=== PATIENT | female | born 1990 | race Caucasian/White ===

== ENCOUNTER 2022-12-30 09:12 | Outpatient (OUT) | payer OTHER, SELFPAY ==
[2022-12-30 10:03] LABS: Basophils Absolute Auto 0.1 10^3/uL (0.0-0.1); Basophils Percent Auto 0.9 % (0.2-2.0); Eosinophils Absolute Auto 0.5 10^3/uL (0.0-0.7); Hematocrit 44.7 % (36.0-48.0); Immature Granulocytes Abs Auto 0.02 10^3/uL (0.00-0.03); Immature Granulocytes Pct Auto 0.2 % (0.0-0.5); Lymphocytes Absolute Auto 2.6 10^3/uL (1.2-3.8); Lymphocytes Percent Auto 31.5 % (20.5-60.0); Mean Corpuscular HGB Conc 33.6 g/dL (29.9-35.2); Mean Corpuscular Hemoglobin 29.2 pg (26.7-34.0); Mean Platelet Volume 10.2 fL (9.5-13.5); Monocytes Absolute Auto 0.7 10^3/uL (0.3-0.8); Neutrophils Absolute Auto 4.4 10^3/uL (1.4-6.5); Neutrophils Percent Auto 53.4 % (43.0-75.0); Platelet Count 357 10^3/uL (150-450); Red Blood Count 5.14 10^6/uL (4.20-5.40); Red Cell Distribution Width 12.6 % (11.0-15.0); White Blood Count 8.2 10^3/uL (4.0-11.0)
[2022-12-30 10:08] LABS: Alanine Aminotransferase 85 U/L (14-59); Albumin Globulin Ratio 0.8; Albumin Level 3.8 g/dL (3.4-5.0); Alkaline Phosphatase 173 U/L (46-116); Anion Gap 12.8; Aspartate Amino Transferase 46 U/L (15-37); BUN Creatinine Ratio 19.7; Bilirubin Total 0.5 mg/dL (0.2-1.0); Chloride 103 mmol/L (98-107); Estimated GFR (African America >60 (>=60); Estimated GFR (Non-African Ame >60 (>=60); Globulin 4.5 g/dL; Glucose 98 mg/dL (74-106); Potassium 3.8 mmol/L (3.5-5.1); Sodium 139 mmol/L (136-145); Total Protein 8.3 g/dL (6.4-8.2)
[2022-12-31 15:09] LABS: Antinuclear Antibodies, IFA Negative (.)
== END 2022-12-30 09:13 ==
LOC: LAB 09:16
PROVIDERS: PCP Nurse Practitioner
DX: L23.9 Allergic contact dermatitis, unspecified cause (principal)
CPT/HCPCS: 36415; 80053; 85025; 86038

== ENCOUNTER 2023-12-28 21:50 | Outpatient (REF) | payer OTHER, SELFPAY ==
[2023-12-28 23:25] LABS: Bilirubin Urine NEGATIVE (NEGATIVE); Blood Urine TRACE-I (NEGATIVE); Clarity Urine CLEAR (CLEAR); Color Urine LT. YELLOW (YELLOW); Glucose Urine UA NEGATIVE (NEGATIVE); Ketones Urine NEGATIVE (NEGATIVE); Leukocyte Esterase Urine LARGE (NEGATIVE); Nitrite Urine NEGATIVE (NEGATIVE); Protein Urine NEGATIVE (NEG/TRACE); Specific Gravity Urine 1.025 (1.005-1.025); Urobilinogen Urine 0.2 EU/dL (0.2-1.0)
[2023-12-28 23:32] LABS: Bacteria Urine TRACE #/HPF (NONE SEEN); Crystals Seen? None Seen #/HPF (None Seen); Mucus Urine SMALL (NONE SEEN); RBC Urine NONE SEEN #/HPF (0-2); Squamous Epithelial Cell Urine MODERATE #/LPF (NONE/RARE); WBC Urine >100 #/HPF (NONE SEEN)
[2023-12-28 23:33] LABS: Amorphous Sediment Urine MANY; Cast Seen? NONE SEEN #/LPF (NONE SEEN); Urine Culture Indicated NO
== END 2023-12-28 21:51 | disposition home or self-care (01) ==
LOC: LAB 21:50
PROVIDERS: PCP Nurse Practitioner; Visit Provider Nurse Practitioner
DX: Z00.00 Encounter for general adult medical examination without abnormal findings (principal); R39.9 Unspecified symptoms and signs involving the genitourinary system
CPT/HCPCS: 81001; 87086; 87150; 87186

== ENCOUNTER 2023-12-31 08:30 | Outpatient (OUT) | payer OTHER, SELFPAY ==
--- OUTSIDE RECORDS SUMMARY | 2023-12-31 08:37 | XMS_ITS | CCD ---
Author Organization [facility] Inform ion Partnership [facility] Care Team Providers Care Table Lever Operator Name Role Phone Amira Sierra Unavailable AICHHOLZ, MIS DIRECTOR ALEXANDRA Primary Care Unavailable AICHHOLZ, MIS DIRECTOR ALEXANDRA Admitting Unavailable AICHHOLZ, MIS DIRECTOR ALEXANDRA Attending Unavailable AICHHOLZ, MIS DIRECTOR ALEXANDRA Consulting Unavailable AICHHOLZ, MIS DIRECTOR ALEXANDRA Primary Care Unavailable AICHHOLZ, MIS DIRECTOR ALEXANDRA Admitting Unavailable AICHHOLZ, MIS DIRECTOR ALEXANDRA Attending Unavailable AICHHOLZ, MIS DIRECTOR ALEXANDRA Consulting Unavailable AICHHOLZ, ALEXANDRA Attending Unavailable JOSIAH EPPERSON Attending Unavailable AICHHOLZ, ALEXANDRA Attending Unavailable Allergies Allergy Classification Reported Allergen(s) Allergy Type Date of Onset Reaction(s) Facility (1 source) Sulfamethoxazole / Trimethoprim Drug Allergy [facility] [employer] Other (1 source) diphenhydrAMINE Drug Allergy 6 [facility] (1 source) Nitrofurantoin Drug Allergy 4 [facility] (1 source) Sulfamethoxazole Drug Allergy 4 [facility] (1 source) Trimethoprim Drug Allergy 4 [facility] Medications Current Medications Medication Drug Class(es) Dates Sig (Normalized) Sig (Original) [id number] 200 actuat albuterol 0.09 mg/actuat metered dose inhaler (2 sources) beta2-Adrenergic Agonist Start: 04-29-2019 Albuterol Sulfate Active 90 MCG INHALATION As Directed April 29, 2019 12:00am take 2 puff(s) by in halation every four hours as needed Ventolin HFA 108 (90 Base) MCG/ACT 2 puffs as needed Inhalation every 4 hrs for 30 days prn Active ascorbic acid 100 mg oral tablet (1 source) Vitamin C Start: 09-26-2020 take 1 tablet by mouth once daily Ascorbic Acid (Vitamin C) (Vitamin C) 100 mg Tablet Active 100 MG PO Daily September 26, 2020 1:00am cetirizine hydrochloride 10 mg oral tablet (2 sources) Histamine-1 Receptor Antagonist Start: 04-29-2019 take 10 mg by mouth once daily Cetirizine Active 10 MG PO Daily April 29, 2019 12:00am cholecalciferol 0.025 mg oral tablet (1 source) Vitamin D Start: 09-26-2020 take 1 tablet by mouth once daily Cholecalciferol (Vitamin D3) (Vitamin D3) 25 mcg (1,000 unit) Tablet Active 2000 UNIT PO Daily September 26, 2020 1:00am fluticasone propionate 0.05 mg/actuat metered dose nasal spray (1 source) Corticosteroid take 1 spray(s) nasal route once daily as needed Flonase 50 MCG/DOSE 1 spray in each nostril Nasally Once a day for 30 day(s) prn Active folic acid 1 mg oral tablet (2 sources) Start: 04-29-2019 take 1 mg by mouth once daily Folic Acid Active 1 MG PO Daily April 29, 2019 12:00am take 1 capsule by mouth three ti mes daily Folic Acid 5 MG 1 capsule Orally Three times a day Active loratadine 10 mg oral tablet (1 source) Start: 04-29-2019 take 10 mg by mouth once daily Loratadine Active 10 MG PO Daily April 29, 2019 12:00am methylPREDNISolone 4 mg oral tablet (3 sources) Corticosteroid Start: 07-05-2022 Medrol 4 MG as directed Orally as directed for 6 days Jun, Active Start: 07-15-2018 Depo-Medrol 40 mg Jun, 40 mg Start: 06-24-2018 Depo-Medrol 40 mg May, 40 mg 1 ml omalizumab 150 mg/ml prefilled syringe (3 sources) Anti-IgE Start: 12-23-2023 Omalizumab (Xo lair) 150 mg/mL syringe Active 150 MG SUBCUT every 5 weeks December 23, 2023 1:47pm Start: 09-26-2020 End: 12-23-2023 inject 150 mg by subcutaneous injection every other week Omalizumab (Xolair) 150 mg/mL Syringe Discontinued 150 MG SUBCUT EVERY 2 WEEKS September 26, 2020 1:00am December 23, 2023 1:48pm Xolair Active vitamin a 2.4 mg oral capsule (1 source) Vitamin A Start: 09-26-2020 take 8000 [IU] by mouth once daily Vitamin A Active 8000 UNIT PO Daily September 26, 2020 1:00am Vitamin B Complex (1 source) Start: 09-26-2020 take 1 tablet by mouth once daily Vitamin B Complex Active 1 TAB PO Daily September 26, 2020 1:00am Completed/Discontinued Medications Medication Drug Class(es) Dates Sig (Normalized) Sig (Original) cephalexin 500 mg oral capsule (3 sources) Cephalosporin Antibacterial Start: 09-26-2020 End: 12-23-2023 take 500 mg by mouth every eight hours Cephalexin Discontinued 500 MG PO Q8H 13 02September 26, 2020 1:00am December 23, 2023 1:46pm Start: 05-03-2019 End: 09-26-2020 take 1 capsule by mouth three times daily Cephalexin (Keflex) 500 mg Capsule Discontinued 500 MG PO Three times daily May 03, 2019 12:00am September 26, 2020 11:17am Start: 04-29-2019 End: 05-03-2019 take 250 mg by mouth every eight hours Cephalexin Discontinued 250 MG PO Q8H 13 02April 29, 2019 12:00am May 03, 2019 5:23pm dapsone 25 mg oral tablet (1 source) Sulfone Start: 04-29-2019 End: 05-03-2019 take 25 mg by mouth once daily Dapsone Discontinued 25 MG PO Daily April 29, 2019 12:00am May 03, 2019 5:24pm fluconazole 150 mg oral tablet (1 source) Azole Antifungal Start: 04-29-2019 End: 09-26-2020 take 150 mg by mouth once Fluconazole Discontinued 150 MG PO Once 1 April 29, 2019 12:00am September 26, 2020 11:18am hydrOXYzine hydrochloride 50 mg oral tablet (1 source) Antihistamine Start: 04-29-2019 End: 09-26-2020 Hydroxyzine Hcl Discontinued 50 MCI PO Daily April 29, 2019 12:00September 26, 2020 11:17am ibuprofen 800 mg oral tablet (1 source) Nonsteroidal Anti-inflammatory Drug Start: 04-29-2019 End: 09-26-2020 Ibuprofen Discontinued 800 MG PO every 6 to 8 hours April 29, 2019 12:00am September 26, 2020 11:19am montelukast 10 mg oral tablet (1 source) Leukotriene Receptor Antagonist Start: 04-29-2019 End: 12-23-2023 take 10 mg by mouth once daily Montelukast Discontinued 10 MG PO Daily April 29, 2019 12:00am December 23, 2023 1:47pm raNITIdine 150 mg oral tablet (1 source) Histamine-2 Receptor Antagonist Start: 04-29-2019 End: 09-26-2020 take 150 mg by mouth once daily Ranitidine Hcl Discontinued 150 MG PO Daily April 29, 2019 12:00am September 26, 2020 11:19am traMADol hydrochloride 50 mg oral tablet (3 sources) Opioid Agonist Start: 05-03-2019 End: 05-04-2019 take 1 tablet by mouth every four hours Tramadol (Ultram) 50 mg Tablet Discontinued 50 MG PO Q4H 10 May 03, 2019 12:00am May 04, 2019 12:02am Start: 04-29-2019 End: 12-23-2023 take 1 tablet by mouth every eight hours Tramadol (Ultram) 50 mg tablet Discontinued 50 MG PO Q8H 04 28September 26, 2020 1:00am December 23, 2023 1:47pm Triamcinolone (1 source) Corticosteroid Start: 03-11-2019 KENALOG - 10 m g Feb, 60 mg Problems Active Problems Problem Classification Problem Date Documented Da te Episodic/Chronic Acute and chronic tonsillitis (1 source) Amygdalolith; Translations: [Other chronic diseases of tonsils and adenoids] Chronic Asthma (2 sources) Mild intermittent asthma; Translations: [Mild intermittent asthma, uncomplicated] Onset: Chronic Cancer of cervix (1 source) Cervicovaginal cytology: Low grade squamous intraepithelial lesion; Translations: [Low grade squamous intraepithelial lesion on cytologic smear of cervix (LGSIL)] Episodic Fracture of lower limb (1 source) Closed fracture of fibula; Translations: [Unspecified fracture of shaft of unspecified fibula, initial encounter for closed fracture] 07-08-2023 Episodic Genitourinary symptoms and ill-defined conditions (4 sources) Unspecified symptoms and signs involving the genitourinary system; Translations: [UNS SYMPTOMS SIGNS INVLV SYSTEM] Onset: 3 Episodic Other gastrointestinal disorders (1 source) Diarrhea; Translations: [Diarrhea, unspecified] Episodic Other nutritional; endocrine; and metabolic disorders (1 source) Obese class II; Translations: [Body mass index (BMI) 35.0-35.9, adult] Chronic Other nutritional; endocrine; and metabolic disorders (1 source) Morbid obesity; Translations: [Morbid (severe) obesity due to excess calories] Chronic Other nutritional; endocrine; and metabolic disorders (1 source) Obese class I; Translations: [Obesity, unspecified] Chronic Other nutritional; endocrine; and metabolic disorders (4 sources) Obesity, unspecified; Translations: [OBESITY UNSPECIFIED] Onset: 2 Chronic Other skin disorders (1 source) Hirsutism; Translations: [Hirsutism] Episodic Other upper respiratory infections (2 sources) Sore throat symptom; Translations: [Acute pharyngitis, unspecified] Episodic Sexually transmitted infections (not HIV or hepatitis) (1 source) Human papillomavirus deoxyribonucleic acid test positive, high risk on cervical specimen; Translations: [Cervical high risk human papillomavirus (HPV) DNA test positive] Episodic Superficial injury; contusion (1 source) Abrasion, knee; Translations: [Abrasion, unspecified knee, initial encounter] 07-08-2023 Episodic Viral infection (1 source) Human papilloma virus infection; Translations: [Papillomavirus as the cause of diseases classified elsewhere] 07-08-2023 Episodic Past or Other Problems Problem Classification Problem Date Documented Da te Episodic/Chronic Other screening for suspected conditions (not mental disorders or infectious disease) (1 source) Encounter for screening for other disorder; Translations: [ENCOUNTER SCREEN FOR OTHER DISORDER] Onset: 04-15-2022 Episodic Residual codes; unclassified (1 source) Localized edema; Translations: [LOCALIZED EDEMA] Onset: 04-15-2022 Episodic Results Test Name Value Interpretation Reference Range Facility No Panel InformationOrdered By: Ralph Osorio on 12-23-2023 Quick Strep (POC) [facility] CULTURE URINEon 11-21-2022 CULTURE URINE Isolate 1 Enterococcus faecalis 40,000 cfu/mL of ORGANISM 1 Enterococcus faecalis ANTIBIOTIC M.I.C RX STATUS Beta-Lactamase Neg NEG F Benzylpenicillin 1 S F Ampicillin <=2 S F Gentamicin High Level (synergy) SYN-S S F Streptomycin High Level (synergy) SYN-S S F Ciprofloxacin <=0.5 S F Levofloxacin 0.5 S F Quinupristin/Dalfopris tin 4 R F Linezolid 2 S F Vancomycin 1 S F Tetracycline <=1 S F Nitrofurantoin <=16 S F Normal [facility] Comment on above: Performed By: #### U RCX #### [facility] [address] [place] [address] Dr. Idalia Wilson UA RANDOM W/MICROSCOPICon BACTERIA NONE SEEN Normal NONE SEEN [facility] Comment on above: Performed By: #### U AMIC #### [facility] [address] [place] [address] Dr. Idalia Wilson Bilirubin Ql (U) Negative Normal NEGATIVE [facility] Comment on above: Performed By: #### U AMIC #### [facility] [address] [place] [address] Dr. Idalia Wilson CAST NONE SEEN Normal NONE SEEN [facility] Comment on above: Performed By: #### U AMIC #### [facility] [address] [place] [address] Dr. Idalia Wilson Clarity (U) CLEAR Normal CLEAR [facility] Comment on above: Performed By: #### U AMIC #### [facility] [address] [place] [address] Dr. Idalia Wilson Color (U) LT. YELLOW Normal YELLOW [facility] Comment on above: Performed By: #### U AMIC #### [facility] [address] [place] [address] Dr. Idalia Wilson Crystals LM Nom (Urine sed) NONE SEEN Normal NONE SEEN [facility] Comment on above: Performed By: #### U AMIC #### [facility] [address] [place] [address] Dr. Idalia Wilson Epithelial cells LM Ql (Urine sed) FEW Abnormal NONE SEEN /RARE [facility] Comment on above: Performed By: #### U AMIC #### [facility] [address] [address] [address] Idalia Wilson Glucose Ql (U) Negative Normal NEGATIVE [facility] Comment on above: Performed By: #### U AMIC #### [facility] [address] [address] [address] Idalia Wilson Hemoglobin Ql (U) Negative Normal NEGATIVE [facility] Comment on above: Performed By: #### U AMIC #### [facility] [address] [address] [address] Idalia Wilson Ketones Ql (U) Negative Normal NEGATIVE [facility] Comment on above: Performed By: #### U AMIC #### [facility] [address] [address] [address] Idalia Wilson LEUKOCYTES Negative Normal NEGATIVE [facility] Comment on above: Performed By: #### U AMIC #### [facility] [address] [address] [address] Idalia Wilson MUCOUS SMALL Abnormal NONE SEEN [facility] Comment on above: Performed By: #### U AMIC #### [facility] [address] [address] [address] Idalia Wilson Nitrite Ql (U) Negative Normal NEGATIVE [facility] Comment on above: Performed By: #### U AMIC #### [facility] [address] [place] [address] Dr. Idalia Wilson pH (U) 6.5 [pH] Normal 5-9 [facility] Comment on above: Performed By: #### U AMIC #### [facility] [address] [address] [address] Idalia Wilson RBC NONE SEEN Abnormal 0-2 [facility] Comment on above: Performed By: #### U AMIC #### [facility] [address] [place] [address] Dr. Idalia Wilson SPEC GRAVITY 1.025 Normal 1.005-<=1.02 5 [facility] Comment on above: Performed By: #### U AMIC #### [facility] [address] [address] [address] Idalia Wilson UA PROTEIN Negative Normal NEGATIVE/ TRACE [facility] Comment on above: Performed By: #### U AMIC #### [facility] [address] [address] [address] Idalia Wilson Urobilinogen Qn (U) 0.2 {Mounika'U}/dL Normal 0.2 - 1. 0 [facility] Comment on above: Performed By: #### U AMIC #### [facility] [address] [address] [address] Idalia Wilson WBC NONE SEEN Normal NONE SEEN [facility] Comment on above: Performed By: #### U AMIC #### [facility] [address] [place] [address] Dr. Idalia Wilson Quick Strepon 07-05-2022 S. pyogenes Org specific cx Ql (Throat) Negative [employer]) [facility] [employer] Other Quick Strep [employer] ([employer]) [facility] [employer] Other HEPATITIS B SURFACE ANTIBODY , QUANTon 04-12-2022 Hepatitis B Surf AB Quant <3.1 Critically low Immunity>9.9 [facility] Comment on above: Result Comment: Stat us of Immunity Anti-HBs Level Inconsistent with Immunity 0.0 - 9.9 Consistent with Immunity >9.9 Performed By: #### H EPBSRF #### [facility] [address] [place] [address] Dr. Idalia Wilson MMR IMMUNITYon 04-12-2022 Mumps Abs, IgG <9.0 Critically low Immune >10.9 [facility] Comment on above: Result Comment: Nega tive <9.0 Equivocal 9.0 - 10.9 Positive >10.9 A positive result generally indicates past exposure to Mumps virus or previous vaccination. Performed By: #### M MRIMMU #### [facility] [address] [place] [address] Dr. Idalia Wilson Rubella Antibodies, IgG 1.57 index Normal Immune >0.99 [facility] Comment on above: Result Comment: Non- immune <0.90 Equivocal 0.90 - 0.99 Immune >0.99 Performed By: #### M MRIMMU #### [facility] [address] [place] [address] Dr. Idalia Wilson Rubeola Ab, IgG >300.0 Normal Immune >16.4 [facility] Comment on above: Result Comment: Nega tive <13.5 Equivocal 13.5 - 16.4 Positive >16.4 Presence of antibodies to Rubeola is presumptive evidence of immunity except when acute infection is suspected. Performed By: #### M MRIMMU #### [facility] [address] [place] [address] Dr. Idalia Wilson VARICELLA IGG ABon 2 Varicella Zoster IgG 736 index Normal Immune >165 [facility] Comment on above: Result Comment: Nega tive <135 Equivocal 135 - 165 Positive >165 A positive result generally indicates exposure to the pathogen or administration of specific immunoglobulins, but it is not indication of active infection or stage of disease. Performed By: #### V ARCEL #### [facility] [address] [place] [address] Dr. Idalia Wilson CBC AUTO DIFFon 04-11-2022 BASO # 0.1 103/ul Normal 0.0-0.1 [facility] Comment on above: Performed By: #### H EPBSRF #### [facility] [address] [place] [address] Dr. Idalia Wilson Basophils/100 WBC (Bld) 0.8 % Normal 0.2-2.0 [facility] Comment on above: Performed By: #### H EPBSRF #### [facility] [address] [place] [address] Dr. Idalia Wilson EO # 0.4 103/ul Normal 0.0-0.7 [facility] Comment on above: Performed By: #### H EPBSRF #### [facility] [address] [place] [address] Dr. Idalia Wilson Eosinophils/100 WBC (Bld) 4.1 % Normal 0.9-7.0 [facility] Comment on above: Performed By: #### H EPBSRF #### [facility] [address] [place] [address] Dr. Idalia Wilson Erythrocyte distribution width (RBC) [Ratio] 12.4 % Normal 11.0-15.0 [facility] Comment on above: Performed By: #### H EPBSRF #### [facility] [address] [place] [address] Dr. Idalia Wilson Hematocrit (Bld) [Volume fraction] 44.7 % Normal 36.0-48.0 [facility] Comment on above: Performed By: #### H EPBSRF #### [facility] [address] [place] [address] Dr. Idalia Wilson Hemoglobin (Bld) [Mass/Vol] 14.7 g/dL Normal 12.0-16.0 [facility] Comment on above: Performed By: #### H EPBSRF #### [facility] [address] [place] [address] Dr. Idalia Wilson IG # 0.03 10e3/ul Normal 0.00-0.03 [facility] Comment on above: Performed By: #### H EPBSRF #### [facility] [address] [place] [address] Dr. Idalia Wilson IG % 0.3 % Normal 0.0-0.5 [facility] Comment on above: Performed By: #### H EPBSRF #### [facility] [address] [place] [address] Dr. Idalia Wilson LYMPH # 2.5 103/ul Normal 1.2-3.8 [facility] Comment on above: Performed By: #### H EPBSRF #### [facility] [address] [place] [address] Dr. Idalia Wilson Lymphocytes/100 WBC (Bld) 26.6 % Normal 20.5-60.0 [facility] Comment on above: Performed By: #### H EPBSRF #### [facility] [address] [place] [address] Dr. Idalia Wilson MANUAL DIFF REQ NO Normal [facility] Comment on above: Performed By: #### H EPBSRF #### [facility] [address] [address] [address] Idalia Wilson MCH (RBC) [Entitic mass] 29.1 pg Normal 26.7-34.0 [facility] Comment on above: Performed By: #### H EPBSRF #### [facility] [address] [place] [address] Dr. Idalia Wilson MCHC (RBC) [Mass/Vol] 32.9 g/dL Normal 29.9-35.2 [facility] Comment on above: Performed By: #### H EPBSRF #### [facility] [address] [place] [address] Dr. Idalia Wilson MCV (RBC) [Entitic vol] 88.5 fL Normal 81.0-99.0 [facility] Comment on above: Performed By: #### H EPBSRF #### [facility] [address] [place] [address] Dr. Idalia Wilson MONO # 0.7 103/ul Normal 0.3-0.8 [facility] Comment on above: Performed By: #### H EPBSRF #### [facility] [address] [place] [address] Dr. Idalia Wilson Monocytes/100 WBC (Bld) 7.2 % Normal 1.7-12.0 [facility] Comment on above: Performed By: #### H EPBSRF #### [facility] [address] [place] [address] Dr. Idalia Wilson NEUT # 5.8 103/ul Normal 1.4-6.5 [facility] Comment on above: Performed By: #### H EPBSRF #### [facility] [address] [place] [address] Dr. Idalia Wilson Neutrophils/100 WBC (Bld) 61.0 % Normal 43.0-75.0 [facility] Comment on above: Performed By: #### H EPBSRF #### [facility] [address] [place] [address] Dr. Idalia Wilson Platelet mean volume (Bld) [Entitic vol] 10.2 fL Normal 9.5-13.5 [facility] Comment on above: Performed By: #### H EPBSRF #### [facility] [address] [place] [address] Dr. Idalia Wilson PLT 327 103/ul Normal 150-450 [facility] Comment on above: Performed By: #### H EPBSRF #### [facility] [address] [place] [address] Dr. Idalia Wilson RBC 5.05 106/ul Normal 4.20-5.40 [facility] Comment on above: Performed By: #### H EPBSRF #### [facility] [address] [place] [address] Dr. Idalia Wilson WBC 9.5 103/ul Normal 4.0-11.0 [facility] Comment on above: Performed By: #### H EPBSRF #### [facility] [address] [place] [address] Dr. Idalia Wilson FREE T4on 04-11-2022 Free T4 [Mass/Vol] 0.94 ng/dL Normal 0.76-1.46 [facility] Comment on above: Performed By: #### F T4 #### [facility] [address] [place] [address] Dr. Idalia Wilson GLYCOHEMOGLOBIN A1Con 2021 ADA RECOMMENDATION SEE BELOW Normal [facility] Comment on above: Result Comment: ADA RECOMMENDED LIMIT 4.0 - 6.0 ADA THERAPEUTIC TARGET < 7.0 ACTION SUGGESTED > 7.0 Performed By: #### A 1C #### [facility] [address] [place] [address] Dr. Idalia Wilson Glucose [Mass/Vol] 108 mg/dL Normal [facility] Comment on above: Performed By: #### A 1C #### [facility] [address] [place] [address] Dr. Idalia Wilson HbA1c (Bld) [Mass fraction] 5.4 % Normal 4.5-6.2 [facility] Comment on above: Performed By: #### A 1C #### [facility] [address] [address] [address] Idalia Wilson LIPID PROFILEon 04-11-2022 CHOL-HDL RATIO NORM SEE BELOW Normal [facility] Comment on above: Result Comment: 3.3 - 4.4 LOW RISK 4.4 - 7.1 AVERAGE RISK 7.1 - 11.0 MODERATE RISK >11.0 HIGH RISK Performed By: #### H EPBSRF #### [facility] [address] [address] [address] Idalia Wilson Cholesterol [Mass/Vol] 202 mg/dL Critically high <=200 [facility] Comment on above: Performed By: #### H EPBSRF #### [facility] [address] [address] [address] Idalia Wilson Cholesterol in HDL [Mass/Vol] 37 mg/dL Critically low 40-60 [facility] Comment on above: Performed By: #### H EPBSRF #### [facility] [address] [address] [address] Idalia Wilson Cholesterol in LDL [Mass/Vol] 120.2 mg/dL Normal [facility] Comment on above: Performed By: #### H EPBSRF #### [facility] [address] [address] [address] Idalia Wilson Cholesterol.total/Cho lesterol in HDL [Mass ratio] 5.5 {ratio} Normal [facility] Comment on above: Performed By: #### H EPBSRF #### [facility] [address] [address] [address] Idalia Wilson HDL NORMAL > or = 60 mg/dl - LO W CARDIOVASCULAR RISK <40 mg/dl - HIGH CARDIOVASCULAR RISK Normal [facility] Comment on above: Performed By: #### H EPBSRF #### [facility] [address] [id number] Idalia Wilson LDL CALC NORMAL SEE BELOW Normal [facility] Comment on above: Result Comment: <100 mg/dl OPTIMAL 100 - 129 mg/dl NEAR OR ABOVE OPTIMAL 130 - 159 mg/dl BORDERLINE HIGH 160 - 189 mg/dl HIGH >190 mg/dl VERY HIGH Performed By: #### H EPBSRF #### [facility] [address] [address] [address] Idalia Wilson Triglyceride [Mass/Vol] 224 mg/dL Critically high <=150 [facility] Comment on above: Performed By: #### H EPBSRF #### [facility] [address] [address] [address] Idalia Wilson VLDL CALC 44.8 mg/dL Normal [facility] Comment on above: Performed By: #### H EPBSRF #### [facility] [address] [address] [address] Idalia Wilson LIVER PROFILEon 04-11-2022 Albumin [Mass/Vol] 3.9 g/dL Normal 3.4-5.[address] [facility] Comment on above: Performed By: #### H EPBSRF #### [facility] [address] [address] [address] Idalia Wilson Albumin/Globulin [Mass ratio] 0.9 {ratio} Normal [facility] Comment on above: Performed By: #### H EPBSRF #### [facility] [address] [address] [address] Idalia Wilson ALP [Catalytic activity/Vol] 152 U/L Critically high 46-116 [facility] Comment on above: Performed By: #### H EPBSRF #### [facility] [address] [address] [address] Idalia Wilson ALT [Catalytic activity/Vol] 49 U/L Normal 14-59 [facility] Comment on above: Performed By: #### H EPBSRF #### [facility] [address] [address] [address] Idalia Wilson AST [Catalytic activity/Vol] 22 U/L Normal 15-37 [facility] Comment on above: Performed By: #### H EPBSRF #### [facility] [address] [address] [address] Idalia Wilson BILI, CONJUGATED 0.1 mg/dL Normal 0.0-0.2 [facility] Comment on above: Performed By: #### H EPBSRF #### [facility] [address] [place] [address] Dr. Idalia Wilson Bilirubin [Mass/Vol] 0.5 mg/dL Normal 0.2-1.0 [facility] Comment on above: Performed By: #### H EPBSRF #### [facility] [address] [address] [address] Idalia Wilson Globulin (S) [Mass/Vol] 4.3 g/dL Normal [facility] Comment on above: Performed By: #### H EPBSRF #### [facility] [address] [place] [address] Dr. Idalia Wilson Protein [Mass/Vol] 8.2 g/dL Normal 6.4-8.[address] [facility] Comment on above: Performed By: #### H EPBSRF #### [facility] [address] [place] [address] Dr. Idalia Wilson PROF CHEM 8 (BAS METB)on Anion gap [Moles/Vol] 11.6 mmol/L Normal [facility] Comment on above: Performed By: #### L IPID, TSH, LIVER, BMP #### [facility] [address] [address] [address] Idalia Wilson Calcium [Mass/Vol] 9.5 mg/dL Normal 8.5-10.[address] [facility] Comment on above: Performed By: #### L IPID, TSH, LIVER, BMP #### [facility] [address] [place] [address] Dr. Idalia Wilson Chloride [Moles/Vol] 102 mmol/L Normal 98-107 [facility] Comment on above: Performed By: #### L IPID, TSH, LIVER, BMP #### [facility] [address] [address] [address] Idalia Wilson CO2 [Moles/Vol] 26.3 mmol/L Normal 21.0-32.0 [facility] Comment on above: Performed By: #### L IPID, TSH, LIVER, BMP #### [facility] [address] [address] [address] Idalia Wilson Creatinine [Mass/Vol] 0.60 mg/dL Normal 0.55-1.02 [facility] Comment on above: Performed By: #### L IPID, TSH, LIVER, BMP #### [facility] [address] [address] [address] Idalia Wilson EGFR-AF BULGARIAN >60 Normal >=60 [facility] Comment on above: Performed By: #### L IPID, TSH, LIVER, BMP #### [facility] [address] [address] [address] Idalia Wilson EGFR-NON AF BULGARIAN >60 Normal >=60 [facility] Comment on above: Performed By: #### L IPID, TSH, LIVER, BMP #### [facility] [address] [place] [address] Dr. Idalia Wilson Glucose [Mass/Vol] 98 mg/dL Normal 74-[address] [facility] Comment on above: Performed By: #### L IPID, TSH, LIVER, BMP #### [facility] [address] [address] [address] Idalia Wilson Potassium [Moles/Vol] 3.9 mmol/L Normal 3.5-5.1 [facility] Comment on above: Performed By: #### L IPID, TSH, LIVER, BMP #### [facility] [address] [place] [address] Dr. Idalia Wilson Sodium [Moles/Vol] 136 mmol/L Normal 136-145 [facility] Comment on above: Performed By: #### L IPID, TSH, LIVER, BMP #### [facility] [address] [place] [address] Dr. Idalia Wilson Urea nitrogen [Mass/Vol] 12.0 mg/dL Normal 7.0-18.0 [facility] Comment on above: Performed By: #### L IPID, TSH, LIVER, BMP #### [facility] [address] [place] [address] Dr. Idalia Wilson Urea nitrogen/Creatinine [Mass ratio] 20.0 mg/mg Normal [facility] Comment on above: Performed By: #### L IPID, TSH, LIVER, BMP #### [facility] [address] [address] [address] Idalia Wilson TSHon 04-11-2022 TSH 1.128 uIU/mL Normal 0.358-3.740 [facility] Comment on above: Performed By: #### H EPBSRF #### [facility] [address] [address] [address] Idalia Wilson UA (CLEAN/CATCH) SUPERVISOR HYDROCHLORIC AREA/MICRO I F IND.on 04-11-2022 Bilirubin Ql (U) Negative Normal NEGATIVE [facility] Comment on above: Performed By: #### U ACSIND, UMICRO #### [facility] [address] [address] [address] Idalia Wilson Clarity (U) CLEAR Normal CLEAR [facility] Comment on above: Performed By: #### U ACSIND, UMICRO #### [facility] [address] [place] [address] Dr. Idalia Wilson Color (U) LT. YELLOW Normal YELLOW [facility] Comment on above: Performed By: #### U ACSIND, UMICRO #### [facility] [address] [address] [address] Idalia Wilson Glucose Ql (U) Negative Normal NEGATIVE [facility] Comment on above: Performed By: #### U ACSIND, UMICRO #### [facility] [address] [place] [address] Dr. Idalia Wilson Hemoglobin Ql (U) Negative Normal NEGATIVE [facility] Comment on above: Performed By: #### U ACSIND, UMICRO #### [facility] [address] [address] [address] Idalia Wilson Ketones Ql (U) Negative Normal NEGATIVE [facility] Comment on above: Performed By: #### U ACSIND, UMICRO #### [facility] [address] [place] [address] Dr. Idalia Wilson LEUKOCYTES Negative Normal NEGATIVE [facility] Comment on above: Performed By: #### U ACSIND, UMICRO #### [facility] [address] [address] [address] Idalia Wilson Nitrite Ql (U) Negative Normal NEGATIVE [facility] Comment on above: Performed By: #### U ACSALPHONSO UMICRO #### [facility] [address] [place] [address] Dr. Idalia Wilson pH (U) 6.5 [pH] Normal 5-9 [facility] Comment on above: Performed By: #### U ACSALPHONSO UMICRO #### [facility] [address] [place] [address] Dr. Idalia Wilson SPEC GRAVITY 1.015 Normal 1.005-<=1.02 5 [facility] Comment on above: Performed By: #### U ACSALPHONSO UMICRO #### [facility] [address] [place] [address] Dr. Idalia Wilson UA PROTEIN Negative Normal NEGATIVE/ TRACE [facility] Comment on above: Performed By: #### U ACSALPHONSO UMICRO #### [facility] [address] [place] [address] Dr. Idalia Wilson UR MICRO IND NOT INDICATED Normal [facility] Comment on above: Performed By: #### U ACSALPHONSO UMICRO #### [facility] [address] [place] [address] Dr. Idalia Wilson Urobilinogen Qn (U) 0.2 {Mounika'U}/dL Normal 0.2 - 1. 0 [facility] Comment on above: Performed By: #### U ACSALPHONSO UMICRO #### [facility] [address] [place] [address] Dr. Idalia Wilson URINE MICROSCOPIC ONLYon BACTERIA NONE SEEN Normal NONE SEEN [facility] Comment on above: Performed By: #### U ACSALPHONSO UMICRO #### [facility] [address] [place] [address] Dr. Idalia Wilson Bacteria identified Cx Nom (U) NOT INDICATED Normal [facility] Comment on above: Performed By: #### U ACSIND, UMICRO #### [facility] [address] [place] [address] Dr. Idalia Wilson CAST NONE SEEN Normal NONE SEEN [facility] Comment on above: Performed By: #### U ACSIND, UMICRO #### [facility] [address] [address] [address] Idalia iWlson Crystals LM Nom (Urine sed) NONE SEEN Normal NONE SEEN [facility] Comment on above: Performed By: #### U ACSIND, UMICRO #### [facility] [address] [address] [address] Idalia Wilson Epithelial cells LM Ql (Urine sed) MODERATE Abnormal NONE SEEN /RARE [facility] Comment on above: Performed By: #### U ACSIND, UMICRO #### [facility] [address] [address] [address] Idalia Wilson MUCOUS TRACE Abnormal NONE SEEN [facility] Comment on above: Performed By: #### U ACSIND, UMICRO #### [facility] [address] [address] [address] Idalia Wilson RBC NONE SEEN Abnormal 0-2 [facility] Comment on above: Performed By: #### U ACSIND, UMICRO #### [facility] [address] [address] [address] Idalia Wilson WBC NONE SEEN Normal NONE SEEN [facility] Comment on above: Performed By: #### U ACSIND, UMICRO #### [facility] [address] [address] [address] Idalia EARLYPon 01-10-2021 [facility] Visit (SP) Office (POP) CARINA SCHULTZ ([id number]) 1990 F [place] Date Time Provider Department 01/10/21 1:20 PM MILEY RAMIREZ During your visit today, we recorded the following information about you: Temperature Pulse Blood pressure Weight 97.8 degrees 107/minute 148/94 116.1 kg Miley Ramirez MD 01/11/2021 5:21 AM Signed Gynecologic Oncology [facility] Follow-up visit Re: Carina Schultz [facility] [id number] Date of service: 01/10/2021 Haley Young MD ([facility]) [address] [address] Dear Haley Young: Carina presents for follow up. Briefly, she is a 30 year old female has a past medical history of Anal intraepithelial neoplasia III (AIN III), Asthma, BLAINE I (cervical intraepithelial neoplasia I) (02/2019), HPV in female, ALLY III (vulvar intraepithelial neoplasia III), and Vulvar lesion.. She presents today for evaluation and management of BLAINE III/ALLY III. She was seen 06/2020 and her pap returned as LSIL. She underwent colposcopic evaluation which returned as BLAINE II. At that same time as the colpo she underwent biopsy of her vulva for vulvar lesions. Vulva biospies revealed ALLY 2/3 and she was started on Aldara around 08/21/2020. 09/26/2020 she underwent a LEEP procedure and bilteral vulva excisional biopsy. Pathology returned as BLAINE 3 and ALLY 3 bilaterally with all three involving the margins. HPI Patient presents for Follow-up. Patient reports she has decreased her smoking. Otherwise, she is doing well and has no other complaints at this time. PATHOLOGY: 09/26/2020 Pathological Diagnosis A. Cervix, LEEP, excision: - High grade squamous intraepithelial lesion (severe dysplasia, BLAINE 3), focal involving the 12-3-6 o'clock margin, see NOTE. B. Left vulva, excisional biopsy: - High grade squamous intraepithelial lesion (severe dysplasia, ALLY 3), involving the 7-1 o'clock and 4-5 o'clock peripheral margin, and close to the 2-3 o'clock margin (0.5-1 mm). C. Right vulva, excisional biopsy: - High grade squamous intraepithelial lesion (severe dysplasia, ALLY 3), involving the 12-4 o'clock and 6-6:30 o'clock peripheral margins. 10/11/2020 Last Visit: Patient presents for a consultation visit via Dr. Young for an opinion regarding ALLY 3/BLAINE 3. She has a PMHx of Anal intraepithelial neoplasia III (AIN III), Asthma, BLAINE I (cervical intraepithelial neoplasia I) (02/2019), HPV in female, ALLY III (vulvar intraepithelial neoplasia III), and Vulvar lesion. She was seen 06/2020 and her pap returned as LSIL. She underwent colposcopic evaluation which returned as BLAINE II. At that same time as the colpo she underwent biopsy of her vulva for vulvar lesions. Vulva biospies revealed ALLY 2/3 and she was started on Aldara around 08/21/2020. 09/26/2020 she underwent a LEEP procedure and bilteral vulva excisional biopsy. Pathology returned as BLAINE 3 and ALLY 3 bilaterally with all three involving the margins. Patient reports that she is a smoker but is trying to quit. I explained that this prevents her body from being able to fight off the HPV infection. I explained that her vulvar lesions can be treated with Aldara cream. For her BLAINE III I recommend a repeat colposcopy in 3 months as patient is interested in having more children. 12/20/2020 Colposcopy 12/20/2020 Final Diagnosis: Benign Squamous mucous REVIEW OF SYSTEMS: Carina Schultz reports that she feels well. She reports having some abdominal cramping. No vulvar bumps, lesions, pruritis, or pain. No vaginal bleeding or discharge. Her ECOG performance status is zero (fully active, able to carry on all pre-disease performance without restriction). PHYSICAL EXAMINATION: BP 148/94 Pulse 107 Temp 36.6 ?C (97.8 ?F) (Temporal) Wt 116.1 kg (256 lb) LMP 09/20/2020 SpO2 96% BMI 40.10 kg/m? Female in no acute distress. Abdominal - There is no inguinal adenopathy. Pelvic - White vulvar lesions present on labia bilaterally Rt> Lt. Envelope Sealing Machine Operator: Carolyn Hancock NP IMPRESSION/PLAN: Patient presents today for follow up. Patient has decreased her smoking. Pt had stopped her Aldara cream since her counter former wanted to repeat biopsy. I recommend patient restart Aldara cream since vulvar lesions are still present. Encouraged smoking cessation. RTC 3 months Thank you for referring her for gynecologic oncology consultation. I will be in touch with you regarding her findings. CC: Haley Young MD ([facility]) [address] [place] [id number] No primary care provider on file. (PCP) The previous note from Dr. Ramirez dated 10/11/2020 was copied forward and the necessary changes were made above. ATTESTATION: By signing my name below, I, Yanni Adelaide, attest that this documentation has been prepared under the direction and in the presence of Miley Ramirez MD. Electronically signed:Yanni Bryson (more content not included)... Normal [facility] CNOVSPon 10-11-2020 [facility] Visit (SP) Office (GYONCA) CARINA SCHULTZ ([id number]) 1990 F [place] Date Time Provider Department 10/11/20 1:20 PM MILEY RAMIREZ During your visit today, we recorded the following information about you: Temperature Pulse Blood pressure Weight 98.7 degrees 93/minute 140/89 116.1 kg Last Period 09/20/20 Miley Ramirez MD 10/12/2020 10:46 AM Signed Gynecologic Oncology [facility] Consultation Re: Carina Schultz [facility]#: [id number] Date of service: 10/11/2020 Haley Young MD ([facility]) [address] [place] [id number] [address] Young for an opinion regarding ALLY 3/BLAINE 3. My final recommendations will be communicated back to the requesting physician by way of shared medical record or letter to requesting physician via [place] mail. Dear Haley Young: Thank you for referring Carina for consultation. Briefly, she is a 30 year old female has a past medical history of Anal intraepithelial neoplasia III (AIN III), Asthma, BLAINE I (cervical intraepithelial neoplasia I) (02/2019), HPV in female, ALLY III (vulvar intraepithelial neoplasia III), and Vulvar lesion.. She presents today for evaluation and management of BLAINE III/ALLY III. She was seen 06/2020 and her pap returned as LSIL. She underwent colposcopic evaluation which returned as BLAINE II. At that same time as the colpo she underwent biopsy of her vulva for vulvar lesions. Vulva biospies revealed ALLY 2/3 and she was started on Aldara around 08/21/2020. 09/26/2020 she underwent a LEEP procedure and bilteral vulva excisional biopsy. Pathology returned as BLAINE 3 and ALLY 3 bilaterally with all three involving the margins. PATHOLOGY: 09/26/2020 Pathological Diagnosis A. Cervix, LEEP, excision: - High grade squamous intraepithelial lesion (severe dysplasia, BLAINE 3), focal involving the 12-3-6 o'clock margin, see NOTE. B. Left vulva, excisional biopsy: - High grade squamous intraepithelial lesion (severe dysplasia, ALLY 3), involving the 7-1 o'clock and 4-5 o'clock peripheral margin, and close to the 2-3 o'clock margin (0.5-1 mm). C. Right vulva, excisional biopsy: - High grade squamous intraepithelial lesion (severe dysplasia, ALLY 3), involving the 12-4 o'clock and 6-6:30 o'clock peripheral margins. ALLERGIES/MEDICATIONS: ALLERGIES No Known Allergies Current Outpatient Medications Medication Sig Dispense Refill - cetirizine (ZYRTEC) 10 mg tablet Take 10 mg by mouth once daily. 2 - folic acid 1 mg tablet Take 1 mg by mouth three times daily. 11 - Ranitidine HCl 150 mg capsule Take 150 mg by mouth twice daily. - albuterol HFA (VENTOLIN HFA) 90 mcg/actuation inhaler Inhale 2 Puffs as instructed. - omalizumab (XOLAIR) 150 mg injection Inject 150 mg subcutaneously once every month. - hydrOXYzine HCl (ATARAX) 50 mg tablet Take 50-100 mg by mouth as needed. 11 - HYDROcodone-acetaminop hen (NORCO) 5-325 mg per tablet Take 1 tablet by mouth every 8 hours as needed. No current facility-administered medications for this visit. PAST MEDICAL HISTORY Diagnosis Date - Anal intraepithelial neoplasia III (AIN III) - Asthma - BLAINE I (cervical intraepithelial neoplasia I) 02/2019 - HPV in female - ALLY III (vulvar intraepithelial neoplasia III) - Vulvar lesion PAST SURGICAL HISTORY Procedure Laterality Date - BIOPSY OF VULVA - URETHRAL DILATION (FEMALE) - VAGINOSCOPY 02/2019 BLAINE 1 FAMILY HISTORY Problem Relation Age of Onset - Breast Cancer Paternal Grandmother Family history of breast, ovarian, uterine or colon cancer: Yes, see sylvia sinha Family history of VTE: Yes, paternal aunt DVT OBSTETRICAL/GYNECOLOGI C HISTORY: OB History T0 L1 SAB0 TAB0 Ectopic0 Multiple0 Live Births0 LMP: Patient's last menstrual period was 09/20/2020. 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 She resides in [place], [place]. REVIEW OF SYSTEMS: Constitutional: No recent fever, chills, unexplained weight loss or fatigue. HEENT: No vision changes, headache, hearing changes or nasal drainage. Cardiovascular: No chest pain, SOB, dyspnea on exertion, palpitations or peripheral edema. Respiratory: No cough, wheezing, or shortness of breath. Gastrointestinal: No abdominal pain, nausea, vomiting, diarrhea or constipation. Genitourinary: No dysuria, gross hematuria or urinary incontinence Musculoskeletal: No muscle weakness or joint pain. Neurologic: No syncope, seizures, numbness or dizziness. Psychiatric: No depression, anxiety, crying or history of psychiatric disorder. Endocrine: No diabetes, thyroid disease, hot flashes or night sweats. Hem (more content not included)... Normal [facility] HCG,Urineon 09-26-2020 Beta HCG ( test) Ql (U) Negative Normal [facility] [place] [facility] Comment on above: Result Comment: PERF ORMED BY: [place] [address] PATHOLOGIST DIRECTOR CLINICAL APPLICATIONS JEYSON KOHLER M.D. Performed By: #### U HCG #### [address] Larry 09-26-2020 L -- ---- Specimen: [id number] Received: 09/26/20 Status: DELMI [facility] Num: [id number] Spec Type: Surgical Subm Dr: IVETTE Henderson Tissues: A Cone/Leep (CERVIX) B VULVA - biopsy (LT VULVAR BX) C VULVA - biopsy (RT VULVAR BX) Procedures: HE Stain/34, Gross/Micro L5, Gross/Micro L4/2 ---- Patient Age/Sex Location Account Attending Physician ---- Carina Schultz 30/F [place] [id number] IVETTE Henderson ---- SPEC NUM: [id number] RECD: 09/26/20 STATUS: DELMI [facility] NUM: [id number] FAM: 09/26/20- SUBM DR: Haley Young MD-NOMS ENTERED: 09/26/20-13[address] [facility] DR: SPEC TYPE: Surgical DEPT: S ORDERED: HE Stain/34, Gross/Micro L5, Gross/Micro L4/2 ORDERED: HE Stain/34, Gross/Micro L5, Gross/Micro L4/2 Pathological Diagnosis A. Cervix, LEEP, excision: - High grade squamous intraepithelial lesion (severe dysplasia, BLAINE 3), focal involving the 12-3-6 o'clock margin, see NOTE. B. Left vulva, excisional biopsy: - High grade squamous intraepithelial lesion (severe dysplasia, ALLY 3), involving the 7-1 o'clock and 4-5 o'clock peripheral margin, and close to the 2-3 o'clock margin (0.5-1 mm). C. Right vulva, excisional biopsy: - High grade squamous intraepithelial lesion (severe dysplasia, ALLY 3), involving the 12-4 o'clock and 6-6:30 o'clock peripheral margins. NOTE: Immunohistochemical study of p16 has been performed on blocks A3, B3 and C3. The lesional cells are positive for p16. The histomorphology and immunoprofile support the above diagnosis. Clinical Information Cervical intraepithelial neoplasia, VIN2, VIN3 ---- Specimen: [id number] Received: 09/26/20183 Status: DELMI [facility] Num: [id number] Spec Type: Surgical Subm Dr: Haley Young MD-NOMS Tissues: A Cone/Leep (CERVIX) B VULVA - biopsy (LT VULVAR BX) C VULVA - biopsy (RT VULVAR BX) Procedures: HE Stain/34, Gross/Micro L5, Gross/Micro L4/2 ---- Patient: Carina Schultz [id number] (Continued) ---- Specimen: [id number] Received: 09/26/20 (Continued) Signed (signature on file) Karlie Cuello MD 10/01/201051 ---- Specimen: [id number] Received: 09/26/20 Status: DELMI [facility] Num: [id number] Spec Type: Surgical Subm Dr: Haley Young MD-NOMS Tissues: A Cone/Leep (CERVIX) B VULVA - biopsy (LT VULVAR BX) C VULVA - biopsy (RT VULVAR BX) Procedures: HE Stain/34, Gross/Micro L5, Gross/Micro L4/2 ---- Patient: Carina Schultz [id number] (Continued) ---- Specimen: [id number] Received: 09/26/20 (Continued) Gross Description A. Received in formalin labeled with the patient's name, number and cervix is a hammonds-pink, hyperemic and rubbery tissue fragment with an attached suture designating 12 o'clock. Using this designation, it measures 3.4 cm 3-- 9 o'clock by 2.3 cm 12 - 6 o'clock and it measures up to 0.7 cm in thickness. The tissue fragment is disrupted, due to this disruption, the tissue orientation is difficult to determine for certainty. The mucosal surface and the stroma surface is somehow difficult to differentiate. One side of the surface is relative smooth, hammonds-pink slightly granular and possibly the mucosal surface. The specimen is grossly reviewed with Dr. Cuello. The presumed endocervical margin is inked blue and the presumed stromal margin is inked black. There is a circular possible defect and the tissue surrounding that defect is inked orange. Entirely submitted in 5 cassettes as follows: A1 - 12 - 3 o'clock (see below correction) A2 - 3 - 6 o'clock (see below correction) A3 - 6 - 9 o'clock (see below correction) A4 - 9 - 12 o'clock (see below correction) A5 - Thin tissue within specimen container Correction: Upon microscopic examination, the black ink is on the mucosal surface, so the designation of the cassettes is corrected as follow: A1 - 9 - 12 o'clock A2 - 6 - 9 o'clock A3 - 3 - 6 o'clock A4 - 12 - 3 o'clock A5 - Thin tissue within specimen container (CHUCK/YJ) B. Received in formalin labeled with the patient's name, number and le (more content not included)... [facility] COVID-[facility] SARS-CoV-2 (COVID-19) RNA MALIK+probe Ql (Unsp spec) Negative Normal Negative [facility] Comment on above: Order Comment: Healt hcare Worker?: N Result Comment: Test ing for SARS-CoV-2 by RT-PCR This test was developed and its performance characteristics determined by [employer]) and validated at the [facility]. This test has not been FDA cleared or approved. This test has been authorized by FDA under an Emergency Use Authorization (EUA). This test has been validated in accordance with the FDA's Guidance Document (Policy for Diagnostics Testing in Laboratories Certified to Perform High Complexity Testing under CLIA prior to Emergency Use Authorization for Coronavirus Disease-2019 during the Public Health Emergency) issued on October 27, 2019. This test is only authorized for the duration of time the declaration that circumstances exist justifying the authorization of the emergency use of in vitro diagnostic tests for detection of SARS-CoV-2 virus and/or diagnosis of COVID-19 infection under section 564(b)(1) of the Act, 21 U.S.C. 360bbb-3(b)(1), unless the authorization is terminated or revoked sooner. PERFORMED BY: [place] [address] PATHOLOGIST DIRECTOR CLINICAL APPLICATIONS JEYSON KOLHER M.D. Performed By: #### C OVID-19 [facility] #### [address] COVID-19 [facility] 09-19-2020 SARS-CoV-2 (COVID-19) RNA MALIK+probe Ql (Unsp spec) Negative Normal Negative [facility] Comment on above: Order Comment: Comme nt pst Healthcare Worker?: N Result Comment: Test ing for SARS-CoV-2 by RT-PCR This test was developed and its performance characteristics determined by [employer]) and validated at the [facility]. This test has not been FDA cleared or approved. This test has been authorized by FDA under an Emergency Use Authorization (EUA). This test has been validated in accordance with the FDA's Guidance Document (Policy for Diagnostics Testing in Laboratories Certified to Perform High Complexity Testing under CLIA prior to Emergency Use Authorization for Coronavirus Disease-2019 during the Public Health Emergency) issued on October 27, 2019. This test is only authorized for the duration of time the declaration that circumstances exist justifying the authorization of the emergency use of in vitro diagnostic tests for detection of SARS-CoV-2 virus and/or diagnosis of COVID-19 infection under section 564(b)(1) of the Act, 21 U.S.C. 360bbb-3(b)(1), unless the authorization is terminated or revoked sooner. PERFORMED BY: [address] [place] [address] PATHOLOGIST DIRECTOR CLINICAL APPLICATIONS JEYSON KOHLER M.D. Performed By: #### C OVID-19 [facility] #### [address] Physician Referralon 021 Physician Referral [phone] [id number] [facility] Provider Letteron 07-25-2020 Provider Letter July 25, 2020 CARINA SCHULTZ [address] [place] [address] CARINA SCHULTZ 1990 Dear Carina , You missed your scheduled appointment on: 07/25/[address] Trevino and the purpose of this letter is to inform you of our *No Show Policy*. Our appointment slots fill rapidly and when we have a no show appointment that time is lost. We could have used that time slot to care for a patient who needed to see one of our providers. Therefore, we ask that you call 24 hours in advance to cancel your appointment. After your second no show within a twelve (12) month period, you will be assessed a $30 charge. This policy is in place so that we can meet the needs of all of our patients and we do appreciate your understanding. Sincerely, [facility] [address], [place] [address] [facility] Vital Signs Date Time Vital Sign Value Performing Clinician Facility 12-23-2023 13:45-0400 Body height 170.18 cm [facility] 12-23-2023 13:45-0400 Body mass index (BMI) [Ratio] 40.5 kg/m2 [facility] 12-23-2023 13:45-0400 Body temperature 98.2 [degF] [facility] 12-23-2023 13:45-0400 Body weight 117.48 kg [facility] 12-23-2023 13:45-0400 Heart rate 83 /min [facility] 12-23-2023 13:45-0400 Respiratory rate 18 /min [facility] 12-23-2023 13:45-0400 SaO2% (BldA) [Mass fraction] 99 % [facility] 07-05-2022 10:05-0500 Body height 170.18 cm Amira Morleymond Other [employer] [facility] [employer] Other 07-05-2022 10:05-0500 Body mass index (BMI) [Ratio] 37.59 kg/m2 Amira Morleymond Other [employer] Other 07-05-2022 10:05-0500 Body temperature 98.1 [degF] Amira Morleymond Other [employer] Other 07-05-2022 10:05-0500 Body weight 108.86 kg Amira Morleymond Other [employer] Other 07-05-2022 10:05-0500 Respiratory rate 18 /min Amira Sierra Other [employer] Other 07-05-2022 10:05-0500 SaO2% (BldA) [Mass fraction] 99 % Amira Morleymond Other [employer] Other Encounters Encounter Date Encounter Type Care Provider Facility Start: 12-28-2023 End: 12-28-2023 ambulatory ALEXANDRA AICHHOLZ Not Available Start: 12-23-2023 End: 12-23-[address] [facility] Work Phone: Start: 12-23-2023 End: 12-23-2023 Patient encounter procedure [facility] Work Phone: Start: 12-09-2023 End: 12-09-2023 ambulatory ALEXANDRA AICHHOLZ Not Available Start: 11-05-2023 End: 11-05-2023 ambulatory JOSIAH E RAMBASEK Not Available Start: 11-04-2023 End: 11-04-2023 ambulatory ALEXANDRA AICHHOLZ Not Available Start: 10-26-2023 End: 10-26-2023 ambulatory ALEXANDRA AICHHOLZ Not Available Start: 10-05-2023 End: 10-05-2023 ambulatory ALEXANDRA AICHHOLZ Not Available Start: 09-07-2023 End: 09-07-2023 ambulatory ALEXANDRA AICHHOLZ Not Available Start: 08-10-2023 End: 08-10-2023 ambulatory ALEXANDRA AICHHOLZ Not Available Start: 07-13-2023 End: 07-13-2023 ambulatory ALEXANDRA AICHHOLZ Not Available Start: 06-15-2023 End: 06-15-2023 ambulatory ALEXANDRA AICHHOLZ Not Available Start: 11-19-2022 End: 11-19-2022 ambulatory MIS DIRECTOR ALEXANDRA AICHHOLZ Facility:[facility] Start: 07-05-2022 End: 07-05-2022 ambulatory Amira Sierra Other [employer] Other Start: 07-05-2022 Office outpatient vi sit 15 minutes Amira Sierra [facility] Start: 04-11-2022 End: 04-12-2022 ambulatory MIS DIRECTOR ALEXANDRA AICHHOLZ Facility:[facility] Procedures Date Procedure Procedure Detail Performing Clinician Start: 12-23-2023 Quick Strep (POC) Payers Date Payer Category Payer Unknown [id number] 93 1990 Unknown [id number] 93 1990 Unknown [id number] 259 1992 Unknown [id number] 259 1992 Unknown [id number] 2.16.840.1.916576.3.579.2.1 259 1992 Unknown [id number] 2.16.840.1.558314.3.579.2.1 259 1992 Unknown [id number] 2.16.840.1.804250.3.579.2.1 259 1992 Unknown [id number] 2.16.840.1.551821.3.579.2.1 259 1992 Unknown [id number] 2.16.840.1.859133.3.579.2.1 259 1992 Unknown [id number] 2.16.840.1.892940.3.579.2.1 259 1992 Unknown [id number] 2.16.840.1.016516.3.579.2.1 259 1992 Unknown [id number] 2.16.840.1.211377.3.579.2.1 259 1959 Unknown [id number] [id number] 1959 Unknown [id number] Medicaid [employer] [id number] Self-pay Self Pay [id number] Unknown O [id number] Unknown [facility] Benefits E1 [id number] Worker's Compensation [id number] Social History Date Type Detail Facility Unknown if ever smoked [employer] Other Sex Assigned At Sex Assigned At Bir th [employer] Other Start: 09-26-2020 Tobacco smoking status NHIS Smoker (finding) [facility] Start: 1990 Sex Assigned At Female F [facility] Evaluation note 07-05-2022 Note Date & Type Note Facility 07-05-2022 Evaluation note Encounter Date Diagnosis Assessment Notes Jun, Sore throat (ICD-10 - J02.9) Pharyngitis/ton sillopharyngiti s: adult home care material was printed Drink plenty fluids, get plenty of rest. Take the Medrol Dosepak as prescribed until gone. Consider drinking warm tea with honey for comfort. Continue your home medications as prescribed including your Flonase inhaler. Follow-up with your family physician if no improvement in 2 to 3 days. [employer] Other Progress note 01-10-2021 Note Date & Type Note Facility 01-10-2021 Note HNO ID: [id number] Author: Miley Ramirez MD Service: ? Author Type: Physician Type: Progress Notes Filed: 01/11/2021 5:21 AM Note Text: Gynecologic Oncology [facility] Follow-up visit Re: Carina Schultz [facility]#: [id number] Date of service: 01/10/2021 Haley Young MD ([facility]) [address] [address] Dear Haley Young: Carina presents for follow up. Briefly, she is a 30 year old female has a past medical history of Anal intraepithelial neoplasia III (AIN III), Asthma, BLAINE I (cervical intraepithelial neoplasia I) (02/2019), HPV in female, ALLY III (vulvar intraepithelial neoplasia III), and Vulvar lesion.. She presents today for evaluation and management of BLAINE III/ALLY III. She was seen 06/2020 and her pap returned as LSIL. She underwent colposcopic evaluation which returned as BLAINE II. At that same time as the colpo she underwent biopsy of her vulva for vulvar lesions. Vulva biospies revealed ALLY 2/3 and she was started on Aldara around 08/21/2020. 09/26/2020 she underwent a LEEP procedure and bilteral vulva excisional biopsy. Pathology returned as BLAINE 3 and ALLY 3 bilaterally with all three involving the margins. HPI Patient presents for Follow-up. Patient reports she has decreased her smoking. Otherwise, she is doing well and has no other complaints at this time. PATHOLOGY: 09/26/2020 Pathological Diagnosis A. Cervix, LEEP, excision: - High grade squamous intraepithelial lesion (severe dysplasia, BLAINE 3), focal involving the 12-3-6 o'clock margin, see NOTE. B. Left vulva, excisional biopsy: - High grade squamous intraepithelial lesion (severe dysplasia, ALLY 3), involving the 7-1 o'clock and 4-5 o'clock peripheral margin, and close to the 2-3 o'clock margin (0.5-1 mm). C. Right vulva, excisional biopsy: - High grade squamous intraepithelial lesion (severe dysplasia, ALLY 3), involving the 12-4 o'clock and 6-6:30 o'clock peripheral margins. 10/11/2020 Last Visit: Patient presents for a consultation visit via Dr. Young for an opinion regarding ALLY 3/BLAINE 3. She has a PMHx of Anal intraepithelial neoplasia III (AIN III), Asthma, BLAINE I (cervical intraepithelial neoplasia I) (02/2019), HPV in female, ALLY III (vulvar intraepithelial neoplasia III), and Vulvar lesion. She was seen 06/2020 and her pap returned as LSIL. She underwent colposcopic evaluation which returned as BLAINE II. At that same time as the colpo she underwent biopsy of her vulva for vulvar lesions. Vulva biospies revealed ALLY 2/3 and she was started on Aldara around 08/21/2020. 09/26/2020 she underwent a LEEP procedure and bilteral vulva excisional biopsy. Pathology returned as BLAINE 3 and ALLY 3 bilaterally with all three involving the margins. Patient reports that she is a smoker but is trying to quit. I explained that this prevents her body from being able to fight off the HPV infection. I explained that her vulvar lesions can be treated with Aldara cream. For her BLAINE III I recommend a repeat colposcopy in 3 months as patient is interested in having more children. 12/20/2020 Colposcopy 12/20/2020 Final Diagnosis: Benign Squamous mucous REVIEW OF SYSTEMS: Carina Schultz reports that she feels well. She reports having some abdominal cramping. No vulvar bumps, lesions, pruritis, or pain. No vaginal bleeding or discharge. Her ECOG performance status is zero (fully active, able to carry on all pre-disease performance without restriction). PHYSICAL EXAMINATION: BP 148/94 Pulse 107 Temp 36.6 ?C (97.8 ?F) (Temporal) Wt 116.1 kg (256 lb) LMP 09/20/2020 SpO2 96% BMI 40.10 kg/m? Female in no acute distress. Abdominal - There is no inguinal adenopathy. Pelvic - White vulvar lesions present on labia bilaterally Rt> Lt. Envelope Sealing Machine Operator: Carolyn Hancock NP IMPRESSION/PLAN: Patient presents today for follow up. Patient has decreased her smoking. Pt had stopped her Aldara cream since her counter former wanted to repeat biopsy. I recommend patient restart Aldara cream since vulvar lesions are still present. Encouraged smoking cessation. RTC 3 months Thank you for referring her for gynecologic oncology consultation. I will be in touch with you regarding her findings. CC: Haley Young MD ([facility]) [address] [address] No primary care provider on file. (PCP) The previous note from Dr. Ramirez dated 10/11/2020 was copied forward and the necessary changes were made above. ATTESTATION: By signing my name below, Yanni Rivas, attest that this documentation has been prepared under the direction and in the presence of Miley Ramirez MD. Electronically signed:Landry Stein, January 10, 2021 1:56 PM Provider Attestation: Miley Rivas MD, personally performed the services described in this documentation. All medical record entries made by the landry were at my direction and in my presence. I have reviewed the chart and discharge (more content not included)... [facility] Progress note 10-11-2020 Note Date & Type Note Facility 10-11-2020 Note HNO ID: [id number] Author: Miley Ramirez Service: ? Author Type: Physician Type: Progress Notes Filed: 10/12/2020 10:46 AM Note Text: Gynecologic Oncology [facility] Consultation Re: Carina Schultz [facility]#: [id number] Date of service: 10/11/2020 Haley Young MD ([facility]) [address] [address] [address] Young for an opinion regarding ALLY 3/BLAINE 3. My final recommendations will be communicated back to the requesting physician by way of shared medical record or letter to requesting physician via US mail. Dear Haley Young: Thank you for referring Carina for consultation. Briefly, she is a 30 year old female has a past medical history of Anal intraepithelial neoplasia III (AIN III), Asthma, BLAINE I (cervical intraepithelial neoplasia I) (02/2019), HPV in female, ALLY III (vulvar intraepithelial neoplasia III), and Vulvar lesion.. She presents today for evaluation and management of BLAINE III/ALLY III. She was seen 06/2020 and her pap returned as LSIL. She underwent colposcopic evaluation which returned as BLAINE II. At that same time as the colpo she underwent biopsy of her vulva for vulvar lesions. Vulva biospies revealed ALLY 2/3 and she was started on Aldara around 08/21/2020. 09/26/2020 she underwent a LEEP procedure and bilteral vulva excisional biopsy. Pathology returned as BLAINE 3 and ALLY 3 bilaterally with all three involving the margins. PATHOLOGY: 09/26/2020 Pathological Diagnosis A. Cervix, LEEP, excision: - High grade squamous intraepithelial lesion (severe dysplasia, BLAINE 3), focal involving the 12-3-6 o'clock margin, see NOTE. B. Left vulva, excisional biopsy: - High grade squamous intraepithelial lesion (severe dysplasia, ALLY 3), involving the 7-1 o'clock and 4-5 o'clock peripheral margin, and close to the 2-3 o'clock margin (0.5-1 mm). C. Right vulva, excisional biopsy: - High grade squamous intraepithelial lesion (severe dysplasia, ALLY 3), involving the 12-4 o'clock and 6-6:30 o'clock peripheral margins. ALLERGIES/MEDICATIONS: ALLERGIES No Known Allergies Current Outpatient Medications Medication Sig Dispense Refill - cetirizine (ZYRTEC) 10 mg tablet Take 10 mg by mouth once daily. 2 - folic acid 1 mg tablet Take 1 mg by mouth three times daily. 11 - Ranitidine HCl 150 mg capsule Take 150 mg by mouth twice daily. - albuterol HFA (VENTOLIN HFA) 90 mcg/actuation inhaler Inhale 2 Puffs as instructed. - omalizumab (XOLAIR) 150 mg injection Inject 150 mg subcutaneously once every month. - hydrOXYzine HCl (ATARAX) 50 mg tablet Take 50-100 mg by mouth as needed. 11 - HYDROcodone-acetaminophen (NORCO) 5-325 mg per tablet Take 1 tablet by mouth every 8 hours as needed. No current facility-administered medications for this visit. PAST MEDICAL HISTORY Diagnosis Date - Anal intraepithelial neoplasia III (AIN III) - Asthma - BLAINE I (cervical intraepithelial neoplasia I) 02/2019 - HPV in female - ALLY III (vulvar intraepithelial neoplasia III) - Vulvar lesion PAST SURGICAL HISTORY Procedure Laterality Date - BIOPSY OF VULVA - URETHRAL DILATION (FEMALE) - VAGINOSCOPY 02/2019 BLAINE 1 FAMILY HISTORY Problem Relation Age of Onset - Breast Cancer Paternal Grandmother Family history of breast, ovarian, uterine or colon cancer: Yes, see sylvia sinha Family history of VTE: Yes, paternal aunt DVT OBSTETRICAL/GYNECOLOGIC HISTORY: OB History T0 L1 SAB0 TAB0 Ectopic0 Multiple0 Live Births0 LMP: Patient's last menstrual period was 09/20/2020. 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 She resides in [place], [place]. REVIEW OF SYSTEMS: Constitutional: No recent fever, chills, unexplained weight loss or fatigue. HEENT: No vision changes, headache, hearing changes or nasal drainage. Cardiovascular: No chest pain, SOB, dyspnea on exertion, palpitations or peripheral edema. Respiratory: No cough, wheezing, or shortness of breath. Gastrointestinal: No abdominal pain, nausea, vomiting, diarrhea or constipation. Genitourinary: No dysuria, gross hematuria or urinary incontinence Musculoskeletal: No muscle weakness or joint pain. Neurologic: No syncope, seizures, numbness or dizziness. Psychiatric: No depression, anxiety, crying or history of psychiatric disorder. Endocrine: No diabetes, thyroid disease, hot flashes or night sweats. Hematologic: No easy bruising, adenopathy or history of VTE. PHYSICAL EXAMINATION: BP 140/89 Pulse 93 Temp (Src) 98.7 (Temporal) Wt 256 lb (116.1kg) SpO2 98% LMP 09/20/2020 Female in no acute distress. Neck - Negative. Supraclavicular - Adenopathy absent. Cardiac - Regular rat (more content not included)... [facility] Evaluation note Note Date & Type Note Facility Evaluation note No assessment information availa [facility] Work Phone: History general Narrative - Reported Note Date & Type Note Facility History general Narrative - Reported Type Medical History asthma Medical History hives Medical History urethra dilation Medical History yeast infections Surgical History Ureathral dialation Surgical History [place] teeth Surgical History [facility] young vaginal biopsies 04/29/19 Hospitalization History asthma 2010 [employer] Other Summary Purpose Family History No Family History Records Found Relationship Condition Age at Onset Recorded Date/T dl father Hypertension Unknown Not Specified Hypertension Unknown Advance Directives No Advanced Directives Records Found Advance Directive Response Recorded Date/ Time Advance Directives No April 27, 2017 10:47am Chief Complaint and Reason for Visit Chief Complaint Sore throat Additional Source Comments INFORMATION SOURCE (unrecogn ized section and content) DATE CREATED AUTHOR 07/30/2020 [facility] DATE CREATED AUTHOR AUTHOR'S ORGANIZ ATION 08/23/2021 [facility] DATE CREATED AUTHOR AUTHOR'S ORGANIZ ATION 09/05/2021 [facility] DATE CREATED AUTHOR AUTHOR'S ORGANIZ ATION 11/24/2022 [facility] DATE CREATED AUTHOR AUTHOR'S ORGANIZ ATION 12/28/2023 [facility] EPIC REASON FOR VISIT (unrecogniz ed section and content) SORE THROAT Care Teams (unrecognized sec tion and content) Team Status: Active Member Role Status Dates Alexandra Kay Primary Care Provider Active Team Status: Inactive Member Role Status Dates Ralph Osorio PA-C Attending Provider Active St art: December 23, 2023 End: December 23, 2023 Alexandra Kay Primary Care Provider Active Sta rt: December 23, 2023 End: December 23, 2023 Goals (unrecognized section and content) Goals may be documented in a n alternate section FOR RECORDS PERTAINING TO PATIENTS WHO ARE OR HAVE BEEN ENROLLED IN A CHEMICAL DEPENDENCY/SUBSTANCEABUSE PROGRAM, SOME INFORMATION MAY BE OMITTED. This clinical summary was aggregated from multiple sources. Caution should be exercised in using it in the provision of clinical care. This summary normalizes information from multiple sources, and as a consequence, information in this document may materially change the coding, format and clinical context of patient data. In addition, data may be omitted in some cases. CLINICAL DECISIONS SHOULD BE BASED ON THE PRIMARY CLINICAL RECORDS. [facility] [employer] [facility]. provides no warranty or guarantee of the accuracy or completeness of information in this document.
[2023-12-31 09:16] LABS: Basophils Absolute Auto 0.1 10^3/uL (0.0-0.1); Basophils Percent Auto 0.6 % (0.2-2.0); Eosinophils Absolute Auto 0.4 10^3/uL (0.0-0.7); Eosinophils Percent Auto 3.6 % (0.9-7.0); Estimated Average Glucose 111 mg/dL; Glycohemoglobin A1C 5.5 % (4.5-6.2); Hematocrit 43.7 % (36.0-48.0); Hemoglobin 14.5 g/dL (12.0-16.0); Immature Granulocytes Abs Auto 0.03 10^3/uL (0.00-0.03); Immature Granulocytes Pct Auto 0.3 % (0.0-0.5); Lymphocytes Absolute Auto 3.3 10^3/uL (1.2-3.8); Mean Corpuscular HGB Conc 33.2 g/dL (29.9-35.2); Mean Corpuscular Hemoglobin 28.9 pg (26.7-34.0); Mean Corpuscular Volume 87.1 fL (81.0-99.0); Monocytes Absolute Auto 0.7 10^3/uL (0.3-0.8); Monocytes Percent Auto 6.7 % (1.7-12.0); Neutrophils Absolute Auto 6.4 10^3/uL (1.4-6.5); Neutrophils Percent Auto 58.8 % (43.0-75.0); Platelet Count 341 10^3/uL (150-450); Red Blood Count 5.02 10^6/uL (4.20-5.40); Red Cell Distribution Width 12.5 % (11.0-15.0); White Blood Count 10.9 10^3/uL (4.0-11.0)
[2023-12-31 13:34] LABS: Chloride 104 mmol/L (98-107); Potassium 3.9 mmol/L (3.5-5.1); Sodium 139 mmol/L (136-145)
[2023-12-31 13:35] LABS: Alanine Aminotransferase 40 U/L (14-59); Albumin Globulin Ratio 0.8; Albumin Level 3.7 g/dL (3.4-5.0); Alkaline Phosphatase 140 U/L (46-116); Anion Gap 15.3; Aspartate Amino Transferase 21 U/L (15-37); BUN Creatinine Ratio 18.3; Bilirubin Total 0.6 mg/dL (0.2-1.0); Calcium 9.3 mg/dL (8.5-10.1); Carbon Dioxide 23.6 mmol/L (21.0-32.0); Estimated GFR (African America >60 (>=60); Estimated GFR (Non-African Ame >60 (>=60); Globulin 4.5 g/dL; Glucose 94 mg/dL (74-106); Total Protein 8.2 g/dL (6.4-8.2)
[2023-12-31 13:36] LABS: Cholesterol 207 mg/dL (<=200); HDL Cholesterol 41 mg/dL (40-60); Thyroid Stimulating Hormone 1.774 uIU/mL (0.358-3.740); Triglycerides 130 mg/dL (<=150)
== END 2023-12-31 08:31 | disposition home or self-care (01) ==
LOC: LAB 08:33
PROVIDERS: PCP Nurse Practitioner; Visit Provider Nurse Practitioner
DX: Z00.00 Encounter for general adult medical examination without abnormal findings (principal)
CPT/HCPCS: 36415; 80053; 80061; 83036; 84443; 85025

== ENCOUNTER 2024-02-16 11:51 | Outpatient (OUT) | payer OTHER, SELFPAY ==
[2024-02-16 12:52] LABS: Bilirubin Direct 0.1 mg/dL (0.0-0.2); Bilirubin Total 0.5 mg/dL (0.2-1.0)
[2024-02-16 12:53] LABS: Alanine Aminotransferase 55 U/L (14-59); Albumin Globulin Ratio 0.9; Albumin Level 3.8 g/dL (3.4-5.0); Alkaline Phosphatase 137 U/L (46-116); Aspartate Amino Transferase 31 U/L (15-37); Gamma Glutamyl Transpeptidase 120 U/L (8-55); Globulin 4.2 g/dL
== END 2024-02-16 11:52 | disposition home or self-care (01) ==
LOC: LAB 11:52
PROVIDERS: PCP Nurse Practitioner; Visit Provider Nurse Practitioner
DX: R39.9 Unspecified symptoms and signs involving the genitourinary system (principal); R74.8 Abnormal levels of other serum enzymes
CPT/HCPCS: 36415; 80076; 82977; 87086

== ENCOUNTER 2024-02-16 11:55 | Outpatient (OUT) | payer OTHER, SELFPAY | END 2024-02-16 11:56 | disposition home or self-care (01) | LOC: LAB 11:56 | PROVIDERS: PCP Nurse Practitioner; Visit Provider Specialist | DX: R39.9 Unspecified symptoms and signs involving the genitourinary system (principal) | CPT/HCPCS: 87086 ==

== ENCOUNTER 2024-02-19 06:52 | Outpatient (OUT) | payer OTHER, SELFPAY ==
--- NOTE | 2024-02-19 06:54 | US_ITS ---
The [address] [address] Patient Name: SABRINA GUY MRN: [id number] date: 1990 Sex: F Assigned Patient Location: US Current Patient Location: US Accession/Order Number: [id number] Exam Date: 02/19/2024 06:58 Report Date: 02/19/2024 16:24 At the request of: BROOKS BRUNNER Procedure: US right upper quadrant EXAMINATION: US right upper quadrant HISTORY: Elevated Alkaline Phosphate Level R74.5 COMPARISON: No relevant comparison available. TECHNIQUE: Transabdominal evaluation of the right upper quadrant. FINDINGS: LIVER: Normal size and echotexture. Color Doppler demonstrates patent hepatic veins. PORTAL VEIN: Duplex Doppler demonstrates normal hepatopetal flow pattern with flow velocity averaging 32 cm/s. GALLBLADDER: Contains multiple 1 cm size stones. No gallbladder wall thickening or free fluid. Negative sonographic Bonner's sign. BILIARY: No abnormal dilation or stones. Common bile duct diameter is within normal limits. PANCREAS: No visible mass, abnormal atrophy, or duct dilation. KIDNEY: No hydronephrosis. No visible mass or stones. Size: 12.5 x 5.9 x 5.0 cm US/US right upper quadrant IMPRESSION: 1. Cholelithiasis without ultrasound evidence of acute cholecystitis. Electronically authenticated by: MARCELLE AHMADI Date: 02/19/2024 16:24
--- OUTSIDE RECORDS SUMMARY | 2024-02-19 06:54 | XMS_ITS | CCD ---
Author Organization [facility] Inform ion Partnership [facility] Care Team Providers Care Multiple Wire Sawyer Name Role Phone Amira Sierra Unavailable AICHHOLZ, POLISHER AND SANDER ALEXANDRA Primary Care Unavailable AICHHOLZ, POLISHER AND SANDER ALEXANDRA Admitting Unavailable AICHHOLZ, POLISHER AND SANDER ALEXANDRA Attending Unavailable AICHHOLZ, POLISHER AND SANDER ALEXANDRA Consulting Unavailable AICHHOLZ, POLISHER AND SANDER ALEXANDRA Primary Care Unavailable AICHHOLZ, POLISHER AND SANDER ALEXANDRA Admitting Unavailable AICHHOLZ, POLISHER AND SANDER ALEXANDRA Attending Unavailable AICHHOLZ, POLISHER AND SANDER ALEXANDRA Consulting Unavailable AICHHOLZ, ALEXANDRA Attending Unavailable JOSIAH EPPERSON Attending Unavailable AICHHOLZ, ALEXANDRA Attending Unavailable AICHHOLZ, ALEXANDRA Attending Unavailable SASHA OWENS Attending Unavailable SASHA OWENS Referring Unavailable Allergies Allergy Classification Reported Allergen(s) Allergy Type Date of Onset Reaction(s) Facility (1 source) Sulfamethoxazole / Trimethoprim Drug Allergy [facility] Other (1 source) diphenhydrAMINE Drug Allergy 6 [facility] (1 source) Nitrofurantoin Drug Allergy 4 [facility] (1 source) Sulfamethoxazole Drug Allergy 4 [facility] (1 source) Trimethoprim Drug Allergy 4 [facility] Medications Current Medications Medication Drug Class(es) Dates Sig (Normalized) Sig (Original) [id number] 200 actuat albuterol 0.09 mg/actuat metered dose [...] 50 MCI PO Daily April 29, 2019 12:00am September 26, 2020 11:17am ibuprofen 800 mg oral [...] asthma; Translations: [Mild intermittent asthma, uncomplicated] Onset: 2 Chronic Cancer of cervix (1 source) Cervicovaginal [...] Ralph Osorio on 12-23-2023 Quick Strep (POC) [facility] CULTURE URINEon 11-21-2022 CULTURE URINE Isolate 1 [...] F Nitrofurantoin <=16 S F Normal [facility] Comment on above: Performed By: #### U RCX #### [facility] [address] [place] [address] Dr. Idalia Wilson UA RANDOM W/MICROSCOPICon BACTERIA NONE SEEN Normal NONE SEEN [facility] Comment on above: Performed By: #### U AMIC #### [facility] [address] [place] [address] Dr. Idalia Wilson Bilirubin Ql (U) Negative Normal NEGATIVE [facility] Comment on above: Performed By: #### U AMIC #### [facility] [address] [place] [address] Dr. Idalia Wilson CAST NONE SEEN Normal NONE SEEN [facility] Comment on above: Performed By: #### U AMIC #### [facility] [address] [place] [address] Dr. Idalia Wilson Clarity (U) CLEAR Normal CLEAR [facility] Comment on above: Performed By: #### U AMIC #### [facility] [address] [place] [address] Dr. Idalia Wilson Color (U) LT. YELLOW Normal YELLOW [facility] Comment on above: Performed By: #### U AMIC #### [facility] [address] [place] [address] Dr. Idalia Wilson Crystals LM Nom (Urine sed) NONE SEEN Normal NONE SEEN [facility] Comment on above: Performed By: #### U AMIC #### [facility] [address] [place] [address] Dr. Idalia Wilson Epithelial cells LM Ql (Urine sed) FEW Abnormal NONE SEEN /RARE [facility] Comment on above: Performed By: #### U AMIC #### [facility] [address] [address] [address] Idalia Wilson Glucose Ql (U) Negative Normal NEGATIVE [facility] Comment on above: Performed By: #### U AMIC #### [facility] [address] [address] [address] Idalia Wilson Hemoglobin Ql (U) Negative Normal NEGATIVE [facility] Comment on above: Performed By: #### U AMIC #### [facility] [address] [address] [address] Idalia Wilson Ketones Ql (U) Negative Normal NEGATIVE [facility] Comment on above: Performed By: #### U AMIC #### [facility] [address] [address] [address] Idalia Wilson LEUKOCYTES Negative Normal NEGATIVE [facility] Comment on above: Performed By: #### U AMIC #### [facility] [address] [address] [address] Idalia Wilson MUCOUS SMALL Abnormal NONE SEEN [facility] Comment on above: Performed By: #### U AMIC #### [facility] [address] [address] [address] Idalia Wilson Nitrite Ql (U) Negative Normal NEGATIVE [facility] Comment on above: Performed By: #### U AMIC #### [facility] [address] [address] [address] Idalia Wilson pH (U) 6.5 [pH] Normal 5-9 [facility] Comment on above: Performed By: #### U AMIC #### [facility] [address] [address] [address] Idalia Wilson RBC NONE SEEN Abnormal 0-2 [facility] Comment on above: Performed By: #### U AMIC #### [facility] [address] [place] [address] Dr. Idalia Wilson SPEC GRAVITY 1.025 Normal 1.005-<=1.02 5 [facility] Comment on above: Performed By: #### U AMIC #### [facility] [address] [address] [address] Idalia Wilson UA PROTEIN Negative Normal NEGATIVE/ TRACE [facility] Comment on above: Performed By: #### U AMIC #### [facility] [address] [address] [address] Idalia Wilson Urobilinogen Qn (U) 0.2 {Mounika'U}/dL Normal 0.2 - 1. 0 [facility] Comment on above: Performed By: #### U AMIC #### [facility] [address] [address] [address] Idlaia Wilson WBC NONE SEEN Normal NONE SEEN [facility] Comment on above: Performed By: #### U AMIC #### [facility] [address] [address] [address] Idalia Wilson Quick Strepon 07-05-2022 S. pyogenes Org specific cx Ql (Throat) Negative [facility] Other Quick Strep [facility] Other HEPATITIS B SURFACE ANTIBODY , QUANTon 04-12-2022 Hepatitis B Surf AB Quant <3.1 Critically low Immunity>9.9 [facility] Comment on above: Result Comment: Stat us of Immunity Anti-HBs Level Inconsistent with Immunity 0.0 - 9.9 Consistent with Immunity >9.9 Performed By: #### H EPBSRF #### [facility] [address] [place] [address] Dr. Idalia Wilson MMR IMMUNITYon 04-12-2022 Mumps Abs, IgG <9.0 Critically low Immune >10.9 [facility] Comment on above: Result Comment: Nega tive <9.0 Equivocal 9.0 - 10.9 Positive >10.9 A positive result generally indicates past exposure to Mumps virus or previous vaccination. Performed By: #### M MRIMMU #### [facility] [address] [place] [address] Dr. Idalia Wilson Rubella Antibodies, IgG 1.57 index Normal Immune >0.99 [facility] Comment on above: Result Comment: Non- immune <0.90 Equivocal 0.90 - 0.99 Immune >0.99 Performed By: #### M MRIMMU #### [facility] [address] [place] [address] Dr. Idalia Wilson Rubeola Ab, IgG >300.0 Normal Immune >16.4 [facility] Comment on above: Result Comment: Nega tive <13.5 Equivocal 13.5 - 16.4 Positive >16.4 Presence of antibodies to Rubeola is presumptive evidence of immunity except when acute infection is suspected. Performed By: #### M MRIMMU #### [facility] [address] [place] [address] Dr. Idalia Wilson VARICELLA IGG ABon 2 Varicella Zoster IgG 736 index Normal Immune >165 [facility] Comment on above: Result Comment: Nega tive <135 Equivocal 135 - 165 Positive >165 A positive result generally indicates exposure to the pathogen or administration of specific immunoglobulins, but it is not indication of active infection or stage of disease. Performed By: #### V ARCEL #### [facility] [address] [place] [address] Dr. Idalia Wilson CBC AUTO DIFFon 04-11-2022 BASO # 0.1 103/ul Normal 0.0-0.1 [facility] Comment on above: Performed By: #### H EPBSRF #### [facility] [address] [place] [address] Dr. Idalia Wilson Basophils/100 WBC (Bld) 0.8 % Normal 0.2-2.0 [facility] Comment on above: Performed By: #### H EPBSRF #### [facility] [address] [place] [address] Dr. Idalia Wilson EO # 0.4 103/ul Normal 0.0-0.7 [facility] Comment on above: Performed By: #### H EPBSRF #### [facility] [address] [place] [address] Dr. Idalia Wilson Eosinophils/100 WBC (Bld) 4.1 % Normal 0.9-7.0 [facility] Comment on above: Performed By: #### H EPBSRF #### [facility] [address] [place] [address] Dr. Idalia Wilson Erythrocyte distribution width (RBC) [Ratio] 12.4 % Normal 11.0-15.0 [facility] Comment on above: Performed By: #### H EPBSRF #### [facility] [address] [place] [address] Dr. Idalia Wilson Hematocrit (Bld) [Volume fraction] 44.7 % Normal 36.0-48.0 [facility] Comment on above: Performed By: #### H EPBSRF #### [facility] [address] [place] [address] Dr. Idalia Wilson Hemoglobin (Bld) [Mass/Vol] 14.7 g/dL Normal 12.0-16.0 [facility] Comment on above: Performed By: #### H EPBSRF #### [facility] [address] [place] [address] Dr. Idalia Wilson IG # 0.03 10e3/ul Normal 0.00-0.03 [facility] Comment on above: Performed By: #### H EPBSRF #### [facility] [address] [place] [address] Dr. Idalia Wilson IG % 0.3 % Normal 0.0-0.5 [facility] Comment on above: Performed By: #### H EPBSRF #### [facility] [address] [place] [address] Dr. Idalia Wilson LYMPH # 2.5 103/ul Normal 1.2-3.8 [facility] Comment on above: Performed By: #### H EPBSRF #### [facility] [address] [place] [address] Dr. Idalia Wilson Lymphocytes/100 WBC (Bld) 26.6 % Normal 20.5-60.0 [facility] Comment on above: Performed By: #### H EPBSRF #### [facility] [address] [place] [address] Dr. Idalia Wilson MANUAL DIFF REQ NO Normal [facility] Comment on above: Performed By: #### H EPBSRF #### [facility] [address] [place] [address] Dr. Idalia Wilson MCH (RBC) [Entitic mass] 29.1 pg Normal 26.7-34.0 [facility] Comment on above: Performed By: #### H EPBSRF #### [facility] [address] [place] [address] Dr. Idalia Wilson MCHC (RBC) [Mass/Vol] 32.9 g/dL Normal 29.9-35.2 [facility] Comment on above: Performed By: #### H EPBSRF #### [facility] [address] [place] [address] Dr. Idalia Wilson MCV (RBC) [Entitic vol] 88.5 fL Normal 81.0-99.0 [facility] Comment on above: Performed By: #### H EPBSRF #### [facility] [address] [place] [address] Dr. Idalia Wilson MONO # 0.7 103/ul Normal 0.3-0.8 [facility] Comment on above: Performed By: #### H EPBSRF #### [facility] [address] [place] [address] Dr. Idalia Wilson Monocytes/100 WBC (Bld) 7.2 % Normal 1.7-12.0 [facility] Comment on above: Performed By: #### H EPBSRF #### [facility] [address] [place] [address] Dr. Idalia Wilson NEUT # 5.8 103/ul Normal 1.4-6.5 [facility] Comment on above: Performed By: #### H EPBSRF #### [facility] [address] [place] [address] Dr. Idalia Wilson Neutrophils/100 WBC (Bld) 61.0 % Normal 43.0-75.0 [facility] Comment on above: Performed By: #### H EPBSRF #### [facility] [address] [place] [address] Dr. Idalia Wilson Platelet mean volume (Bld) [Entitic vol] 10.2 fL Normal 9.5-13.5 [facility] Comment on above: Performed By: #### H EPBSRF #### [facility] [address] [place] [address] Dr. Idalia Wilson PLT 327 103/ul Normal 150-450 [facility] Comment on above: Performed By: #### H EPBSRF #### [facility] [address] [place] [address] Dr. Idalia Wilson RBC 5.05 106/ul Normal 4.20-5.40 [facility] Comment on above: Performed By: #### H EPBSRF #### [facility] [address] [place] [address] Dr. Idalia Wilson WBC 9.5 103/ul Normal 4.0-11.0 [facility] Comment on above: Performed By: #### H EPBSRF #### [facility] [address] [place] [address] Dr. Idalia Wilson FREE T4on 04-11-2022 Free T4 [Mass/Vol] 0.94 ng/dL Normal 0.76-1.[address] [facility] Comment on above: Performed By: #### F T4 #### [facility] [address] [place] [address] Dr. Idalia Wilson GLYCOHEMOGLOBIN A1Con 2021 ADA RECOMMENDATION SEE BELOW Normal [facility] Comment on above: Result Comment: ADA RECOMMENDED LIMIT 4.0 - 6.0 ADA THERAPEUTIC TARGET < 7.0 ACTION SUGGESTED > 7.0 Performed By: #### A 1C #### [facility] [address] [place] [address] Dr. Idalia Wilson Glucose [Mass/Vol] 108 mg/dL Normal [facility] Comment on above: Performed By: #### A 1C #### [facility] [address] [place] [address] Dr. Idalia Wilson HbA1c (Bld) [Mass fraction] 5.4 % Normal 4.5-6.2 [facility] Comment on above: Performed By: #### A 1C #### [facility] [address] [address] [address] Idalia Wilson LIPID PROFILEon 04-11-2022 CHOL-HDL RATIO NORM SEE BELOW Normal [facility] Comment on above: Result Comment: 3.3 - 4.4 LOW RISK 4.4 - 7.1 AVERAGE RISK 7.1 - 11.0 MODERATE RISK >11.0 HIGH RISK Performed By: #### H EPBSRF #### [facility] [address] [address] [address] Idalia Wilson Cholesterol [Mass/Vol] 202 mg/dL Critically high <=200 [facility] Comment on above: Performed By: #### H EPBSRF #### [facility] [address] [address] [address] Idalia Wilson Cholesterol in HDL [Mass/Vol] 37 mg/dL Critically low 40-60 [facility] Comment on above: Performed By: #### H EPBSRF #### [facility] [address] [address] [address] Idalia Wilson Cholesterol in LDL [Mass/Vol] 120.2 mg/dL Normal [facility] Comment on above: Performed By: #### H EPBSRF #### [facility] [address] [address] [address] Idalia Wilson Cholesterol.total/Cho lesterol in HDL [Mass ratio] 5.5 {ratio} Normal [facility] Comment on above: Performed By: #### H EPBSRF #### [facility] [address] [address] [address] dIalia Wilson HDL NORMAL > or = 60 mg/dl - LO W CARDIOVASCULAR RISK <40 mg/dl - HIGH CARDIOVASCULAR RISK Normal [facility] Comment on above: Performed By: #### H EPBSRF #### [facility] [address] [address] [address] Idalia Wilson LDL CALC NORMAL SEE BELOW Normal [facility] Comment on above: Result Comment: <100 mg/dl OPTIMAL 100 - 129 mg/dl NEAR OR ABOVE OPTIMAL 130 - 159 mg/dl BORDERLINE HIGH 160 - 189 mg/dl HIGH >190 mg/dl VERY HIGH Performed By: #### H EPBSRF #### [facility] [address] [address] [address] Idalia Wilson Triglyceride [Mass/Vol] 224 mg/dL Critically high <=150 [facility] Comment on above: Performed By: #### H EPBSRF #### [facility] [address] [address] [address] Idalia Wilson VLDL CALC 44.8 mg/dL Normal [facility] Comment on above: Performed By: #### H EPBSRF #### [facility] [address] [address] [address] Idalia Wilson LIVER PROFILEon 04-11-2022 Albumin [Mass/Vol] 3.9 g/dL Normal 3.4-5.0 [facility] Comment on above: Performed By: #### H EPBSRF #### [facility] [address] [place] [address] Dr. Idalia Wilson Albumin/Globulin [Mass ratio] 0.9 {ratio} Normal [facility] Comment on above: Performed By: #### H EPBSRF #### [facility] [address] [place] [address] Dr. Idalia Wilson ALP [Catalytic activity/Vol] 152 U/L Critically high 46-116 [facility] Comment on above: Performed By: #### H EPBSRF #### [facility] [address] [place] [address] Dr. Idalia Wilson ALT [Catalytic activity/Vol] 49 U/L Normal 14-59 [facility] Comment on above: Performed By: #### H EPBSRF #### [facility] [address] [place] [address] Dr. Idalia Wilson AST [Catalytic activity/Vol] 22 U/L Normal 15-37 [facility] Comment on above: Performed By: #### H EPBSRF #### [facility] [address] [place] [address] Dr. Idalia Wilson BILI, CONJUGATED 0.1 mg/dL Normal 0.0-0.2 [facility] Comment on above: Performed By: #### H EPBSRF #### [facility] [address] [place] [address] Dr. Idalia Wilson Bilirubin [Mass/Vol] 0.5 mg/dL Normal 0.2-1.0 [facility] Comment on above: Performed By: #### H EPBSRF #### [facility] [address] [place] [address] Dr. Idalia Wilson Globulin (S) [Mass/Vol] 4.3 g/dL Normal [facility] Comment on above: Performed By: #### H EPBSRF #### [facility] [address] [place] [address] Dr. Idalia Wilson Protein [Mass/Vol] 8.2 g/dL Normal 6.4-8.2 [facility] Comment on above: Performed By: #### H EPBSRF #### [facility] [address] [place] [address] Dr. Idalia Wilson PROF CHEM 8 (BAS METB)on Anion gap [Moles/Vol] 11.6 mmol/L Normal [facility] Comment on above: Performed By: #### L IPID, TSH, LIVER, BMP #### [facility] [address] [place] [address] Dr. Idalia Wilson Calcium [Mass/Vol] 9.5 mg/dL Normal 8.5-10.1 [facility] Comment on above: Performed By: #### L IPID, TSH, LIVER, BMP #### [facility] [address] [place] [address] Dr. Idalia Wilson Chloride [Moles/Vol] 102 mmol/L Normal 98-107 [facility] Comment on above: Performed By: #### L IPID, TSH, LIVER, BMP #### [facility] [address] [place] [address] Dr. Idalia Wilson CO2 [Moles/Vol] 26.3 mmol/L Normal 21.0-32.0 [facility] Comment on above: Performed By: #### L IPID, TSH, LIVER, BMP #### [facility] [address] [place] [address] Dr. Idalia Wilson Creatinine [Mass/Vol] 0.60 mg/dL Normal 0.55-1.02 [facility] Comment on above: Performed By: #### L IPID, TSH, LIVER, BMP #### [facility] [address] [place] [address] Dr. Idalia Wilson EGFR-AF ESTONIAN >60 Normal >=60 [facility] Comment on above: Performed By: #### L IPID, TSH, LIVER, BMP #### [facility] [address] [address] [address] Idalia Wilson EGFR-NON AF ESTONIAN >60 Normal >=60 [facility] Comment on above: Performed By: #### L IPID, TSH, LIVER, BMP #### [facility] [address] [place] [address] Dr. Idalia Wilson Glucose [Mass/Vol] 98 mg/dL Normal 74-106 [facility] Comment on above: Performed By: #### L IPID, TSH, LIVER, BMP #### [facility] [address] [place] [address] Dr. Idalia Wilson Potassium [Moles/Vol] 3.9 mmol/L Normal 3.5-5.1 [facility] Comment on above: Performed By: #### L IPID, TSH, LIVER, BMP #### [facility] [address] [place] [address] Dr. Idalia Wilson Sodium [Moles/Vol] 136 mmol/L Normal 136-[address] [facility] Comment on above: Performed By: #### L IPID, TSH, LIVER, BMP #### [facility] [address] [place] [address] Dr. Idalia Wilson Urea nitrogen [Mass/Vol] 12.0 mg/dL Normal 7.0-18.0 [facility] Comment on above: Performed By: #### L IPID, TSH, LIVER, BMP #### [facility] [address] [place] [address] Dr. Idalia Wilson Urea nitrogen/Creatinine [Mass ratio] 20.0 mg/mg Normal [facility] Comment on above: Performed By: #### L IPID, TSH, LIVER, BMP #### [facility] [address] [address] [address] Idalia Wilson TSHon 04-11-2022 TSH 1.128 uIU/mL Normal 0.358-3.740 [facility] Comment on above: Performed By: #### H EPBSRF #### [facility] [address] [address] [address] Idalia Wilson UA (CLEAN/CATCH) PUBLIC HEALTH SPECIALIST/MICRO I F IND.on 04-11-2022 Bilirubin Ql (U) Negative Normal NEGATIVE [facility] Comment on above: Performed By: #### U ACSIND, UMICRO #### [facility] [address] [address] [address] Idalia Wilson Clarity (U) CLEAR Normal CLEAR [facility] Comment on above: Performed By: #### U ACSIND, UMICRO #### [facility] [address] [address] [address] Idalia Wilson Color (U) LT. YELLOW Normal YELLOW [facility] Comment on above: Performed By: #### U ACSIND, UMICRO #### [facility] [address] [address] [address] Idalia Wilson Glucose Ql (U) Negative Normal NEGATIVE [facility] Comment on above: Performed By: #### U ACSIND, UMICRO #### [facility] [address] [address] [address] Idalia Wilson Hemoglobin Ql (U) Negative Normal NEGATIVE [facility] Comment on above: Performed By: #### U ACSIND, UMICRO #### [facility] [address] [address] [address] Idalia Wilson Ketones Ql (U) Negative Normal NEGATIVE [facility] Comment on above: Performed By: #### U ACSIND, UMICRO #### [facility] [address] [address] [address] Idalia Wilson LEUKOCYTES Negative Normal NEGATIVE [facility] Comment on above: Performed By: #### U ACSIND, UMICRO #### [facility] [address] [place] [address] Dr. Idalia Wilson Nitrite Ql (U) Negative Normal NEGATIVE [facility] Comment on above: Performed By: #### U ACSALPHONSO UMICRO #### [facility] [address] [place] [address] Dr. Idalia Wilson pH (U) 6.5 [pH] Normal 5-9 [facility] Comment on above: Performed By: #### U ACSALPHONSO UMICRO #### [facility] [address] [place] [address] Dr. Idalia Wilson SPEC GRAVITY 1.015 Normal 1.005-<=1.02 5 [facility] Comment on above: Performed By: #### U ACSALPHONSO UMICRO #### [facility] [address] [place] [address] Dr. Idalia Wilson UA PROTEIN Negative Normal NEGATIVE/ TRACE [facility] Comment on above: Performed By: #### U ARSEN UMICRO #### [facility] [address] [place] [address] Dr. Idalia Wilson UR MICRO IND NOT INDICATED Normal [facility] Comment on above: Performed By: #### U CASTRO LEGERICRO #### [facility] [address] [place] [address] Dr. Idalia Wilson Urobilinogen Qn (U) 0.2 {Mounika'U}/dL Normal 0.2 - 1. 0 [facility] Comment on above: Performed By: #### U ACSALPHONSO UMICRO #### [facility] [address] [place] [address] Dr. Idalia Wilson URINE MICROSCOPIC ONLYon BACTERIA NONE SEEN Normal NONE SEEN [facility] Comment on above: Performed By: #### U ACSALPHONSO UMICRO #### [facility] [address] [place] [address] Dr. Idalia Wilson Bacteria identified Cx Nom (U) NOT INDICATED Normal [facility] Comment on above: Performed By: #### U ACSALPHONSO UMICRO #### [facility] [address] [place] [address] Dr. Idalia Wilson CAST NONE SEEN Normal NONE SEEN [facility] Comment on above: Performed By: #### U ACSIND, UMICRO #### [facility] [address] [address] [address] Idalia Wilson Crystals LM Nom (Urine sed) NONE SEEN Normal NONE SEEN [facility] Comment on above: Performed By: #### U ACSIND, UMICRO #### [facility] [address] [address] [address] Idalia Wilson Epithelial cells LM Ql (Urine sed) MODERATE Abnormal NONE SEEN /RARE [facility] Comment on above: Performed By: #### U ACSIND, UMICRO #### [facility] [address] [place] [address] Dr. Idalia Wilson MUCOUS TRACE Abnormal NONE SEEN [facility] Comment on above: Performed By: #### U ACSIND, UMICRO #### [facility] [address] [place] [address] Dr. Idalia Wilson RBC NONE SEEN Abnormal 0-2 [facility] Comment on above: Performed By: #### U ACSIND, UMICRO #### [facility] [address] [place] [address] Dr. Idalia Wilson WBC NONE SEEN Normal NONE SEEN [facility] Comment on above: Performed By: #### U ACSIND, UMICRO #### [facility] [address] [place] [address] Dr. Idalia EARLYPon 01-10-2021 [facility] Visit (SP) Office (POP) CARINA SCHULTZ ([id number]) 1990 F UPA Date Time Provider Department 01/10/21 1:20 PM MILEY RAMIREZ During your visit today, we recorded the following information about you: Temperature Pulse Blood pressure Weight 97.8 degrees 107/minute 148/94 116.1 kg Miley Ramirez MD 01/11/2021 5:21 AM Signed Gynecologic Oncology [facility] Follow-up visit Re: Carina Schultz [facility]#: [id number] Date of service: 01/10/2021 Sasha Owens MD ([facility]) [address] [address] Dear Sasha Owens: Carina presents for follow up. 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 Owens for an opinion regarding ALLY 3/BLAINE 3. [...] lesions present on labia bilaterally Rt> Lt. [employer] Operator: Carolyn Hancock NP IMPRESSION/PLAN: Patient presents today for follow up. Patient has decreased her smoking. 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 I recommend patient restart Aldara cream since vulvar lesions are still present. Encouraged smoking cessation. RTC 3 months Thank you for referring her for gynecologic oncology consultation. I will be in touch with you regarding her findings. CC: Sasha Owens MD ([facility]) [address] [employer] [employer] [address] [place] [phone] No primary care provider on file. (PCP) The previous note from Dr. Ramirez dated 10/11/2020 was copied forward and the necessary changes were made above. ATTESTATION: By signing my name below, I, Yanni Adelaide, attest that this documentation has been prepared under the direction and in the presence of Miley Ramirez MD. Electronically signed:Yanni Bryson (more content not included)... Normal [facility] CNOVSPon 10-11-2020 CNOVSP Visit (SP) Office (GYONCA) MALENACARINACARINA ([id number]) 1990 F UPA Date Time Provider Department 10/11/20 1:20 PM MILEY RAMIREZ During your visit today, we recorded the following information about you: Temperature Pulse Blood pressure Weight 98.7 degrees 93/minute 140/89 116.1 kg Last Period 09/20/20 Miley Ramirez MD 10/12/2020 10:46 AM Signed Gynecologic Oncology [facility] Consultation Re: Carina Schultz [facility]#: [id number] Date of service: 10/11/2020 Sasha Owens MD ([facility]) 1911 Jarod Moran [address] [place] [address] [address] Owens for an opinion regarding ALLY 3/BLAINE 3. My final recommendations will be communicated back to the requesting physician by way of shared medical record or letter to requesting physician via US mail. Dear Sasha Owens: Thank you for referring Carina for consultation. 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 She resides in [place], [place]. REVIEW OF SYSTEMS: Constitutional: No recent [...] sweats. Hem (more content not included)... Normal [facility] HCG,Urineon 09-26-2020 Beta HCG ( test) Ql (U) Negative Normal [facility] Comment on above: Result Comment: PERF ORMED BY: [place] [address] PATHOLOGIST BUSINESS AFFAIRS MANAGER JEYSON KOHLER M.D. Performed By: #### U HCG #### [address] 09-26-2020 L -- ---- Specimen: [id number] Received: 09/26/20 Status: DELMI [facility] Num: [id number] Spec Type: Surgical Subm Dr: IVETTE Henderson Tissues: A Cone/Leep (CERVIX) B VULVA - biopsy (LT VULVAR BX) C VULVA - biopsy (RT VULVAR BX) Procedures: HE Stain/34, Gross/Micro L5, Gross/Micro L4/2 ---- Patient Age/Sex Location Account Attending Physician ---- Carina Schultz 30/F [place] [id number] IVETTE Henderson ---- SPEC NUM: [id number] RECD: 09/26/20 STATUS: DELMI [facility] NUM: [id number] FAM: 09/26/20- SUBM DR: Sasha Owens MD-CARMELS ENTERED: 09/26/[address] [facility] [address]: SPEC TYPE: Surgical DEPT: S ORDERED: [...] Cervical intraepithelial neoplasia, VIN2, VIN3 ---- Specimen: [id number] Received: 09/26/20 Status: DELMI Austinguillermina Num: [id number] Spec Type: Surgical Subm Dr: Sasha Owens MD-CARMELS Tissues: A Cone/Leep (CERVIX) B VULVA - biopsy (LT VULVAR BX) C VULVA - biopsy (RT VULVAR BX) Procedures: HE Stain/34, Gross/Micro L5, Gross/Micro L4/2 ---- Patient: Carina Schultz [id number] (Continued) ---- Specimen: [id number] Received: 09/26/20 (Continued) Signed (signature on file) Karlie Cuello MD 10/01/201051 ---- Specimen: [id number] Received: 09/26/20 Status: DELMI [facility] Num: [id number] Spec Type: Surgical Subm Dr: Sasha Owens MD-NOMS Tissues: A Cone/Leep (CERVIX) B VULVA - biopsy (LT VULVAR BX) C VULVA - biopsy (RT VULVAR BX) Procedures: HE Stain/34, Gross/Micro L5, Gross/Micro L4/2 ---- Patient: Carina Schultz [id number] (Continued) ---- Specimen: [id number] Received: 09/26/20 (Continued) Gross Description A. Received [...] A5 - Thin tissue within specimen container (CHUCK/TELLY) B. Received in formalin labeled with the patient's name, number and le (more content not included)... [facility] COVID-19 FRon 09-24-2020 SARS-CoV-2 (COVID-19) RNA MALIK+probe Ql (Unsp spec) Negative Normal Negative [facility] Comment on above: Order Comment: Healt hcare Worker?: N Result Comment: Test ing for SARS-CoV-2 by RT-PCR This test was developed and its performance characteristics determined by [employer]) and validated at the [facility]. This test has not been FDA cleared [...] is terminated or revoked sooner. PERFORMED BY: [place] [address] PATHOLOGIST BUSINESS AFFAIRS MANAGER JEYSON KOHLER M.D. Performed By: #### C OVID-19 [facility] #### [address] COVID-19 [facility] 09-19-2020 SARS-CoV-2 (COVID-19) RNA MALIK+probe Ql (Unsp spec) Negative Normal Negative [facility] Comment on above: Order Comment: Comme nt pst Healthcare Worker?: N Result Comment: Test ing for SARS-CoV-2 by RT-PCR This test was developed and its performance characteristics determined by [employer]) and validated at the [facility]. This test has not been FDA cleared [...] is terminated or revoked sooner. PERFORMED BY: [facility] [address] [facility] [place] [address] PATHOLOGIST BUSINESS AFFAIRS MANAGER JEYSON KOHLER M.D. Performed By: #### C OVID-19 [facility] #### [address] [id number] [facility] Physician Referralon [facility] Physician Referral [phone] 10 [id number]#[id number] 0CD:[address] [facility] Provider Letteron 07-25-2020 Provider Letter July 25, 2020 CARINA SCHULTZ [address] [place] [address] CARINA SCHULTZ 1990 Dear Carina , You [...] [facility] [address], [place] [address] [facility] Vital Signs Date Time Vital Sign Value Performing Clinician Facility 12-23-2023 13:45-0400 Body height 170.18 cm [facility] 12-23-2023 13:45-0400 Body mass index (BMI) [Ratio] 40.5 kg/m2 [facility] 12-23-2023 13:45-0400 Body temperature 98.2 [degF] [facility] 12-23-2023 13:45-0400 Body weight 117.48 kg [facility] 12-23-2023 13:45-0400 Heart rate 83 /min [facility] 12-23-2023 13:45-0400 Respiratory rate 18 /min [facility] 12-23-2023 13:45-0400 SaO2% (BldA) [Mass fraction] 99 % [facility] 07-05-2022 10:05-0500 Body height 170.18 cm Amira Mariela Other [facility] Other 07-05-2022 10:05-0500 Body mass index (BMI) [Ratio] 37.59 kg/m2 Amira Mariela Other [facility] Other 07-05-2022 10:05-0500 Body temperature 98.1 [degF] Amira Mariela Other [facility] Other 07-05-2022 10:05-0500 Body weight 108.86 kg Amira Mariela Other [facility] Other 07-05-2022 10:05-0500 Respiratory rate 18 /min Amira Marieal Other [facility] Other 07-05-2022 10:05-0500 SaO2% (BldA) [Mass fraction] 99 % Amira Mariela Other [facility] Other Encounters Encounter Date Encounter Type Care Provider Facility Start: 02-16-2024 End: 02-16-2024 ambulatory SASHA OWENS Not Available Start: 02-10-2024 End: 02-10-2024 ambulatory ALEXANDRA AICHHOLZ Not Available Start: 01-26-2024 End: 01-26-2024 ambulatory ALEXANDRA AICHHOLZ Not Available Start: 01-13-2024 End: 01-13-2024 ambulatory ALEXANDRA AICHHOLZ Not Available Start: 12-28-2023 End: 12-28-2023 ambulatory ALEXANDRA AICHHOLZ Not Available Start: 12-23-2023 End: 12-23-2023 ambulatory [facility] Work Phone: Start: 12-23-2023 End: 12-23-2023 Patient encounter procedure [facility] Work Phone: Start: 12-09-2023 [...] Not Available Start: 11-19-2022 End: 11-19-2022 ambulatory [employer] ALEXANDRA AICHHOLZ Facility: Start: 07-05-2022 End: 07-05-2022 ambulatory Amira Sierra Other [facility] Other Start: 07-05-2022 Office outpatient vi sit 15 minutes Amira Mariela [facility] Start: 04-11-2022 End: 04-12-2022 ambulatory [facility] Procedures Date Procedure Procedure Detail Performing Clinician Start: 12-23-2023 Quick Strep (POC) Payers Date Payer Category Payer Unknown [id number] 93 1990 Unknown [id number] 2.16.840.1.670679.3.579.2.5 93 1990 Unknown [id number] 2.16.840.1.874687.3.579.2.1 259 1990 Unknown [id number] 2.16.840.1.429301.3.579.2.1 259 1992 Unknown [id number] 2.16.840.1.498090.3.579.2.1 259 1992 Unknown [id number] 2.16.840.1.417433.3.579.2.1 259 1992 Unknown [id number] 2.16.840.1.008141.3.579.2.1 259 1992 Unknown [id number] 2.16.840.1.536994.3.579.2.1 259 1992 Unknown [id number] 2.16.840.1.894865.3.579.2.1 259 1992 Unknown [id number] 2.16.840.1.213560.3.579.2.1 259 1992 Unknown [id number] 2.16.840.1.343787.3.579.2.1 259 1992 Unknown [id number] 2.16.840.1.065457.3.579.2.1 259 1992 Unknown [id number] 2.16.840.1.584532.3.579.2.1 259 1992 Unknown [id number] 2.16.840.1.808878.3.579.2.1 259 1992 Unknown [id number] 2.16.840.1.530910.3.579.2.1 259 1992 Unknown [id number] 2.16.840.1.612358.3.579.2.1 259 1959 Unknown [id number] 2.16.840.1.145941.19 1959 Unknown [id number] Medicaid [employer] [id number] Self-pay Self Pay [id number] Unknown MMO [id number] Unknown [employer] Benefits E1 [id number] Worker's Compensation [id number] Social History Date Type Detail Facility Unknown if ever smoked [facility] Other Sex Assigned At Sex Assigned At Bir th [facility] Other Start: 09-26-2020 Tobacco smoking status IDIS Smoker (finding) [facility] Start: 1990 Sex Assigned At Female F [facility] Evaluation note 07-05-2022 Note Date & [...] no improvement in 2 to 3 days. [facility] Other Progress note 01-10-2021 Note Date & Type Note Facility 01-10-2021 Note HNO ID: [id number] Author: Miley Ramirez MD Service: ? Author Type: Physician Type: Progress Notes Filed: 01/11/2021 5:21 AM Note Text: Gynecologic Oncology [facility] Follow-up visit Re: Carina Schultz [facility]#: [id number] Date of service: 01/10/2021 Sasha Owens MD ([facility]) [facility] [address] [address] Dear Sasha Owens: Carina presents for follow up. Briefly, she [...] presents for a consultation visit via Dr. Owens for an opinion regarding ALLY 3/BLAINE 3. [...] lesions present on labia bilaterally Rt> Lt. [employer] Operator: Carolyn Hancock NP IMPRESSION/PLAN: Patient presents today for follow up. Patient has decreased her smoking. 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 I recommend patient restart Aldara cream since vulvar lesions are still present. Encouraged smoking cessation. RTC 3 months Thank you for referring her for gynecologic oncology consultation. I will be in touch with you regarding her findings. CC: Sasha Owens MD ([facility]) [address] [id number] No primary care provider on file. (PCP) The previous note from Dr. Ramirez dated 10/11/2020 was copied forward and the necessary changes were made above. ATTESTATION: By signing my name below, IYanni, attest that this documentation has been prepared under the direction and in the presence of Miley Ramirez MD. Electronically signed:Landry Stein, January 10, 2021 1:56 PM Provider Attestation: I, Miley Ramirez MD, personally performed the services described in this documentation. All medical record entries made by the ferdinandibe were at my direction and in my presence. I have reviewed the chart and discharge (more content not included)... [facility] Progress note 10-11-2020 Note Date & Type Note Facility 10-11-2020 Note HNO ID: [id number] Author: Miley Ramirez Service: ? Author Type: Physician Type: Progress Notes Filed: 10/12/2020 10:46 AM Note Text: Gynecologic Oncology [facility] Consultation Re: Carina Schultz [facility]#: [id number] Date of service: 10/11/2020 Sasha Owens MD ([facility]) [address] [address] [address] Owens for an opinion regarding ALLY 3/BLAINE 3. My final recommendations will be communicated back to the requesting physician by way of shared medical record or letter to requesting physician via US mail. Dear Ssaha Owens: Thank you for referring Carina for consultation. 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 She resides in [place], [place]. REVIEW OF SYSTEMS: Constitutional: No recent [...] - Regular rat (more content not included)... [facility] Evaluation note Note Date & Type Note Facility Evaluation note No assessment information [facility] Work Phone: History general Narrative - Reported Note Date & Type Note Facility History general Narrative - Reported Type Medical History asthma Medical History hives Medical History urethra dilation Medical History yeast infections Surgical History Ureathral dialation Surgical History [place] teeth Surgical History [facility]--Dr owens vaginal biopsies 04/29/19 Hospitalization History asthma 2010 [facility] Other Summary Purpose Family History No Family [...] section and content) DATE CREATED AUTHOR 07/30/2020 Erlin Sepulveda [facility] DATE CREATED AUTHOR AUTHOR'S ORGANIZ ATION 08/23/2021 [facility] DATE CREATED AUTHOR AUTHOR'S ORGANIZ ATION 09/05/2021 [facility] DATE CREATED AUTHOR AUTHOR'S ORGANIZ ATION 11/24/2022 [facility] DATE CREATED AUTHOR AUTHOR'S ORGANIZ ATION 02/18/2024 [facility] EPIC REASON FOR VISIT (unrecogniz [...] BE BASED ON THE PRIMARY CLINICAL RECORDS. [employer] provides no warranty or guarantee of the accuracy or completeness of information in this document.
== END 2024-02-19 06:53 | disposition home or self-care (01) ==
LOC: US 06:52
PROVIDERS: PCP Nurse Practitioner; Visit Provider Nurse Practitioner
DX: R74.8 Abnormal levels of other serum enzymes (principal); K80.20 Calculus of gallbladder without cholecystitis without obstruction
CPT/HCPCS: 76705

== ENCOUNTER 2024-04-19 10:40 | Outpatient (OUT) | payer OTHER, SELFPAY ==
--- NOTE | 2024-04-19 10:47 | XR_ITS ---
The [address] [address] Patient Name: SABRINA GUY MRN: [id number] date: 1990 Sex: F Assigned Patient Location: LAB Current Patient Location: Accession/Order Number: [id number] Exam Date: 04/19/2024 11:09 Report Date: 04/21/2024 05:28 At the request of: MELIZA MACIEL Procedure: XR abdomen 1V EXAMINATION: XR abdomen 1V HISTORY: Kidney Stone COMPARISON: No relevant comparison available. FINDINGS: KIDNEY/URETER - RIGHT: No visible renal or ureteral calcifications. KIDNEY/URETER - LEFT: No visible renal or ureteral calcifications. PELVIS: No visible ureteral stones. BOWEL: No abnormal dilation or deviation. BONES: No acute abnormality. OTHER: Negative. No abnormal gaseous collections. XR/XR abdomen 1V IMPRESSION: 1. No appreciable urinary tract calculi. Electronically authenticated by: MARCELLE AHMADI Date: 04/21/2024 05:28
== END 2024-04-19 10:41 | disposition home or self-care (01) ==
LOC: LAB 10:40
PROVIDERS: PCP Nurse Practitioner; Visit Provider Urology
DX: N20.0 Calculus of kidney (principal)
CPT/HCPCS: 74018

== ENCOUNTER 2024-08-04 19:59 | Emergency (ER) | payer OTHER, SELFPAY ==
[2024-08-04 20:04] VITALS: BP 151/101; PULSE 78; TEMP 36.7; O2SAT 100; BMI 41.5
--- OUTSIDE RECORDS SUMMARY | 2024-08-04 20:05 | XMS_ITS | CCD ---
Author Organization [facility] Care Team Providers Care Salvage Winder And Inspector Name Role Phone Amira Sierra Unavailable AICHHOLZ, MANUFACTURING QUALITY MANAGER ALEXANDRA Primary Care Unavailable AICHHOLZ, MANUFACTURING QUALITY MANAGER ALEXANDRA Admitting Unavailable AICHHOLZ, MANUFACTURING QUALITY MANAGER ALEXANDRA Attending Unavailable AICHHOLZ, MANUFACTURING QUALITY MANAGER ALEXANDRA Consulting Unavailable AICHHOLZ, MANUFACTURING QUALITY MANAGER ALEXANDRA Primary Care Unavailable AICHHOLZ, MANUFACTURING QUALITY MANAGER ALEXANDRA Admitting Unavailable AICHHOLZ, MANUFACTURING QUALITY MANAGER ALEXANDRA Attending Unavailable AICHHOLZ, MANUFACTURING QUALITY MANAGER ALEXANDRA Consulting Unavailable AICHHOLZ, ALEXANDRA J Primary Care Physician [phone] Aichholz AIR CONDITIONER INSTALLER HELPER, Alexandra Unavailable Marty Hinson MD Primary Care Provider [phone] Aichholz AIR CONDITIONER INSTALLER HELPER, Alexandra Unavailable Aichholz AIR CONDITIONER INSTALLER HELPER, Alexandra Unavailable HALEY OWENS Referring Unavailable HENNY ENRIQUE Primary Care Unavailable SHANITA HART Attending Unavailable Jeni Callaway Attending Unavailable Jeni Callaway Admitting Unavailable Jeni Callaway Attending Unavailable Jeni Callaway Attending Unavailable BEATRIZ SIMONS JR Attending Unavailable BEATRIZ SIMONS JR Referring Unavailable AICHHOLZ, ALEXANDRA Attending Unavailable JOSIAH YOUNG Attending Unavailable AICHHOLZ, ALEXANDRA Attending Unavailable AICHHOLZ, ALEXANDRA Attending Unavailable HALEY OWENS Attending Unavailable HALEY OWENS Referring Unavailable SHAKIR LUCAS Attending Unavailable AICHHOLZ, ALEXANDRA Referring Unavailable AICHHOLZ, ALEXANDRA Attending Unavailable HALEY OWENS Attending Unavailable HALEY OWENS Referring Unavailable JOSIAH YOUNG Attending Unavailable AICHHOLZ, ALEXANDRA Attending Unavailable AICHHOLZ, ALEXANDRA Attending Unavailable Allergies Allergy Classification Reported Allergen(s) Allergy Type Date of Onset Reaction(s) Facility (18 sources) Sulfamethoxazole / Trimethoprim; Translations: [sulfamethoxazole-tr imethoprim] Drug Allergy 4 Karla mackenzie (disorder) [facility] (2 sources) diphenhydrAMINE; Translations: [Benadryl] Drug Allergy 6 [facility] (16 sources) Nitrofurantoin Drug Allergy 1 [facility] (1 source) Sulfamethoxazole Drug Allergy 4 [facility] (1 source) Trimethoprim Drug Allergy 4 [facility] (4 sources) diphenhydrAMINE; Translations: [diphenhydramine] Drug Allergy [facility] Comment on above: RASH (13 sources) diphenhydrAMINE Drug Allergy 4 [facility] (1 source) Sulfamethoxazole / Trimethoprim; Translations: [Bactrim] Drug Allergy [facility] Medications Current Medications Medication Drug Class(es) Dates Sig (Normalized) Sig (Original) [id number] 200 actuat albuterol 0.09 mg/actuat metered dose inhaler (20 sources) beta2-Adrenergic Agonist Start: 05-31-2024 End: 06-30-2024 take 2 puff(s) by inhalation every six hours for wheezing albuterol HFA 90 mcg/act inhaler Indications: Moderate persistent asthma in adult without complication (CMS/HCC) Inhale 2 puffs every 6 (six) hours if needed for wheezing or shortness of breath 18 g 05/31/2024 Active Start: 10-26-2023 End: 05-31-2024 take 2 puff(s) by mouth every six hours albuterol HFA 90 mcg/act inhaler Indications: Moderate persistent asthma in adult without complication (CMS/HCC) inhale 2 puffs by mouth and INTO THE LUNGS every 6 hours if needed shortness of breath 18 g 1 10/26/2023 05/31/2024 Discontinued (Reorder) Start: 04-29-2019 Albuterol Sulf ate Active 90 MCG INHALATION As Directed April 29, 2019 12:00am Start: 11-20-2014 take 2.5 mg by inhal ation every four hours albuterol 0.5% Inh Fabby 2.5 mg, 0.5 mL, Inhalation, q4hr, Refill(s) 0 Start Date: 11/20/14 Status: Ordered take 2 puff(s) by in halation every [...] MG PO Daily September 26, 2020 1:00am AZO D-MANNOSE 500 MG CAPSULE (4 sources) Start: 03-22-2024 AZO D-MANNOSE 500 MG CAPSULE AZO D-MANNOSE 500 MG CAPSULE, As Directed Start Date: 03/22/24 Status: Ordered 60 actuat budesonide 0.08 mg/actuat / formoterol fumarate 0.0045 mg/actuat metered dose inhaler (17 sources) Corticosteroid , beta2-Adrenerg ic Agonist Start: 05-31-2024 End: 06-30-2024 take 2 puff(s) by inhalation in the morning budesonide-formoter ol (Symbicort) 80-4.5 MCG/ACT inhaler Indications: Moderate persistent asthma in adult without complication (CMS/HCC) Inhale 2 puffs in the morning and 2 puffs before bedtime. Rinse mouth after use. 1 each 5 05/31/2024 Active Start: 10-26-2023 End: 05-31-2024 take 2 puff(s) by mouth twice daily budesonide-formoterol (Symbicort) 80-4.5 MCG/ACT inhaler Indications: Moderate persistent asthma in adult without complication (CMS/HCC) INHALE 2 PUFFS BY MOUTH TWICE A DAY - - RINSE MOUTH AFTER USE 1 each 5 10/26/2023 05/31/2024 Discontinued (Reorder) busPIRone hydrochloride 5 mg oral tablet (17 sources) Start: 03-21-2024 take 1 tablet by mouth every twelve hours as needed for anxiety busPIRone (Buspar) 5 MG tablet Indications: Anxiety TAKE 1 TABLET BY MOUTH EVERY 12 HOURS NEEDED FOR ANXIETY 60 tablet 1 03/21/2024 Active Start: 10-26-2023 End: 05-31-2024 take 1 tablet by mouth every twelve hours as needed for anxiety busPIRone (Buspar) 5 MG tablet Indications: Anxiety TAKE 1 TABLET BY MOUTH EVERY 12 HOURS NEEDED FOR ANXIETY 60 tablet 1 03/21/2024 05/31/2024 Discontinued (Therapy completed) cephalexin 500 mg oral capsule (19 sources) Cephalosporin Antibacterial Start: 05-13-2024 End: 05-23-2024 cephalexin (Keflex) 500 MG capsule Indications: UTI symptoms Take 1 capsule (500 mg) by mouth in the morning and 1 capsule (500 mg) at noon and 1 capsule (500 mg) in the evening and 1 capsule (500 mg) before bedtime. Do all this for 10 days. 40 capsule 05/13/2024 05/23/2024 Active Start: 03-22-2024 End: 07-28-2024 cephalexin (Keflex) 250 MG c apsule Take 250 mg by mouth 03/22/2024 07/28/2024 Discontinued Start: 09-26-2020 End: 12-23-2023 take 500 mg [...] 29, 2019 12:00am May 03, 2019 5:23pm cetirizine hydrochloride 10 mg oral tablet (20 sources) Histamine-1 Receptor Antagonist Start: 04-29-2019 cetirizine 10 mg Tab 10 mg = 1 tab(s), Refills(s) 0 Start Date: 03/22/24 Status: Ordered cholecalciferol 0.025 mg oral tablet (13 sources) Vitamin D Start: 09-26-2020 take 1 tablet by mouth once daily Cholecalciferol (Vitamin D3) (Vitamin D3) 25 mcg (1,000 unit) Tablet Active 2000 UNIT PO Daily September 26, 2020 1:00am End: 05-31-2024 cholecalciferol (Vitamin D-3 ) 50 MCG (2000 UT) capsule 1 capsule 05/31/2024 Discontinued (Therapy completed) clobetasol propionate 0.5 mg/ml topical cream (15 sources) Corticosteroid Start: 12-30-2022 clobetasol (Temovate) 0.05 % cream apply to affected area ON HANDS once daily for up to 2 weeks then if needed for FLARES 12/30/2022 Active fluticasone propionate 0.05 mg/actuat metered dose nasal [...] day Active loratadine 10 mg oral tablet (3 sources) Start: 04-29-2019 take 10 mg by mouth once daily Loratadine Active 10 MG PO Daily April 29, 2019 12:00am methylPREDNISolone 4 mg oral tablet (3 sources) Corticosteroid Start: 07-05-2022 Medrol 4 MG as directed Orally as directed for 6 days Jun, Active Start: 07-15-2018 Depo-Medrol 40 mg Jun, 40 mg Start: 06-24-2018 Depo-Medrol 40 mg May, 40 mg omalizumab 150 mg injection (7 sources) Anti-IgE Start: 03-22-2024 Xolair 150 mg subcutaneous injection 300 mg, SubCutaneous, q4wk, # 1 EA, Refills(s) 0 Start Date: 03/22/24 Status: Ordered Start: 12-23-2023 Omalizumab (Xo lair) 150 mg/mL syringe Active 150 MG SUBCUT every 5 weeks December 23, 2023 1:47pm Start: 09-26-2020 End: 12-23-2023 inject 150 mg by subcutaneous injection every other week Omalizumab (Xolair) 150 mg/mL Syringe Discontinued 150 MG SUBCUT EVERY 2 WEEKS September 26, 2020 1:00am December 23, 2023 1:48pm Xolair Active phentermine hydrochloride 37.5 mg oral tablet (11 sources) Sympathomimetic Amine Anorectic Start: 03-08-2024 End: 05-03-2024 phentermine 37.5 mg Tab 37.5 mg = 1 tab(s), Refills(s) 0 Start Date: 03/22/24 Status: Ordered spironolactone 50 mg oral tablet (12 sources) Aldosterone Antagonist Start: 08-02-2023 End: 05-31-2024 take 1 tablet by mouth once daily spironolactone (Aldactone) 50 MG tablet Take 50 mg by mouth Daily 08/02/2023 05/31/2024 Discontinued (Therapy completed) Symbicort 80/4.5 inhalation aerosol with adapter (4 sources) Start: 03-22-2024 take 2 puff(s) by inhalation twice daily Symbicort 80/4.5 inhalation aerosol with adapter 2 puff(s), Inhalation, BID, Refill(s) 0 Start Date: 03/22/24 Status: Ordered vitamin a 2.4 mg oral capsule (1 [...] Drug Class(es) Dates Sig (Normalized) Sig (Original) ciprofloxacin 500 mg oral tablet (1 source) Quinolone Antimicrobial Start: 03-12-2024 End: 03-17-2024 take 1 tablet by mouth in the morning ciprofloxacin (Cipro) 500 MG tablet Indications: Recurrent UTI Take 1 tablet (500 mg) by mouth in the morning and 1 tablet (500 mg) before bedtime. Do all this for 5 days. 10 tablet 03/12/2024 03/17/2024 D-Mannose (Azo D-Mannose) 500 MG capsule (1 source) Start: 02-16-2024 End: 03-17-2024 take 1 tablet by mouth once daily D-Mannose (Azo D-Mannose) 500 MG capsule Indications: Recurrent UTI Take 1 tablet by mouth Daily 30 capsule 3 02/16/2024 03/17/2024 dapsone 25 mg oral tablet (1 source) [...] 29, 2019 12:00am December 23, 2023 1:47pm podofilox 5 mg/ml topical solution (17 sources) Start: 03-22-2024 End: 07-28-2024 podofilox (Condylox) 0.5 % external solution Apply 1 application topically 03/22/2024 07/28/2024 Discontinued Start: 03-22-2024 podofilox topi eri 0.5% solution Refill(s) 0 Start Date: 03/22/24 Status: Ordered Start: 02-16-2024 End: 03-15-2024 podofilox (Condylox) 0.5 % g el Indications: ALLY III (vulvar intraepithelial neoplasia III) Apply topically 2 (two) times a day for 28 days 3.5 g 3 02/16/2024 03/15/2024 Start: 02-16-2024 End: 03-15-2024 podofilox (Condylox) 0.5 % e xternal solution Indications: Vulvar intraepithelial neoplasia (ALLY) grade 3 , Condyloma , Chronic idiopathic urticaria Apply topically 2 (two) times a day for 28 days 30 mL 3 02/16/2024 03/15/2024 raNITIdine 150 mg oral tablet (1 source) [...] mg tablet Discontinued 50 MG PO Q8H 10 September 26, 2020 1:00am December 23, 2023 1:47pm Triamcinolone (1 source) Corticosteroid Start: 03-11-2019 MACHO - 10 rosalia granados Feb, 60 mg Problems Active Problems Problem Classification Problem Date Documented Da te Episodic/Chronic Acute and chronic tonsillitis (1 source) Amygdalolith; Translations: [Other chronic diseases of tonsils and adenoids] Chronic Administrative/social admission (1 source) Patient encounter status; Translations: [Encounter for blood-alcohol and blood-drug test] 07-28-2024 Episodic Allergic reactions (20 sources) Allergic disposition; Translations: [Chronic idiopathic urticaria] Onset: 01-12-2023 03-21-2024 Episodic Anxiety disorders (20 sources) Anxiety; Translations: [Anxiety disorder, unspecified] Onset: 06-30-2023 03-21-2024 Chronic Asthma (20 sources) Mild intermittent asthma; Translations: [Mild intermittent asthma, uncomplicated] Onset: 04-15-2022 Resolved: 10-26-2023 11-20-2014 Chronic Cancer of cervix (20 sources) Cervicovaginal cytology: Low grade squamous intraepithelial lesion; Translations: [Low grade squamous intraepithelial lesion on cytologic smear of cervix (LGSIL)] Onset: 10-11-2020 Episodic Cancer of other female genital organs (20 sources) Carcinoma in situ of vulva; Translations: [Carcinoma in situ of vulva] Onset: 10-11-2020 Chronic Essential hypertension (20 sources) Essential hypertension; Translations: [Essential (primary) hypertension] Onset: 05-03-2024 Resolved: 05-03-2024 05-03-2024 Chronic Genitourinary symptoms and ill-defined conditions (20 sources) Unspecified symptoms and signs involving the genitourinary system; Translations: [Urinary symptoms ] Onset: 11-19-2022 Episodic Other diseases of bladder and urethra (1 source) Disorder of bladder; Translations: [Other specified disorders of bladder] Onset: 05-11-2024 Chronic Other diseases of bladder and urethra (15 sources) Urethral stricture; Translations: [Other urethral stricture, female] Onset: 03-22-2024 Episodic Other female genital disorders (19 sources) Abnormal uterine bleeding; Translations: [Other specified abnormal uterine and vaginal bleeding] Onset: 10-26-2023 03-21-2024 Chronic Other female genital disorders (3 sources) Dysplasia of cervix 04-21-2024 Episodic Other gastrointestinal disorders (1 source) Diarrhea; [...] sources) Obesity, unspecified; Translations: [OBESITY UNSPECIFIED] Onset: 04-11-2022 Chronic Other nutritional; endocrine; and metabolic disorders (19 sources) Obesity caused by energy imbalance; Translations: [Class 2 obesity due to excess calories without serious comorbidity with body mass index (BMI) of 39.0 to 39.9 in adult] Onset: 03-08-2024 05-03-2024 Chronic Other and delivery including normal (1 source) care status; Translations: [Encounter for supervision of other normal , first trimester] 07-28-2024 Episodic Other screening for suspected conditions (not mental disorders or infectious disease) (5 sources) Encounter for screening for other disorder; Translations: [Abnormal histological finding in specimen from female genital organ] Onset: 04-15-2022 03-21-2024 Episodic Other skin disorders (1 source) Hirsutism; Translations: [Hirsutism] Episodic Other skin disorders (4 sources) Lesion of skin and/or skin-associated mucous membrane 03-21-2024 Episodic Other upper respiratory disease (15 sources) Allergic disposition; Translations: [Other allergic rhinitis] Onset: 10-26-2023 10-26-2023 Chronic Other upper respiratory infections (2 sources) Sore throat symptom; Translations: [Acute pharyngitis, unspecified] Episodic Substance-related disorders (20 sources) Nicotine dependence; Translations: [Tobacco dependence caused by cigarettes] Onset: 10-26-2023 03-21-2024 Chronic Superficial injury; contusion (1 source) Abrasion, knee; Translations: [Abrasion, unspecified knee, initial encounter] 07-08-2023 Episodic Unclassified (3 sources) Lesion of urethra 04-21-2024 Unclassified (1 source) New Patient Onset: 07-08-2024 Urinary tract infections (18 sources) Urinary tract infectious disease; Translations: [Urinary tract infection, site not specified] Onset: 03-21-2024 Episodic Past or Other Problems Problem Classification Problem Date Documented Date Episodic/Chronic Biliary tract disease (15 sources) Cholelithiasis without obstruction; Translations: [Calculus of gallbladder without cholecystitis without obstruction] Onset: 02-23-2024 02-23-2024 Episodic Fracture of lower limb (20 sources) Closed fracture of fibula; Translations: [Unspecified fracture of shaft of unspecified fibula, initial encounter for closed fracture] Onset: 12-28-2023 07-08-2023 Episodic Mycoses (19 sources) Opportunistic mycosis; Translations: [Candidiasis, unspecified] Onset: 10-05-2023 03-21-2024 Episodic Other female genital disorders (19 sources) Cervical intraepithelial neoplasia grade 2; Translations: [Moderate cervical dysplasia] Onset: 10-26-2023 03-21-2024 Episodic Other liver diseases (19 sources) Alkaline phosphatase raised; Translations: [Abnormal levels of other serum enzymes] Onset: 01-05-2024 03-21-2024 Episodic Other nutritional; endocrine; and metabolic disorders (19 sources) Severe obesity; Translations: [Class 3 severe obesity without serious comorbidity with body mass index (BMI) of 40.0 to 44.9 in adult] Onset: 10-26-2023 Resolved: 03-08-2024 03-21-2024 Chronic Other nutritional; endocrine; and metabolic disorders (15 sources) Abnormal weight gain; Translations: [Abnormal weight gain] Onset: 03-08-2024 03-08-2024 Episodic Residual codes; unclassified (1 source) Localized edema; Translations: [LOCALIZED EDEMA] Onset: 04-15-2022 Episodic Sexually transmitted infections (not HIV or hepatitis) (20 sources) Human papillomavirus deoxyribonucleic acid test positive, high risk on cervical specimen; Translations: [Cervical high risk human papillomavirus (HPV) DNA test positive] Onset: 10-26-2023 03-21-2024 Episodic Viral infection (20 sources) Human papilloma virus infection; Translations: [Papillomavirus as the cause of diseases classified elsewhere] Onset: 10-26-2023 07-08-2023 Episodic Results Test Name Value Interpretation Reference Range Facility UA (MICROSCOPIC)on 4 MUCOUS PRESENT Abnormal NONE [facility] Comment on above: Performed By: #### U BENTLEY #### [facility] ([id number]) [address] [place] [address] R.B.CELLS 2 /hpf Normal 0-5 [facility] Comment on above: Performed By: #### U BENTLEY #### [facility] ([id number]) [address] [place] [address] SQUAMOUS EPITHELIUM 4 /hpf Normal 0-5 [facility] Comment on above: Performed By: #### U BENTLEY #### [facility] ([id number]) [address] [place] [address] W.B.CELLS 4 /hpf Normal 0-5 [facility] Comment on above: Performed By: #### U BENTLEY #### [facility] ([id number]) [address], [address] [place] [address] URINE CULTUREon 07-08-2024 Bacteria identified Cx Nom (U) CULTURE RESULTS <10,000 ORGANISMS/ML NORMAL URO GENITAL RITA Normal [facility] Comment on above: Performed By: #### 6 30-4 #### [facility] ([id number]) [address], [address] [place] [address] C Urineon 05-13-2024 Bacteria identified Cx Nom (U) Microbiology PROCEDURE: Urine Culture [R1] SOURCE: U CleanCatch BODY SITE: COLLECTED DATE/TIME: 05/11/2024 09:49 EDT RECEIVED DATE/TIME: 05/11/2024 18:58 EDT START DATE/TIME: 05/11/2024 18:58 EDT FREE TEXT SOURCE: Nilton NUNEZ, Jeni Callaway MD, Jeni Singer FINAL REPORTS Final Report [] Verified Date/Time: 05/13/2024 08:39 EDT 1,000 cfu/ml Mixed skin contaminants Performing Locations R1: This test was performed at: [facility], [address] [place] [address], [facility] , , [facility] Comment on above: Performed By: #### 2 [id number] #### [facility] [address] [place] [address] Ambulatory Visit Summaryon 0 04-21-2024 Ambulatory Visit Summary Ambulatory Visit Summary CARINA SCHULTZ :1990 Visit Date:04/21/2024 Ambulatory Visit Instructions Your Diagnosis Recurrent UTI Other urethral stricture, female Urethral lesion Severe dysplasia of cervix Vulvar intraepithelial neoplasia (ALLY) grade 3 Your Care Team Attending Physician - Nilton NUNEZ, Jeni Singer Primary Care Physician - ALEXANDRA KAY CNP This Is Your Medications List cephalexin (cephalexin 250 mg Cap) Contact prescribing physician if questions or concerns Misc Prescription (AZO D-MANNOSE 500 MG CAPSULE) albuterol (albuterol 0.5% Inh Fabby) budesonide-formoterol (Symbicort 80/4.5 inhalation aerosol with adapter) busPIRone (busPIRone 5 mg Tab) cetirizine (cetirizine 10 mg Tab) omalizumab (Xolair 150 mg subcutaneous injection) phentermine (phentermine 37.5 mg Tab) podofilox topical (podofilox topical 0.5% solution) Procedures Performed Flexible cystoscopy (04/21/2024), Dilation of urethra (04/15/2016), Biopsy of vagina, [place] tooth. Discharge Vitals Heart Rate (Peripheral) 100 Respiratory Rate 16 Blood Pressure 148/100 Height 170 cm Height 67 in Weight 113.5 kg Weight 249.7 lb BMI 39.27 What to do next You Need to Schedule the Following Appointments Follow Up with Nilton NUNEZ, Jeni Singer, BRYCE, URO When: Where: Medications What How Much When Instructions Unchanged cephalexin (cephalexin 250 mg Cap) 1 Capsules By Mouth As Directed Take 1 po following intercourse for UTI prevention Unchanged albuterol (albuterol 0.5% Inh Fabby) 0.5 Milliliter Inhalation Every 4 hours Contact prescribing physician if questions or concerns Unchanged budesonide-formoterol (Symbicort 80/ 4.5 inhalation aerosol with adapter) 2 Puffs Inhalation 2 times a day Contact prescribing physician if questions or concerns Unchanged busPIRone (busPIRone 5 mg Tab) 1 Tablets Contact prescribing physician if questions or concerns Unchanged cetirizine (cetirizine 10 mg Tab) 1 Tablets Contact prescribing physician if questions or concerns Unchanged Misc Prescription (AZO D-MANNOSE 500 MG CAPSULE) 0 As Directed Contact prescribing physician if questions or concerns Unchanged omalizumab (Xolair 150 mg subcutaneous injection) 300 Milligram Subcutaneous Every 4 weeks Contact prescribing physician if questions or concerns Unchanged phentermine (phentermine 37.5 mg Tab) 1 Tablets Contact prescribing physician if questions or concerns Unchanged podofilox topical (podofilox topical 0.5% solution) Contact prescribing physician if questions or concerns Medications and Immunizations Administered Given lidocaine Top 2% Gel w/Appl 6 mL, 6 mL, Topical. For: Recurrent UTI, Other urethral stricture, female, Severe dysplasia of cervix, Vulvar intraepithelial neoplasia (ALLY) grade 3 Allergies Bactrim (Hives) Benadryl Problems Ongoing - Any problem that you are currently receiving treatment for. Antibiotic-induced yeast infection Anxiety Asthma Cervical high risk human papillomavirus (HPV) DNA test positive Chronic idiopathic urticaria Cigarette nicotine dependence BLAINE II (cervical intraepithelial neoplasia II) Class 3 severe obesity without serious comorbidity in adult Closed fibular fracture Condyloma DUB (dysfunctional uterine bleeding) Elevated alkaline phosphatase level Environmental and seasonal allergies High grade squamous intraepithelial lesion (HGSIL), grade 3 BLAINE, on biopsy of cervix HPV (human papilloma virus) infection Other urethral stricture, female Recurrent UTI Severe dysplasia of cervix Urethral lesion UTI symptoms Vulvar intraepithelial neoplasia (ALLY) grade 3 Patient Survey You may receive a survey via text or e-mail asking about your office visit. Please share your experience with us by completing your survey. We appreciate your feedback and thank you for choosing us for your care. Education Materials Urinary Tract Infection, Adult A urinary tract infection (UTI) is an infection of any part of the urinary tract. The urinary tract includes the kidneys, ureters, bladder, and urethra. These organs make, store, and get rid of urine in the body. An upper UTI affects the ureters and kidneys. A lower UTI affects the bladder and urethra. What are the causes? Most urinary tract infections are caused by bacteria in your genital area around your urethra, where urine leaves your body. These bacteria grow and cause inflammation of your urinary tract. What increases the risk? You are more likely to develop this condition if: ? You have a urinary catheter that stays in place. ? You are not able to control when you urinate or have a bowel movement (incontinence). ? You are female and you: ? Use a spermicide or diaphragm for control. ? Have low estrogen levels. ? Are . ? You have certain genes that increase your risk. ? You are sexually active. ? You take antibi (more content not included)... Normal [facility] Urology Office/Clinic Noteon 04-21-2024 Urology Office/Clinic Note Urology Office/Clinic Note Chief Complaint Cysto possible UD HPI Staff ROSEMARY pt here for cysto, possible UD. Abx taken. Started on postcoital Keflex 250mg at 03/22/24 OV. History of Present Illness Tests reviewed: reviewed KUB I have reviewed the previous health record information and history for this patient from TAMIA Lassiter. I have reviewed and verified the staff HPI to be accurate for this encounter. Review of Systems PHQ Score Initial Depression Screen Score: 0 SCORE ROS - Provider Constitutional: denies weight loss, denies hot flashes. Eyes: denies eye problems. Gastrointestinal: denies nausea, denies vomiting. Cardiovascular: denies chest pain or angina. Integumentary: no dryness Musculoskeletal: denies musculoskeletal symptoms. ENMT: denies otolaryngeal symptoms. Respiratory: no shortness of breath. Heme/Lymph: denies easy bleeding tendency, denies easy bruising tendency. Psychiatric: no confusion, no anxiety. Genitourinary: See HPI. Physical Exam Vitals & Measurements HR: 100(Peripheral) RR: 16 BP: 148/100 HT: 67 in HT: 170 cm WT: 113.5 kg WT: 249.7 lb BMI: 39.27 General Appearance: alert , no acute distress, well nourished, well developed female. Genitourinary: bladder nonpalpable, no flank pain. Procedure Operative Information Anesthesia Type: Local Procedure: Local Cystoscopy Complications: None Surgical risks, benefits, details of the procedure have been explained to the patient. Full informed consent has been obtained. Intraoperative Information Prepped: Patient is brought back to the endoscopy suite. Patient is placed in supine/frog leg position. Patient prepped in the usual fashion with Betadine solution. 2% Xylocaine Jelly is placed per Urethra. After waiting several minutes, the Cystoscope is introduced. The Urethra is: Tight had a 2 mm width of white plaque around the 7 o'clock position extending within urethra. Did not dilate, was very tender. The Bladder: Squamous metaplasia on the trigone, Trabeculated: None (0). External mass effect of stool on bladder. The Ureteral orifices: Show efflux of clear urine Specimens Removed: None Removal: Cystoscope is removed. The patient tolerated it well. Vaginal examination: Vaginal mucosa: There is no vaginal atrophy. The urethra is without masses or lesions There is no urethral hypermobility and JALEESA is not seen. She is able to correctly identify her pelvic muscles with coaching, weak recruitment. R labial white area from prior HPV tx. Postoperative Information Patient is discharged home with antibiotic coverage. Follow up arranged. Assessment/Plan ROSEMARY pt. 1. Recurrent UTI (N39.0: Urinary tract infection, site not specified) UCx: 12/28/23 - 20-30k E. coli, tx'd w/cephalexin 500mg bid x 10 days 02/16/24 - <10k mixed genital rita 03/08/24 - 50-100k E. coli, tx'd w/cipro 500mg bid x 5 days KUB 04/19/24 [facility] - Neg. Pt had IO cysto today wo complications. Started on postcoital Keflex 250 mg prn at prior OV - no UTIs since Reviewed KUB with pt. Educated pt on herbal supplements for UTI prevention including daily cranberry, probiotic, and d-mannose supplements. Follow up pending if pt would like to schedule urethral bx or sooner if needed. Pt understands and agrees with plan. -Start herbal supplements for UTI prevention above. -Cont prophy prn abx as above -Bowel regimen 2. Other urethral stricture, female (N35.82: Other urethral stricture, female) Cysto/UD 04/15/16 by PRW [1], pt preferred female provider for UD. Did not dilate today, very tender. No discrete stricture 3. Urethral lesion (N36.9: Urethral disorder, unspecified) See procedure section. Discussed biopsying white plaques in urethra and bladder to rule out squamous cell carcinoma. Pt wishes to think about this prior to scheduling. -Pt to call if she would like to schedule urethral bx. Risks and Benefits were discussed with the patient. These include bleeding, infection, pain, and need for additional procedures. Pre-op consent reviewed with and obtained from patient. Order Mac anesthesia. 4. Severe dysplasia of cervix (D06.9: Carcinoma in situ of cervix, unspecified) Followed by MANAGER OF BUSINESS [2]. 5. 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 Follow-up With When Contact Information Nilton NUENZ, Jeni Singer, URL, URO Additional Instructions: Pt to call if she would like to schedule urethral bx Patient Education Urinary Tract Infection, Adult Antibiotic Medicine, Adult I, Ai Harris, personally scribed for Dr. Callaway on 04/21/2024 11:29:33. . Documentation recorded by the scribtavares, Ai Harris, accurately reflects the services(s) I performed and decisions made by me. Authenticated by Dr. Callaway on 04/21/2024 12:04:26. Problem List/Past Medical History Ongoing Antibiotic-induced yeast infection Anxiety Asthma Cer (more content not included)... Normal [facility] Comment on above: Result Comment: Elec tronically Signed By: Nilton NUNEZ, Jeni Singer\.br\Date and Time Signed: 04/21/24 12:04 EDT\.br\Electronically Co-Signed By: Ai Harris\.br\Date and Time Co-Signed: 04/21/24 11:30 EDT Urology Office/Clinic Noteon 03-22-2024 Urology Office/Clinic Note Urology Office/Clinic Note Chief Complaint recurrent uti HPI Staff New pt referred by Dr. Haley Owens for recurrent UTI. Last seen IO 04/15/16 by PRW for cysto/UD. Hx of HPV, tx'd w/ podophyllin. UCx 12/28/23 - 20-30k E. coli 02/16/24 - <10k mixed genital rita 03/08/24 - 50-100k E. coli No relevant imaging on [facility] or Epic. *D-mannose Dysuria: no Incomplete bladder emptying: denies Hematuria: denies Frequency: denies Urgency: denies Nocturia: denies Stream: good steady Leaking: denies Post void dripping: denies Wearing pads/ Depends: denies Urge incontinence: denies Stress incontinence: denies Incontinence without Sensory Awareness: no Abdominal pain: denies Flank pain: denies Sexual complaints: no History of Present Illness Tests reviewed: reviewed UA, referral records I have reviewed the previous health record information and history for this patient from Dr. Haley Owens . I have reviewed and verified the staff HPI to be accurate for this encounter. Review of Systems PHQ Score Initial Depression Screen Score: 0 SCORE No fever, chills, malaise, myalgia. No rash/lesions. No chest pain, palpitations, or SOB. No abdominal pain, nausea, vomiting. No unilateral calf swelling, redness, pain Physical Exam Vitals & Measurements T: 37 ?C(Temporal Artery) HR: 79(Peripheral) RR: 16 BP: 132/84 HT: 67 in HT: 170 cm WT: 113.5 kg WT: 249.7 lb BMI: 39.27 General: nontoxic, NAD Mouth: moist mucosa Lungs: normal respiratory effort Cardio: regular rate, good distal perfusion Abdomen: nondistended, no suprapubic distention or tenderness, no CVA tenderness Neurologic: Grossly normal Skin: No rashes or suspicious lesions Assessment/Plan New pt referred by Dr. Haley Owens fo recurrent UTI. Hx of HPV, tx'd w/ podophyllin. BBSQ 3. 1. Recurrent UTI (N39.0: Urinary tract infection, site not specified) UCx: 12/28/23 - 20-30k E. coli, tx'd w/cephalexin 500mg bid x 10 days 02/16/24 - <10k mixed genital rita 03/08/24 - 50-100k E. coli, tx'd w/cipro 500mg bid x 5 days most recent UTI 03/08 UA in office today not suspicious for UTI current UTI symptoms no UTI frequency a few per year UTIs started worsening in the past 6-12 mos pt's typical UTI sx include ____burning, frequency, odor hx stones no immunosuppressed no post-menopausal/hyster ectomy no does have hx ALLY/severe cervical dysplasia proper hygiene habits: wipes front to back every time yes avoids baths/hot tubs yes avoids scented [employer]GER [employer] products yes urinates after sexual activity yes already taking OTC UTI prevention supplements Today we discussed the following methods to decrease frequency of UTIs: 1) Increase fluids. Aim for at least 2L daily. General bladder health reviewed and pt education provided. Bladder irritant list provided for pt to review. 2) We will check KUB to rule out stones as contributing factor to UTIs. Will call pt with results. If shows significant stone burden, pt will need appt to discuss tx options. 3) Since pt has noticed connection btwn intercourse and UTI, we discussed risks/benefits of post-coital abx. Pt would like to try this. Keflex 250mg sent. Side effects discussed. 4) Will schedule Cysto with possible UD. The procedure risks, benefits, details, and treatment alternatives have been discussed with the patient. These include bleeding, infection, recurrent scar in over 50%, need for repeat dilation or other procedures, no symptom relief with dilation, among others. Full informed consent has been obtained. Will order Local anesthesia. Pt advised to contact our office w all future UTI sx so we can monitor urine cx results, treat appropriately (may require extended course abx), and monitor frequency of infections. Pt advised if develops fever, severe flank pain, vomiting - needs to go to ER. 2. Other urethral stricture, female (N35.82: Other urethral stricture, female) Cysto/UD 04/15/16 by PRW. strongly prefers female MD for repeat procedure. will schedule w KML. 3. Severe dysplasia of cervix (D06.9: Carcinoma in situ of cervix, unspecified) -Followed by MANAGER OF BUSINESS 4. ALLY III (vulvar intraepithelial neoplasia III) (D07.1: Carcinoma in situ of vulva) -Followed by MANAGER OF BUSINESS Follow-up With When Contact Information SHANITA HART PA-C, URL [id number] [place] [address] Additional Instructions: post-op cysto Nilton NUNEZ, Jeni Singer, URL, URO Additional Instructions: sched cysto w/possible UD Patient Education Urinary Tract Infection, Adult Documentation recorded by the scribtavares Masters accurately reflects the services(s) I performed and decisions made by me. Authenticated by Shanita Hart PA-C on 03/22/2024 10:30:14. IVijay, personally scribed for Shanita Hart PA-C on 03/22/2024 10:18:49. . Problem List/Past Medical History Ongoing Antibiotic-induced yeast infection Anx (more content not included)... Normal [facility] Comment on above: Result Comment: Elec tronically Signed By: SHANITA HART PA-C\.br\Date and Time Signed: 03/22/24 10:30 EDT\.br\Electronically Co-Signed By: Vijay Masters\.br\Date and Time Co-Signed: 03/22/24 10:19 EDT No Panel InformationOrdered By: Ralph Osorio on 12-23-2023 Quick Strep (POC) [facility] CULTURE URINEon 11-21-2022 CULTURE URINE Isolate [...] F Nitrofurantoin <=16 S F Normal [facility] Comment on above: Performed By: #### U RCX #### [facility] [address] [place] [address] Dr. Idalia Wilson UA RANDOM W/MICROSCOPICon BACTERIA NONE SEEN Normal NONE SEEN [facility] Comment on above: Performed By: #### U AMIC #### [facility] [address] [place] [address] Dr. Idalia Wilson Bilirubin Ql (U) Negative Normal NEGATIVE [facility] Comment on above: Performed By: #### U AMIC #### [facility] [address] [place] [address] Dr. Idalia Wilson CAST NONE SEEN Normal NONE SEEN [facility] Comment on above: Performed By: #### U AMIC #### [facility] [address] [place] [address] Dr. Idalia Wilson Clarity (U) CLEAR Normal CLEAR [facility] Comment on above: Performed By: #### U AMIC #### [facility] [address] [place] [address] Dr. Idalia Wilson Color (U) LT. YELLOW Normal YELLOW [facility] Comment on above: Performed By: #### U AMIC #### [facility] [address] [place] [address] Dr. Idalia Wilson Crystals LM Nom (Urine sed) NONE SEEN Normal NONE SEEN [facility] Comment on above: Performed By: #### U AMIC #### [facility] [address] [place] [address] Dr. Idalia Wilson Epithelial cells LM Ql (Urine sed) FEW Abnormal NONE SEEN /RARE [facility] Comment on above: Performed By: #### U AMIC #### [facility] [address] [address] [address] Idalia Wilson Glucose Ql (U) Negative Normal NEGATIVE [facility] Comment on above: Performed By: #### U AMIC #### [facility] [address] [address] [address] Idalia Wilson Hemoglobin Ql (U) Negative Normal NEGATIVE [facility] Comment on above: Performed By: #### U AMIC #### [facility] [address] [address] [address] Idalia Wilson Ketones Ql (U) Negative Normal NEGATIVE [facility] Comment on above: Performed By: #### U AMIC #### [facility] [address] [place] [address] Dr. Idalia Wilson LEUKOCYTES Negative Normal NEGATIVE [facility] Comment on above: Performed By: #### U AMIC #### [facility] [address] [address] [address] Idalia Wilson MUCOUS SMALL Abnormal NONE SEEN [facility] Comment on above: Performed By: #### U AMIC #### [facility] [address] [address] [address] Idalia Wilson Nitrite Ql (U) Negative Normal NEGATIVE [facility] Comment on above: Performed By: #### U AMIC #### [facility] [address] [address] [address] Idalia Wilson pH (U) 6.5 [pH] Normal 5-9 [facility] Comment on above: Performed By: #### U AMIC #### [facility] [address] [address] [address] Idalia Wilson RBC NONE SEEN Abnormal 0-2 [facility] Comment on above: Performed By: #### U AMIC #### [facility] [address] [place] [address] Dr. Idalia Wilson SPEC GRAVITY 1.025 Normal 1.005-<=1.02 5 [facility] Comment on above: Performed By: #### U AMIC #### [facility] [address] [address] [address] Idalia Wilson UA PROTEIN Negative Normal NEGATIVE/ TRACE [facility] Comment on above: Performed By: #### U AMIC #### [facility] [address] [address] [address] Idalia Wilson Urobilinogen Qn (U) 0.2 {Mounika'U}/dL Normal 0.2 - 1. 0 [facility] Comment on above: Performed By: #### U AMIC #### [facility] [address] [address] [address] Idalia Wilson WBC NONE SEEN Normal NONE SEEN [facility] Comment on above: Performed By: #### U AMIC #### [facility] [address] [place] [address] Dr. Idalia Wilson Quick Strepon 07-05-2022 S. pyogenes Org specific cx Ql (Throat) Negative deeplocal Other Quick Strep [facility] [employer] Other HEPATITIS B SURFACE ANTIBODY , QUANTon 04-12-2022 Hepatitis B Surf AB Quant <3.1 Critically low Immunity>9.9 [facility] Comment on above: Result Comment: Stat us of Immunity Anti-HBs Level Inconsistent with Immunity 0.0 - 9.9 Consistent with Immunity >9.9 Performed By: #### H EPBSRF #### [facility] [address] [place] [address] Dr. Idalia Wilson MMR IMMUNITYon 04-12-2022 Mumps Abs, IgG <9.0 Critically low Immune >10.9 [facility] Comment on above: Result Comment: Nega tive <9.0 Equivocal 9.0 - 10.9 Positive >10.9 A positive result generally indicates past exposure to Mumps virus or previous vaccination. Performed By: #### M MRIMMU #### [facility] [address] [place] [address] Dr. Idalia Wilson Rubella Antibodies, IgG 1.57 index Normal Immune >0.99 [facility] Comment on above: Result Comment: Non- immune <0.90 Equivocal 0.90 - 0.99 Immune >0.99 Performed By: #### M MRIMMU #### [facility] [address] [place] [address] Dr. Idalia Wilson Rubeola Ab, IgG >300.0 Normal Immune >16.[address] [facility] Comment on above: Result Comment: Nega tive <13.5 Equivocal 13.5 - 16.4 Positive >16.4 Presence of antibodies to Rubeola is presumptive evidence of immunity except when acute infection is suspected. Performed By: #### M MRIMMU #### [facility] [address] [place] [address] Dr. Idalia Wilson VARICELLA IGG ABon 2 Varicella Zoster IgG 736 index Normal Immune >165 [facility] Comment on above: Result Comment: Nega tive <135 Equivocal 135 - 165 Positive >165 A positive result generally indicates exposure to the pathogen or administration of specific immunoglobulins, but it is not indication of active infection or stage of disease. Performed By: #### V ARCEL #### [facility] [address] [place] [address] Dr. Idalia Wilson CBC AUTO DIFFon 04-11-2022 BASO # 0.1 103/ul Normal 0.0-0.1 [facility] Comment on above: Performed By: #### H EPBSRF #### [facility] [address] [place] [address] Dr. Idalia Wilson Basophils/100 WBC (Bld) 0.8 % Normal 0.2-2.0 [facility] Comment on above: Performed By: #### H EPBSRF #### [facility] [address] [place] [address] Dr. Idalia Wilson EO # 0.4 103/ul Normal 0.0-0.7 [facility] Comment on above: Performed By: #### H EPBSRF #### [facility] [address] [place] [address] Dr. Idalia Wilson Eosinophils/100 WBC (Bld) 4.1 % Normal 0.9-7.0 [facility] Comment on above: Performed By: #### H EPBSRF #### [facility] [address] [place] [address] Dr. Idalia Wilson Erythrocyte distribution width (RBC) [Ratio] 12.4 % Normal 11.0-15.0 [facility] Comment on above: Performed By: #### H EPBSRF #### [facility] [address] [place] [address] Dr. Idalia Wilson Hematocrit (Bld) [Volume fraction] 44.7 % Normal 36.0-48.0 [facility] Comment on above: Performed By: #### H EPBSRF #### [facility] [address] [place] [address] Dr. Idalia Wilson Hemoglobin (Bld) [Mass/Vol] 14.7 g/dL Normal 12.0-16.0 [facility] Comment on above: Performed By: #### H EPBSRF #### [facility] [address] [place] [address] Dr. Idalia Wilson IG # 0.03 10e3/ul Normal 0.00-0.03 [facility] Comment on above: Performed By: #### H EPBSRF #### [facility] [address] [place] [address] Dr. Idalia Wilson IG % 0.3 % Normal 0.0-0.5 [facility] Comment on above: Performed By: #### H EPBSRF #### [facility] [address] [place] [address] Dr. Idalia Wilson LYMPH # 2.5 103/ul Normal 1.2-3.8 [facility] Comment on above: Performed By: #### H EPBSRF #### [facility] [address] [place] [address] Dr. Idalia Wilson Lymphocytes/100 WBC (Bld) 26.6 % Normal 20.5-60.0 [facility] Comment on above: Performed By: #### H EPBSRF #### [facility] [address] [place] [address] Dr. Idalia Wilson MANUAL DIFF REQ NO Normal [facility] Comment on above: Performed By: #### H EPBSRF #### [facility] [address] [place] [address] Dr. Idalia Wilson MCH (RBC) [Entitic mass] 29.1 pg Normal 26.7-34.0 [facility] Comment on above: Performed By: #### H EPBSRF #### [facility] [address] [place] [address] Dr. Idalia Wilson MCHC (RBC) [Mass/Vol] 32.9 g/dL Normal 29.9-35.2 [facility] Comment on above: Performed By: #### H EPBSRF #### [facility] [address] [place] [address] Dr. Idalia Wilson MCV (RBC) [Entitic vol] 88.5 fL Normal 81.0-99.0 [facility] Comment on above: Performed By: #### H EPBSRF #### [facility] [address] [place] [address] Dr. Idalia Wilson MONO # 0.7 103/ul Normal 0.3-0.8 [facility] Comment on above: Performed By: #### H EPBSRF #### [facility] [address] [place] [address] Dr. Idalia Wilson Monocytes/100 WBC (Bld) 7.2 % Normal 1.7-12.0 [facility] Comment on above: Performed By: #### H EPBSRF #### [facility] [address] [place] [address] Dr. Idalia Wilson NEUT # 5.8 103/ul Normal 1.4-6.5 [facility] Comment on above: Performed By: #### H EPBSRF #### [facility] [address] [place] [address] Dr. Idalia Wilson Neutrophils/100 WBC (Bld) 61.0 % Normal 43.0-75.0 [facility] Comment on above: Performed By: #### H EPBSRF #### [facility] [address] [place], [place] [id number] Dr. Idalia Wilson Platelet mean volume (Bld) [Entitic vol] 10.2 fL Normal 9.5-13.5 [facility] Comment on above: Performed By: #### H EPBSRF #### [facility] [address] [place] [address] Dr. Idalia Wilson PLT 327 103/ul Normal 150-450 [facility] Comment on above: Performed By: #### H EPBSRF #### [facility] [address] [address] [address] Idalia Wilson RBC 5.05 106/ul Normal 4.20-5.40 [facility] Comment on above: Performed By: #### H EPBSRF #### [facility] [address] [place] [address] Dr. Idalia Wilson WBC 9.5 103/ul Normal 4.0-11.0 [facility] Comment on above: Performed By: #### H EPBSRF #### [facility] [address] [place] [address] Dr. Idalia Wilson FREE T4on 04-11-2022 Free T4 [Mass/Vol] 0.94 ng/dL Normal 0.76-1.46 [facility] Comment on above: Performed By: #### F T4 #### [facility] [address] [place] [address] Dr. Idalia Wilson GLYCOHEMOGLOBIN A1Con 2021 ADA RECOMMENDATION SEE BELOW Normal [facility] Comment on above: Result Comment: ADA RECOMMENDED LIMIT 4.0 - 6.0 ADA THERAPEUTIC TARGET < 7.0 ACTION SUGGESTED > 7.0 Performed By: #### A 1C #### [facility] [address] [place] [address] Dr. Idalia Wilson Glucose [Mass/Vol] 108 mg/dL Normal [facility] Comment on above: Performed By: #### A 1C #### [facility] [address] [place] [address] Dr. Idalia Wilson HbA1c (Bld) [Mass fraction] 5.4 % Normal 4.5-6.2 [facility] Comment on above: Performed By: #### A 1C #### [facility] [address] [address] [address] Idalia Wilson LIPID PROFILEon 04-11-2022 CHOL-HDL RATIO NORM SEE BELOW Normal [facility] Comment on above: Result Comment: 3.3 - 4.4 LOW RISK 4.4 - 7.1 AVERAGE RISK 7.1 - 11.0 MODERATE RISK >11.0 HIGH RISK Performed By: #### H EPBSRF #### [facility] [address] [address] [address] Idalia Wilson Cholesterol [Mass/Vol] 202 mg/dL Critically high <=200 [facility] Comment on above: Performed By: #### H EPBSRF #### [facility] [address] [address] [address] Idalia Wilson Cholesterol in HDL [Mass/Vol] 37 mg/dL Critically low 40-60 [facility] Comment on above: Performed By: #### H EPBSRF #### [facility] [address] [address] [address] Idalia Wilson Cholesterol in LDL [Mass/Vol] 120.2 mg/dL Normal [facility] Comment on above: Performed By: #### H EPBSRF #### [facility] [address] [address] [address] Idalia Wilson Cholesterol.total/Cho lesterol in HDL [Mass ratio] 5.5 {ratio} Normal [facility] Comment on above: Performed By: #### H EPBSRF #### [facility] [address] [address] [address] Idalia Wilson HDL NORMAL > or = 60 mg/dl - LO W CARDIOVASCULAR RISK <40 mg/dl - HIGH CARDIOVASCULAR RISK Normal [facility] Comment on above: Performed By: #### H EPBSRF #### [facility] [address] [address] [address] Idalia Wilson LDL CALC NORMAL SEE BELOW Normal [facility] Comment on above: Result Comment: <100 mg/dl OPTIMAL 100 - 129 mg/dl NEAR OR ABOVE OPTIMAL 130 - 159 mg/dl BORDERLINE HIGH 160 - 189 mg/dl HIGH >190 mg/dl VERY HIGH Performed By: #### H EPBSRF #### [facility] [address] [address] [address] Idalia Wilson Triglyceride [Mass/Vol] 224 mg/dL Critically high <=150 [facility] Comment on above: Performed By: #### H EPBSRF #### [facility] [address] [address] [address] Idalia Wilson VLDL CALC 44.8 mg/dL Normal [facility] Comment on above: Performed By: #### H EPBSRF #### [facility] [address] [address] [address] Idalia Wilson LIVER PROFILEon 04-11-2022 Albumin [Mass/Vol] 3.9 g/dL Normal 3.4-5.0 [facility] Comment on above: Performed By: #### H EPBSRF #### [facility] [address] [place] [address] Dr. Idalia Wilson Albumin/Globulin [Mass ratio] 0.9 {ratio} Normal [facility] Comment on above: Performed By: #### H EPBSRF #### [facility] [address] [place] [address] Dr. Idalia Wilson ALP [Catalytic activity/Vol] 152 U/L Critically high 46-116 [facility] Comment on above: Performed By: #### H EPBSRF #### [facility] [address] [place] [address] Dr. Idalia Wilson ALT [Catalytic activity/Vol] 49 U/L Normal 14-59 [facility] Comment on above: Performed By: #### H EPBSRF #### [facility] [address] [address] [address] Idalia Wilson AST [Catalytic activity/Vol] 22 U/L Normal 15-37 [facility] Comment on above: Performed By: #### H EPBSRF #### [facility] [address] [address] [address] Idalia Wilson BILI, CONJUGATED 0.1 mg/dL Normal 0.0-0.2 [facility] Comment on above: Performed By: #### H EPBSRF #### [facility] [address] [address] [address] Idalia Wilson Bilirubin [Mass/Vol] 0.5 mg/dL Normal 0.2-1.0 [facility] Comment on above: Performed By: #### H EPBSRF #### [facility] [address] [place] [address] Dr. Idalia Wilson Globulin (S) [Mass/Vol] 4.3 g/dL Normal [facility] Comment on above: Performed By: #### H EPBSRF #### [facility] [address] [place] [address] Dr. Idalia Wilson Protein [Mass/Vol] 8.2 g/dL Normal 6.4-8.2 [facility] Comment on above: Performed By: #### H EPBSRF #### [facility] [address] [place] [address] Dr. Idalia Wilson PROF CHEM 8 (BAS METB)on Anion gap [Moles/Vol] 11.6 mmol/L Normal [facility] Comment on above: Performed By: #### L IPID, TSH, LIVER, BMP #### [facility] [address] [place] [address] Dr. Idalia Wilson Calcium [Mass/Vol] 9.5 mg/dL Normal 8.5-10.1 [facility] Comment on above: Performed By: #### L IPID, TSH, LIVER, BMP #### [facility] [address] [place] [address] Dr. Idalia Wilson Chloride [Moles/Vol] 102 mmol/L Normal 98-107 [facility] Comment on above: Performed By: #### L IPID, TSH, LIVER, BMP #### [facility] [address] [place] [address] Dr. Idalia Wilson CO2 [Moles/Vol] 26.3 mmol/L Normal 21.0-32.0 [facility] Comment on above: Performed By: #### L IPID, TSH, LIVER, BMP #### [facility] [address] [address] [address] Idalia Wilson Creatinine [Mass/Vol] 0.60 mg/dL Normal 0.55-1.02 [facility] Comment on above: Performed By: #### L IPID, TSH, LIVER, BMP #### [facility] [address] [address] [address] Idalia Wilson EGFR-AF NEW ZEALANDER >60 Normal >=60 [facility] Comment on above: Performed By: #### L IPID, TSH, LIVER, BMP #### [facility] [address] [address] [address] Idalia Wilson EGFR-NON AF NEW ZEALANDER >60 Normal >=60 [facility] Comment on above: Performed By: #### L IPID, TSH, LIVER, BMP #### [facility] [address] [place] [address] Dr. Idalia Wilson Glucose [Mass/Vol] 98 mg/dL Normal 74-106 [facility] Comment on above: Performed By: #### L IPID, TSH, LIVER, BMP #### [facility] [address] [address] [address] Idalia Wilson Potassium [Moles/Vol] 3.9 mmol/L Normal 3.5-5.1 [facility] Comment on above: Performed By: #### L IPID, TSH, LIVER, BMP #### [facility] [address] [place] [address] Dr. Idalia Wilson Sodium [Moles/Vol] 136 mmol/L Normal 136-145 [facility] Comment on above: Performed By: #### L IPID, TSH, LIVER, BMP #### [facility] [address] [address] [address] Idalia Wilson Urea nitrogen [Mass/Vol] 12.0 mg/dL Normal 7.0-18.0 [facility] Comment on above: Performed By: #### L IPID, TSH, LIVER, BMP #### [facility] [address] [place] [address] Dr. Idalia Wilson Urea nitrogen/Creatinine [Mass ratio] 20.0 mg/mg Normal [facility] Comment on above: Performed By: #### L IPID, TSH, LIVER, BMP #### [facility] [address] [address] [address] Idalia Wilson TSHon 04-11-2022 TSH 1.128 uIU/mL Normal 0.358-3.740 [facility] Comment on above: Performed By: #### H EPBSRF #### [facility] [address] [address] [address] Idalia Wilson UA (CLEAN/CATCH) CANOE MAKER/MICRO I F IND.on 04-11-2022 Bilirubin Ql (U) Negative Normal NEGATIVE [facility] Comment on above: Performed By: #### U ACSIND, UMICRO #### [facility] [address] [place] [address] Dr. Idalia Wilson Clarity (U) CLEAR Normal CLEAR [facility] Comment on above: Performed By: #### U ACSIND, UMICRO #### [facility] [address] [address] [address] Idalia Wilson Color (U) LT. YELLOW Normal YELLOW [facility] Comment on above: Performed By: #### U ACSIND, UMICRO #### [facility] [address] [place] [address] Dr. Idalia Wilson Glucose Ql (U) Negative Normal NEGATIVE [facility] Comment on above: Performed By: #### U ACSIND, UMICRO #### [facility] [address] [address] [address] Idalia Wilson Hemoglobin Ql (U) Negative Normal NEGATIVE [facility] Comment on above: Performed By: #### U ACSIND, UMICRO #### [facility] [address] [place] [address] Dr. Idalia Wilson Ketones Ql (U) Negative Normal NEGATIVE [facility] Comment on above: Performed By: #### U ACSIND, UMICRO #### [facility] [address] [place] [address] Dr. Idalia Wilson LEUKOCYTES Negative Normal NEGATIVE [facility] Comment on above: Performed By: #### U ACSIND, UMICRO #### [facility] [address] [address] [address] Idalia Wilson Nitrite Ql (U) Negative Normal NEGATIVE [facility] Comment on above: Performed By: #### U ACSALPHONSO UMICRO #### [facility] [address] [address] [address] Idalia Wilson pH (U) 6.5 [pH] Normal 5-9 [facility] Comment on above: Performed By: #### U ARSEN UMICRO #### [facility] [address] [address] [address] Idalia Wilson SPEC GRAVITY 1.015 Normal 1.005-<=1.02 5 [facility] Comment on above: Performed By: #### U ARSEN UMICRO #### [facility] [address] [address] [address] Idalia Wilson UA PROTEIN Negative Normal NEGATIVE/ TRACE [facility] Comment on above: Performed By: #### U CASTRO LEGERICRO #### [facility] [address] [place] [address] Dr. Idalia Wilson UR MICRO IND NOT INDICATED Normal [facility] Comment on above: Performed By: #### U CASTRO LEGERICRO #### [facility] [address] [address] [address] Idalia Wilson Urobilinogen Qn (U) 0.2 {Mounika'U}/dL Normal 0.2 - 1. 0 [facility] Comment on above: Performed By: #### U ARSEN UMICRO #### [facility] [address] [place] [address] Dr. Idalia Wilson URINE MICROSCOPIC ONLYon BACTERIA NONE SEEN Normal NONE SEEN [facility] Comment on above: Performed By: #### U ARSEN UMICRO #### [facility] [address] [place] [address] Dr. Idalia Wilson Bacteria identified Cx Nom (U) NOT INDICATED Normal [facility] Comment on above: Performed By: #### U ARSEN UMICRO #### [facility] [address] [place] [address] Dr. Idalia Wilson CAST NONE SEEN Normal NONE SEEN [facility] Comment on above: Performed By: #### U ACSIND, UMICRO #### [facility] [address] [address] [address] Idalia Wilson Crystals LM Nom (Urine sed) NONE SEEN Normal NONE SEEN [facility] Comment on above: Performed By: #### U ACSIND, UMICRO #### [facility] [address] [address] [address] Idalia Wilson Epithelial cells LM Ql (Urine sed) MODERATE Abnormal NONE SEEN /RARE [facility] Comment on above: Performed By: #### U ACSIND, UMICRO #### [facility] [address] [place] [address] Dr. Idalia Wilson MUCOUS TRACE Abnormal NONE SEEN [facility] Comment on above: Performed By: #### U ACSIND, UMICRO #### [facility] [address] [place] [address] Dr. Idalia Wilson RBC NONE SEEN Abnormal 0-2 [facility] Comment on above: Performed By: #### U ACSIND, UMICRO #### [facility] [address] [place] [address] Dr. Idalia Wilson WBC NONE SEEN Normal NONE SEEN [facility] Comment on above: Performed By: #### U ACSIND, UMICRO #### [facility] [address] [place] [address] Dr. Idalia Feliciano 01-10-2021 OVS Visit (SP) Office (POP) CARINA SCHULTZ ([id number]) 1990 F UPA Date Time Provider Department 01/10/21 1:20 PM MILEY RAMIREZ During your visit today, we recorded the following information about you: Temperature Pulse Blood pressure Weight 97.8 degrees 107/minute 148/94 116.1 kg Miley Ramirez MD 01/11/2021 5:21 AM Signed Gynecologic Oncology [facility] Follow-up visit Re: Carina Schultz [facility]#: [id number] Date of service: 01/10/2021 Haley Owens MD ([facility]) [facility] [address] [address] Dear Haley Owens: Carina presents for follow up. Briefly, [...] lesions present on labia bilaterally Rt> Lt. Living Skills Advisor: Carolyn Hancock NP IMPRESSION/PLAN: Patient presents today for follow up. Patient has decreased her smoking. 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 I recommend patient restart Aldara cream since vulvar lesions are still present. Encouraged smoking cessation. RTC 3 months Thank you for referring her for gynecologic oncology consultation. I will be in touch with you regarding her findings. CC: Haley Owens MD ([facility]) [address] [place] [id number] No primary care provider on file. (PCP) The previous note from Dr. Ramirez dated 10/11/2020 was copied forward and the necessary changes were made above. ATTESTATION: By signing my name below, I, Yanni Adelaide, attest that this documentation has been prepared under the direction and in the presence of Miley Ramirez MD. Electronically signed:Yanni Bryson (more content not included)... Normal [facility] CNOVSPon 10-11-2020 CNOVSP Visit (SP) Office (GYONCA) CARINA SCHULTZ ([id number]) 1990 F UPA Date Time Provider Department 10/11/20 1:20 PM MILEY RAMIREZ During your visit today, we recorded the following information about you: Temperature Pulse Blood pressure Weight 98.7 degrees 93/minute 140/89 116.1 kg Last Period 09/20/20 Miley Ramirez MD 10/12/2020 10:46 AM Signed Gynecologic Oncology [facility] Consultation Re: Carina Antoine [facility]#: [id number] Date of service: 10/11/2020 Haley Owens MD (Dr) [address] [place] [id number] [address] Owens for an opinion regarding ALLY 3/BLAINE 3. My final recommendations will be communicated back to the requesting physician by way of shared medical record or letter to requesting physician via US mail. 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 She resides in [place], [place]. REVIEW OF SYSTEMS: Constitutional: No recent [...] sweats. Hem (more content not included)... Normal [facility] HCG,Urineon 09-26-2020 Beta HCG ( test) Ql (U) Negative Normal [facility] Comment on above: Result Comment: PERF ORMED BY: [place] [address] PATHOLOGIST DIRECTOR OF SPORTS PERFORMANCE JEYSON KOHLER M.D. Performed By: #### U HCG #### [address] Larry 09-26-2020 L -- ---- Specimen: Received: 09/26/20 Status: DELMI [facility] Num: [id number] Spec Type: Surgical Subm Dr: IVETTE Henderson Tissues: A Cone/Leep (CERVIX) B VULVA - biopsy (LT VULVAR BX) C VULVA - biopsy (RT VULVAR BX) Procedures: HE Stain/34, Gross/Micro L5, Gross/Micro L4/2 ---- Patient Age/Sex Location Account Attending Physician ---- Carina Schultz 30/F [place] [id number] IVETTE Henderson ---- SPEC NUM: [id number] RECD: 09/26/20 STATUS: DELMI [facility] NUM: [id number] FAM: 09/26/20- SUBM DR: Haley Owens MD-[facility] ENTERED: 09/26/20 [facility] DR: SPEC TYPE: Surgical DEPT: S [...] Cervical intraepithelial neoplasia, VIN2, VIN3 ---- Specimen: [id number] Received: 09/26/20 Status: DELMI [facility] Num: [id number] Spec Type: Surgical Subm Dr: Haley Owens MD-[facility] Tissues: A Cone/Leep (CERVIX) B VULVA - biopsy (LT VULVAR BX) C VULVA - biopsy (RT VULVAR BX) Procedures: HE Stain/34, Gross/Micro L5, Gross/Micro L4/2 ---- Patient: Carina Schultz [id number] (Continued) ---- Specimen: [id number] Received: 09/26/20 (Continued) Signed (signature on file) Karlie Cuello MD 10/01/20 1052 ---- Specimen: [id number] Received: 09/26/20 Status: DELMI [facility] Num: [id number] Spec Type: Surgical Subm Dr: Haley Owens MD-[facility] Tissues: A Cone/Leep (CERVIX) B VULVA - biopsy (LT VULVAR BX) C VULVA - biopsy (RT VULVAR BX) Procedures: HE Stain/34, Gross/Micro L5, Gross/Micro L4/2 ---- Patient: Carina Schultz [id number] (Continued) ---- Specimen: [id number] Received: 09/26/20 (Continued) Gross Description A. Received [...] number and le (more content not included)... Normal [facility] COVID-19 FRon 09-24-2020 SARS-CoV-2 (COVID-19) RNA MALIK+probe Ql (Unsp spec) Negative Normal Negative [facility] Comment on above: Order Comment: Healt hcare Worker?: N Result Comment: Test ing for SARS-CoV-2 by RT-PCR This test was developed and its performance characteristics determined by [employer]) and validated at the [facility]. This test has not been FDA [...] is terminated or revoked sooner. PERFORMED BY: [place] [address] PATHOLOGIST DIRECTOR OF SPORTS PERFORMANCE JEYSON KOHLER M.D. Performed By: #### C OVID-19 [facility] #### [address] COVID[facility]19 [facility] SARS-CoV-2 (COVID-19) RNA MALIK+probe Ql (Unsp spec) Negative Normal Negative [facility] Comment on above: Order Comment: Comme nt pst Healthcare Worker?: N Result Comment: Test ing for SARS-CoV-2 by RT-PCR This test was developed and its performance characteristics determined by [employer] ([employer]) and validated at the [facility]. This test has not been FDA [...] is terminated or revoked sooner. PERFORMED BY: [place] [address] PATHOLOGIST DIRECTOR OF SPORTS PERFORMANCE JEYSON KOHLER M.D. Performed By: #### C OVID-19 [facility] #### [address] Vital Signs Date Time Vital Sign Value Performing Clinician Facility 05-31-2024 11:07-0500 Body height 170.2 cm Alexandra Rahul AIR CONDITIONER INSTALLER HELPER Work Phone: [facility] 05-31-2024 11:07-0500 Body mass index (BMI) [Ratio] 40.82 kg/m2 Alexandra Rahul AIR CONDITIONER INSTALLER HELPER Work Phone: [facility] 05-31-2024 11:07-0500 Body temperature 98.71 [degF] Alexandra Rahul AIR CONDITIONER INSTALLER HELPER Work Phone: [facility] 05-31-2024 11:07-0500 Body weight 118.21 kg Alexandra Rahul AIR CONDITIONER INSTALLER HELPER Work Phone: [facility] 05-31-2024 11:07-0500 Diastolic blood pressure 84 mm[Hg] Alexandra Rahul AIR CONDITIONER INSTALLER HELPER Work Phone: [facility] 05-31-2024 11:07-0500 Heart rate 94 /min Alexandra Rahul AIR CONDITIONER INSTALLER HELPER Work Phone: [facility] 05-31-2024 11:07-0500 Respiratory rate 18 /min Alexandra Rahul AIR CONDITIONER INSTALLER HELPER Work Phone: [facility] 05-31-2024 11:07-0500 SaO2% (BldA) [Mass fraction] 98 % Alexandra Salesz AIR CONDITIONER INSTALLER HELPER Work Phone: [facility] 05-31-2024 11:07-0500 Systolic blood pressure 128 mm[Hg] Alexandrasylvia Salesz AIR CONDITIONER INSTALLER HELPER Work Phone: [facility] 05-03-2024 08:38-0400 Body height 170.2 cm Alexandrasylvia Salesz AIR CONDITIONER INSTALLER HELPER Work Phone: [facility] 05-03-2024 08:38-0400 Body mass index (BMI) [Ratio] 39.94 kg/m2 Alexandrasylvia Jamesonholz AIR CONDITIONER INSTALLER HELPER Work Phone: [facility] 05-03-2024 08:38-0400 Body temperature 98.8 [degF] Alexandrasylvia Salesz AIR CONDITIONER INSTALLER HELPER Work Phone: [facility] 05-03-2024 08:38-0400 Body weight 115.67 kg Alexandrasylvia Salesz AIR CONDITIONER INSTALLER HELPER Work Phone: [facility] 05-03-2024 08:38-0400 Diastolic blood pressure 86 mm[Hg] Alexandra Henrryz AIR CONDITIONER INSTALLER HELPER Work Phone: [facility] 05-03-2024 08:38-0400 Heart rate 89 /min Alexandra Henrryz AIR CONDITIONER INSTALLER HELPER Work Phone: [facility] 05-03-2024 08:38-0400 Respiratory rate 18 /min Alexandra Trinoholz AIR CONDITIONER INSTALLER HELPER Work Phone: [facility] 05-03-2024 08:38-0400 SaO2% (BldA) [Mass fraction] 97 % Alexandra Trinoholz AIR CONDITIONER INSTALLER HELPER Work Phone: [facility] 05-03-2024 08:38-0400 Systolic blood pressure 140 mm[Hg] Alexandra Trinoholz AIR CONDITIONER INSTALLER HELPER Work Phone: [facility] 04-21-2024 10:18-0400 Blood Pressure Location Jeni Lue [facility] 04-21-2024 10:18-0400 Diastolic blood pressure 100 mm[Hg] Jeni Lue [facility] 04-21-2024 10:18-0400 Heart rate 100 /min Jeni Lue [facility] 04-21-2024 10:18-0400 Respiratory rate 16 /min Jeni Lue [facility] 04-21-2024 10:18-0400 Systolic blood pressure 148 mm[Hg] Jeni Lue [facility] 04-07-2024 09:27-0400 Body mass index (BMI) [Ratio] 39.47 kg/m2 Josiah Young MD Work Phone: [facility] 04-07-2024 09:27-0400 Body weight 114.31 kg Josiah Young MD Work Phone: [facility] 03-22-2024 09:42-0400 Blood Pressure Location SHANITA TANNER [facility] 03-22-2024 09:42-0400 Body temperature 98.6 [degF] SHANITA TANNER [facility] 03-22-2024 09:42-0400 Diastolic blood pressure 84 mm[Hg] SHANITA TANNER [facility] 03-22-2024 09:42-0400 Heart rate 79 /min SHANITA TANNER [facility] 03-22-2024 09:42-0400 Respiratory rate 16 /min SHANITA HART [facility] 03-22-2024 09:42-0400 Systolic blood pressure 132 mm[Hg] SHANITA HART [facility] 12-23-2023 13:45-0400 Body height 170.[address] [facility] 12-23-2023 13:45-0400 Body mass index (BMI) [Ratio] 40.5 kg/m2 [facility] 12-23-2023 13:45-0400 Body temperature 98.2 [degF] [facility] 12-23-2023 13:45-0400 Body weight 117.[address] [facility] 12-23-2023 13:45-0400 Heart rate 83 /min [facility] 12-23-2023 13:45-0400 Respiratory rate 18 /min [facility] 12-23-2023 13:45-0400 SaO2% (BldA) [Mass fraction] 99 % [facility] 07-05-2022 10:05-0500 Body height 170.18 cm Amira Mariela Other [employer] [facility] [employer] Other 07-05-2022 10:05-0500 Body mass index (BMI) [Ratio] 37.59 kg/m2 Amira Mariela Other [employer] Other 07-05-2022 10:05-0500 Body temperature 98.1 [degF] Amira Mariela Other [employer] Other 07-05-2022 10:05-0500 Body weight 108.86 kg Amira Mariela Other [facility] [employer] Other 07-05-2022 10:05-0500 Respiratory rate 18 /min Amira Mariela Other [employer] Other 07-05-2022 10:05-0500 SaO2% (BldA) [Mass fraction] 99 % Amira Sierra Other [employer] Other Encounters Encounter Date Encounter Type Care Provider Facility Start: 07-28-2024 End: 07-28-2024 Office outpatient visit 25 minutes Josiah Young MD Work Phone: [facility] Comment on above: Chronic idiopathic u rticaria (Primary Dx) Start: 07-28-2024 End: 07-28-2024 flow sheet [facility] Nurse [facility] Comment on above: GA: 13w0d Start: 07-13-2024 End: 07-13-2024 ambulatory ALEXANDRA AICHHOLZ Not Available Start: 07-08-2024 End: 07-08-2024 ambulatory [facility] Start: 07-08-2024 End: 07-08-2024 ambulatory [facility] Start: 06-16-2024 End: 06-16-2024 ambulatory ALEXANDRA AICHHOLZ Not Available Start: 05-31-2024 End: 05-31-2024 Bamboo flowsheet Alexandra Aichholz AIR CONDITIONER INSTALLER HELPER Work Phone: [facility] Start: 05-31-2024 End: 05-31-2024 Bamboo flowsheet Alexandra Aichholz AIR CONDITIONER INSTALLER HELPER Work Phone: [facility] Start: 05-31-2024 End: 05-31-2024 Office outpatient visit 25 minutes Alexandra Aichholz AIR CONDITIONER INSTALLER HELPER Work Phone: [facility] Comment on above: Primary hypertension (CMS/HCC) (Primary Dx); Class 2 obesity due to excess calories without serious comorbidity with body mass index (BMI) of 39.0 to 39.9 in adult; Anxiety; Cigarette nicotine dependence without complication; Moderate persistent asthma in adult without complication (CMS/HCC) Start: 05-31-2024 End: 05-31-2024 ambulatory ALEXANDRA AICHHOLZ Not Available Start: 05-13-2024 End: 05-15-2024 Telephone encounter Haley Owens MD Work Phone: [facility] Start: 05-11-2024 End: 05-11-2024 Lab Drop off Jeni RosaliaCleopatra Callaway [facility] Start: 05-11-2024 End: 05-11-2024 ambulatory Jeni Callaway Facility:[facility] Start: 05-11-2024 End: 05-11-2024 Patient encounter procedure Jeni Callaway [facility] Start: 05-04-2024 End: 05-04-2024 ambulatory ALEXANDRA AICHHOLZ Not Available Start: 05-03-2024 End: 05-03-2024 Bamboo flowsheet Alexandra Aichholz AIR CONDITIONER INSTALLER HELPER Work Phone: [facility] Start: 05-03-2024 End: 05-03-2024 Bamboo flowsheet Alexandra Aichholz AIR CONDITIONER INSTALLER HELPER Work Phone: [facility] Start: 05-03-2024 End: 05-03-2024 Office outpatient visit 15 minutes Alexandra Aichholz AIR CONDITIONER INSTALLER HELPER Work Phone: [facility] Comment on above: Primary hypertension (CMS/HCC) (Primary Dx); Cigarette nicotine dependence without complication; Class 2 obesity due to excess calories without serious comorbidity with body mass index (BMI) of 39.0 to 39.9 in adult Start: 05-03-2024 End: 05-03-2024 ambulatory ALEXANDRA AICHHOLZ Not Available Start: 04-21-2024 End: 04-21-2024 ambulatory Jeni Enmanuel Murraye Facility:[facility] Start: 04-21-2024 End: 04-21-2024 Patient encounter procedure Jeni RosaliaCleopatra Murraye [facility] Start: 04-07-2024 End: 04-07-2024 Bamboo flowsheet Josiah Young MD Work Phone: [facility] Start: 04-07-2024 End: 04-07-2024 Bamboo flowsheet Josiah Young MD Work Phone: [facility] Start: 04-07-2024 End: 04-07-2024 ambulatory JOSIAH YOUNG Not Available Start: 04-07-2024 End: 04-07-2024 Office outpatient visit 15 minutes Josiah Young MD Work Phone: [facility] Comment on above: Chronic idiopathic u rticaria (Primary Dx) Start: 03-23-2024 End: 03-23-2024 ambulatory ALEXANDRA AICHHOLZ Not Available Start: 03-22-2024 End: 03-22-2024 ambulatory HALEY OWENS Facility:[facility] Start: 03-22-2024 End: 03-22-2024 Patient encounter procedure SHANITA HART [facility] Start: 03-20-2024 End: 03-21-2024 Refill Alexandra Henrryz AIR CONDITIONER INSTALLER HELPER Work Phone: [facility] Comment on above: Anxiety Start: 03-12-2024 End: 03-21-2024 Telephone encounter Haley Owens MD Work Phone: [facility] Start: 03-08-2024 End: 03-08-2024 ambulatory HALEY OWENS Not Available Start: 03-08-2024 End: 03-08-2024 ambulatory ALEXANDRA AICHHOLZ Not Available Start: 02-29-2024 End: 02-29-2024 ambulatory SHAKIR LUCAS Not Available Start: 02-16-2024 End: 02-16-2024 ambulatory HALEY OWENS Not Available Start: 02-10-2024 End: 02-10-2024 ambulatory ALEXANDRA AICHHOLZ Not Available Start: 01-26-2024 End: 01-26-2024 ambulatory ALEXANDRA AICHHOLZ Not Available Start: 01-13-2024 End: 01-13-2024 ambulatory ALEXANDRA AICHHOLZ Not Available Start: 12-28-2023 Patient encounter status Alexandra Aichholz AIR CONDITIONER INSTALLER HELPER Work Phone: [facility] Start: 12-28-2023 End: 12-28-2023 ambulatory ALEXANDRA AICHHOLZ Not Available Start: 12-23-2023 End: 12-23-2023 ambulatory [facility] Work Phone: Start: 12-23-2023 End: 12-23-2023 Patient encounter procedure Formerly [facility] Physician [facility] Care [facility]ius [...] 08-10-2023 ambulatory ALEXANDRA AICHHOLZ Not Available Start: 11-19-2022 End: 11-19-2022 ambulatory MANUFACTURING QUALITY MANAGER ALEXANDRA AICHHOLZ Facility:[facility] Start: 07-05-2022 End: 07-05-2022 ambulatory Amira Sierra Other deeplocal Other Start: 07-05-2022 Office outpatient vi sit 15 minutes Amira Sierra [facility] Start: 04-11-2022 End: 04-12-2022 ambulatory MANUFACTURING QUALITY MANAGER ALEXANDRA AICHHOLZ Facility:[facility] Procedures Date Procedure Procedure Detail Performing Clinician Start: 04-21-2024 Flexible cystoscopy Beverly Callaway Start: 02-16-2024 Microscopic observat ion [Identifier] in Cervix by Cyto stain Alexandra Kay NP Work Phone: Start: 12-23-2023 Quick Strep (POC) Start: 04-15-2016 Dilation of urethra JUMANA HART Structure of wisdom tooth (body structure) SHANITA HART Vaginal biopsy SHANITA Jurado Plan of Treatment Date Care Activity Detail Author Start: 02-15-2029 Screening for malign ant neoplasm of cervix [facility] Start: 02-15-2027 Screening for malign ant neoplasm of cervix Pap Smear [facility] Start: 11-29-2024 End: 11-29-2024 Patient encounter procedure 11/29/2024 9:00 AM EDT Office Visit [facility] [address] [place] [address] Alexandra Kay, YAZAN [address] [place] [address] [facility] Start: 10-05-2024 End: 10-05-2024 Patient encounter procedure 10/05/2024 9:20 AM EDT Office Visit [facility] [address] [place] [phone] Josiah Young MD [address] [place] [address] [facility] Start: 09-08-2024 End: 09-08-2024 Patient encounter procedure 09/08/2024 9:00 AM EST Office Visit [facility] [address] [place] [phone] Josiah Young MD [address] [place] [address] [facility] Start: 09-06-2024 End: 09-06-2024 Patient encounter procedure 09/06/2024 2:45 PM EST Office Visit [facility] [address] [place] [address] Haley Owens MD [address] [place] [address] [facility] Start: 08-17-2024 End: 08-17-2024 Clinical Support 08/17/2024 3:45 PM EST Clinical Support [facility] [address] [place] [phone] [facility] Start: 08-10-2024 End: 08-10-2024 Professional / ancillary services management 08/10/2024 3:30 PM EST Ancillary Procedure [facility] [address] [place] [address] [facility] Start: 07-28-2024 End: 07-28-2025 Bacteria identified in Urine by Culture Urine culture Microbiology Routine care, subsequent in first trimester Expected: 07/28/2024 (Approximate), Expires: 07/28/2025 [facility] Work Phone: Comment on above: Expected: 07/28/2024 (Approximate), Expires: 07/28/2025 Start: 07-28-2024 End: 07-28-2025 Blood type and Indirect antibody screen panel - Blood Type and screen Lab Routine care, subsequent in first trimester Expected: 07/28/2024 (Approximate), Expires: 07/28/2025 [facility] Comment on above: Expected: 07/28/2024 (Approximate), Expires: 07/28/2025 Start: 07-28-2024 End: 07-28-2025 CBC W Auto Differential panel - Blood CBC and differential Lab Routine care, subsequent in first trimester Expected: 07/28/2024 (Approximate), Expires: 07/28/2025 [facility] Comment on above: Expected: 07/28/2024 (Approximate), Expires: 07/28/2025 Start: 07-28-2024 End: 07-28-2025 DRUG SCREEN 17 W/CONF, UR DRUG SCREEN 17 W/CONF, UR Lab Routine care, subsequent in first trimester Encounter for drug screening Expected: 07/28/2024 (Approximate), Expires: 07/28/2025 [facility] Comment on above: Expected: 07/28/2024 (Approximate), Expires: 07/28/2025 Start: 07-28-2024 End: 07-28-2025 Hepatitis B virus surface Ag [Presence] in Serum or Plasma by Immunoassay Hepatitis B surface antigen Lab Routine care, subsequent in first trimester Expected: 07/28/2024 (Approximate), Expires: 07/28/2025 [facility] Comment on above: Expected: 07/28/2024 (Approximate), Expires: 07/28/2025 Start: 07-28-2024 End: 07-28-2025 Hepatitis C virus Ab [Presence] in Serum or Plasma by Immunoassay Hepatitis C antibody Lab Routine care, subsequent in first trimester Expected: 07/28/2024 (Approximate), Expires: 07/28/2025 [facility] Comment on above: Expected: 07/28/2024 (Approximate), Expires: 07/28/2025 Start: 07-28-2024 End: 07-28-2025 HIV-1/HIV-2 antigen/antibody combination immunoassay HIV-1 and HIV-2 antibodies Lab Routine care, subsequent in first trimester Expected: 07/28/2024 (Approximate), Expires: 07/28/2025 [facility] Comment on above: Expected: 07/28/2024 (Approximate), Expires: 07/28/2025 Start: 07-28-2024 End: 07-28-2025 Rpr (dx) w/refl titer and confirmatory testing Rpr (dx) w/refl titer and confirmatory testing Lab Routine care, subsequent in first trimester Expected: 07/28/2024 (Approximate), Expires: 07/28/2025 [facility] Comment on above: Expected: 07/28/2024 (Approximate), Expires: 07/28/2025 Start: 07-28-2024 End: 07-28-2025 Rubella antibody, IgG Rubella antibody, IgG Lab Routine care, subsequent in first trimester Expected: 07/28/2024 (Approximate), Expires: 07/28/2025 [facility] Comment on above: Expected: 07/28/2024 (Approximate), Expires: 07/28/2025 Start: 07-28-2024 End: 07-28-2025 Urinalysis complete panel - Urine Urinalysis with microscopic Lab Routine care, subsequent in first trimester Expected: 07/28/2024 (Approximate), Expires: 07/28/2025 [facility] Comment on above: Expected: 07/28/2024 (Approximate), Expires: 07/28/2025 Start: 06-15-2024 End: 06-15-2024 Clinical Support 06/15/2024 3:45 PM EST Clinical Support [facility] [address] [place] [address] [facility] Start: 05-31-2024 End: 05-31-2024 [facility] Comment on above: Primary hypertension (CMS/HCC) (Primary Dx); Class 2 obesity due to excess calories without serious comorbidity with body mass index (BMI) of 39.0 to 39.9 in adult; Anxiety; Cigarette nicotine dependence without complication; Moderate persistent asthma in adult without complication (CMS/HCC) Start: 05-04-2024 End: 05-04-2024 Clinical Support 05/04/2024 4:00 PM EDT Clinical Support [facility] [address] [place] [address] [facility] Start: 05-03-2024 End: 05-03-2024 Patient encounter procedure [facility] Comment on above: Cigarette nicotine d ependence without complication (Primary Dx) Start: 04-27-2024 End: 04-27-2024 Clinical Support 04/27/2024 4:00 PM EDT Clinical Support [facility] [address] [place] [address] [facility] Start: 04-07-2024 End: 04-07-2024 Patient encounter procedure 04/07/2024 9:20 AM EDT Office Visit [facility] [address] [place] [address] Josiah Young MD [address] [place] [address] [facility] Start: 04-05-2024 End: 04-05-2024 Patient encounter procedure 04/05/2024 1:00 PM EDT Office Visit [facility] [address] [place] [phone] Alexandra Kay NP [address] [place] [address] [facility] Start: 03-23-2024 End: 03-23-2024 Clinical Support 03/23/2024 4:00 PM EDT Clinical Support [facility] [address] [place] [phone] [facility] Immunizations Immunization Date Immunization Notes Care Provider [facility] 05-27-2023 influenza virus vacc ine, unspecified formulation Jeni Callaway [facility] 05-27-2023 influenza, injectabl e, quadrivalent, preservative free Alexandra Aicaramholz AIR CONDITIONER INSTALLER HELPER Work Phone: [facility] 02-20-2023 hepatitis B vaccine, adult dosage Alexandra Trinoholz AIR CONDITIONER INSTALLER HELPER Work Phone: [facility] 06-03-2022 hepatitis B vaccine, adult dosage Alexandra Aichholz AIR CONDITIONER INSTALLER HELPER Work Phone: [facility] 06-03-2022 measles, mumps and rubella virus vaccine Alexandra Aichholz AIR CONDITIONER INSTALLER HELPER Work Phone: [facility] 04-29-2022 hepatitis B vaccine, adult dosage Alexandra Aichholz AIR CONDITIONER INSTALLER HELPER Work Phone: [facility] 04-29-2022 influenza virus vacc ine, unspecified formulation Jeni Lue [facility] 04-29-2022 influenza, injectabl e, quadrivalent, preservative free Alexandra Aichholz AIR CONDITIONER INSTALLER HELPER Work Phone: [facility] 11-18-2021 SARS-CoV-2 (COVID-19 ) Ad26 vaccine, recombinant Jeni Lue [facility] Comment on above: Result Comment: 2023: T[facility]ALL 11-18-2017 HPV, unspecified formulation Jeni Lue [facility] 11-18-2017 Human Papillomavirus 9-valent vaccine Alexandra Aichholz AIR CONDITIONER INSTALLER HELPER Work Phone: [facility] 07-15-2017 HPV, unspecified formulation Jeni Lue [facility] 07-15-2017 Human Papillomavirus 9-valent vaccine Alexandra Aichholz AIR CONDITIONER INSTALLER HELPER Work Phone: [facility] 07-15-2017 tetanus toxoid, redu vladimir diphtheria toxoid, and acellular pertussis vaccine, adsorbed Alexandra Aichholz AIR CONDITIONER INSTALLER HELPER Work Phone: [facility] 04-20-2017 HPV, unspecified formulation Jeni Lue [facility] 04-20-2017 Human Papillomavirus 9-valent vaccine Alexandra Aichholz AIR CONDITIONER INSTALLER HELPER Work Phone: [facility] 12-13-1997 diphtheria, tetanus toxoids and acellular pertussis vaccine Alexandra Aichholz AIR CONDITIONER INSTALLER HELPER Work Phone: [facility] 12-13-1997 measles, mumps and rubella virus vaccine Alexandra Aichholz AIR CONDITIONER INSTALLER HELPER Work Phone: [facility] [place] Payers Date Payer Category Payer Medicaid [facility] MEDIC A[facility] [employer] [place] [id number] 2022-Present [address] [place] [address] [id number] 2022 Private Health Insurance [facility] MEDICAID [id number] 1992 Unknown [id number] 2.16840.1.255960.3.579.2 .593 1992 Unknown [id number] 2.16840.1.576765.3.579.2 .593 1992 Unknown [id number] 2.16840.1.984669.3.579.2 .727 1992 Unknown [id number] 2.16.840.1.912940.3.579.2 .727 1992 Unknown [id number] 2.16.840.1.771007.3.579.2 .727 1992 Unknown [id number] 2.16.840.1.779798.3.579.2 .727 1992 Unknown [id number] 2.16.840.1.140384.3.579.2 .1286 1992 Unknown [id number] 2.16840.1.761669.3.579.2 .1286 1992 Unknown [id number] 2.16.840.1.308580.3.579.2 .9 1992 Unknown [id number] 2.16.840.1.500775.3.579.2 .9 1992 Unknown [id number] 2.16.840.1.246887.3.579.2 .1258 1992 Unknown [id number] 2.16.840.1.060817.3.579.2 .1258 1992 Unknown [id number] 2.16.840.1.217570.3.579.2 .1258 1992 Unknown [id number] 2.16.840.1.986013.3.579.2 .1258 1992 Unknown [id number] 2.16.840.1.564728.3.579.2 .1258 1992 Unknown [id number] 2.16.840.1.561673.3.579.2 .1258 1992 Unknown [id number] 2.16.840.1.349171.3.579.2 .1258 1992 Unknown [id number] 2.16.840.1.342589.3.579.2 .1258 1992 Unknown [id number] 2.16.840.1.165715.3.579.2 .1258 1992 Unknown [id number] 2.16.840.1.170775.3.579.2 .1258 1992 Unknown [id number] 2.16.840.1.815120.3.579.2 .1258 1992 Unknown [id number] 2.16.840.1.895427.3.579.2 .1258 1992 Unknown [id number] 2.16.840.1.058953.3.579.2 .1258 1992 Unknown [id number] 2.16.840.1.089526.3.579.2 .1259 1992 Unknown [id number] 2.16.840.1.999176.3.579.2 .1259 1992 Unknown [id number] 2.16.840.1.888966.3.579.2 .1259 1992 Unknown [id number] 2.16.840.1.089391.3.579.2 .1259 1992 Unknown [id number] 2.16.840.1.572407.3.579.2 .1259 1992 Unknown [id number] 2.16.840.1.594358.3.579.2 .1259 1992 Unknown [id number] 2.16.840.1.169864.3.579.2 .1259 1959 Unknown [id number] 2.16.840.1.636859.19 1959 Unknown [id number] Medicaid [employer] [id number] Self-pay Self Pay [id number] Unknown MMO [id number] Unknown [facility] Health Benefits [id number] Worker's Compensation [id number] Social History Date Type Detail Facility Unknown if ever smoked deeplocal Other Start: 02-16-2024 End: 05-03-2024 [facility] Start: 09-26-2020 End: 03-22-2024 Tobacco smoking status NHIS Smoker (finding) [facility] Start: 1990 Sex Assigned At Female [facility] Start: 04-21-2024 Tobacco smoking status Heavy tobacco smoker (finding) [facility] Tobacco smoking status Never [facility] Start: 02-16-2024 End: 07-28-2024 Tobacco smoking status NHIS Smokes tobacco daily [facility] History of tobacco use Cigarette Smoker [facility] Start: 02-16-2024 End: 07-28-2024 Tobacco use and exposure Smokeless tobacco non-user [facility] Start: 03-08-2024 End: 05-03-2024 Alcoholic beverage intake Current drinker of alcohol (finding) [facility] Start: 02-16-2024 End: 05-03-2024 History of Social function [facility] Start: 04-26-2023 Alcohol Comment 1-2 drinks less than monthly in the past year, Caffeine intake: occasional coffee, 2 Red bulls/day [facility] Start: 1990 Sex assigned at Not on file [facility] Start: 10-08-2022 Gender identity Identifies as female gender (finding) [facility] Start: 07-28-2024 Alcoholic beverage intake Ex-drinker (finding) [facility] Start: 07-28-2024 Tobacco Comment Cessation discussed [facility] Start: 07-28-2024 Alcohol Comment Caffeine intake: occassionally [facility] Start: 05-12-2024 [facility] Functional Status Date Assessment Result Facility 04-21-2024 Functional Status N/A [facility] 03-22-2024 Functional Status N/A [facility] Clinical Notes 10-11-2020 to 07-28-2024 Josiah Young MD - 07/28/2024 4:00 PM Soledad Jane RN - 07/28/2024 3:30 PM Sarah Kay NP - 05/31/2024 11:00 AM Sarah Kay NP - 05/31/2024 6:31 AM ESTPatient Instructions Note Date & Type Note Facility 07-28-2024 History of Presen t illness Narrative Carina Schultz returns to the office today. She has spaced out xolair to 6 weeks and then started to have some hives. She has hives head to toe today and for the past 2 weeks. Her last xolair was 07/14. She had facial swelling at Xmas. She also has swelling of the fingers. She is and due on February 02. She has been taking Cetirizine 30 mg BID. EXAM The patient appears comfortable in the office today. Lungs are clear to auscultation bilaterally. The oral mucosa is pink and healthy without any lesions or ulcers. The palate elevates in the midline. The nasal mucosa is pink and healthy. There is no epistaxis mucopus or nasal polyposis noted. The nasal septum is approximately in the midline. The skin is notable for diffuse red raised blanchable hives especially on the legs. IMPRESSION: chronic idiopathic urticaria - change xolair to 4 weeks. Defer on prednisone due to the potential risk of severe side effects in . Add Benadryl at bed. Lower dose of Cetirizine. Follow-up 6 weeks or sooner if problems arise. Try topical capsaicin. If her symptoms are persistent then it may be reasonable to petition her insurance to cover her Xolair at a 2 week interval as this worked well for her in the past. documented in this encounter [facility] 07-28-2024 History of Presen t illness Narrative Name: Carina Schultz Date/Time of Service:07/28/2024 3:55 PM :1990 Age: 34 y.o. Chief Complaint Chief Complaint Patient presents with Initial Visit Carina Schultz is a 34 y.o. at 13w0d with a working estimated date of delivery of 02/02/2025, by Last Menstrual Period who presents for an initial visit. 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, AIN3 Personal history of other medical treatment Gardasil vaccine series received per pt ALLY II (vulvar intraepithelial neoplasia II) Past Surgical History: Procedure Laterality Date BIOPSY VULVA 03/23/2019 VIN2 BIOPSY VULVA 08/16/2020 VIN2-VIN3 COLPOSCOPY 03/15/2019 BLAINE 1 COLPOSCOPY 08/16/2020 CIN2 COLPOSCOPY 12/13/2020 benign OTHER SURGICAL HISTORY Urethra Dialation OTHER SURGICAL HISTORY 04/29/2019 Labia excision: pathology; VIN3, AIN3 OTHER SURGICAL HISTORY 09/26/2020 Leep w/ cone biopsy and excision of vulvar lesions VAGINAL DELIVERY Family History Family History Problem Relation Name Age of Onset Hypertension Mother Other (prediabetes) Father Hypertension Father Cancer Maternal Grandmother Breast cancer Paternal Grandmother Diabetes Paternal Grandmother Social History reports that she has been smoking cigarettes. She has never used smokeless tobacco. She reports that she does not currently use alcohol. She reports that she does not use drugs. Social History Tobacco Use Smoking Status Every Day Current packs/day: 0.50 Types: Cigarettes Smokeless Tobacco Never Tobacco Comments Cessation discussed MEDICATIONS: Current Outpatient Medications on File Prior to Visit Medication Sig Dispense Refill albuterol HFA 90 mcg/act inhaler Inhale 2 puffs every 6 (six) hours if needed for wheezing or shortness of breath 18 g 0 budesonide-formoterol (Symbicort) 80-4.5 MCG/ACT inhaler Inhale 2 puffs in the morning and 2 puffs before bedtime. Rinse mouth after use. 1 each 5 cetirizine (ZyrTEC) 10 MG tablet Take 10 mg by mouth Daily clobetasol (Temovate) 0.05 % cream apply to affected area ON HANDS once daily for up to 2 weeks then if needed for FLARES [DISCONTINUED] cephalexin (Keflex) 250 MG capsule Take 250 mg by mouth [DISCONTINUED] podofilox (Condylox) 0.5 % external solution Apply 1 application topically No current facility-administered medications on file prior to visit. Allergies Allergies Allergen Reactions Sulfamethoxazole-Trimethoprim Hives Diphenhydramine RASH Nitrofurantoin Hives Patient denies nausea and vomiting. Discussed smaller meals, elena products, OTC Vitamin B6 50mg BID and Unisom 25mg BID Patient reports taking daily vitamins. Genetic and Chromosomal testing discussed. Last PAP: 02/16/24 WNL ASSESSMENT / PLAN Labs Ordered. Provided patient with printed copy of orders to take with her to [facility] to have drawn today. Appointments scheduled for OBUS 08/10 and will schedule with PPJ after OBUS 07/28/2024 3:55 PM documented in this encounter [facility] 05-31-2024 History of Presen t illness Narrative Images from the original note were not included. Carina Schultz is a 34 y.o. female presents with chief complaint of No chief complaint on file. HPI: Here for a blood pressure recheck. Last month, was elevated, no medications for this Occ SILVA's does check BP, readings 120-130/70-80's No chest pain/pressure, occ trace swelling pedal at end of day No dyspnea, no dizziness or lightheadness Asthma There is no cough, difficulty breathing, frequent throat clearing, hemoptysis, shortness of breath or wheezing. This is a chronic problem. The current episode started more than 1 year ago. The problem occurs intermittently. The problem has been unchanged. Pertinent negatives include no appetite change, chest pain, ear pain, fever, headaches, myalgias or sore throat. Her symptoms are aggravated by nothing. Her symptoms are alleviated by beta-agonist and steroid inhaler. She reports significant improvement on treatment. There are no known risk factors for lung disease. Her past medical history is significant for asthma. SUBJECTIVE: MEDICATIONS: Current Outpatient Medications Medication Instructions albuterol HFA 90 mcg/act inhaler inhale 2 puffs by mouth and INTO THE LUNGS every 6 hours if needed shortness of breath budesonide-formoterol (Symbicort) 80-4.5 MCG/ACT inhaler INHALE 2 PUFFS BY MOUTH TWICE A DAY - - RINSE MOUTH AFTER USE busPIRone (Buspar) 5 MG tablet TAKE 1 TABLET BY MOUTH EVERY 12 HOURS NEEDED FOR ANXIETY cephalexin (KEFLEX) 250 mg, Oral cetirizine (ZYRTEC) 10 mg, Oral, Daily cholecalciferol (Vitamin D-3) 50 MCG (1999) capsule 1 capsule clobetasol (Temovate) 0.05 % cream apply to affected area ON HANDS once daily for up to 2 weeks then if needed for FLARES podofilox (Condylox) 0.5 % external solution 1 application , Topical spironolactone (ALDACTONE) 50 mg, Oral, Daily ALLERGIES: Allergies Allergen Reactions Sulfamethoxazole-Trimethoprim Hives Diphenhydramine RASH Nitrofurantoin Hives REVIEW OF SYMPTOMS: Review of Systems Constitutional: Negative for appetite change, chills and fever. HENT: Negative for congestion, ear pain and sore throat. Eyes: Negative for pain, discharge, redness and visual disturbance. Respiratory: Negative for cough, hemoptysis, shortness of breath and wheezing. Cardiovascular: Negative for chest pain, palpitations and leg swelling. Gastrointestinal: Negative for abdominal pain, blood in stool, constipation, diarrhea, nausea and vomiting. Genitourinary: Negative for difficulty urinating, dysuria and frequency. Musculoskeletal: Negative for arthralgias, back pain, joint swelling and myalgias. Skin: Negative for rash and wound. Neurological: Negative for dizziness, tremors, seizures, syncope and headaches. Psychiatric/Behavioral: Negative for behavioral problems, self-injury and suicidal ideas. The patient is nervous/anxious. Hematological: Does not bruise/bleed easily. Endocrine: Negative for polydipsia, polyphagia and polyuria. Allergic/Immunologic: Negative for environmental allergies and food allergies. 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, AIN3 Personal history of other medical treatment Gardasil vaccine series received per pt ALLY II (vulvar intraepithelial neoplasia II) Past Surgical History: Procedure Laterality Date BIOPSY VULVA 03/23/2019 VIN2 BIOPSY VULVA 08/16/2020 VIN2-VIN3 COLPOSCOPY 03/15/2019 BLAINE 1 COLPOSCOPY 08/16/2020 CIN2 COLPOSCOPY 12/13/2020 benign OTHER SURGICAL HISTORY Urethra Dialation OTHER SURGICAL HISTORY 04/29/2019 Labia excision: pathology; VIN3, AIN3 OTHER SURGICAL HISTORY 09/26/2020 Leep w/ cone biopsy and excision of vulvar lesions VAGINAL DELIVERY family history includes Breast cancer in her paternal grandmother. OBJECTIVE: Visit Vitals BP 128/84 (BP Location: Left arm, Patient Position: Sitting, BP Cuff Size: Adult long) Pulse 94 Temp 98.7 F (Temporal) Resp 18 Ht 5' 7 Wt 260 lb 9.6 oz SpO2 98% BMI 40.82 kg/m OB Status Having periods Smoking Status Every Day BSA 2.36 m Physical Exam Vitals and nursing note reviewed. Constitutional: General: She is not in acute distress. Appearance: Normal appearance. HENT: Head: Normocephalic and atraumatic. Right Ear: External ear normal. Left Ear: External ear normal. Nose: Nose normal. Mouth/Throat: Mouth: Mucous membranes are moist. Eyes: Extraocular Movements: Extraocular movements intact. Conjunctiva/sclera: Conjunctivae normal. Neck: Vascular: No carotid bruit. Cardiovascular: Rate and Rhythm: Normal rate and regular rhythm. Pulses: Normal pulses. Heart sounds: Normal heart sounds. Pulmonary: Effort: Pulmonary effort is normal. Breath sounds: Normal breath sounds. Abdominal: General: Bowel sounds are normal. There is no distension. Palpations: Abdomen is soft. There is no mass. Tenderness: There is no abdominal tenderness. Musculoskeletal: General: Normal range of motion. Cervical back: Normal range of motion and neck supple. Right lower leg: No edema. Left lower leg: No edema. Skin: General: Skin is warm and dry. Capillary Refill: Capillary refill takes 2 to 3 seconds. Findings: No rash. Neurological: General: No focal deficit present. Mental Status: She is alert and oriented to person, place, and time. Psychiatric: Mood and Affect: Mood normal. Behavior: Behavior normal. Thought Content: Thought content normal. Judgment: Judgment normal. ASSESSMENT AND PLAN: No follow-ups on file. Problem List Items Addressed This Visit Anxiety Is no longer taking buspar Feels good without Asthma in adult ([facility]) Continue with ICS LABA Rare use of rescue inhaler Fu in 6 months Recommend quitting smoking Relevant Medications albuterol HFA 90 mcg/act inhaler budesonide-formoterol (Symbicort) 80-4.5 MCG/ACT inhaler Class 2 obesity due to excess calories without serious comorbidity with body mass index (BMI) of 39.0 to 39.9 in adult Discussed with patient their BMI (actual, verses recommended). We have also discussed lifestyle modifications: attempts to perform physical activity as chronic conditions allow, also to monitor dietary intake: increasing protein/fruits/veggies and lowering carb intake (unless contraindicated). Limit sodas, juices, and sugary drinks. And physical activity Nicotine dependence The patient has been advised of the risks of continued smoking: stroke, [place], all forms of cancer, lung disease, and . Options for quitting smoking include: cold turkey, hypnosis, acupuncture, nicotine replacement meds (gum, lozenges, and patches), Buproprion, and Varenicline. At this time pt is encouraged to evaluate their goals for wanting to quit smoking, and reach out to provider when ready to start this process Primary hypertension (CMS/HCC) - Primary Please check blood pressure daily and record DASH diet Limit caffeine Take medication as directed Contact office if chest pain, pressure, dizziness, shortness of breath, swelling legs Recommend slow position changes Office reads: 122/86 manual, left arm, and wrist cuff 139/88 Associated Problem(s): Asthma in adult (CMS/HCC) Continue with ICS LABA Rare use of rescue inhaler Fu in 6 months Recommend quitting smoking Associated Problem(s): Primary hypertension (CMS/HCC) Please check blood pressure daily and record DASH diet Limit caffeine Take medication as directed Contact office if chest pain, pressure, dizziness, shortness of breath, swelling legs Recommend slow position changes Office reads: 122/86 manual, left arm, and wrist cuff 139/88 Associated Problem(s): Anxiety Is no longer taking buspar Feels good without Associated Problem(s): Class 2 obesity due to excess calories without serious comorbidity with body mass index (BMI) of 39.0 to 39.9 in adult Discussed with patient their BMI (actual, verses recommended). We have also discussed lifestyle modifications: attempts to perform physical activity as chronic conditions allow, also to monitor dietary intake: increasing protein/fruits/veggies and lowering carb intake (unless contraindicated). Limit sodas, juices, and sugary drinks. And physical activity Associated Problem(s): Nicotine dependence The patient has been advised of the risks of continued smoking: stroke, [place], all forms of cancer, lung disease, and . Options for quitting smoking include: cold turkey, hypnosis, acupuncture, nicotine replacement meds (gum, lozenges, and patches), Buproprion, and Varenicline. At this time pt is encouraged to evaluate their goals for wanting to quit smoking, and reach out to provider when ready to start this process documented in this encounter [facility] 05-15-2024 Telephone encounter Note Prescription sent for uti [facility] 05-15-2024 Miscellaneous Notes Prescription sent for uti documented in this encounter [facility] 05-11-2024 Evaluation + Plan note Diagnostic Tests PendingUrine Culture 05/11/24 [facility] 05-03-2024 History of Presen t illness Narrative Associated Problem(s): Primary hypertension (CMS/HCC) Home reads, bring back log Blood pressure monitor device DASH diet Fu in 4 weeks Images from the original note were not included. Carina Schultz is a 33 y.o. female presents with chief complaint of No chief complaint on file. HPI: Was here today for adipex check: currently not taking this medication Has been noted to have elevated blood pressures at outside office appts. Denies SILVA, dizziness, chest pain/pressure, no dyspnea, no LE edema Episode at [facility], watch alarmed HR 130, she was asymptomatic with this SUBJECTIVE: MEDICATIONS: Current Outpatient Medications Medication Instructions albuterol HFA 90 mcg/act inhaler inhale 2 puffs by mouth and INTO THE LUNGS every 6 hours if needed shortness of breath budesonide-formoterol (Symbicort) 80-4.5 MCG/ACT inhaler INHALE 2 PUFFS BY MOUTH TWICE A DAY - - RINSE MOUTH AFTER USE busPIRone (Buspar) 5 MG tablet TAKE 1 TABLET BY MOUTH EVERY 12 HOURS NEEDED FOR ANXIETY cephalexin (KEFLEX) 250 mg, Oral cetirizine (ZYRTEC) 10 mg, Oral, Daily cholecalciferol (Vitamin D-3) 50 MCG (1999 UT) capsule 1 capsule clobetasol (Temovate) 0.05 % cream apply to affected area ON HANDS once daily for up to 2 weeks then if needed for FLARES podofilox (Condylox) 0.5 % external solution 1 application , Topical spironolactone (ALDACTONE) 50 mg, Oral, Daily ALLERGIES: Allergies Allergen Reactions Sulfamethoxazole-Trimethoprim Hives Diphenhydramine RASH Nitrofurantoin Hives REVIEW OF SYMPTOMS: Review of Systems Constitutional: Negative for appetite change, chills and fever. HENT: Negative for congestion, ear pain and sore throat. Eyes: Negative for pain, discharge, redness and visual disturbance. Respiratory: Negative for cough, shortness of breath and wheezing. Cardiovascular: Negative for chest pain, palpitations and leg swelling. Gastrointestinal: Negative for abdominal pain, blood in stool, constipation, diarrhea, nausea and vomiting. Genitourinary: Negative for difficulty urinating, dysuria and frequency. Musculoskeletal: Negative for arthralgias, back pain, joint swelling and myalgias. Skin: Negative for rash and wound. Neurological: Negative for dizziness, tremors, seizures, syncope and headaches. Psychiatric/Behavioral: Negative for behavioral problems, self-injury and suicidal ideas. The patient is not nervous/anxious. Hematological: Does not bruise/bleed easily. Endocrine: Negative for polydipsia, polyphagia and polyuria. Allergic/Immunologic: Negative for environmental allergies and food allergies. 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, AIN3 Personal history of other medical treatment Gardasil vaccine series received per pt ALLY II (vulvar intraepithelial neoplasia II) Past Surgical History: Procedure Laterality Date BIOPSY VULVA 03/23/2019 VIN2 BIOPSY VULVA 08/16/2020 VIN2-VIN3 COLPOSCOPY 03/15/2019 BLAINE 1 COLPOSCOPY 08/16/2020 CIN2 COLPOSCOPY 12/13/2020 benign OTHER SURGICAL HISTORY Urethra Dialation OTHER SURGICAL HISTORY 04/29/2019 Labia excision: pathology; VIN3, AIN3 OTHER SURGICAL HISTORY 09/26/2020 Leep w/ cone biopsy and excision of vulvar lesions VAGINAL DELIVERY family history includes Breast cancer in her paternal grandmother. OBJECTIVE: Visit Vitals BP 140/86 (BP Location: Left arm, Patient Position: Sitting, BP Cuff Size: Large adult) Pulse 89 Temp 98.8 F (Temporal) Resp 18 Ht 5' 7 Wt 255 lb SpO2 97% BMI 39.94 kg/m OB Status Having periods Smoking Status Every Day BSA 2.34 m Physical Exam Vitals and nursing note reviewed. Constitutional: General: She is not in acute distress. Appearance: Normal appearance. HENT: Head: Normocephalic and atraumatic. Right Ear: External ear normal. Left Ear: External ear normal. Nose: Nose normal. Mouth/Throat: Mouth: Mucous membranes are moist. Eyes: Extraocular Movements: Extraocular movements intact. Conjunctiva/sclera: Conjunctivae normal. Neck: Vascular: No carotid bruit. Cardiovascular: Rate and Rhythm: Normal rate and regular rhythm. Pulses: Normal pulses. Heart sounds: Normal heart sounds. Pulmonary: Effort: Pulmonary effort is normal. Breath sounds: Normal breath sounds. Abdominal: General: Bowel sounds are normal. There is no distension. Palpations: Abdomen is soft. There is no mass. Tenderness: There is no abdominal tenderness. Musculoskeletal: General: Normal range of motion. Cervical back: Normal range of motion and neck supple. Skin: General: Skin is warm and dry. Capillary Refill: Capillary refill takes 2 to 3 seconds. Findings: No rash. Neurological: General: No focal deficit present. Mental Status: She is alert and oriented to person, place, and time. Psychiatric: Mood and Affect: Mood normal. Behavior: Behavior normal. Thought Content: Thought content normal. Judgment: Judgment normal. ASSESSMENT AND PLAN: Follow up in about 4 weeks (around 05/31/2024) for Recheck. Problem List Items Addressed This Visit Class 2 obesity due to excess calories without serious comorbidity with body mass index (BMI) of 39.0 to 39.9 in adult Nicotine dependence - Primary RESOLVED: Primary hypertension (CMS/HCC) documented in this encounter [facility] 05-03-2024 Instructions Alexandra Kay NP - 05/03/2024 8:40 AM EDT DASH diet Check blood pressure daily and record Fu in 4 weeks, bring log of blood pressure AND machine to verify accuracy documented in this encounter [facility] 04-21-2024 Hospital Discharg e instructions Patient Education 04/21/2024 11:22:35 Urinary Tract Infection, Adult Urinary Tract Infection, Adult A urinary tract infection (UTI) is an infection of any part of the urinary tract. The urinary tract includes the kidneys, ureters, bladder, and urethra. These organs make, store, and get rid of urine in the body. An upper UTI affects the ureters and kidneys. A lower UTI affects the bladder and urethra. What are the causes? Most urinary tract infections are caused by bacteria in your genital area around your urethra, where urine leaves your body. These bacteria grow and cause inflammation of your urinary tract. What increases the risk? You are more likely to develop this condition if: You have a urinary catheter that stays in place. You are not able to control when you urinate or have a bowel movement (incontinence). You are female and you: ?Use a spermicide or diaphragm for control. ?Have low estrogen levels. ?Are . You have certain genes that increase your risk. You are sexually active. You take antibiotic medicines. You have a condition that causes your flow of urine to slow down, such as: ?An enlarged prostate, if you are male. ?Blockage in your urethra. ?A kidney stone. ?A nerve condition that affects your bladder control (neurogenic bladder). ?Not getting enough to drink, or not urinating often. You have certain medical conditions, such as: ?Diabetes. ?A weak disease-fighting system (immunesystem). ?Sickle cell disease. ?Gout. ?Spinal cord injury. What are the signs or symptoms? Symptoms of this condition include: Needing to urinate right away (urgency). Frequent urination. This may include small amounts of urine each time you urinate. Pain or burning with urination. Blood in the urine. Urine that smells bad or unusual. Trouble urinating. Cloudy urine. Vaginal discharge, if you are female. Pain in the abdomen or the lower back. You may also have: Vomiting or a decreased appetite. Confusion. Irritability or tiredness. A fever or chills. Diarrhea. The first symptom in older adults may be confusion. In some cases, they may not have any symptoms until the infection has worsened. How is this diagnosed? This condition is diagnosed based on your medical history and a physical exam. You may also have other tests, including: Urine tests. Blood tests. Tests for STIs (sexually transmitted infections). If you have had more than one UTI, a cystoscopy or imaging studies may be done to determine the cause of the infections. How is this treated? Treatment for this condition includes: Antibiotic medicine. Rpex-[id number] medicines to treat discomfort. Drinking enough water to stay hydrated. If you have frequent infections or have other conditions such as a kidney stone, you may need to see a health care provider who specializes in the urinary tract (urologist). In rare cases, urinary tract infections can cause sepsis. Sepsis is a life-threatening condition that occurs when the body responds to an infection. Sepsis is treated in the hospital with IV antibiotics, fluids, and other medicines. Follow these instructions at home: Medicines Take [id number] and prescription medicines only as told by your health care provider. If you were prescribed an antibiotic medicine, take it as told by your health care provider. Do not stop using the antibiotic even if you start to feel better. General instructions Make sure you: ?Empty your bladder often and completely. Do not hold urine for long periods of time. ?Empty your bladder after sex. ?Wipe from front to back after urinating or having a bowel movement if you are female. Use each tissue only one time when you wipe. Drink enough fluid to keep your urine pale yellow. Keep all follow-up visits. This is important. Contact a health care provider if: Your symptoms do not get better after 1 2 days. Your symptoms go away and then return. Get help right away if: You have severe pain in your back or your lower abdomen. You have a fever or chills. You have nausea or vomiting. Summary A urinary tract infection (UTI) is an infection of any part of the urinary tract, which includes the kidneys, ureters, bladder, and urethra. Most urinary tract infections are caused by bacteria in your genital area. Treatment for this condition often includes antibiotic medicines. If you were prescribed an antibiotic medicine, take it as told by your health care provider. Do not stop using the antibiotic even if you start to feel better. Keep all follow-up visits. This is important. This information is not intended to replace advice given to you by your health care provider. Make sure you discuss any questions you have with your health care provider. Document Revised: 02/17/2021 Document Reviewed: 02/22/2021 [employer] Patient Education 2023 [employer] 04/21/2024 11:22:32 Antibiotic Medicine, Adult Antibiotic Medicine, Adult Antibiotic medicines are used to treat infections caused by bacteria. These medicines do not work for illnesses caused by viruses. Antibiotics work by killing the bacteria that are making you sick, but they can also have serious side effects. Antibiotics must be used safely and only when needed. When do I need to take antibiotics? You may need antibiotics for: A urinary tract infection (UTI). Strep throat. Bacterial sinus infection. Meningitis. Serious lung infections. Your health care provider may start you on antibiotics while you are waiting for test results. Tests may include a culture of the throat, urine, blood, or mucus. Your health care provider may change or stop your antibiotic depending on your test results. When are antibiotics not needed? You do not need antibiotics for most common illnesses. These illnesses may be caused by a virus, not by bacteria. You do not need antibiotics for: The common cold. The flu (influenza). Sore throat. Discolored mucus. Bronchitis. Antibiotics are not always needed for all infections caused by bacteria. Many of these infections clear up on their own. Do not take antibiotics when they are not needed. How long should I take my antibiotic? You must take the entire amount prescribed to you. Take your antibiotics as told by your health care provider. Do not stop taking your antibiotics even if you start to feel better. If you stop taking them too soon: You may feel sick again. Your infection may get harder to treat. Each course of antibiotics needs a different length of time to work. The length of time may vary from a few days to a few weeks. What if I miss a dose? Try not to miss any doses of medicine. If you miss a dose, call your health care provider or pharmacist for help. Sometimes, it is okay to take the missed dose as soon as possible. Do not take double or extra doses. What are the risks of taking antibiotics? Antibiotics can cause: Allergic reactions. Nausea. Yeast infections. Liver problems. Antibiotics can also cause an infection called Clostridioides difficile (C. difficile or C. diff), which causes severe diarrhea. This infection happens when the antibiotics kill the healthy bacteria in your intestines. This allows C. diff to grow. C. diff needs to be treated right away. Let your health care provider know if: You have diarrhea while taking an antibiotic. You have diarrhea after you stop taking an antibiotic. C. diff infection can start weeks after stopping the antibiotic. Taking an antibiotic also puts you at risk for getting sick in the future with bacteria that do not respond to medicine (antibiotic-resistant infection). Antibiotics can cause bacteria to change so that if the antibiotic is taken again, the medicine cannot kill the bacteria. These infections can be more serious because they are hard, or sometimes impossible, to treat. Do antibiotics affect control? control pills may not work while you are taking antibiotics. If you are taking control pills: Keep taking them as usual. Use a second form of control, such as a condom, to avoid unwanted . Do this for as long as told by your health care provider. What else should I know about taking antibiotics? Take antibiotics exactly as told. Take the correct amount of medicine at the same time each day. Ask your health care provider: ?How long to wait between doses. ?If you should take your antibiotic with food or water. ?If you should avoid certain foods, drinks, or medicines while taking your antibiotics. ?If you need to watch for any side effects. Use only the antibiotics prescribed to you by your health care provider. Do not use antibiotics prescribed for someone else. Drink a large glass of water when taking your antibiotics unless told otherwise. Drink enough fluid to keep your urine pale yellow. Ask your pharmacist for a dosage syringe, cup, or spoon that correctly measures your antibiotics. Ask your pharmacist or health care provider how to safely get rid of leftover medicine. Follow these instructions at home: Take your antibiotics as told by your health care provider. Do not stop taking your antibiotics even if you start to feel better. Return to your normal activities as told by your health care provider. Ask your health care provider what activities are safe for you. Contact a health care provider if: Your symptoms get worse. You have new joint pain or muscle aches that begin after starting your antibiotic. You have side effects from your antibiotic, such as: ?Stomach pain. ?Diarrhea. ?Nausea. ?White patches in your mouth or throat. Get help right away if: You have signs of a severe allergic reaction to antibiotics. If you have any of these signs, stop taking the antibiotic right away. Signs may include: ?Raised, itchy, red bumps on your skin (hives). ?Skin rash. ?Trouble breathing. ?High-pitched whistling sounds when you breathe, most often when you breathe out (wheezing). ?Swelling anywhere on your body. ?Feeling dizzy. ?Vomiting. You have signs of liver problems, such as: ?Dark or blood-colored urine. ?Yellow color to your skin. ?Bruising or bleeding easily. You have severe diarrhea, bloody diarrhea, or stomach cramps. You have a severe headache. These symptoms may be an emergency. Get help right away. Call 911. Do not wait to see if the symptoms will go away. Do not drive yourself to the hospital. This information is not intended to replace advice given to you by your health care provider. Make sure you discuss any questions you have with your health care provider. Document Revised: 02/10/2023 Document Reviewed: 02/10/2023 [employer] Patient Education 2023 [employer] Follow Up Care 04/05/2024 11:26:44 With:Nilton NUNEZ, BRYCE Urbina, U[facility] Address: When: Unknown [facility] 04-21-2024 Note Patient Education Caregiving Antibiotic Medicine, Adult Antibiotic medicines are used to treat infections caused by bacteria. These medicines do not work for illnesses caused by viruses. Antibiotics work by killing the bacteria that are making you sick, but they can also have serious side effects. Antibiotics must be used safely and only when needed. When do I need to take antibiotics? You may need antibiotics for: ? A urinary tract infection (UTI). ? Strep throat. ? Bacterial sinus infection. ? Meningitis. ? Serious lung infections. Your health care provider may start you on antibiotics while you are waiting for test results. Tests may include a culture of the throat, urine, blood, or mucus. Your health care provider may change or stop your antibiotic depending on your test results. When are antibiotics not needed? You do not need antibiotics for most common illnesses. These illnesses may be caused by a virus, not by bacteria. You do not need antibiotics for: ? The common cold. ? The flu (influenza). ? Sore throat. ? Discolored mucus. ? Bronchitis. Antibiotics are not always needed for all infections caused by bacteria. Many of these infections clear up on their own. Do not take antibiotics when they are not needed. How long should I take my antibiotic? You must take the entire amount prescribed to you. Take your antibiotics as told by your health care provider. Do not stop taking your antibiotics even if you start to feel better. If you stop taking them too soon: ? You may feel sick again. ? Your infection may get harder to treat. Each course of antibiotics needs a different length of time to work. The length of time may vary from a few days to a few weeks. What if I miss a dose? Try not to miss any doses of medicine. If you miss a dose, call your health care provider or pharmacist for help. Sometimes, it is okay to take the missed dose as soon as possible. Do not take double or extra doses. What are the risks of taking antibiotics? Antibiotics can cause: ? Allergic reactions. ? Nausea. ? Yeast infections. ? Liver problems. Antibiotics can also cause an infection called Clostridioides difficile (C. difficile or C. diff), which causes severe diarrhea. This infection happens when the antibiotics kill the healthy bacteria in your intestines. This allows C. diff to grow. C. diff needs to be treated right away. Let your health care provider know if: ? You have diarrhea while taking an antibiotic. ? You have diarrhea after you stop taking an antibiotic. C. diff infection can start weeks after stopping the antibiotic. Taking an antibiotic also puts you at risk for getting sick in the future with bacteria that do not respond to medicine (antibiotic-resistant infection). Antibiotics can cause bacteria to change so that if the antibiotic is taken again, the medicine cannot kill the bacteria. These infections can be more serious because they are hard, or sometimes impossible, to treat. Do antibiotics affect control? control pills may not work while you are taking antibiotics. If you are taking control pills: ? Keep taking them as usual. ? Use a second form of control, such as a condom, to avoid unwanted . Do this for as long as told by your health care provider. What else should I know about taking antibiotics? ? Take antibiotics exactly as told. ? Take the correct amount of medicine at the same time each day. ? Ask your health care provider: ? How long to wait between doses. ? If you should take your antibiotic with food or water. ? If you should avoid certain foods, drinks, or medicines while taking your antibiotics. ? If you need to watch for any side effects. ? Use only the antibiotics prescribed to you by your health care provider. Do not use antibiotics prescribed for someone else. ? Drink a large glass of water when taking your antibiotics unless told otherwise. Drink enough fluid to keep your urine pale yellow. ? Ask your pharmacist for a dosage syringe, cup, or spoon that correctly measures your antibiotics. ? Ask your pharmacist or health care provider how to safely get rid of leftover medicine. Follow these instructions at home: ? Take your antibiotics as told by your health care provider. Do not stop taking your antibiotics even if you start to feel better. ? Return to your normal activities as told by your health care provider. Ask your health care provider what activities are safe for you. Contact a health care provider if: ? Your symptoms get worse. ? You have new joint pain or muscle aches that begin after starting your antibiotic. ? You have side effects from your antibiotic, such as: ? Stomach pain. ? Diarrhea. ? Nausea. ? White patches in your mouth or throat. Get help right away if: ? You have signs of a severe allergic reaction to antibiotics. If you have any o (more content not included)... [facility] 04-07-2024 History of Presen t illness Narrative Carina Schultz returns to the office today For follow-up assessment for idiopathic urticaria. Urticaria control test in the office today is 16. She has been receiving Xolair every 5 weeks. She feels this has been remarkably beneficial for her urticarial symptoms. She is no antihistamines. She has no breakthrough symptoms toward the end of her cycle. She has been diagnosed with gallstones. EXAM The patient appears comfortable in the office today. Lungs are clear to auscultation bilaterally. The oral mucosa is pink and healthy without any lesions or ulcers. The palate elevates in the midline. The nasal mucosa is pink and healthy. There is no epistaxis mucopus or nasal polyposis noted. The nasal septum is approximately in the midline. The skin is clear of any lesions, excoriations, or erythema. IMPRESSION: chronic idiopathic urticaria - As she has been doing very well with the Xolair at a 5 week interval without any breakthrough symptoms toward the end of her cycle we agreed to space out her injections of Xolair to every 6 weeks. Of course if she has any return of symptoms I asked her to speak with the nurse and change her injections back to a 5 week interval. Follow-up was arranged in 6 months for reassessment or sooner should problems arise. documented in this encounter [facility] 03-22-2024 Hospital Discharg e instructions Patient Education 03/22/2024 10:18:10 Urinary Tract Infection, Adult Urinary Tract Infection, Adult A urinary tract infection (UTI) is an infection of any part of the urinary tract. The urinary tract includes the kidneys, ureters, bladder, and urethra. These organs make, store, and get rid of urine in the body. An upper UTI affects the ureters and kidneys. A lower UTI affects the bladder and urethra. What are the causes? Most urinary tract infections are caused by bacteria in your genital area around your urethra, where urine leaves your body. These bacteria grow and cause inflammation of your urinary tract. What increases the risk? You are more likely to develop this condition if: You have a urinary catheter that stays in place. You are not able to control when you urinate or have a bowel movement (incontinence). You are female and you: ?Use a spermicide or diaphragm for control. ?Have low estrogen levels. ?Are . You have certain genes that increase your risk. You are sexually active. You take antibiotic medicines. You have a condition that causes your flow of urine to slow down, such as: ?An enlarged prostate, if you are male. ?Blockage in your urethra. ?A kidney stone. ?A nerve condition that affects your bladder control (neurogenic bladder). ?Not getting enough to drink, or not urinating often. You have certain medical conditions, such as: ?Diabetes. ?A weak disease-fighting system (immunesystem). ?Sickle cell disease. ?Gout. ?Spinal cord injury. What are the signs or symptoms? Symptoms of this condition include: Needing to urinate right away (urgency). Frequent urination. This may include small amounts of urine each time you urinate. Pain or burning with urination. Blood in the urine. Urine that smells bad or unusual. Trouble urinating. Cloudy urine. Vaginal discharge, if you are female. Pain in the abdomen or the lower back. You may also have: Vomiting or a decreased appetite. Confusion. Irritability or tiredness. A fever or chills. Diarrhea. The first symptom in older adults may be confusion. In some cases, they may not have any symptoms until the infection has worsened. How is this diagnosed? This condition is diagnosed based on your medical history and a physical exam. You may also have other tests, including: Urine tests. Blood tests. Tests for STIs (sexually transmitted infections). If you have had more than one UTI, a cystoscopy or imaging studies may be done to determine the cause of the infections. How is this treated? Treatment for this condition includes: Antibiotic medicine. Cmjv-kvk-pvmrfzq medicines to treat discomfort. Drinking enough water to stay hydrated. If you have frequent infections or have other conditions such as a kidney stone, you may need to see a health care provider who specializes in the urinary tract (urologist). In rare cases, urinary tract infections can cause sepsis. Sepsis is a life-threatening condition that occurs when the body responds to an infection. Sepsis is treated in the hospital with IV antibiotics, fluids, and other medicines. Follow these instructions at home: Medicines Take nmif-has-znmyqgu and prescription medicines only as told by your health care provider. If you were prescribed an antibiotic medicine, take it as told by your health care provider. Do not stop using the antibiotic even if you start to feel better. General instructions Make sure you: ?Empty your bladder often and completely. Do not hold urine for long periods of time. ?Empty your bladder after sex. ?Wipe from front to back after urinating or having a bowel movement if you are female. Use each tissue only one time when you wipe. Drink enough fluid to keep your urine pale yellow. Keep all follow-up visits. This is important. Contact a health care provider if: Your symptoms do not get better after 1 2 days. Your symptoms go away and then return. Get help right away if: You have severe pain in your back or your lower abdomen. You have a fever or chills. You have nausea or vomiting. Summary A urinary tract infection (UTI) is an infection of any part of the urinary tract, which includes the kidneys, ureters, bladder, and urethra. Most urinary tract infections are caused by bacteria in your genital area. Treatment for this condition often includes antibiotic medicines. If you were prescribed an antibiotic medicine, take it as told by your health care provider. Do not stop using the antibiotic even if you start to feel better. Keep all follow-up visits. This is important. This information is not intended to replace advice given to you by your health care provider. Make sure you discuss any questions you have with your health care provider. Document Revised: 02/22/2021 Document Reviewed: 02/22/2021 [employer] Patient Education 2022 [employer]. Follow Up Care 02/18/2024 08:44:09 With:TANNER ALVAREZ, SHANITA Snowden, URL Address: [address] [place] [place] [address] When: Unknown Comments:post-op cysto With:Nilton NUNEZ, Jeni Singer URL, U[facility] Address: When: Unknown Comments:sched cysto w/possible UD [facility] 03-22-2024 Note Patient Education Obstetrics and Gynecology Urinary Tract Infection, Adult A urinary tract infection (UTI) is an infection of any part of the urinary tract. The urinary tract includes the kidneys, ureters, bladder, and urethra. These organs make, store, and get rid of urine in the body. An upper UTI affects the ureters and kidneys. A lower UTI affects the bladder and urethra. What are the causes? Most urinary tract infections are caused by bacteria in your genital area around your urethra, where urine leaves your body. These bacteria grow and cause inflammation of your urinary tract. What increases the risk? You are more likely to develop this condition if: ? You have a urinary catheter that stays in place. ? You are not able to control when you urinate or have a bowel movement (incontinence). ? You are female and you: ? Use a spermicide or diaphragm for control. ? Have low estrogen levels. ? Are . ? You have certain genes that increase your risk. ? You are sexually active. ? You take antibiotic medicines. ? You have a condition that causes your flow of urine to slow down, such as: ? An enlarged prostate, if you are male. ? Blockage in your urethra. ? A kidney stone. ? A nerve condition that affects your bladder control (neurogenic bladder). ? Not getting enough to drink, or not urinating often. ? You have certain medical conditions, such as: ? Diabetes. ? A weak disease-fighting system (immunesystem). ? Sickle cell disease. ? Gout. ? Spinal cord injury. What are the signs or symptoms? Symptoms of this condition include: ? Needing to urinate right away (urgency). ? Frequent urination. This may include small amounts of urine each time you urinate. ? Pain or burning with urination. ? Blood in the urine. ? Urine that smells bad or unusual. ? Trouble urinating. ? Cloudy urine. ? Vaginal discharge, if you are female. ? Pain in the abdomen or the lower back. You may also have: ? Vomiting or a decreased appetite. ? Confusion. ? Irritability or tiredness. ? A fever or chills. ? Diarrhea. The first symptom in older adults may be confusion. In some cases, they may not have any symptoms until the infection has worsened. How is this diagnosed? This condition is diagnosed based on your medical history and a physical exam. You may also have other tests, including: ? Urine tests. ? Blood tests. ? Tests for STIs (sexually transmitted infections). If you have had more than one UTI, a cystoscopy or imaging studies may be done to determine the cause of the infections. How is this treated? Treatment for this condition includes: ? Antibiotic medicine. ? Eand-rtn-nddpezs medicines to treat discomfort. ? Drinking enough water to stay hydrated. If you have frequent infections or have other conditions such as a kidney stone, you may need to see a health care provider who specializes in the urinary tract (urologist). In rare cases, urinary tract infections can cause sepsis. Sepsis is a life-threatening condition that occurs when the body responds to an infection. Sepsis is treated in the hospital with IV antibiotics, fluids, and other medicines. Follow these instructions at home: Medicines ? Take frdb-yhp-oxtzjhw and prescription medicines only as told by your health care provider. ? If you were prescribed an antibiotic medicine, take it as told by your health care provider. Do not stop using the antibiotic even if you start to feel better. General instructions ? Make sure you: ? Empty your bladder often and completely. Do not hold urine for long periods of time. ? Empty your bladder after sex. ? Wipe from front to back after urinating or having a bowel movement if you are female. Use each tissue only one time when you wipe. ? Drink enough fluid to keep your urine pale yellow. ? Keep all follow-up visits. This is important. Contact a health care provider if: ? Your symptoms do not get better after 1?2 days. ? Your symptoms go away and then return. Get help right away if: ? You have severe pain in your back or your lower abdomen. ? You have a fever or chills. ? You have nausea or vomiting. Summary ? A urinary tract infection (UTI) is an infection of any part of the urinary tract, which includes the kidneys, ureters, bladder, and urethra. ? Most urinary tract infections are caused by bacteria in your genital area. ? Treatment for this condition often includes antibiotic medicines. ? If you were prescribed an antibiotic medicine, take it as told by your health care provider. Do not stop using the antibiotic even if you start to feel better. ? Keep all follow-up visits. This is important. This information is not intended to replace advice given to you by your health care provider. Make sure you discuss any questions you have with your health care provider. Document Revised: 02/22 (more content not included)... [facility] 07-05-2022 Evaluation note Encounter Date Diagnosis Assessment [...] no improvement in 2 to 3 days. deeplocal Other 06-17-2021 NoteHNO ID: [id number] Author: Miley Ramirez MD Service: ? Author Type: Physician Type: Progress Notes Filed: 01/11/2021 5:21 AM Note Text: Gynecologic Oncology [facility] Follow-up visit Re: Carina Schultz [facility]#: [id number] Date of service: 01/10/2021 Haley Owens MD ([facility]) [facility] [address] [address] Dear Haley Owens: Carina presents for follow up. Briefly, [...] lesions present on labia bilaterally Rt> Lt. Living Skills Advisor: Carolyn Hancock NP IMPRESSION/PLAN: Patient presents today for follow up. Patient has decreased her smoking. 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 I recommend patient restart Aldara cream since vulvar lesions are still present. Encouraged smoking cessation. RTC 3 months Thank you for referring her for gynecologic oncology consultation. I will be in touch with you regarding her findings. CC: Haley Owens MD ([facility]) [facility] [address] [address] No primary care provider on file. (PCP) The previous note from Dr. Ramirez dated 10/11/2020 was copied forward and the necessary changes were made above. ATTESTATION: By signing my name below, Yanni Rivas, attest that this documentation has been prepared under the direction and in the presence of Miley Ramirez MD. Electronically signed:Aixa Stein, January 10, 2021 1:56 PM Provider Attestation: Miley Rivas MD, personally performed the services described in this documentation. All medical record entries made by the ferdinandibtavares were at my direction and in my presence. I have reviewed the chart and discharge (more content not included)...[facility]03-18-2021 NoteHNO ID: [id number] Author: Miley Ramirez Service: ? Author Type: Physician Type: Progress Notes Filed: 10/12/2020 10:46 AM Note Text: Gynecologic Oncology - [facility] Consultation Re: Carina Schultz [facility]#: [id number] Date of service: 10/11/2020 Haley Owens MD ([facility]) [address] [address] Owens for an opinion regarding ALLY 3/BLAINE 3. My final recommendations will be communicated back to the requesting physician by way of shared medical record or letter to requesting physician via US mail. 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 She resides in [place], [place]. REVIEW OF SYSTEMS: Constitutional: No recent [...] Cardiac - Regular rat (more content not included)...[facility] Evaluation + Plan note No data available for this section [facility] evaluation noteNo assessment information available [facility] Work Phone: Evaluation note* Diagnosis Primary hypertension ([facility]/HCC)- Primary Unspecified essential hypertension Cigarette nicotine dependence without complication Class 2 obesity due to excess calories without serious comorbidity with body mass index (BMI) of 39.0 to 39.9 in adult documented in this encounter [facility] HealthcareEvaluation note* Diagnosis Anxiety- Primary Anxiety state, unspecified Anxiety- Primary Anxiety state, unspecified Class 3 severe obesity due to excess calories without serious comorbidity with body mass index (BMI) of 40.0 to 44.9 in adult ([facility]) Environmental and seasonal allergies Moderate persistent asthma in adult without complication ([facility]) UTI symptoms- Primary Class 3 severe obesity due to excess calories without serious comorbidity with body mass index (BMI) of 40.0 to 44.9 in adult ([facility]) Wellness examination Cigarette nicotine dependence without complication Elevated alkaline phosphatase level- Primary Cigarette nicotine dependence without complication Class 3 severe obesity due to excess calories without serious comorbidity with body mass index (BMI) of 40.0 to 44.9 in adult ([facility]) Abnormal weight gain- Primary Class 2 obesity due to excess calories without serious comorbidity with body mass index (BMI) of 39.0 to 39.9 in adult Primary hypertension ([facility])- Primary Unspecified essential hypertension Cigarette nicotine dependence without complication Class 2 obesity due to excess calories without serious comorbidity with body mass index (BMI) of 39.0 to 39.9 in adult UTI symptoms- Primary documented in this encounter [facility]* Diagnosis Anxiety- Primary Anxiety state, unspecified Anxiety- Primary Anxiety state, unspecified Class 3 severe obesity due to excess calories without serious comorbidity with body mass index (BMI) of 40.0 to 44.9 in adult ([facility] Environmental and seasonal allergies Moderate persistent asthma in adult without complication ([facility] UTI symptoms- Primary Class 3 severe obesity due to excess calories without serious comorbidity with body mass index (BMI) of 40.0 to 44.9 in adult ([facility] Wellness examination Cigarette nicotine dependence without complication Elevated alkaline phosphatase level- Primary Cigarette nicotine dependence without complication Class 3 severe obesity due to excess calories without serious comorbidity with body mass index (BMI) of 40.0 to 44.9 in adult ([facility] Abnormal weight gain- Primary Class 2 obesity due to excess calories without serious comorbidity with body mass index (BMI) of 39.0 to 39.9 in adult Primary hypertension ([facility] Primary Unspecified essential hypertension Cigarette nicotine dependence without complication Class 2 obesity due to excess calories without serious comorbidity with body mass index (BMI) of 39.0 to 39.9 in adult Primary hypertension ([facility] Primary Unspecified essential hypertension Class 2 obesity due to excess calories without serious comorbidity with body mass index (BMI) of 39.0 to 39.9 in adult Anxiety Anxiety state, unspecified Cigarette nicotine dependence without complication Moderate persistent asthma in adult without complication ([facility] documented [facility] encounter [facility]* Diagnosis Chronic idiopathic urticaria- Primary Idiopathic urticaria documented in this encounter [facility]* Diagnosis Anxiety Anxiety state, unspecified documented in this encounter [facility]* Diagnosis Condyloma- Primary Condyloma acuminatum Recurrent UTI Urinary tract infection, site not specified documented in this encounter [facility]* Diagnosis Anxiety- Primary Anxiety state, unspecified Anxiety- Primary Anxiety state, unspecified Class 3 severe obesity due to excess calories without serious comorbidity with body mass index (BMI) of 40.0 to 44.9 in adult ([facility] Environmental and seasonal allergies Moderate persistent asthma in adult without complication ([facility] UTI symptoms- Primary Class 3 severe obesity due to excess calories without serious comorbidity with body mass index (BMI) of 40.0 to 44.9 in adult ([facility] Wellness examination Cigarette nicotine dependence without complication Elevated alkaline phosphatase level- Primary Cigarette nicotine dependence without complication Class 3 severe obesity due to excess calories without serious comorbidity with body mass index (BMI) of 40.0 to 44.9 in adult ([facility]) Abnormal weight gain- Primary Class 2 obesity due to excess calories without serious comorbidity with body mass index (BMI) of 39.0 to 39.9 in adult Primary hypertension ([facility])- Primary Unspecified essential hypertension Cigarette nicotine dependence without complication Class 2 obesity due to excess calories without serious comorbidity with body mass index (BMI) of 39.0 to 39.9 in adult Primary hypertension ([facility])- Primary Unspecified essential hypertension Class 2 obesity due to excess calories without serious comorbidity with body mass index (BMI) of 39.0 to 39.9 in adult Anxiety Anxiety state, unspecified Cigarette nicotine dependence without complication Moderate persistent asthma in adult without complication ([facility] care, subsequent in first trimester Encounter for drug screening documented in this encounter [facility]* Diagnosis Anxiety- Primary Anxiety state, unspecified Anxiety- Primary Anxiety state, unspecified Class 3 severe obesity due to excess calories without serious comorbidity with body mass index (BMI) of 40.0 to 44.9 in adult ([facility] Environmental and seasonal allergies Moderate persistent asthma in adult without complication ([facility] UTI symptoms- Primary Class 3 severe obesity due to excess calories without serious comorbidity with body mass index (BMI) of 40.0 to 44.9 in adult [place] Wellness examination Cigarette nicotine dependence without complication Elevated alkaline phosphatase level- Primary Cigarette nicotine dependence without complication Class 3 severe obesity due to excess calories without serious comorbidity with body mass index (BMI) of 40.0 to 44.9 in adult ([facility]) Abnormal weight gain- Primary Class 2 obesity due to excess calories without serious comorbidity with body mass index (BMI) of 39.0 to 39.9 in adult Primary hypertension ([facility])- Primary Unspecified essential hypertension Cigarette nicotine dependence without complication Class 2 obesity due to excess calories without serious comorbidity with body mass index (BMI) of 39.0 to 39.9 in adult Primary hypertension ([facility])- Primary Unspecified essential hypertension Class 2 obesity due to excess calories without serious comorbidity with body mass index (BMI) of 39.0 to 39.9 in adult Anxiety Anxiety state, unspecified Cigarette nicotine dependence without complication Moderate persistent asthma in adult without complication ([facility]/HCC) Chronic idiopathic urticaria- Primary Idiopathic urticaria documented in this encounter [facility] N[facility]ative - Reported* Type Description Date Medical History asthma Medical History hives Medical History urethra dilation Medical History yeast infections Surgical History Ureathral dialation Surgical History [place] teeth Surgical History [facility] [place] owens vaginal biopsies 04/29/19 Hospitalization History asthma 2010 deeplocal Other Hospital Discharge instructions No data available for this section [facility] progress note No data available for this section [facility] Summary Purpose Family History Relationship Condition Age at Onset Recorded Date/T dl father Hypertension Unknown Not Specified Hypertension Unknown Advance Directives Advance Directive Response Recorded Date/ Time Advance Directives No April 27, 2017 10:47am Chief Complaint and Reason for Visit Chief Complaint Sore throat Additional Source Comments INFORMATION SOURCE (unrecogn ized section and content) DATE CREATED AUTHOR 08/23/2021 [facility] DATE CREATED AUTHOR AUTHOR'S ORGANIZ ATION 09/05/2021 [facility] DATE CREATED AUTHOR AUTHOR'S ORGANIZ ATION 11/24/2022 [facility] DATE CREATED AUTHOR AUTHOR'S ORGANIZ ATION 05/13/2024 [facility] DATE CREATED AUTHOR AUTHOR'S ORGANIZ ATION 05/15/2024 [facility] DATE CREATED AUTHOR AUTHOR'S ORGANIZ ATION 05/19/2024 [facility] DATE CREATED AUTHOR AUTHOR'S ORGANIZ ATION 07/11/2024 [facility] DATE CREATED AUTHOR AUTHOR'S ORGANIZ ATION 07/11/2024 [facility] DATE CREATED AUTHOR AUTHOR'S ORGANIZ ATION 07/17/2024 [facility] dical Specialists EPIC REASON FOR VISIT (unrecogniz ed section and content) Reason Comments Follow-up No surgeries; no hos pital stays. Currently taking an antibiotic. Reason Comments Med Refill Reason Comments Initial Visit Reason Comments Hives Care Teams (unrecognized sec tion and content) Team Status: Active Member Role Status Dates Alexandra Kay Primary Care Provider Active Team Status: Inactive Member Role Status Dates Ralph Osorio PA-C Attending Provider Active St art: December 23, 2023 End: December 23, 2023 Alexandra Kay Primary Care Provider Active Sta rt: December 23, 2023 End: December 23, 2023 [employer] Relationship Specialty Start Date End Date Marty Hinson MD [address] [place] [phone] PCP - General [facility] 10/26/23 Alexandra Kay NP [address] [place] [phone] PCP - [facility] 01/25/24 Alexandra Kay NP [address] [place] [phone] Nurse Practitioner Family [facility] 05/27/23 Alexandra Kay NP [address] [place] [address] Nurse Practitioner [facility] 10/26/23 [employer] Inspector Relationship Specialty Start Date End Date Marty Hinson MD [address] [place] [phone] PCP - [facility] 10/26/23 Alexandra Kay NP [address] [place] [phone] PCP - [facility] 01/25/24 Alexandra Kay NP [address] [place] [phone] Nurse Practitioner Family Medicine 05/27/23 Alexandra Kay NP [address] [place] [phone] Nurse Practitioner Family Medicine 10/26/23 [employer] Relationship Specialty Start Date End Date Marty Hinson MD [address] [place] [phone] PCP - General [facility] 10/26/23 Alexandra Kay NP [address] [place] [phone] PCP - [facility] 01/25/24 Alexandra Kay NP [address] [place] [phone] Nurse Practitioner Family Medicine 05/27/23 Alexandra Kay NP [address] [place] [phone] Nurse Practitioner Family Medicine 10/26/23 [employer] Relationship Specialty Start Date End Date Marty Hinson MD [address] [place] [phone] PCP - General [facility] 10/26/23 Alexandra Kay NP [address] [place] [phone] PCP - [facility] 01/25/24 Alexandra Kay NP [address] [place] [address] Nurse Practitioner Family Medicine 05/27/23 Alexandra Kay NP [address] [place] [address] Nurse Practitioner Family Medicine 10/26/23 [employer] Inspector Relationship Specialty Start Date End Date Marty Hinson MD [address] [place] [phone] PCP - General [facility] 10/26/23 Alexandra Kay NP [address] [place] [address] PCP - [facility] 01/25/24 Alexandra Kay NP [address] [place] [address] Nurse Practitioner Family Medicine 05/27/23 Alexandra Kay NP [address] [place] [address] Nurse Practitioner Family Medicine 10/26/23 [employer] Inspector Relationship Specialty Start Date End Date Marty Hinson MD [address] [place] [address] PCP - General [facility] 10/26/23 Alexandra Kay NP [address] [place] [address] PCP - [facility] 01/25/24 Alexandra Kay NP [address] [place] [phone] Nurse Practitioner Family Medicine 05/27/23 Alexandra Kay NP [address] [place] [address] Nurse Practitioner Family Medicine 10/26/23 [employer] Relationship Specialty Start Date End Date Marty Hinson MD [address] [place] [address] PCP - General [facility] 10/26/23 Alexandra Kay NP [address] [place] [address] PCP - [facility] 01/25/24 Alexandra Kay NP [address] [place] [address] Nurse Practitioner Family Medicine 05/27/23 Alexandra Kay NP [address] [place] [phone] Nurse Practitioner Family Medicine 10/26/23 [employer] Relationship Specialty Start Date End Date Marty Hinson MD [address] [place] [phone] PCP - General [facility] 10/26/23 Alexandra Kay NP [address] [place] [address] PCP - [facility] 01/25/24 Alexandra Kay NP [address] [place] [address] Nurse Practitioner Family Medicine 05/27/23 Alexandra Kay NP [address] [place] [address] Nurse Practitioner [facility] 10/26/23 [employer] Inspector Relationship Specialty Start Date End Date Marty Hinson MD [address] [place] [address] PCP - General [facility] 10/26/23 Alexandra Kay NP [address] [place] [address] PCP - [facility] 01/25/24 Alexandra Kay NP [address] [place] [address] Nurse Practitioner [facility] 05/27/23 Alexandra Kya NP [address] [place] [address] Nurse Practitioner [facility] 10/26/23 [employer] Inspector Relationship Specialty Start Date End Date Marty Hinson MD [address] [place] [address] PCP - General [facility] 10/26/23 Alexandra Kay NP [address] [place] [phone] PCP - [facility] 01/25/24 Alexandra Kay NP [address] [place] [phone] Nurse Practitioner Family Medicine 05/27/23 Alexandra Kay NP [address] [place] [address] Nurse Practitioner [facility] 10/26/23 [employer] Relationship Specialty Start Date End Date Marty Hinson MD [address] [place] [phone] PCP - General [facility] 10/26/23 Alexandra Kay NP [address] [place] [address] PCP - [facility] 01/25/24 Alexandra Kay NP [address] [place] [phone] Nurse Practitioner Family Medicine 05/27/23 Alexandra Kay NP [address] [place] [address] Nurse Practitioner Family Medicine 10/26/23 Goals (unrecognized section and content) Goals may [...] BE BASED ON THE PRIMARY CLINICAL RECORDS. [employer] [facility]. provides no warranty or guarantee of the accuracy or completeness of information in this document.
--- NOTE | 2024-08-04 20:23 | PC.NURSE ---
this patient complains of rash to her upper body and being treated for this rash. this patient shows no visible or audible signs of distress
--- NOTE | 2024-08-04 20:25 | ED_ITS ---
HPI - Skin/Abscess/Foreign Bdy General Chief complaint: Skin/Abscess/Foreign Body Stated complaint: HIVES Time Seen by Provider: 08/04/24 20:04 Source: patient Mode of arrival: walk-in History of Present Illness HPI narrative: This 34-year-old female with a history of idiopathic urticaria who is under the care of of an cyber legal advisor at [facility] in [place] and has been on injections for hives for the past several years but has recently been weaned and is currently on prednisone presents for evaluation of worsening hives with sensation in her throat like there is a pill stuck in it and a change in her voice according to her . The patient states that she has been being treated for these hives since 2011. She had allergy testing and then around 2014 started taking injections. She states that at times she can be weaned off of the injections and is currently in the weaning process right now however she started having hives approximately a week ago and called her cyber legal advisor who called in a prescription for prednisone for her. She has been taking the prednisone but earlier today her hives increased and she started having sensation like she has a pill stuck in her throat. She took a prednisone around 5 PM and then had dinner. After dinner she started having the sensation in her throat. She is not having any nausea or vomiting. She denies any chest pain or shortness of breath. She states she typically does not get hives on her neck but she does have hives on her neck, torso, abdomen and back. She has not had any new food products, medications or beauty products. She states she is very careful about things like that. Related Data Allergies Allergy/AdvReac Type Severity Reaction Status Date / Time No Known Drug Allergies Allergy Verified 08/04/24 20:15 Review of Systems ROS Status of ROS 10 or more systems reviewed and unremark able except as noted in history and below PFSH PFSH Social History Little interest or pleasure in doing things: not at all Feeling down, depressed, or hopeless: not at all Exam Narrative Exam Narrative: Vital signs and Nursing Notes reviewed: Patient is afebrile with a normal pulse, blood pressure is elevated 151/101, she has not hypoxic with pulse ox of 100% on room air General: Awake, alert, oriented, nontoxic overweight female, no respiratory distress HEENT: Normocephalic atraumatic, mucous membranes are moist and pink, eyes are clear, normal conjunctiva, vision is grossly intact, posterior pharynx is normal in appearance. There is no swelling of the tongue, uvula or pharyngeal soft tissues Neck: Supple, no stridor Chest: Lungs are clear to auscultation with good air entry, there is no wheezing rhonchi or rales appreciated no accessory muscle use, patient is speaking in complete sentences-no chest wall tenderness to palpation CVS: Regular rate and rhythm S1-S2, no murmurs rubs or gallops, pulses are brisk and equal bilaterally ABD: Soft, nondistended, nontender, no rebound guarding or rigidity, bowel sounds are normal, no pulsatile masses appreciated Extremities: Moving all extremities Skin: Urticarial wheals are present on the patient's neck anteriorly, back, chest and abdomen. It is less predominant on her arms and legs. Neuro: No focal deficits Constitutional Vital Signs, click to edit/add: Last Vital Signs Temp 98.1 F 08/04/24 20:04 Pulse 77 08/04/24 20:33 Resp 18 08/04/24 20:33 BP 143/89 H 08/04/24 20:33 Pulse Ox 100 08/04/24 20:33 O2 Del Method Room Air 08/04/24 20:04 Course Vital Signs Vital signs: Vital Signs Temperature 98.1 F 08/04/24 20:04 Pulse Rate 78 08/04/24 20:04 Respiratory Rate 16 08/04/24 20:04 Blood Pressure 151/101 H 08/04/24 20:04 Pulse Oximetry 100 08/04/24 20:04 Oxygen Delivery Method Room Air 08/04/24 20:04 Temperature 98.1 F 08/04/24 20:04 Pulse Rate 77 08/04/24 20:33 Respiratory Rate 18 08/04/24 20:33 Blood Pressure 143/89 H 08/04/24 20:33 Pulse Oximetry 100 08/04/24 20:33 Oxygen Delivery Method Room Air 08/04/24 20:04 MDM - Skin/Abscess/Foreign Bdy MDM Narrative Medical decision making narrative: This 34-year-old female with a history of idiopathic urticaria presents for evaluation of worsening hives with a sensation that she has a pill stuck in her throat. She is does not have any swelling of her tongue, uvula or pharyngeal soft tissues. She denies any nausea or vomiting. She has no chest pain or shortness of breath. She has been seen and treated since 2012 for these hives and was diagnosed in 2015 with the idiopathic urticaria and started on injections which have been helping her until recently when the injections were started to be weaned back. She did start having hives recently and called her cyber legal advisor who called in a prescription for prednisone for her. She states that earlier this evening her hives worsened. They are not usually on her neck but they were on her neck, torso, back and chest and she had a sensation of a scratchy throat like there was a pill stuck in her throat. She does not have any stridor or respiratory difficulty. Her vital signs are stable. Due to the oropharyngeal symptoms she was having she was medicated with IV Solu-Medrol, Pepcid, Benadryl and subcutaneous epinephrine. On reevaluation she remains h emodynamically stable without any worsening symptoms. She will be monitored in the emergency department for a period of time to ensure that her symptoms have not worsened or spread. On reevaluation her hives have improved and are mostly resolved especially on her neck, chest and back. Her voice is no longer scratchy, her has come to the emergency department and agrees that her voice now sounds normal. She feels comfortable being discharged home. She will be discharged home with a prescription for an EpiPen and prednisone. The patient states she typically does her own taper. She will be discharged home with prednisone 20 mg to taper down as she feels comfortable doing and in concert with her cyber legal advisor. She is scheduled to get her injection in the next several weeks. Discharge Plan Discharge Chief Complaint: Skin/Abscess/Foreign Body Clinical Impression: Urticaria, [id number] Patient Disposition: Home, Self-Care Time of Disposition Decision: 21:34 Condition: Good Print Language: Chinese Instructions: Urticaria (ED), Angioedema (ED) Referrals: Alexandra Kay NP [Primary Care Provider] - 1 week
[2024-08-04 20:33] VITALS: BP 143/89; PULSE 77; O2SAT 100
[2024-08-04] MEDS: EPINEPHRINE HCL PF 1 MG/ML AMPULE 0.3 MG SUBQ (20:46)
[2024-08-04] MEDS: METHYLPREDNISOLONE SOD SUCC PF 125 MG/2 ML VIAL IVP (20:46)
[2024-08-04] MEDS: FAMOTIDINE/PF 20 MG/2 ML VIAL IV (20:46)
[2024-08-04] MEDS: DIPHENHYDRAMINE HCL 50 MG/ML VIAL 25 MG IV (20:46)
--- NOTE | 2024-08-04 21:03 | PC.NURSE ---
this patient sitting upright awake and alert looking at her cell phone. this patient voices no concerns and shows no visible or audible signs of distress
[2024-08-04 21:44] VITALS: BP 146/65; PULSE 79; TEMP 37.3; O2SAT 96
--- NOTE | 2024-08-04 21:50 | PC.NURSE ---
i gave this patient verbal and paper discharge orders along with 2 Rx, and this patient voices yes to understanding these. at time of discharge this patient voices no concerns and shows no signs of distress
== END 2024-08-04 21:51 | disposition home or self-care (01) ==
PROVIDERS: Emergency Provider Emergency Medicine; PCP Nurse Practitioner
DX: L50.1 Idiopathic urticaria (principal)
CPT/HCPCS: 96372; 96374; 96375; 99284; J1200; J2919

== ENCOUNTER 2024-08-06 01:46 | Emergency (ER) | payer OTHER, SELFPAY ==
--- OUTSIDE RECORDS SUMMARY | 2024-08-06 01:50 | XMS_ITS | CCD ---
Author Organization [facility] Care Team Providers Care Film Producer Name Role Phone Amira Sierra Unavailable AICHHOLZ, RECEIVER/LABORER ALEXANDRA Primary Care Unavailable AICHHOLZ, RECEIVER/LABORER ALEXANDRA Admitting Unavailable AICHHOLZ, RECEIVER/LABORER ALEXANDRA Attending Unavailable AICHHOLZ, RECEIVER/LABORER ALEXANDRA Consulting Unavailable AICHHOLZ, RECEIVER/LABORER ALEXANDRA Primary Care Unavailable AICHHOLZ, RECEIVER/LABORER ALEXANDRA Admitting Unavailable AICHHOLZ, RECEIVER/LABORER ALEXANDRA Attending Unavailable AICHHOLZ, RECEIVER/LABORER ALEXANDRA Consulting Unavailable AICHHOLZ, ALEXANDRA J Primary Care Physician Aichholz POLY OPERATOR, Alexandra Unavailable Marty Hinson MD Primary Care Provider [phone] Aichholz POLY OPERATOR, Alexandra Unavailable Aichholz POLY OPERATOR, Alexandra Unavailable HALEY OWENS Referring Unavailable HENNY [...] ALEXANDRA Attending Unavailable AICHHOLZ, ALEXANDRA Attending Unavailable JOSIAH YOUNG Attending Unavailable Allergies Allergy Classification Reported Allergen(s) Allergy Type Date of Onset Reaction(s) Facility (19 sources) Sulfamethoxazole / Trimethoprim; Translations: [sulfamethoxazole-tr imethoprim] Drug Allergy 4 [facility] (disorder) [facility] (2 sources) diphenhydrAMINE; Translations: [Benadryl] Drug Allergy 6 [facility] (17 sources) Nitrofurantoin Drug Allergy 1 [facility] (1 source) Sulfamethoxazole Drug Allergy 4 [facility] (1 source) Trimethoprim Drug Allergy 4 [facility] (4 sources) diphenhydrAMINE; Translations: [diphenhydramine] Drug Allergy [facility] Comment on above: [facility] (14 sources) diphenhydrAMINE Drug Allergy 4 [facility] (1 source) Sulfamethoxazole / Trimethoprim; Translations: [Bactrim] Drug Allergy [facility] Repository Medications Current Medications Medication Drug Class(es) Dates Sig (Normalized) Sig (Original) [id number] 200 actuat albuterol 0.09 mg/actuat metered dose [...] formoterol fumarate 0.0045 mg/actuat metered dose inhaler (18 sources) Corticosteroid , beta2-Adrenerg ic Agonist Start: [...] completed) clobetasol propionate 0.5 mg/ml topical cream (16 sources) Corticosteroid Start: 12-30-2022 clobetasol (Temovate) 0.05 [...] day Active loratadine 10 mg oral tablet (4 sources) Start: 04-29-2019 take 10 mg by [...] Refills(s) 0 Start Date: 03/22/24 Status: Ordered predniSONE 20 mg oral tablet (1 source) Start: 08-02-2024 predniSONE (Deltasone) 20 MG tablet Indications: Chronic idiopathic urticaria 1 pill twice a day for 3 days, then 1 pill daily for 3 days, then 1/2 pill daily for 4 days. Take with food 11 tablet 08/02/2024 Active spironolactone 50 mg oral tablet (12 sources) [...] 04-15-2022 Resolved: 10-26-2023 11-20-2014 Chronic Cancer of other female genital organs (20 sources) Carcinoma in situ of vulva; Translations: [Carcinoma in situ of vulva] Onset: 10-11-2020 Chronic Essential hypertension (20 sources) Essential hypertension; Translations: [Essential (primary) hypertension] Onset: 05-03-2024 Resolved: 05-03-2024 05-03-2024 Chronic Other diseases of bladder and urethra (1 source) Disorder of bladder; Translations: [Other specified disorders of bladder] Onset: 05-11-2024 Chronic Other female genital disorders (20 sources) Abnormal uterine bleeding; Translations: [Other specified [...] Chronic Other nutritional; endocrine; and metabolic disorders (20 sources) Obesity caused by energy imbalance; Translations: [...] membrane 03-21-2024 Episodic Other upper respiratory disease (16 sources) Allergic disposition; Translations: [Other allergic rhinitis] [...] Unclassified (1 source) New Patient Onset: 07-08-2024 Past or Other Problems Problem Classification Problem Date Documented Date Episodic/Chronic Biliary tract disease (16 sources) Cholelithiasis without obstruction; Translations: [Calculus of gallbladder without cholecystitis without obstruction] Onset: 02-23-2024 02-23-2024 Episodic Cancer of cervix (20 sources) Cervicovaginal cytology: Low grade squamous intraepithelial lesion; Translations: [Low grade squamous intraepithelial lesion on cytologic smear of cervix (LGSIL)] Onset: 10-11-2020 Episodic Fracture of lower limb (20 sources) Closed fracture of fibula; Translations: [Unspecified fracture of shaft of unspecified fibula, initial encounter for closed fracture] Onset: 12-28-2023 07-08-2023 Episodic Genitourinary symptoms and ill-defined conditions (20 sources) Unspecified symptoms and signs involving the genitourinary system; Translations: [Urinary symptoms ] Onset: 11-19-2022 Episodic Mycoses (20 sources) Opportunistic mycosis; Translations: [Candidiasis, unspecified] Onset: 10-05-2023 03-21-2024 Episodic Other diseases of bladder and urethra (16 sources) Urethral stricture; Translations: [Other urethral stricture, female] Onset: 03-22-2024 Episodic Other female genital disorders (20 sources) Cervical intraepithelial neoplasia grade 2; Translations: [Moderate cervical dysplasia] Onset: 10-26-2023 03-21-2024 Episodic Other liver diseases (20 sources) Alkaline phosphatase raised; Translations: [Abnormal levels of other serum enzymes] Onset: 01-05-2024 03-21-2024 Episodic Other nutritional; endocrine; and metabolic disorders (20 sources) Severe obesity; Translations: [Class 3 severe obesity without serious comorbidity with body mass index (BMI) of 40.0 to 44.9 in adult] Onset: 10-26-2023 Resolved: 03-08-2024 03-21-2024 Chronic Other nutritional; endocrine; and metabolic disorders (16 sources) Abnormal weight gain; Translations: [Abnormal weight gain] Onset: 03-08-2024 03-08-2024 Episodic Residual codes; unclassified (1 source) Localized edema; Translations: [LOCALIZED EDEMA] Onset: 04-15-2022 Episodic Sexually transmitted infections (not HIV or hepatitis) (20 sources) Human papillomavirus deoxyribonucleic acid test positive, high risk on cervical specimen; Translations: [Cervical high risk human papillomavirus (HPV) DNA test positive] Onset: 10-26-2023 03-21-2024 Episodic Urinary tract infections (19 sources) Urinary tract infectious disease; Translations: [Urinary tract infection, site not specified] Onset: 03-21-2024 Episodic Viral infection (20 sources) Human papilloma virus infection; Translations: [Papillomavirus as the cause of diseases classified elsewhere] Onset: 10-26-2023 07-08-2023 Episodic Results Test Name Value Interpretation Reference Range Facility UA (MICROSCOPIC)on 4 MUCOUS PRESENT Abnormal NONE [facility] Comment on above: Performed By: #### U BENTLEY #### [facility] ([id number]) [address] [place] [address], [address] [place] [address] R.B.CELLS 2 /hpf Normal 0-5 [facility] Comment on above: Performed By: #### U BENTLEY #### [facility] ([id number]) [address] [place] [address], [address] [place] [address] SQUAMOUS EPITHELIUM 4 /hpf Normal 0-5 [facility] Comment on above: Performed By: #### U BENTLEY #### [facility] ([id number]) [address], [address] [place] [address] W.B.CELLS 4 /hpf Normal 0-5 [facility] Comment on above: Performed By: #### U BENTLEY #### [facility] ([id number]) [address], [address] [place] [address] URINE CULTUREon 07-08-2024 Bacteria identified Cx Nom (U) CULTURE RESULTS <10,000 ORGANISMS/ML NORMAL URO GENITAL RITA Normal [facility] Comment on above: Performed By: #### 6 30-4 #### [facility] ([id number]) [address], [address] [place] [address] C Urineon 05-13-2024 Bacteria identified Cx Nom [...] Locations R1: This test was performed at: [facility], [address] [place] [address], [phone] , , Normal [facility] Comment on above: Performed By: #### 2 [id number] #### [facility] [address] [place] [id number] Ambulatory Visit Summaryon 0 04-21-2024 Ambulatory Visit Summary Ambulatory Visit Summary CARINA SCHULTZ :1990 Visit Date:04/21/2024 Ambulatory Visit Instructions Your Diagnosis Recurrent UTI Other urethral stricture, female Urethral lesion Severe dysplasia of cervix Vulvar intraepithelial neoplasia (ALLY) grade 3 Your Care Team Attending Physician - Jeni Callaway MD Primary Care Physician - ALEXANDRA KAY CNP [...] Dilation of urethra (04/15/2016), Biopsy of vagina, Critz tooth. Discharge Vitals Heart Rate (Peripheral) 100 Respiratory Rate 16 Blood Pressure 148/100 Height 170 cm Height 67 in Weight 113.5 kg Weight 249.7 lb BMI 39.27 What to do next You Need to Schedule the Following Appointments Follow Up with Nilton NUNEZ, Jeni Singer, URL, URO When: Where: Medications What How Much [...] take antibi (more content not included)... Normal [facility] Urology Office/Clinic Noteon 04-21-2024 Urology Office/Clinic Note [...] in situ of cervix, unspecified) Followed by [facility]NALYST [2]. 5. Vulvar intraepithelial neoplasia (ALLY) grade 3 (D07.1: Carcinoma in situ of vulva) Followed by [facility] [employer] ANALYST [3]. Follow-up With When Contact Information Nilton NUNEZ, Jeni Singer, URL, URO Additional Instructions: Pt to call if she would like to schedule urethral bx Patient Education Urinary Tract Infection, Adult Antibiotic Medicine, Adult I, Ai Harris, personally scribed for Dr. Callaway on 04/21/2024 11:29:33. . Documentation recorded by the scribe, Ai Harris, accurately reflects the services(s) I performed and decisions made by me. Authenticated by Dr. Callaway on 04/21/2024 12:04:26. Problem List/Past Medical History Ongoing Antibiotic-induced yeast infection Anxiety Asthma Cer (more content not included)... Normal [facility] Comment on above: Result Comment: Elec tronically [...] yes avoids baths/hot tubs yes avoids scented [employer] ANALYST products yes urinates after sexual activity yes [...] in situ of cervix, unspecified) -Followed by [facility] ANALYST 4. ALLY III (vulvar intraepithelial neoplasia III) (D07.1: Carcinoma in situ of vulva) -Followed by [facility] ANALYST Follow-up With When Contact Information SHANITA HART PA-C, URL [address] [facility] [place] [address] Additional Instructions: post-op cysto Nilton NUNEZ, Jeni Singer, URL, URO Additional Instructions: sched cysto w/possible UD Patient Education Urinary Tract Infection, Adult Documentation recorded by the aixa Masters accurately reflects the services(s) I performed and decisions made by me. Authenticated by Shanita Hart PA-C on 03/22/2024 10:30:14. Vijay Rivas, personally scribed for Shanita Hart PA-C on 03/22/2024 10:18:49. . Problem List/Past Medical History Ongoing Antibiotic-induced yeast infection Anx (more content not included)... Normal [facility] Comment on above: Result Comment: Elec tronically Signed By: SHANITA HART PA-C\.br\Date and Time Signed: 03/22/24 10:30 EDT\.br\Electronically Co-Signed By: Vijay Masters\.br\Date and Time Co-Signed: 03/22/24 10:19 EDT No Panel InformationOrdered By: Ralph Osorio on 12-23-2023 Quick Strep (POC) [facility] CULTURE URINEon 11-21-2022 CULTURE URINE Isolate 1 [...] #### U RCX #### [facility] [address] [place] [address] Dr. Idalia Wilson UA RANDOM W/MICROSCOPICon BACTERIA NONE SEEN Normal NONE SEEN [facility] Comment on above: Performed By: #### U AMIC #### [facility] [address] [place] [address] Dr. Idalia Wilson Bilirubin Ql (U) Negative Normal NEGATIVE [facility] Comment on above: Performed By: #### U AMIC #### [facility] [address] [place] [address] Dr. Idalia Wilson CAST NONE SEEN Normal NONE SEEN [facility] Comment on above: Performed By: #### U AMIC #### [facility] [address] [place] [address] Dr. Idalia Wilson Clarity (U) CLEAR Normal CLEAR [facility] Comment on above: Performed By: #### U AMIC #### [facility] [address] [place] [address] Dr. Idalia Wilson Color (U) LT. YELLOW Normal YELLOW [facility] Comment on above: Performed By: #### U AMIC #### [facility] [address] [address] [address] Idalia Wilson Crystals LM Nom (Urine sed) NONE SEEN Normal NONE SEEN [facility] Comment on above: Performed By: #### U AMIC #### [facility] [address] [address] [address] Idalia Wilson Epithelial cells LM Ql (Urine sed) FEW Abnormal NONE SEEN /RARE [facility] Comment on above: Performed By: #### U AMIC #### [facility] [address] [address] [address] Idalia Wilson Glucose Ql (U) Negative Normal NEGATIVE [facility] Comment on above: Performed By: #### U AMIC #### [facility] [address] [place] [address] Dr. Idalia Wilson Hemoglobin Ql (U) Negative Normal NEGATIVE [facility] Comment on above: Performed By: #### U AMIC #### [facility] [address] [place] [address] Dr. Idalia Wilson Ketones Ql (U) Negative Normal NEGATIVE [facility] Comment on above: Performed By: #### U AMIC #### [facility] [address] [address] [address] Idalia Wilson LEUKOCYTES Negative Normal NEGATIVE [facility] Comment on above: Performed By: #### U AMIC #### [facility] [address] [address] [address] Idalia Wilson MUCOUS SMALL Abnormal NONE SEEN [facility] Comment on above: Performed By: #### U AMIC #### [facility] [address] [place] [address] Dr. Idalia Wilson Nitrite Ql (U) Negative Normal NEGATIVE [facility] Comment on above: Performed By: #### U AMIC #### [facility] [address] [place] [address] Dr. Idalia Wilson pH (U) 6.5 [pH] Normal 5-9 [facility] Comment on above: Performed By: #### U AMIC #### [facility] [address] [place] [address] Dr. Idalia Wilson RBC NONE SEEN Abnormal 0-2 [facility] Comment on above: Performed By: #### U AMIC #### [facility] [address] [address] [address] Idalia Wilson SPEC GRAVITY 1.025 Normal 1.005-<=1.02 5 [facility] Comment on above: Performed By: #### U AMIC #### [facility] [address] [address] [address] Idalia Wilson UA PROTEIN Negative Normal NEGATIVE/ TRACE [facility] Comment on above: Performed By: #### U AMIC #### [facility] [address] [address] [address] Idalia Wilson Urobilinogen Qn (U) 0.2 {Mounika'U}/dL Normal 0.2 - 1. 0 [facility] Comment on above: Performed By: #### U AMIC #### [facility] [address] [place] [address] Dr. Idalia Wilson WBC NONE SEEN Normal NONE SEEN [facility] Comment on above: Performed By: #### U AMIC #### [facility] [address] [address] [address] Idalia Wilson Quick Strepon 07-05-2022 S. pyogenes Org specific cx Ql (Throat) Negative [employer] Other Quick Strep [facility]ERP[facility] [employer] Other HEPATITIS B SURFACE ANTIBODY , QUANTon 04-12-2022 Hepatitis B Surf AB Quant <3.1 Critically low Immunity>9.9 [facility] Comment on above: Result Comment: Stat us of Immunity Anti-HBs Level Inconsistent with Immunity 0.0 - 9.9 Consistent with Immunity >9.9 Performed By: #### H EPBSRF #### [facility] [address] [place] [address] Dr. Idalia Wilson MMR IMMUNITYon 04-12-2022 Mumps Abs, IgG <9.0 Critically low Immune >10.9 [facility] Comment on above: Result Comment: Nega tive <9.0 Equivocal 9.0 - 10.9 Positive >10.9 A positive result generally indicates past exposure to Mumps virus or previous vaccination. Performed By: #### M MRIMMU #### [facility] [address] [place] [address] Dr. Idalia Wilson Rubella Antibodies, IgG 1.57 index Normal Immune >0.99 [facility] Comment on above: Result Comment: Non- immune <0.90 Equivocal 0.90 - 0.99 Immune >0.99 Performed By: #### M MRIMMU #### [facility] [address] [place] [address] Dr. Idalia Wilson Rubeola Ab, IgG >300.0 Normal Immune >16.4 [facility] Comment on above: Result Comment: Nega tive <13.5 Equivocal 13.5 - 16.4 Positive >16.4 Presence of antibodies to Rubeola is presumptive evidence of immunity except when acute infection is suspected. Performed By: #### M MRIMMU #### [facility] [address] [place] [address] Dr. Idalia Wilson VARICELLA IGG ABon 2 Varicella Zoster IgG 736 index Normal Immune >165 [facility] Comment on above: Result Comment: Nega tive <135 Equivocal 135 - 165 Positive >165 A positive result generally indicates exposure to the pathogen or administration of specific immunoglobulins, but it is not indication of active infection or stage of disease. Performed By: #### V SAMUEL #### [facility] [address] [place] [address] Dr. Idalia Wilson CBC AUTO DIFFon 04-11-2022 BASO # 0.1 103/ul Normal 0.0-0.1 [facility] Comment on above: Performed By: #### H EPBSRF #### [facility] [address] [place] [address] Dr. Idalia Wilson Basophils/100 WBC (Bld) 0.8 % Normal 0.2-2.0 [facility] Comment on above: Performed By: #### H EPBSRF #### [facility] [address] [place], [place] [address] Dr. Idalia Wilson EO # 0.4 103/ul Normal 0.0-0.7 [facility] Comment on above: Performed By: #### H EPBSRF #### [facility] [address] [place] [address] Dr. Idalia Wilson Eosinophils/100 WBC (Bld) 4.1 % Normal 0.9-7.0 [facility] Comment on above: Performed By: #### H EPBSRF #### [facility] [address] [place] [address] Dr. Idalia Wilson Erythrocyte distribution width (RBC) [Ratio] 12.4 % Normal 11.0-15.0 [facility] Comment on above: Performed By: #### H EPBSRF #### [facility] [address] [place] [address] Dr. Idalia Wilson Hematocrit (Bld) [Volume fraction] 44.7 % Normal 36.0-48.0 [facility] Comment on above: Performed By: #### H EPBSRF #### [facility] [address] [place] [address] Dr. Idalia Wilson Hemoglobin (Bld) [Mass/Vol] 14.7 g/dL Normal 12.0-16.0 [facility] Comment on above: Performed By: #### H EPBSRF #### [facility] [address] [place] [address] Dr. Idalia Wilson IG # 0.03 10e3/ul Normal 0.00-0.03 [facility] Comment on above: Performed By: #### H EPBSRF #### [facility] [address] [place] [address] Dr. Idalia Wilson IG % 0.3 % Normal 0.0-0.5 [facility] Comment on above: Performed By: #### H EPBSRF #### [facility] [address] [place] [address] Dr. Idalia Wilson LYMPH # 2.5 103/ul Normal 1.2-3.8 [facility] Comment on above: Performed By: #### H EPBSRF #### [facility] [address] [address] [address] Idalia Wilson Lymphocytes/100 WBC (Bld) 26.6 % Normal 20.5-60.0 [facility] Comment on above: Performed By: #### H EPBSRF #### [facility] [address] [place] [address] Dr. Idalia Wilson MANUAL DIFF REQ NO Normal [facility] Comment on above: Performed By: #### H EPBSRF #### [facility] [address] [place] [address] Dr. Idalia Wilson MCH (RBC) [Entitic mass] 29.1 pg Normal 26.7-34.0 [facility] Comment on above: Performed By: #### H EPBSRF #### [facility] [address] [place] [address] Dr. Idalia Wilson MCHC (RBC) [Mass/Vol] 32.9 g/dL Normal 29.9-35.2 [facility] Comment on above: Performed By: #### H EPBSRF #### [facility] [address] [place] [address] Dr. Idalia Wilson MCV (RBC) [Entitic vol] 88.5 fL Normal 81.0-99.0 [facility] Comment on above: Performed By: #### H EPBSRF #### [facility] [address] [place] [address] Dr. Idalia Wilson MONO # 0.7 103/ul Normal 0.3-0.8 [facility] Comment on above: Performed By: #### H EPBSRF #### [facility] [address] [place] [address] Dr. Idalia Wilson Monocytes/100 WBC (Bld) 7.2 % Normal 1.7-12.0 [facility] Comment on above: Performed By: #### H EPBSRF #### [facility] [address] [place] [address] Dr. Idalia Wilson NEUT # 5.8 103/ul Normal 1.4-6.5 [facility] Comment on above: Performed By: #### H EPBSRF #### [facility] [address] [address] [address] Idalia Wilson Neutrophils/100 WBC (Bld) 61.0 % Normal 43.0-75.0 [facility] Comment on above: Performed By: #### H EPBSRF #### [facility] [address] [address] [address] Idalia Wilson Platelet mean volume (Bld) [Entitic vol] 10.2 fL Normal 9.5-13.5 [facility] Comment on above: Performed By: #### H EPBSRF #### [facility] [address] [address] [address] Idalia Wilson PLT 327 103/ul Normal 150-450 [facility] Comment on above: Performed By: #### H EPBSRF #### [facility] [address] [place] [address] Dr. Idalia Wilson RBC 5.05 106/ul Normal 4.20-5.40 [facility] Comment on above: Performed By: #### H EPBSRF #### [facility] [address] [address] [address] Idalia Wilson WBC 9.5 103/ul Normal 4.0-11.0 [facility] Comment on above: Performed By: #### H EPBSRF #### [facility] [address] [place] [address] Dr. Idalia Wilson FREE T4on 04-11-2022 Free T4 [Mass/Vol] 0.94 ng/dL Normal 0.76-1.46 [facility] Comment on above: Performed By: #### F T4 #### [facility] [address] [place] [address] Dr. Idalia Wilson GLYCOHEMOGLOBIN A1Con 2021 ADA RECOMMENDATION SEE BELOW Normal [facility] Comment on above: Result Comment: ADA RECOMMENDED LIMIT 4.0 - 6.0 ADA THERAPEUTIC TARGET < 7.0 ACTION SUGGESTED > 7.0 Performed By: #### A 1C #### [facility] [address] [place] [address] Dr. Idalia Wilson Glucose [Mass/Vol] 108 mg/dL Normal [facility] Comment on above: Performed By: #### A 1C #### [facility] [address] [address] [address] Idalia Wilson HbA1c (Bld) [Mass fraction] 5.4 % Normal 4.5-6.2 [facility] Comment on above: Performed By: #### A 1C #### [facility] [address] [address] [address] Idalia Wilson LIPID PROFILEon 04-11-2022 CHOL-HDL RATIO NORM SEE BELOW Normal [facility] Comment on above: Result Comment: 3.3 - 4.4 LOW RISK 4.4 - 7.1 AVERAGE RISK 7.1 - 11.0 MODERATE RISK >11.0 HIGH RISK Performed By: #### H EPBSRF #### [facility] [address] [address] [address] Idalia Wilson Cholesterol [Mass/Vol] 202 mg/dL Critically high <=200 [facility] Comment on above: Performed By: #### H EPBSRF #### [facility] [address] [address] [address] Idalia Wilson Cholesterol in HDL [Mass/Vol] 37 mg/dL Critically low 40-60 [facility] Comment on above: Performed By: #### H EPBSRF #### [facility] [address] [address] [address] Idalia Wilson Cholesterol in LDL [Mass/Vol] 120.2 mg/dL Normal [facility] Comment on above: Performed By: #### H EPBSRF #### [facility] [address] [address] [address] Idalia Wilson Cholesterol.total/Cho lesterol in HDL [Mass ratio] 5.5 {ratio} Normal [facility] Comment on above: Performed By: #### H EPBSRF #### [facility] [address] [address] [address] Idalia Wilson HDL NORMAL > or = 60 mg/dl - LO W CARDIOVASCULAR RISK <40 mg/dl - HIGH CARDIOVASCULAR RISK Normal [facility] Comment on above: Performed By: #### H EPBSRF #### [facility] [address] [address] [address] Idalia Wilson LDL CALC NORMAL SEE BELOW Normal [facility] Comment on above: Result Comment: <100 mg/dl OPTIMAL 100 - 129 mg/dl NEAR OR ABOVE OPTIMAL 130 - 159 mg/dl BORDERLINE HIGH 160 - 189 mg/dl HIGH >190 mg/dl VERY HIGH Performed By: #### H EPBSRF #### [facility] [address] [address] [address] Idalia Wilson Triglyceride [Mass/Vol] 224 mg/dL Critically high <=150 [facility] Comment on above: Performed By: #### H EPBSRF #### [facility] [address] [address] [address] Idalia Wilson VLDL CALC 44.8 mg/dL Normal [facility] Comment on above: Performed By: #### H EPBSRF #### [facility] [address] [place] [address] Dr. Idalia Wilson LIVER PROFILEon 04-11-2022 Albumin [Mass/Vol] 3.9 g/dL Normal 3.4-5.0 [facility] Comment on above: Performed By: #### H EPBSRF #### [facility] [address] [address] [address] Idalia Wilson Albumin/Globulin [Mass ratio] 0.9 {ratio} Normal [facility] Comment on above: Performed By: #### H EPBSRF #### [facility] [address] [address] [address] Idalia Wilson ALP [Catalytic activity/Vol] 152 U/L Critically high 46-116 [facility] Comment on above: Performed By: #### H EPBSRF #### [facility] [address] [place] [address] Dr. Idalia Wilson ALT [Catalytic activity/Vol] 49 U/L Normal 14-59 [facility] Comment on above: Performed By: #### H EPBSRF #### [facility] [address] [address] [address] Idalia Wilson AST [Catalytic activity/Vol] 22 U/L Normal 15-37 [facility] Comment on above: Performed By: #### H EPBSRF #### [facility] [address] [place] [address] Dr. Idalia Wilson BILI, CONJUGATED 0.1 mg/dL Normal 0.0-0.2 [facility] Comment on above: Performed By: #### H EPBSRF #### [facility] [address] [place] [address] Dr. Idalia Wilson Bilirubin [Mass/Vol] 0.5 mg/dL Normal 0.2-1.0 [facility] Comment on above: Performed By: #### H EPBSRF #### [facility] [address] [place] [address] Dr. Idalia Wilson Globulin (S) [Mass/Vol] 4.3 g/dL Normal [facility] Comment on above: Performed By: #### H EPBSRF #### [facility] [address] [place] [address] Dr. Idalia Wilson Protein [Mass/Vol] 8.2 g/dL Normal 6.4-8.2 [facility] Comment on above: Performed By: #### H EPBSRF #### [facility] [address] [place] [address] Dr. Idalia Wilson PROF CHEM 8 (BAS METB)on Anion gap [Moles/Vol] 11.6 mmol/L Normal [facility] Comment on above: Performed By: #### L IPID, TSH, LIVER, BMP #### [facility] [address] [place] [address] Dr. Idalia Wilson Calcium [Mass/Vol] 9.5 mg/dL Normal 8.5-10.1 [facility] Comment on above: Performed By: #### L IPID, TSH, LIVER, BMP #### [facility] [address] [place] [address] Dr. Idalia Wilson Chloride [Moles/Vol] 102 mmol/L Normal 98-107 [facility] Comment on above: Performed By: #### L IPID, TSH, LIVER, BMP #### [facility] [address] [address] [address] Idalia Wilson CO2 [Moles/Vol] 26.3 mmol/L Normal 21.0-32.0 [facility] Comment on above: Performed By: #### L IPID, TSH, LIVER, BMP #### [facility] [address] [address] [address] Idalia Wilson Creatinine [Mass/Vol] 0.60 mg/dL Normal 0.55-1.02 [facility] Comment on above: Performed By: #### L IPID, TSH, LIVER, BMP #### [facility] [address] [address] [address] Idalia Wilson EGFR-AF SURINAMESE >60 Normal >=60 [facility] Comment on above: Performed By: #### L IPID, TSH, LIVER, BMP #### [facility] [address] [address] [address] Idalia Wilson EGFR-NON AF SURINAMESE >60 Normal >=60 [facility] Comment on above: Performed By: #### L IPID, TSH, LIVER, BMP #### [facility] [address] [address] [address] Idalia Wilson Glucose [Mass/Vol] 98 mg/dL Normal 74-106 [facility] Comment on above: Performed By: #### L IPID, TSH, LIVER, BMP #### [facility] [address] [address] [address] Idalia Wilson Potassium [Moles/Vol] 3.9 mmol/L Normal 3.5-5.1 [facility] Comment on above: Performed By: #### L IPID, TSH, LIVER, BMP #### [facility] [address] [address] [address] Idalia Wilson Sodium [Moles/Vol] 136 mmol/L Normal 136-145 [facility] Comment on above: Performed By: #### L IPID, TSH, LIVER, BMP #### [facility] [address] [address] [address] Idalia Wilson Urea nitrogen [Mass/Vol] 12.0 mg/dL Normal 7.0-18.0 [facility] Comment on above: Performed By: #### L IPID, TSH, LIVER, BMP #### [facility] [address] [place] [address] Dr. Idalia Wilson Urea nitrogen/Creatinine [Mass ratio] 20.0 mg/mg Normal [facility] Comment on above: Performed By: #### L IPID, TSH, LIVER, BMP #### [facility] [address] [place] [address] Dr. Idalia Wilson TSHon 04-11-2022 TSH 1.128 uIU/mL Normal 0.358-3.740 [facility] Comment on above: Performed By: #### H EPBSRF #### [facility] [address] [place] [address] Dr. Idalia Wilson UA (CLEAN/CATCH) PUBLIC TRANSIT SPECIALIST/MICRO I F IND.on 04-11-2022 Bilirubin Ql (U) Negative Normal NEGATIVE [facility] Comment on above: Performed By: #### U ACSIND, UMICRO #### [facility] [address] [place] [address] Dr. Idalia Wilson Clarity (U) CLEAR Normal CLEAR [facility] Comment on above: Performed By: #### U ACSIND, ICRO #### [facility] [address] [place] [address] Dr. Idalia Wilson Color (U) LT. YELLOW Normal YELLOW [facility] Comment on above: Performed By: #### U ACSIND, UMICRO #### [facility] [address] [place] [address] Dr. Idalia Wilson Glucose Ql (U) Negative Normal NEGATIVE [facility] Comment on above: Performed By: #### U ACSIND, UMICRO #### [facility] [address] [place] [address] Dr. Idalia Wilson Hemoglobin Ql (U) Negative Normal NEGATIVE [facility] Comment on above: Performed By: #### U ACSIND, UMICRO #### [facility] [address] [place] [address] Dr. Idalia Wilson Ketones Ql (U) Negative Normal NEGATIVE [facility] Comment on above: Performed By: #### U ACSIND, UMICRO #### [facility] [address] [address] [address] Idalia Wilson LEUKOCYTES Negative Normal NEGATIVE [facility] Comment on above: Performed By: #### U ACSIND, UMICRO #### [facility] [address] [address] [address] Idalia Wilson Nitrite Ql (U) Negative Normal NEGATIVE [facility] Comment on above: Performed By: #### U ACSIND, UMICRO #### [facility] [address] [address] [address] Idalia Wilson pH (U) 6.5 [pH] Normal 5-9 [facility] Comment on above: Performed By: #### U ACSIND, UMICRO #### [facility] [address] [place] [address] Dr. Idalia Wilson SPEC GRAVITY 1.015 Normal 1.005-<=1.[address] [place] [address] Comment on above: Performed By: #### U ACSIND, UMICRO #### [facility] [address] [address] [address] Idalia Wilson UA PROTEIN Negative Normal NEGATIVE/ TRACE [facility] Comment on above: Performed By: #### U ACSIND, UMICRO #### [facility] [address] [place] [address] Dr. Idalia Wilson UR MICRO IND NOT INDICATED Normal [facility] Comment on above: Performed By: #### U ACSIND, UMICRO #### [facility] [address] [address] [address] Idalia Wilson Urobilinogen Qn (U) 0.2 {Mounika'U}/dL Normal 0.2 - 1. 0 [facility] Comment on above: Performed By: #### U ACSIND, UMICRO #### [facility] [address] [address] [address] Idalia Wilson URINE MICROSCOPIC ONLYon BACTERIA NONE SEEN Normal NONE SEEN [facility] Comment on above: Performed By: #### U ACSIND, UMICRO #### [facility] [address] [place] [address] Dr. Idalia Wilson Bacteria identified Cx Nom (U) NOT INDICATED Normal [facility] Comment on above: Performed By: #### U ACSIND, UMICRO #### [facility] [address] [place] [address] Dr. Idalia Wilson CAST NONE SEEN Normal NONE SEEN [facility] Comment on above: Performed By: #### U ACSIND, UMICRO #### [facility] [address] [place] [address] Dr. Idalia Wilson Crystals LM Nom (Urine sed) NONE SEEN Normal NONE SEEN [facility] Comment on above: Performed By: #### U ACSIND, UMICRO #### [facility] [address] [place] [address] Dr. Idalia Wilson Epithelial cells LM Ql (Urine sed) MODERATE Abnormal NONE SEEN /RARE [facility] Comment on above: Performed By: #### U ACSIND, UMICRO #### [facility] [address] [place] [address] Dr. Idalia Wilson MUCOUS TRACE Abnormal NONE SEEN [facility] Comment on above: Performed By: #### U ACSIND, UMICRO #### [facility] [address] [place] [address] Dr. Idalia Wilson RBC NONE SEEN Abnormal 0-2 [facility] Comment on above: Performed By: #### U ACSALPHONSO, UMICRO #### [facility] [address] [place] [address] Dr. Idalia Wilson WBC NONE SEEN Normal NONE SEEN [facility] Comment on above: Performed By: #### U ACSIND, UMICRO #### [facility] [address] [place] [address] Dr. Idalia Feliciano 01-10-2021 OVS Visit (SP) Office ([facility]) CARINA SCHULTZ ([id number]) 1990 F U[place] Date Time Provider Department 01/10/21 1:20 PM MILEY RAMIREZ During your visit today, we recorded the following information about you: Temperature Pulse Blood pressure Weight 97.8 degrees 107/minute 148/94 116.1 kg Miley Ramirez MD 01/11/2021 5:21 AM Signed Gynecologic Oncology [facility] Follow-up visit Re: Carina Schultz CC#: [id number] Date of service: 01/10/2021 Haley Owens MD ([facility]) [facility] [address] [address] Dear Haley Owens: Carina presents for follow [...] lesions present on labia bilaterally Rt> Lt. Charge Accounts Audit Clerk: Carolny Hancock NP IMPRESSION/PLAN: Patient presents today for follow up. Patient has decreased her smoking. Pt had stopped her Aldara cream since her carpenter wanted to repeat biopsy. I recommend patient restart Aldara cream since vulvar lesions are still present. Encouraged smoking cessation. RTC 3 months Thank you for referring her for gynecologic oncology consultation. I will be in touch with you regarding her findings. CC: Haley Owens MD ([facility]) [address] [employer] [address] [place] [id number] No primary care provider on file. (PCP) The previous note from Dr. Ramirez dated 10/11/2020 was copied forward and the necessary changes were made above. ATTESTATION: By signing my name below, I, Yanni Adelaide, attest that this documentation has been prepared under the direction and in the presence of Miley Ramirez MD. Electronically signed:Yanni Bryson (more content not included)... Normal [facility] CNOVSPon 10-11-2020 CNOVSP Visit (SP) Office ([facility]) CARINA SCHULTZ ([id number]) 1990 F UPA Date Time Provider Department 10/11/20 1:20 PM MILEY RAMIREZ During your visit today, we recorded the following information about you: Temperature Pulse Blood pressure Weight 98.7 degrees 93/minute 140/89 116.1 kg Last Period 09/20/20 Miley Ramirez MD 10/12/2020 10:46 AM Signed Gynecologic Oncology [facility] Consultation Re: Carina Schultz CCF#: [id number] Date of service: 10/11/2020 Haley Owens MD () [address] [place] [id number] [address] 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 She resides in [place], [place]. REVIEW OF SYSTEMS: Constitutional: No recent [...] sweats. Hem (more content not included)... Normal [facility] HCG,Urineon 09-26-2020 Beta HCG ( test) Ql (U) Negative Normal [facility] Comment on above: Result Comment: PERF ORMED BY: [address] [place] [address] PATHOLOGIST CONFERENCE SERVICE COORDINATOR JEYSON KOHLER M.D. Performed By: #### U HCG #### [address] [place] [address] [facility] Larry 09-26-2020 L -- ---- Specimen: [id number] Received: 09/26/20 Status: DELMI [facility] Num: [id number] Spec Type: Surgical Subm Dr: Haley Owens MD-BLAS Tissues: A Cone/Leep (CERVIX) B VULVA - biopsy (LT VULVAR BX) C VULVA - biopsy (RT VULVAR BX) Procedures: HE Stain/34, Gross/Micro L5, Gross/Micro L4/2 ---- Patient Age/Sex Location Account Attending Physician ---- Carina Schultz 30/F [place] [id number] IVETTE Henderson ---- SPEC NUM: [id number] RECD: 09/26/20 STATUS: MURRAYJohnathon COX NUM: [id number] FAM: 09/26/20- [facility] DR: Haley Owens MD-[facility] ENTERED: 09/26/20 [facility] DR: CHARITY TYPE: Surgical DEPT: S ORDERED: HE Stain/34, [...] Cervical intraepithelial neoplasia, VIN2, VIN3 ---- Specimen: [id number] Received: 09/26/20 Status: DELMI [facility] Num: [id number] Spec Type: Surgical Subm Dr: Haley Owens MD-[facility] Tissues: A Cone/Leep (CERVIX) B VULVA - biopsy (LT VULVAR BX) C VULVA - biopsy (RT VULVAR BX) Procedures: HE Stain/34, Gross/Micro L5, Gross/Micro L4/2 ---- Patient: Neo Schultzveto Allen [id number] (Continued) ---- Specimen: [id number] Received: 09/26/20 (Continued) Signed (signature on file) Karlie Cuello MD 10/01/20 1052 ---- Specimen: Received: 09/26/20 Status: DELMI [facility] Num: [id number] Spec Type: Surgical Subm Dr: Haley Owens MD-[facility] Tissues: A Cone/Leep (CERVIX) B VULVA - biopsy (LT VULVAR BX) C VULVA - biopsy (RT VULVAR BX) Procedures: HE Stain/34, Gross/Micro L5, Gross/Micro L4/2 ---- Patient: Carina Schultz [id number] (Continued) ---- Specimen: [id number] Received: 09/26/20 (Continued) Gross Description A. Received [...] A5 - Thin tissue within specimen container (SM/YJ) B. Received in formalin labeled with the patient's name, number and le (more content not included)... Normal [facility] SARS-CoV-2 (COVID-19) RNA MALIK+probe Ql (Unsp spec) Negative Normal Negative [facility] Comment on above: Order Comment: Healt hcare Worker?: N Result Comment: Test ing for SARS-CoV-2 by RT-PCR This test was developed and its performance characteristics determined by [employer]) and validated at the [facility]. This test has not been FDA [...] is terminated or revoked sooner. PERFORMED BY: [place] [address] PATHOLOGIST CONFERENCE SERVICE COORDINATOR JEYSON KOHLER M.D. Performed By: #### C OVID-19 [facility] #### [address] COVID-19 [facility] 09-19-2020 SARS-CoV-2 (COVID-19) RNA MALIK+probe Ql (Unsp spec) Negative Normal Negative [facility] Comment on above: Order Comment: Comme nt pst Healthcare Worker?: N Result Comment: Test ing for SARS-CoV-2 by RT-PCR This test was developed and its performance characteristics determined by [employer]) and validated at the [facility]. This test has not been FDA [...] is terminated or revoked sooner. PERFORMED BY: [place] [address] PATHOLOGIST CONFERENCE SERVICE COORDINATOR JEYSON KOHLER M.D. Performed By: #### C OVID-19 [facility] #### [address] Vital Signs Date Time Vital Sign Value Performing Clinician Facility 05-31-2024 11:070500 Body height 170.2 cm Alexandra Kay POLY OPERATOR Work Phone: [facility] 05-31-2024 11:07-0500 Body mass index (BMI) [Ratio] 40.82 kg/m2 Alexandra Kay POLY OPERATOR Work Phone: [facility] 05-31-2024 11:07-0500 Body temperature 98.71 [degF] Alexandra Kay POLY OPERATOR Work Phone: [facility] 05-31-2024 11:07-0500 Body weight 118.21 kg Alexandra Kay POLY OPERATOR Work Phone: [facility] 05-31-2024 11:07-0500 Diastolic blood pressure 84 mm[Hg] Alexandra Aichholz POLY OPERATOR Work Phone: [facility] 05-31-2024 11:07-0500 Heart rate 94 /min Alexandra Trinoholz POLY OPERATOR Work Phone: [facility] 05-31-2024 11:07-0500 Respiratory rate 18 /min Alexandra Penniehholz POLY OPERATOR Work Phone: [facility] 05-31-2024 11:07-0500 SaO2% (BldA) [Mass fraction] 98 % Alexandra Trinoholz POLY OPERATOR Work Phone: [facility] 05-31-2024 11:07-0500 Systolic blood pressure 128 mm[Hg] Alexandra Aichholz POLY OPERATOR Work Phone: [facility] 05-03-2024 08:38-0400 Body height 170.2 cm Alexandra Penniehholz POLY OPERATOR Work Phone: [facility] 05-03-2024 08:38-0400 Body mass index (BMI) [Ratio] 39.94 kg/m2 Alexandra Trinoholz POLY OPERATOR Work Phone: [facility] 05-03-2024 08:38-0400 Body temperature 98.8 [degF] Alexandra Penniehholz POLY OPERATOR Work Phone: [facility] 05-03-2024 08:38-0400 Body weight 115.67 kg Alexandra Penniehholz POLY OPERATOR Work Phone: [facility] 05-03-2024 08:38-0400 Diastolic blood pressure 86 mm[Hg] Alexandra Penniehholz POLY OPERATOR Work Phone: [facility] 05-03-2024 08:38-0400 Heart rate 89 /min Alexandra Aichholz POLY OPERATOR Work Phone: [facility] 05-03-2024 08:38-0400 Respiratory rate 18 /min Alexandra Aichholz POLY OPERATOR Work Phone: [facility] 05-03-2024 08:38-0400 SaO2% (BldA) [Mass fraction] 97 % Alexandra Aichholz POLY OPERATOR Work Phone: [facility] 05-03-2024 08:38-0400 Systolic blood pressure 140 mm[Hg] Alexandra Kay POLY OPERATOR Work Phone: [facility] 04-21-2024 10:18-0400 Blood Pressure Location Jeni Lue [facility] 04-21-2024 10:18-0400 Diastolic blood pressure 100 mm[Hg] Jeni Lue [facility] 04-21-2024 10:18-0400 Heart rate 100 /min Jeni Lue [facility] 04-21-2024 10:18-0400 Respiratory rate 16 /min Jeni Lue [facility] 04-21-2024 10:18-0400 Systolic blood pressure 148 mm[Hg] Jeni Lue [facility] 04-07-2024 09:27-0400 Body mass index (BMI) [Ratio] 39.47 kg/m2 Josiah Young MD Work Phone: [facility] 04-07-2024 09:27-0400 Body weight 114.31 kg Josiah Young MD Work Phone: [facility] 03-22-2024 09:42-0400 Blood Pressure Location SHANITA TANNER [facility] 03-22-2024 09:42-0400 Body temperature 98.6 [degF] SHANITA HART [facility] 03-22-2024 09:42-0400 Diastolic blood pressure 84 mm[Hg] SHANITA HART [facility] 03-22-2024 09:42-0400 Heart rate 79 /min SHANITA HART [facility] 03-22-2024 09:42-0400 Respiratory rate 16 /min SHANITA HART [facility] 03-22-2024 09:42-0400 Systolic blood pressure 132 mm[Hg] SHANITA HART [facility] 12-23-2023 13:45-0400 Body height 170.18 cm [facility] 12-23-2023 13:45-0400 Body mass index (BMI) [Ratio] 40.5 kg/m2 [facility] 12-23-2023 13:45-0400 Body temperature 98.2 [degF] [facility] 12-23-2023 13:45-0400 Body weight 117.48 kg [facility] 12-23-2023 13:45-0400 Heart rate 83 /min [facility] 12-23-2023 13:45-0400 Respiratory rate 18 /min [facility] 12-23-2023 13:45-0400 SaO2% (BldA) [Mass fraction] 99 % [facility] 07-05-2022 10:05-0500 Body height 170.18 cm Amira Sierra Other [facility] [employer] Other 07-05-2022 10:05-0500 Body mass index (BMI) [Ratio] 37.59 kg/m2 Amira Sierra Other [facility] [employer] Other 07-05-2022 10:05-0500 Body temperature 98.1 [degF] Amira Sierra Other [facility] [employer] Other 07-05-2022 10:05-0500 Body weight 108.86 kg Amira Sierra Other [employer] Other 07-05-2022 10:05-0500 Respiratory rate 18 /min Amira Sierra Other [employer] Other 07-05-2022 10:05-0500 SaO2% (BldA) [Mass fraction] 99 % Amira Sierra Other [employer] Other Encounters Encounter Date Encounter Type Care Provider Facility Start: 08-02-2024 End: 08-02-2024 Refill Alexandra Aichholz POLY OPERATOR Work Phone: [facility] Comment on above: Chronic idiopathic u rticaria (Primary Dx) Start: 07-28-2024 End: 07-28-2024 ambulatory JOSIAH YOUNG Not Available Start: 07-28-2024 End: 07-28-2024 Office outpatient visit 25 minutes Josiah Young MD Work Phone: [facility] Comment on above: Chronic idiopathic u rticaria (Primary Dx) Start: 07-28-2024 End: 07-28-2024 flow sheet [facility] Nurse [facility] Comment on above: GA: 13w0d Start: 07-28-2024 End: 07-28-2024 ambulatory ALEXANDRA AICHHOLZ Not Available Start: 07-13-2024 End: 07-13-2024 ambulatory ALEXANDRA AICHHOLZ Not Available Start: 07-08-2024 End: 07-08-2024 ambulatory BEATRIZ SIMONS [facility] Start: 07-08-2024 End: 07-08-2024 ambulatory BEATRIZ SIMONS [facility] Start: 06-16-2024 End: 06-16-2024 ambulatory ALEXANDRA AICHHOLZ Not Available Start: 05-31-2024 End: 05-31-2024 Bamboo flowsheet Alexandra Aichholz POLY OPERATOR Work Phone: [facility] Start: 05-31-2024 End: 05-31-2024 Bamboo flowsheet Alexandra Rahul POLY OPERATOR Work Phone: [facility] Start: 05-31-2024 End: 05-31-2024 Office outpatient visit 25 minutes Alexandra Rahul POLY OPERATOR Work Phone: [facility] Comment on [...] 05-11-2024 End: 05-11-2024 Lab Drop off Jeni Callaway [facility] Start: 05-11-2024 End: 05-11-2024 ambulatory Jeni Callaway Facility:[facility] Start: 05-11-2024 End: 05-11-2024 Patient encounter procedure Jeni Callaway [facility] Start: 05-04-2024 End: 05-04-2024 ambulatory ALEXANDRA AICHHOLZ Not Available Start: 05-03-2024 End: 05-03-2024 Bamboo flowsheet Alexandra Rahul POLY OPERATOR Work Phone: [facility] Start: 05-03-2024 End: 05-03-2024 Bamboo flowsheet Alexandra Penniehsarah POLY OPERATOR Work Phone: [facility] Start: 05-03-2024 End: 05-03-2024 Office outpatient visit 15 minutes Alexandra Aichholz POLY OPERATOR Work Phone: [facility] Comment on above: Primary hypertension (CMS/HCC) (Primary Dx); Cigarette nicotine dependence without complication; Class 2 obesity due to excess calories without serious comorbidity with body mass index (BMI) of 39.0 to 39.9 in adult Start: 05-03-2024 End: 05-03-2024 ambulatory ALEXANDRA AICHHOLZ Not Available Start: 04-21-2024 End: 04-21-2024 ambulatory Jeni Murraytavares Facility:[facility] Start: 04-21-2024 End: 04-21-2024 Patient encounter procedure Jeni Callaway [facility] Start: 04-07-2024 End: 04-07-2024 Bamhali Young MD Work Phone: [facility] Start: 04-07-2024 End: 04-07-2024 Lorraine Young MD Work Phone: [facility] Start: 04-07-2024 End: 04-07-2024 ambulatory JOSIAH YOUNG Not Available Start: 04-07-2024 End: 04-07-2024 Office outpatient visit 15 minutes Josiah Young MD Work Phone: [facility] Comment on above: Chronic idiopathic u rticaria (Primary Dx) Start: 03-23-2024 End: 03-23-2024 ambulatory ALEXANDRA AICHHOLZ Not Available Start: 03-22-2024 End: 03-22-2024 ambulatory HALEY OWENS Facility:[facility] Start: 03-22-2024 End: 03-22-2024 Patient encounter procedure SHANITA HART [facility] Start: 03-20-2024 End: 03-21-2024 Refill Alexandra Kay POLY OPERATOR Work Phone: [facility] Comment on above: Anxiety Start: 03-12-2024 End: 03-21-2024 Telephone encounter Haley Owens MD Work Phone: [facility] Start: 03-08-2024 End: 03-08-2024 ambulatory HALEY OWENS Not Available Start: 03-08-2024 End: 03-08-2024 ambulatory ALEXANDRA AICHHOLZ Not Available Start: 02-29-2024 End: 02-29-2024 ambulatory SHAKIR LANCE Not Available Start: 02-16-2024 End: 02-16-2024 ambulatory HALEY OWENS Not Available Start: 02-10-2024 End: 02-10-2024 ambulatory ALEXANDRA AICHHOLZ Not Available Start: 01-26-2024 End: 01-26-2024 ambulatory ALEXANDRA AICHHOLZ Not Available Start: 01-13-2024 End: 01-13-2024 ambulatory ALEXANDRA AICHHOLZ Not Available Start: 12-28-2023 Patient encounter status Alexandra Aichholz POLY OPERATOR Work Phone: [facility] Start: 12-28-2023 End: 12-28-2023 ambulatory ALEXANDRA AICHHOLZ Not Available Start: 12-23-2023 End: 12-23-2023 ambulatory [facility] Work Phone: Start: 12-23-2023 End: 12-23-2023 Patient encounter procedure [facility] Work Phone: Start: [...] Available Start: 08-10-2023 End: 08-10-2023 ambulatory ALEXANDRA RAHUL Not Available Start: 11-19-2022 End: 11-19-2022 ambulatory ZANA GUY PENNIEJoeSARAH Facility:[facility] Start: 07-05-2022 End: 07-05-2022 ambulatory Amira Mariela Other [facility] Other Start: 07-05-2022 Office outpatient vi sit 15 minutes Amira Sierra [facility] Start: 04-11-2022 End: 04-12-2022 ambulatory RECEIVER/LABORER ALEXANDRA PENNIEJoeSARAH Facility:[facility] Procedures Date Procedure Procedure Detail Performing Clinician Start: 04-21-2024 Flexible cystoscopy Beverly Callaway Start: 02-16-2024 Microscopic observat ion [Identifier] in Cervix by Cyto stain Alexandra Kay POLY OPERATOR Work Phone: Start: 12-23-2023 Quick Strep (POC) Start: 04-15-2016 Dilation of urethra JUMANA HART Structure of wisdom tooth (body structure) SHANITA HART Vaginal biopsy SHANITA Jurado Plan of Treatment Date Care Activity Detail Author Start: 02-15-2029 Screening for malign ant neoplasm of cervix [facility] Start: 02-15-2027 Screening for malign ant neoplasm of cervix Pap Smear [facility] Start: 11-29-2024 End: 11-29-2024 Patient encounter procedure 11/29/2024 9:00 AM EDT Office Visit [facility] [address] [place] [id number] Alexandra Kay NP [address] [place] [address] [facility] Start: 10-05-2024 End: 10-05-2024 Patient encounter procedure 10/05/2024 9:20 AM EDT Office Visit [facility] [address] [place] [address] Josiah Young MD [address] [place] [address] [facility] Start: 09-08-2024 End: 09-08-2024 Patient encounter procedure 09/08/2024 9:00 AM EST Office Visit [facility] [address] [place] [address] Josiah Young MD [address] [place] [address] [facility] Start: 09-06-2024 End: 09-06-2024 Patient encounter procedure 09/06/2024 2:45 PM EST Office Visit [facility] [address] [place] [address] Haley Owens MD [address] [place] [address] [facility] Start: 08-17-2024 End: 08-17-2024 Clinical Support 08/17/2024 3:45 PM EST Clinical Support [facility] [address] [place] [address] [facility] Start: 08-10-2024 End: 08-10-2024 Professional / ancillary services management 08/10/2024 3:30 PM EST Ancillary Procedure [facility] [address] [place] [phone] [facility] Start: 07-28-2024 End: 07-28-2025 Bacteria identified in Urine by Culture Urine culture Microbiology Routine care, subsequent in first trimester Expected: 07/28/2024 (Approximate), Expires: 07/28/2025 [facility] Work Phone: Comment on above: Expected: 07/28/2024 (Approximate), Expires: 07/28/2025 Start: 07-28-2024 End: 07-28-2025 Blood type and Indirect antibody screen panel - Blood Type and screen Lab Routine care, subsequent in first trimester Expected: 07/28/2024 (Approximate), Expires: 07/28/2025 [facility] Comment on above: Expected: 07/28/2024 (Approximate), Expires: 07/28/2025 Start: 07-28-2024 End: 07-28-2025 CBC W Auto Differential panel - Blood CBC and differential Lab Routine care, subsequent in first trimester Expected: 07/28/2024 (Approximate), Expires: 07/28/2025 [facility] Comment on above: Expected: 07/28/2024 (Approximate), Expires: 07/28/2025 Start: 07-28-2024 End: 07-28-2025 DRUG SCREEN 17 W/CONF, UR DRUG SCREEN 17 W/CONF, UR Lab Routine care, subsequent in first trimester Encounter for drug screening Expected: 07/28/2024 (Approximate), Expires: 07/28/2025 [facility] Comment on above: Expected: 07/28/2024 (Approximate), Expires: 07/28/2025 Start: 07-28-2024 End: 07-28-2025 Hepatitis B virus surface Ag [Presence] in Serum or Plasma by Immunoassay Hepatitis B surface antigen Lab Routine care, subsequent in first trimester Expected: 07/28/2024 (Approximate), Expires: 07/28/2025 [facility] Comment on above: Expected: 07/28/2024 (Approximate), Expires: 07/28/2025 Start: 07-28-2024 End: 07-28-2025 Hepatitis C virus Ab [Presence] in Serum or Plasma by Immunoassay Hepatitis C antibody Lab Routine care, subsequent in first trimester Expected: 07/28/2024 (Approximate), Expires: 07/28/2025 [facility] Comment on above: Expected: 07/28/2024 (Approximate), Expires: 07/28/2025 Start: 07-28-2024 End: 07-28-2025 HIV-1/HIV-2 antigen/antibody combination immunoassay HIV-1 and HIV-2 antibodies Lab Routine care, subsequent in first trimester Expected: 07/28/2024 (Approximate), Expires: 07/28/2025 [facility] Comment on above: Expected: 07/28/2024 (Approximate), Expires: 07/28/2025 Start: 07-28-2024 End: 07-28-2025 Rpr (dx) w/refl titer and confirmatory testing Rpr (dx) w/refl titer and confirmatory testing Lab Routine care, subsequent in first trimester Expected: 07/28/2024 (Approximate), Expires: 07/28/2025 [facility] Comment on above: Expected: 07/28/2024 (Approximate), Expires: 07/28/2025 Start: 07-28-2024 End: 07-28-2025 Rubella antibody, IgG Rubella antibody, IgG Lab Routine care, subsequent in first trimester Expected: 07/28/2024 (Approximate), Expires: 07/28/2025 [facility] Comment on above: Expected: 07/28/2024 (Approximate), Expires: 07/28/2025 Start: 07-28-2024 End: 07-28-2025 Urinalysis complete panel - Urine Urinalysis with microscopic Lab Routine care, subsequent in first trimester Expected: 07/28/2024 (Approximate), Expires: 07/28/2025 [facility] Comment on above: Expected: 07/28/2024 (Approximate), Expires: 07/28/2025 Start: 06-15-2024 End: 06-15-2024 Clinical Support 06/15/2024 3:45 PM EST Clinical Support [facility] [address] [place] [address] [facility] Start: 05-31-2024 End: 05-31-2024 Patient encounter procedure [facility] Comment on above: Primary [...] [address] [place] [address] [facility] Start: 05-03-2024 End: 05-03-2024 Patient encounter procedure [facility] Comment on above: Cigarette nicotine d ependence without complication (Primary Dx) Start: 04-27-2024 End: 04-27-2024 Clinical Support 04/27/2024 4:00 PM EDT Clinical Support [facility] [address] [place] [phone] [facility] Start: 04-07-2024 End: 04-07-2024 Patient encounter procedure 04/07/2024 9:20 AM EDT Office Visit [facility] [address] [place] [address] Josiah Young MD [address] [place] [address] [facility] Start: 04-05-2024 End: 04-05-2024 Patient encounter procedure 04/05/2024 1:00 PM EDT Office Visit [facility] [address] [place] [address] Alexandra Kay, YAZAN [address] [place] [address] [facility] Start: 03-23-2024 End: 03-23-2024 Clinical Support 03/23/2024 4:00 PM EDT Clinical Support [facility] [address] [place] [address] [facility] Immunizations Immunization Date Immunization Notes Care Provider Fa cility 05-27-2023 influenza virus vacc ine, unspecified formulation Jeni Callaway [facility] 05-27-2023 influenza, injectabl e, quadrivalent, preservative free Alexandra Aichholz POLY OPERATOR Work Phone: [facility] 02-20-2023 hepatitis B vaccine, adult dosage Alexandra Aichholz POLY OPERATOR Work Phone: [facility] 06-03-2022 hepatitis B vaccine, adult dosage Alexandra Aichholz POLY OPERATOR Work Phone: [facility] 06-03-2022 measles, mumps and rubella virus vaccine Alexandra Aichholz POLY OPERATOR Work Phone: [facility] 04-29-2022 hepatitis B vaccine, adult dosage Alexandra Aichholz POLY OPERATOR Work Phone: [facility] 04-29-2022 influenza virus vacc ine, unspecified formulation Jeni Lue [facility] 04-29-2022 influenza, injectabl e, quadrivalent, preservative free Alexandra Aichholz POLY OPERATOR Work Phone: [facility] 11-18-2021 SARS-CoV-2 (COVID-19 ) Ad26 vaccine, recombinant Jeni Lue [facility] Comment on above: Result Comment: 2023: TPVALL 11-18-2017 HPV, unspecified formulation Jeni Lue [facility] 11-18-2017 Human Papillomavirus 9-valent vaccine Alexandra Aichholz POLY OPERATOR Work Phone: [facility] 07-15-2017 HPV, unspecified formulation Jeni Lue [facility] 07-15-2017 Human Papillomavirus 9-valent vaccine Alexandra Aichholz POLY OPERATOR Work Phone: [facility] 07-15-2017 tetanus toxoid, redu vladimir diphtheria toxoid, and acellular pertussis vaccine, adsorbed Alexandra Rahul POLY OPERATOR Work Phone: [facility] 04-20-2017 HPV, unspecified formulation Jeni Callaway [facility] 04-20-2017 Human Papillomavirus 9-valent vaccine Alexandra Rahul POLY OPERATOR Work Phone: [facility] 12-13-1997 diphtheria, tetanus toxoids and acellular pertussis vaccine Alexandra Penniejoesarah POLY OPERATOR Work Phone: [facility] 12-13-1997 measles, mumps and rubella virus vaccine Alexandra Jamesonsarah POLY OPERATOR Work Phone: [facility] Payers Date Payer Category Payer Medicaid [employer] [place] [id number] 2022-Present [address] [place] [id number] 2022 Private Health Insurance [facility] MEDICAID [id number] 1992 Unknown [id number] 2.840.1.214005.3.579.2 .593 1992 Unknown [id number] 09.11.840.1.075998.3.579.2 .593 1992 Unknown [id number] 2.16.840.1.811637.3.579.2 .727 1992 Unknown [id number] 2.16.840.1.613727.3.579.2 .727 1992 Unknown [id number] 2.16.840.1.847480.3.579.2 .727 1992 Unknown [id number] 2.16.840.1.026865.3.579.2 .727 1992 Unknown [id number] 2.16.840.1.932344.3.579.2 .1286 1992 Unknown [id number] 2.16.840.1.398020.3.579.2 .1286 1992 Unknown [id number] 2.16.840.1.972800.3.579.2 .1259 1992 Unknown [id number] 2.16.840.1.793187.3.579.2 .1259 1992 Unknown [id number] 2.16.840.1.483949.3.579.2 .1259 1992 Unknown [id number] 2.16.840.1.957232.3.579.2 .1259 1992 Unknown [id number] 2.16.840.1.079522.3.579.2 .1259 1992 Unknown [id number] 2.16.840.1.989657.3.579.2 .1259 1992 Unknown [id number] 2.16.840.1.595958.3.579.2 .1259 1992 Unknown [id number] 2.16.840.1.167205.3.579.2 .1259 1992 Unknown [id number] 2.16.840.1.595672.3.579.2 .1259 1992 Unknown [id number] 2.16.840.1.128121.3.579.2 .1259 1992 Unknown [id number] 2.16.840.1.265803.3.579.2 .9 1992 Unknown [id number] 2.16.840.1.198532.3.579.2 .9 1992 Unknown [id number] 2.16.840.1.866178.3.579.2 .1258 1992 Unknown [id number] 2.16.840.1.236193.3.579.2 .1258 1992 Unknown [id number] 2.16.840.1.525447.3.579.2 .1258 1992 Unknown [id number] 2.16.840.1.437281.3.579.2 .1258 1992 Unknown [id number] 2.16.840.1.077887.3.579.2 .1258 1992 Unknown [id number] 2.16.840.1.995747.3.579.2 .1258 1992 Unknown [id number] 2.16.840.1.193293.3.579.2 .1258 1992 Unknown [id number] 2.16.840.1.052700.3.579.2 .9 1992 Unknown [id number] 2.16.840.1.460764.3.579.2 .1258 1992 Unknown [id number] 2.16.840.1.335709.3.579.2 .1258 1992 Unknown [id number] 2.16.840.1.897730.3.579.2 .9 1992 Unknown [id number] 2.16.840.1.272044.3.579.2 .1258 1992 Unknown [id number] 2.16.840.1.312488.3.579.2 .1259 1959 Unknown [id number] 2.16.840.1.816917.19 1959 Unknown [id number] Medicaid [facility] [id number] Self-pay Self Pay [id number] Unknown MMO [id number] Unknown [employer] [id number] Worker's Compensation [id number] Social History Date Type Detail Facility Unknown if ever smoked [facility] Other Start: 02-16-2024 End: 05-03-2024 Sex Assigned At [facility] Start: 09-26-2020 End: 03-22-2024 Tobacco smoking status VAIS Smoker (finding) [facility] Start: 1990 Sex Assigned At Female [facility] Start: 04-21-2024 Tobacco smoking status Heavy tobacco smoker (finding) [facility] Tobacco smoking status Never [facility] Start: 02-16-2024 End: 07-28-2024 Tobacco smoking status [facility] Smokes tobacco daily [facility] History of tobacco use Cigarette Smoker [...] at Not on file [facility] Start: 03-15-2023 Gender identity Identifies as female gender (finding) [facility] Start: 07-28-2024 Alcoholic beverage intake Ex-drinker (finding) [facility] Start: 07-28-2024 Tobacco Comment Cessation discussed [facility] Start: 07-28-2024 Alcohol Comment Caffeine intake: occassionally [facility] Start: 05-12-2024 [facility] Functional Status Date Assessment Result Facility 04-21-2024 Functional Status N/A [facility] 03-22-2024 Functional Status N/A [facility] Clinical Notes 10-11-2020 to 07-28-2024 Josiah Young [...] in the past. documented in this encounter [facility] 07-28-2024 History of Presen t illness Narrative [...] Anes PTL Lv 2 Current 1 Term 2011 6 lb 12 oz F Vag-Spont KRYSTLE Past Medical / Surgical History Past Medical History: Diagnosis Date Anxiety 06/30/2023 Asthma (CMS/[facility]) Chronic idiopathic urticaria History of medical problems [...] 07/28/2024 3:55 PM documented in this encounter [facility] 05-31-2024 History of Presen t illness Narrative [...] buspar Feels good without Asthma in adult (CMS/[facility]) Continue with ICS LABA Rare [...] of the risks of continued smoking: stroke, OR, all forms of cancer, lung disease, and . Options for quitting smoking include: cold turkey, hypnosis, acupuncture, nicotine replacement meds (gum, lozenges, and patches), Buproprion, and Varenicline. At this time pt is encouraged to evaluate their goals for wanting to quit smoking, and reach out to provider when ready to start this process Primary hypertension ([facility]) - Primary Please check blood pressure daily and record DASH diet Limit caffeine Take medication as directed Contact office if chest pain, pressure, dizziness, shortness of breath, swelling legs Recommend slow position changes Office reads: 122/86 manual, left arm, and wrist cuff 139/88 Associated Problem(s): Asthma in adult ([facility]) Continue with ICS LABA Rare use of rescue inhaler Fu in 6 months Recommend quitting smoking Associated Problem(s): Primary hypertension ([facility]) Please check blood pressure daily and record [...] of the risks of continued smoking: stroke, OR, all forms of cancer, lung disease, and . Options for quitting smoking include: cold turkey, hypnosis, acupuncture, nicotine replacement meds (gum, lozenges, and patches), Buproprion, and Varenicline. At this time pt is encouraged to evaluate their goals for wanting to quit smoking, and reach out to provider when ready to start this process documented in this encounter [facility] 05-15-2024 Telephone encounter Note Prescription sent for uti [facility] 05-15-2024 Miscellaneous Notes Prescription sent for uti documented in this encounter [facility] 05-11-2024 Evaluation + Plan note Diagnostic Tests PendingUrine Culture 05/11/24 [facility] 05-03-2024 History of Presen t illness [...] no dyspnea, no LE edema Episode at [place], watch alarmed HR 130, she was asymptomatic [...] Medical History: Diagnosis Date Anxiety 06/30/2023 Asthma ([facility]/HCC) Chronic idiopathic urticaria History of medical problems [...] Primary hypertension (CMS/HCC) documented in this encounter [facility] 05-03-2024 Instructions Alexandra Kay NP - 05/03/2024 8:40 AM EDT DASH diet Check blood pressure daily and record Fu in 4 weeks, bring log of blood pressure AND machine to verify accuracy documented in this encounter [facility] 04-21-2024 Hospital Discharg e instructions Patient Education [...] Treatment for this condition includes: Antibiotic medicine. Ifkx-zsq-sxhhmsw medicines to treat discomfort. Drinking enough water [...] Follow these instructions at home: Medicines Take mfdo-plp-yitwvom and prescription medicines only as told by [...] provider. Document Revised: 02/17/2021 Document Reviewed: 02/22/2021 [employer] Patient Education 2023 [employer]. 04/21/2024 11:22:32 Antibiotic Medicine, Adult Antibiotic Medicine, [...] provider. Document Revised: 02/10/2023 Document Reviewed: 02/10/2023 [employer] Patient Education 2023 [employer]. Follow Up Care 04/05/2024 11:26:44 With:Nilton NUNEZ, BRYCE Urbina, URO Address: When: Unknown [facility] 04-21-2024 Note Patient Education Caregiving Antibiotic Medicine, [...] have any o (more content not included)... [facility] 04-07-2024 History of Presen t illness Narrative [...] should problems arise. documented in this encounter [facility] 03-22-2024 Hospital Discharg e instructions Patient Education [...] Treatment for this condition includes: Antibiotic medicine. Gyxe-hsi-cnalrhs medicines to treat discomfort. Drinking enough water [...] Follow these instructions at home: Medicines Take imsf-ecx-izbdhfv and prescription medicines only as told by [...] provider. Document Revised: 02/22/2021 Document Reviewed: 02/22/2021 [employer] Patient Education 2022 [employer]. Follow Up Care 02/18/2024 08:44:09 With:SHANITA HART PA-C, URL Address: [address] [place] [address] When: Unknown Comments:post-op cysto With:Nliton NUNEZ, Jeni Singer, BRYCE, URO Address: When: Unknown Comments:sched cysto w/possible UD [facility] 03-22-2024 Note Patient Education Obstetrics and Gynecology [...] this condition includes: ? Antibiotic medicine. ? Gpch-lxk-awoigqe medicines to treat discomfort. ? Drinking enough [...] these instructions at home: Medicines ? Take gcgc-isa-zkxxawu and prescription medicines only as told by [...] Document Revised: 02/22 (more content not included)... [facility] 07-05-2022 Evaluation note Encounter Date Diagnosis Assessment [...] no improvement in 2 to 3 days. [facility] Other 06-17-2021 NoteHNO ID: [id number] Author: Miley Ramirez MD Service: ? Author Type: Physician Type: Progress Notes Filed: 01/11/2021 5:21 AM Note Text: Gynecologic Oncology [facility] Follow-up visit Re: Carina Schultz [facility]CF#: [id number] Date of service: 01/10/2021 Haley Owens MD ([facility]) [address] [address] Dear Haley Owens: Carina presents for follow [...] lesions present on labia bilaterally Rt> Lt. Charge Accounts Audit Clerk: Carolyn Hancock NP IMPRESSION/PLAN: Patient presents today for follow up. Patient has decreased her smoking. Pt had stopped her Aldara cream since her carpenter wanted to repeat biopsy. I recommend patient restart Aldara cream since vulvar lesions are still present. Encouraged smoking cessation. RTC 3 months Thank you for referring her for gynecologic oncology consultation. I will be in touch with you regarding her findings. CC: Haley Owens MD ([facility]) [address] Olivera Lu[address] [place], [place] [id number] No primary care provider on file. (PCP) The previous note from Dr. Ramirez dated 10/11/2020 was copied forward and the necessary changes were made above. ATTESTATION: By signing my name below, Ynani Rivas, attest that this documentation has been [...] the chart and discharge (more content not included)...[facility]03-18-2021 NoteHNO ID: [id number] Author: Miley Ramirez Service: ? Author Type: Physician Type: Progress Notes Filed: 10/12/2020 10:46 AM Note Text: Gynecologic Oncology [facility] Consultation Re: Carina Schultz [facility]#: [id number] Date of service: 10/11/2020 Haley Owens MD ([facility]) [address] Jar[address] Moran [address] [place], [place] [phone] Consultation requested by Dr. 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 She resides in [place], [place]. REVIEW OF SYSTEMS: Constitutional: No recent [...] Cardiac - Regular rat (more content not included)...[facility] Evaluation + Plan note No data available for this section [facility] evaluation noteNo assessment information available [facility] Work Phone: Evaluation note* Diagnosis Primary hypertension (CMS/HCC)- Primary Unspecified essential hypertension Cigarette nicotine dependence without complication Class 2 obesity due to excess calories without serious comorbidity with body mass index (BMI) of 39.0 to 39.9 in adult documented in this encounter [facility] HealthcareEvaluation note* Diagnosis Anxiety- Primary Anxiety state, unspecified Anxiety- Primary Anxiety state, unspecified Class 3 severe obesity due to excess calories without serious comorbidity with body mass index (BMI) of 40.0 to 44.9 in adult ([facility]) Environmental and seasonal allergies Moderate persistent asthma in adult without complication ([facility]) UTI symptoms- Primary Class 3 severe obesity due to excess calories without serious comorbidity with body mass index (BMI) of 40.0 to 44.9 in adult ([facility]) Wellness examination Cigarette nicotine dependence without complication Elevated alkaline phosphatase level- Primary Cigarette nicotine dependence without complication Class 3 severe obesity due to excess calories without serious comorbidity with body mass index (BMI) of 40.0 to 44.9 in adult ([facility]) Abnormal weight gain- Primary Class 2 obesity due to excess calories without serious comorbidity with body mass index (BMI) of 39.0 to 39.9 in adult Primary hypertension ([facility])- Primary Unspecified essential hypertension Cigarette nicotine dependence without complication Class 2 obesity due to excess calories without serious comorbidity with body mass index (BMI) of 39.0 to 39.9 in adult UTI symptoms- Primary documented in this encounter [facility] [facility] HealthcareEvaluation note* Diagnosis Anxiety- Primary Anxiety state, unspecified Anxiety- Primary Anxiety state, unspecified Class 3 severe obesity due to excess calories without serious comorbidity with body mass index (BMI) of 40.0 to 44.9 in adult ([facility]) Environmental and seasonal allergies Moderate persistent asthma in adult without complication ([facility]) UTI symptoms- Primary Class 3 severe obesity due to excess calories without serious comorbidity with body mass index (BMI) of 40.0 to 44.9 in adult ([facility]) Wellness examination Cigarette nicotine dependence without complication Elevated alkaline phosphatase level- Primary Cigarette nicotine dependence without complication Class 3 severe obesity due to excess calories without serious comorbidity with body mass index (BMI) of 40.0 to 44.9 in adult ([facility]) Abnormal weight gain- Primary Class 2 obesity due to excess calories without serious comorbidity with body mass index (BMI) of 39.0 to 39.9 in adult Primary hypertension ([facility])- Primary Unspecified essential hypertension Cigarette nicotine dependence without complication Class 2 obesity due to excess calories without serious comorbidity with body mass index (BMI) of 39.0 to 39.9 in adult Primary hypertension ([facility])- Primary Unspecified essential hypertension Class 2 obesity due to excess calories without serious comorbidity with body mass index (BMI) of 39.0 to 39.9 in adult Anxiety Anxiety state, unspecified Cigarette nicotine dependence without complication Moderate persistent asthma in adult without complication ([facility]) documented in this encounter [facility]* [...] (BMI) of 40.0 to 44.9 in adult ([facility]) Environmental and seasonal allergies Moderate persistent asthma in adult without complication ([facility]) UTI symptoms- Primary Class 3 severe obesity due to excess calories without serious comorbidity with body mass index (BMI) of 40.0 to 44.9 in adult ([facility]) Wellness examination Cigarette nicotine dependence without complication Elevated alkaline phosphatase level- Primary Cigarette nicotine dependence without complication Class 3 severe obesity due to excess calories without serious comorbidity with body mass index (BMI) of 40.0 to 44.9 in adult ([facility]) Abnormal weight gain- Primary Class 2 obesity due to excess calories without serious comorbidity with body mass index (BMI) of 39.0 to 39.9 in adult Primary hypertension ([facility])- Primary Unspecified essential hypertension Cigarette nicotine dependence without complication Class 2 obesity due to excess calories without serious comorbidity with body mass index (BMI) of 39.0 to 39.9 in adult Primary hypertension ([facility])- Primary Unspecified essential hypertension Class 2 obesity due to excess calories without serious comorbidity with body mass index (BMI) of 39.0 to 39.9 in adult Anxiety Anxiety state, unspecified Cigarette nicotine dependence without complication Moderate persistent asthma in adult without complication ([facility]) care, subsequent in first trimester Encounter for drug screening documented in this encounter [facility]* Diagnosis Anxiety- Primary Anxiety state, unspecified Anxiety- Primary Anxiety state, unspecified Class 3 severe obesity due to excess calories without serious comorbidity with body mass index (BMI) of 40.0 to 44.9 in adult ([facility]) Environmental and seasonal allergies Moderate persistent asthma in adult without complication ([facility]) UTI symptoms- Primary Class 3 severe obesity due to excess calories without serious comorbidity with body mass index (BMI) of 40.0 to 44.9 in adult ([facility]) Wellness examination Cigarette nicotine dependence without complication Elevated alkaline phosphatase level- Primary Cigarette nicotine dependence without complication Class 3 severe obesity due to excess calories without serious comorbidity with body mass index (BMI) of 40.0 to 44.9 in adult ([facility]) Abnormal weight gain- Primary Class 2 obesity due to excess calories without serious comorbidity with body mass index (BMI) of 39.0 to 39.9 in adult Primary hypertension ([facility])- Primary Unspecified essential hypertension Cigarette nicotine dependence without complication Class 2 obesity due to excess calories without serious comorbidity with body mass index (BMI) of 39.0 to 39.9 in adult Primary hypertension ([facility])- Primary Unspecified essential hypertension Class 2 obesity due to excess calories without serious comorbidity with body mass index (BMI) of 39.0 to 39.9 in adult Anxiety Anxiety state, unspecified Cigarette nicotine dependence without complication Moderate persistent asthma in adult without complication ([facility]) Chronic idiopathic urticaria- Primary Idiopathic urticaria documented in this encounter [facility] HealthcareEvaluation note* Diagnosis Anxiety- Primary Anxiety state, unspecified Anxiety- Primary Anxiety state, unspecified Class 3 severe obesity due to excess calories without serious comorbidity with body mass index (BMI) of 40.0 to 44.9 in adult ([facility]) Environmental and seasonal allergies Moderate persistent asthma in adult without complication ([facility]) UTI symptoms- Primary Class 3 severe obesity due to excess calories without serious comorbidity with body mass index (BMI) of 40.0 to 44.9 in adult ([facility]) Wellness examination Cigarette nicotine dependence without complication Elevated alkaline phosphatase level- Primary Cigarette nicotine dependence without complication Class 3 severe obesity due to excess calories without serious comorbidity with body mass index (BMI) of 40.0 to 44.9 in adult ([facility]) Abnormal weight gain- Primary Class 2 obesity due to excess calories without serious comorbidity with body mass index (BMI) of 39.0 to 39.9 in adult Primary hypertension ([facility])- Primary Unspecified essential hypertension Cigarette nicotine dependence without complication Class 2 obesity due to excess calories without serious comorbidity with body mass index (BMI) of 39.0 to 39.9 in adult Primary hypertension (CMS/HCC)- Primary Unspecified essential hypertension Class 2 obesity due to excess calories without serious comorbidity with body mass index (BMI) of 39.0 to 39.9 in adult Anxiety Anxiety state, unspecified Cigarette nicotine dependence without complication Moderate persistent asthma in adult without complication (CMS/HCC) Chronic idiopathic urticaria- Primary Idiopathic urticaria documented in this encounter [facility] general Narrative - Reported* Type Description Date Medical History asthma Medical History hives Medical History urethra dilation Medical History yeast infections Surgical History Ureathral dialation Surgical History Critz teeth Surgical History [facility]--Dr owens vaginal biopsies 04/29/19 Hospitalization History asthma 2010 [facility] Other Hospital Discharge instructions No data available for this section [facility] progress note No data available for this section [facility] Summary Purpose Family History Relationship Condition Age at Onset Recorded Date/T dl father Hypertension Unknown Not Specified Hypertension Unknown Advance Directives Advance Directive Response Recorded Date/ Time Advance Directives No April 27, 2017 10:47am Chief Complaint and Reason for Visit Chief Complaint Sore throat Additional Source Comments INFORMATION SOURCE (unrecogn ized section and content) DATE CREATED AUTHOR 08/23/2021 [facility] DATE CREATED AUTHOR AUTHOR'S ORGANIZ ATION 09/05/2021 [facility] DATE CREATED AUTHOR AUTHOR'S ORGANIZ ATION 11/24/2022 [facility] DATE CREATED AUTHOR AUTHOR'S ORGANIZ ATION 05/13/2024 [place] [facility] DATE CREATED AUTHOR AUTHOR'S ORGANIZ ATION 05/15/2024 [place] [facility] DATE CREATED AUTHOR AUTHOR'S ORGANIZ ATION 05/19/2024 [place] [facility] DATE CREATED AUTHOR AUTHOR'S ORGANIZ ATION 07/11/2024 [facility] DATE CREATED AUTHOR AUTHOR'S ORGANIZ ATION 07/11/2024 [facility] DATE CREATED AUTHOR AUTHOR'S ORGANIZ ATION 08/05/2024 [facility] d[facility] Specialists EPIC REASON FOR VISIT (unrecogniz [...] December 23, 2023 End: December 23, 2023 Film Producer Relationship Specialty Start Date End Date Marty Hinson MD [address] [place] [phone] PCP - General Family Medicine 10/26/23 Alexandra Kay NP [address] [place] [phone] PCP - [facility] 01/25/24 Alexandra Kay NP [address] [place] [address] Nurse Practitioner Family Medicine 05/27/23 Alexandra Kay NP [address] [place] [address] Nurse Practitioner Family Medicine 10/26/23 Film Producer Relationship Specialty Start Date End Date Marty Hinson MD [address] [place] [phone] PCP - General Family Medicine 10/26/23 Alexandra Kay NP [address] [place] [phone] PCP - [facility] 01/25/24 Alexandra Kay NP [address] [place] [address] Nurse Practitioner Family Medicine 05/27/23 Alexandra Kay NP [address] [place] [address] Nurse Practitioner Family [facility] 10/26/23 Film Producer Relationship Specialty Start Date End Date Marty Hinson MD [address] [place] [phone] PCP - General [facility] 10/26/23 Alexandra Kay NP [address] [place] [phone] PCP - [facility] 01/25/24 Alexandra Kay NP [address] [place] [address] Nurse Practitioner Family Medicine 05/27/23 Alexandra Kay NP [address] [place] [address] Nurse Practitioner Family [facility] 10/26/23 Film Producer Relationship Specialty Start Date End Date Marty Hinson MD [address] [place] [address] PCP - General Family Medicine 10/26/23 Alexandra Kay NP [address] [place] [address] PCP - [facility] 01/25/24 Alexandra Kay NP [address] [place] [address] Nurse Practitioner Family Medicine 05/27/23 Alexandra Kay NP [address] [place] [address] Nurse Practitioner Family [facility] 10/26/23 Film Producer Relationship Specialty Start Date End Date Marty Hinson MD [address] [place] [phone] PCP - [facility] 10/26/23 Alexandra Kay NP [address] [place] [address] PCP - [facility] 01/25/24 Alexandra Kay NP [address] [place] [address] Nurse Practitioner Family Medicine 05/27/23 Alexandra Kay NP [address] [place] [address] Nurse Practitioner Family [facility] 10/26/23 Film Producer Relationship Specialty Start Date End Date Marty Hisnon MD [address] [place] [phone] PCP - General Family [facility] 10/26/23 Alexandra Kay NP [address] [place] [address] PCP - [facility] 01/25/24 Alexandra Kay NP [address] [place] [address] Nurse Practitioner Family Medicine 05/27/23 Alexandra Kay NP [address] [place] [address] Nurse Practitioner Family [facility] 10/26/23 Film Producer Relationship Specialty Start Date End Date Marty Hinson MD [address] [place] [address] PCP - General [facility] 10/26/23 Alexandra Kay NP [address] [place] [address] PCP - [facility] 01/25/24 Alexandra Kay NP [address] [place] [address] Nurse Practitioner Family Medicine 05/27/23 Alexandra Kay NP [address] [place] [address] Nurse Practitioner Family [facility] 10/26/23 Film Producer Relationship Specialty Start Date End Date Marty Hinson MD [address] [place] [address] PCP - General [facility] 10/26/23 Alexandra Kay NP [address] [place] [address] PCP - [facility] 01/25/24 Alexandra Kay NP [address] [place] [address] Nurse Practitioner Family Medicine 05/27/23 Alexandra Kay NP [address] [place] [address] Nurse Practitioner [facility] 10/26/23 Film Producer Relationship Specialty Start Date End Date Marty Hinson MD [address] [place] [phone] PCP - [facility] 10/26/23 Alexandra Kay NP [address] [place] [address] PCP - [facility] 01/25/24 Alexandra Kay NP [address] [place] [address] Nurse Practitioner Family Medicine 05/27/23 Alexandra Kay NP [address] [place] [address] Nurse Practitioner Family Medicine 10/26/23 Film Producer Relationship Specialty Start Date End Date Marty Hinson MD [address] [place] [address] PCP - General [facility] 10/26/23 Alexandra Kay NP [address] [place] [address] PCP - [facility] 01/25/24 Alexandra Kay NP [address] [place] [address] Nurse Practitioner Family [facility] 05/27/23 Alexandra Kay NP [address] [place] [address] Nurse Practitioner [facility] 10/26/23 Film Producer Relationship Specialty Start Date End Date Marty Hinson MD [address] [place] [address] PCP - General [facility] 10/26/23 Alexandra Kay NP [address] [place] [address] PCP - [facility] 01/25/24 Alexandra Kay NP [address] [place] [address] Nurse Practitioner Family Medicine 05/27/23 Alexandra Kay NP [address] [place] [address] Nurse Practitioner Family Medicine 10/26/23 Film Producer Relationship Specialty Start Date End Date Marty Hinson MD [address] [place] [address] PCP - General Family [facility] 10/26/23 Alexandra Kay NP [address] [place] [address] PCP - [facility] 01/25/24 Alexandra Kay NP [address] [place] [address] Nurse Practitioner Family Medicine 05/27/23 Alexandra Kay NP [address] [place] [address] Nurse Practitioner Family Medicine 10/26/23 Goals (unrecognized [...] BE BASED ON THE PRIMARY CLINICAL RECORDS. [employer] provides no warranty or guarantee of the accuracy or completeness of information in this document.
--- NOTE | 2024-08-06 03:30 | US_ITS ---
The [address] [address] Patient Name: SABRINA GUY MRN: [id number] date: 1990 Sex: F Assigned Patient Location: ER Current Patient Location: ER Accession/Order Number: [id number] Exam Date: 08/06/2024 03:31 Report Date: 08/06/2024 05:28 At the request of: MISHA BAKER Procedure: US OB transvaginal EXAMINATION: Ultrasound OB transvaginal HISTORY: Heavy bleeding for one day COMPARISON: No relevant comparison available. FINDINGS: GESTATIONAL SAC: Elongated gestational sac. YOLK SAC: Absent POLE: Present CARDIAC: Absent UTERUS: Normal size and appearance. OVARIES: Right: Normal. Left: Not seen. CERVIX: 1.1 cm in length and closed. CUL-DE-SAC: Normal. OTHER: None. AGE BY LMP: 14 weeks 2 days ROSELIA BY LMP: 02/02/2025 AGE BY US CRL: 9 weeks 1 day ROSELIA BY US CRL: 03/10/2025 US/US OB transvaginal IMPRESSION: 1. Intrauterine 9 weeks 1 day by today's ultrasound. 2. Elongated gestational sac, absent heartbeat, and a short cervix. This appears to represent demise and impending . Follow-up recommended. Electronically authenticated by: MARCELLE AHMADI Date: 08/06/2024 05:28
[2024-08-06 06:00] LABS: Basophils Absolute Auto 0.1 10^3/uL (0.0-0.1); Basophils Percent Auto 0.2 % (0.2-2.0); Eosinophils Absolute Auto 0.1 10^3/uL (0.0-0.7); Eosinophils Percent Auto 0.2 % (0.9-7.0); Hematocrit 40.2 % (36.0-48.0); Hemoglobin 13.3 g/dL (12.0-16.0); Immature Granulocytes Abs Auto 0.29 10^3/uL (0.00-0.03); Immature Granulocytes Pct Auto 1.4 % (0.0-0.5); Lymphocytes Absolute Auto 3.4 10^3/uL (1.2-3.8); Lymphocytes Percent Auto 16.6 % (20.5-60.0); Mean Corpuscular HGB Conc 33.1 g/dL (29.9-35.2); Mean Corpuscular Hemoglobin 29.4 pg (26.7-34.0); Mean Corpuscular Volume 88.9 fL (81.0-99.0); Mean Platelet Volume 9.9 fL (9.5-13.5); Monocytes Absolute Auto 1.1 10^3/uL (0.3-0.8); Monocytes Percent Auto 5.2 % (1.7-12.0); Neutrophils Absolute Auto 15.8 10^3/uL (1.4-6.5); Neutrophils Percent Auto 76.4 % (43.0-75.0); Platelet Count 410 10^3/uL (150-450); Red Blood Count 4.52 10^6/uL (4.20-5.40); Red Cell Distribution Width 12.5 % (11.0-15.0); White Blood Count 20.7 10^3/uL (4.0-11.0)
[2024-08-06 06:05] LABS: Alanine Aminotransferase 35 U/L (14-59); Albumin Globulin Ratio 0.7; Albumin Level 2.9 g/dL (3.4-5.0); Alkaline Phosphatase 107 U/L (46-116); Anion Gap 12.8; Aspartate Amino Transferase 20 U/L (15-37); BUN Creatinine Ratio 26.4; Bilirubin Total 0.2 mg/dL (0.2-1.0); Calcium 8.9 mg/dL (8.5-10.1); Carbon Dioxide 26.8 mmol/L (21.0-32.0); Chloride 104 mmol/L (98-107); Estimated GFR (African America >60 (>=60 mL/min/1.73m^2); Estimated GFR (Non-African Ame >60 (>=60 mL/min/1.73m^2); Glucose 131 mg/dL (74-106); Potassium 3.6 mmol/L (3.5-5.1); Sodium 140 mmol/L (136-145); Total Protein 6.9 g/dL (6.4-8.2)
--- NOTE | 2024-08-06 06:14 | ED_ITS ---
HPI HPI - General Adult General Stated complaint: VAGINAL BLEEDING 14 WKS History of Present Illness HPI narrative: Patient's chart was done on paper charts during downtime. Related Data Allergies Allergy/AdvReac Type Severity Reaction Status Date / Time No Known Drug Allergies Allergy Verified 08/04/24 20:15 Opioid HPI Opioid Management Most Recent Opioid Data: No Data to Display PFSH PFSH Social History Little interest or pleasure in doing things: not at all Feeling down, depressed, or hopeless: not at all Medical Decision Making MDM Narrative Medical decision making narrative: Patient was discharged on paper charts. Patient chart was done on downtime, please see discharge paperwork. When patient was discharged, it was approxi-1 hour after the ultrasound was performed. I did call [place] radiology, and they stated that patient's read was approximately 2 hours behind. Patient did not want to wait another half hour to an hour to have her ultrasound read. Preliminary report showed approximately 9-week fetus with no heartbeat, most likely demise. Discussion was held with patient and boyfriend along with Malissa CARRILLO in the room as well as a witness during this conversation. Patient was recommended that she could wait another 1 to 1.5 hours to wait for the official ultrasound report. Patient is aware that the beta hCG is only 359. Patient was told that if she wants I cannot force her to stay in the ER, she can be discharged now without having the official ultrasound report but is also not recommended. Patient did want to go home, she did not want to wait another 1 to 1.5 hours for a ultrasound report. Patient is aware that there is demise most likely and her hCG is very low. Patient is comfortable leaving. She is not actively having any significant bleeding or hemorrhaging in the ER this evening. Vital signs had not shown any significant abnormalities. Patient will have pelvic rest. Patient will increase fluids at home. Patient's VETERINARIAN is in [place]. Patient said that she would have normally going to [facility] but came to this ER because of this no and conditions in this hospital is closer to her house in [place]. Patient was told that she could return Back: To our ER anytime, or follow-up with VETERINARIAN in [place]. Patient has an ultrasound scheduled on Thursday of this week. Patient was told to call her VETERINARIAN from [place] on [address]. Patient is aware to take Tylenol for pain and increase fluids. Patient understands pelvic rest. Patient's white blood cell is 20, she has been recently taking prednisone for a rash on her face. No question at discharge. No infectious findings at this time. 629 Ultrasound report showed no significant abnormalities then with the preliminary report was suggesting. Patient is going to call tonight after 7 PM, Malissa CARRILLO will speak to the patient and let her know about her ultrasound report officially. Patient was accepting of this as well as Malissa CARRILLO. No other acute new findings that would warrant phone call to patient at this time. Lab Data Labs: Lab Results 08/06/24 Range/Units 05:47 WBC 20.7 H (4.0-11.0) 10^3/uL RBC 4.52 (4.20-5.40) 10^6/uL Hgb 13.3 (12.0-16.0) g/dL Hct 40.2 (36.0-48.0) % MCV 88.9 (81.0-99.0) fL MCH 29.4 (26.7-34.0) pg MCHC 33.1 (29.9-35.2) g/dL RDW 12.5 (11.0-15.0) % Plt Count 410 (150-450) 10^3/uL MPV 9.9 (9.5-13.5) fL Neut % (Auto) 76.4 H (43.0-75.0) % Lymph % (Auto) 16.6 L (20.5-60.0) % Stokes % (Auto) 5.2 (1.7-12.0) % Eos % (Auto) 0.2 L (0.9-7.0) % Baso % (Auto) 0.2 (0.2-2.0) % Neut # (Auto) 15.8 H (1.4-6.5) 10^3/uL Lymph # (Auto) 3.4 (1.2-3.8) 10^3/uL Stokes # (Auto) 1.1 H (0.3-0.8) 10^3/uL Eos # (Auto) 0.1 (0.0-0.7) 10^3/uL Baso # (Auto) 0.1 (0.0-0.1) 10^3/uL Abs Immat Gran (auto) 0.29 H (0.00-0.03) 10^3/uL Imm/Tot Granulo (auto) 1.4 H (0.0-0.5) % Sodium 140 (136-145) mmol/L Potassium 3.6 (3.5-5.1) mmol/L Chloride 104 (98-107) mmol/L Carbon Dioxide 26.8 (21.0-32.0) mmol/L Anion Gap 12.8 BUN 19.0 H (7.0-18.0) mg/dL Creatinine 0.72 (0.55-1.02) mg/dL Est GFR ( Amer) >60 (>=60 mL/min/1.73m^2) Est GFR (Non-Af Amer) >60 (>=60 mL/min/1.73m^2) BUN/Creatinine Ratio 26.4 Glucose 131 H (74-106) mg/dL Calcium 8.9 (8.5-10.1) mg/dL Total Bilirubin 0.2 (0.2-1.0) mg/dL AST 20 (15-37) U/L ALT 35 (14-59) U/L Alkaline Phosphatase 107 (46-116) U/L Total Protein 6.9 (6.4-8.2) g/dL Albumin 2.9 L (3.4-5.0) g/dL Globulin 4.0 g/dL Albumin/Globulin Ratio 0.7 HCG, Quant 359 mIU/mL Urine Color Brown A (YELLOW) Urine Clarity Turbid A (CLEAR) Urine pH Color interference A (5.0-9.0) Ur Specific Talmage >=1.030 A (1.005-1.025) Urine Protein Color interference A (NEG/TRACE) mg/dL Urine Glucose (UA) Color interference A (NEGATIVE) mg/dL Urine Ketones Color interference A (NEGATIVE) mg/dL Urine Occult Blood Color interference A (NEGATIVE) Urine Nitrite Color interference A (NEGATIVE) Urine Bilirubin Color interference A (NEGATIVE) Urine Urobilinogen Color interference A (0.2-1.0) EU/dL Ur Leukocyte Esterase Color interference A (NEGATIVE) Urine RBC >100 A (0-2) #/HPF Urine WBC 0-2 A (NONE SEEN) #/HPF Ur Squamous Epith Cells Rare (NONE/RARE) #/LPF Urine Crystals Seen A (None Seen) #/HPF Calcium Oxalate Crystal Rare Urine Bacteria None seen (NONE SEEN) #/HPF Urine Casts None seen (NONE SEEN) #/LPF Urine Mucus None seen (NONE SEEN) Discharge Plan Discharge Clinical Impression: Incomplete Patient Disposition: Home, Self-Care Mode of Transportation: Private Vehicle Print Language: Spanish Referrals: Alexandra Kay NP [Primary Care Provider] - 1 week Discharge Date/Time: 08/06/24 05:10
[2024-08-06 06:17] LABS: HCG Quantitative 359 mIU/mL
[2024-08-06 06:21] LABS: Bilirubin Urine COLOR INTERFERENCE (NEGATIVE); Blood Urine COLOR INTERFERENCE (NEGATIVE); Clarity Urine TURBID (CLEAR); Color Urine BROWN (YELLOW); Glucose Urine UA COLOR INTERFERENCE mg/dL (NEGATIVE); Ketones Urine COLOR INTERFERENCE mg/dL (NEGATIVE); Leukocyte Esterase Urine COLOR INTERFERENCE (NEGATIVE); Nitrite Urine COLOR INTERFERENCE (NEGATIVE); Protein Urine COLOR INTERFERENCE mg/dL (NEG/TRACE); Specific Gravity Urine >=1.030 (1.005-1.025); Urobilinogen Urine COLOR INTERFERENCE EU/dL (0.2-1.0); pH Urine COLOR INTERFERENCE (5.0-9.0)
[2024-08-06 06:42] LABS: Bacteria Urine NONE SEEN #/HPF (NONE SEEN); Mucus Urine NONE SEEN (NONE SEEN); RBC Urine >100 #/HPF (0-2); Squamous Epithelial Cell Urine RARE #/LPF (NONE/RARE); WBC Urine 0-2 #/HPF (NONE SEEN)
[2024-08-06 06:43] LABS: Calcium Oxalate Crystals Urine RARE; Cast Seen? NONE SEEN #/LPF (NONE SEEN); Crystals Seen? Seen #/HPF (None Seen)
== END 2024-08-06 05:10 | disposition home or self-care (01) ==
LOC: ER 01:48
PROVIDERS: Emergency Provider Emergency Medicine; PCP Nurse Practitioner
DX: O03.4 Incomplete spontaneous abortion without complication (principal); D72.829 Elevated white blood cell count, unspecified
CPT/HCPCS: 36415; 76817; 80053; 81001; 84702; 85025; 86900; 86901; 99285

== ENCOUNTER 2024-08-08 12:24 | Outpatient (OUT) | payer OTHER, SELFPAY ==
--- OUTSIDE RECORDS SUMMARY | 2024-08-08 12:43 | XMS_ITS | CCD ---
Author Organization [facility] Care Team Providers Care Licensed Audiologist Name Role Phone Amira Sierra Unavailable AICHHOLZ, AUTOMOBILE RACER ALEXANDRA Primary Care Unavailable AICHHOLZ, AUTOMOBILE RACER ALEXANDRA Admitting Unavailable AICHHOLZ, AUTOMOBILE RACER ALEXANDRA Attending Unavailable AICHHOLZ, AUTOMOBILE RACER ALEXANDRA Consulting Unavailable AICHHOLZ, AUTOMOBILE RACER ALEXANDRA Primary Care Unavailable AICHHOLZ, AUTOMOBILE RACER ALEXANDRA Admitting Unavailable AICHHOLZ, AUTOMOBILE RACER ALEXANDRA Attending Unavailable AICHHOLZ, AUTOMOBILE RACER ALEXANDRA Consulting Unavailable AICHHOLZ, ALEXANDRA J Primary Care Physician Aichholz EVIDENCE SPECIALIST, Alexandra Unavailable Marty Hinson MD Primary Care Provider Aichholz EVIDENCE SPECIALIST, Alexandra Unavailable Aichholz EVIDENCE SPECIALIST, Alexandra Unavailable HALEY OWENS Referring Unavailable HENNY [...] Allergy Type Date of Onset Reaction(s) Facility (20 sources) Sulfamethoxazole / Trimethoprim; Translations: [sulfamethoxazole-tr imethoprim] Drug Allergy 4 hivnubiaTemoana m (disorder) [facility] (2 sources) diphenhydrAMINE; Translations: [Benadryl] Drug Allergy 6 [facility] (18 sources) Nitrofurantoin Drug Allergy 1 [facility] (1 source) Sulfamethoxazole Drug Allergy 4 [facility] (1 source) Trimethoprim Drug Allergy 4 [facility] (4 sources) diphenhydrAMINE; Translations: [diphenhydramine] Drug Allergy [facility] Comment on above: RASH (15 sources) diphenhydrAMINE Drug Allergy 4 [facility] (1 source) Sulfamethoxazole / Trimethoprim; Translations: [Bactrim] Drug Allergy [facility] Repository Medications Current Medications Medication Drug Class(es) Dates Sig (Normalized) Sig (Original) [id number] 200 actuat albuterol 0.09 mg/actuat metered dose [...] completed) clobetasol propionate 0.5 mg/ml topical cream (17 sources) Corticosteroid Start: 12-30-2022 clobetasol (Temovate) 0.05 [...] day Active loratadine 10 mg oral tablet (5 sources) Start: 04-29-2019 take 10 mg by [...] for blood-alcohol and blood-drug test] 07-28-2024 Episodic Anxiety disorders (20 sources) Anxiety; Translations: [...] specimen from female genital organ] Onset: 04-15-2022 4 Episodic Other skin disorders (1 source) Hirsutism; Translations: [Hirsutism] Episodic Other skin disorders (4 sources) Lesion of skin and/or skin-associated mucous membrane 03-21-2024 Episodic Other upper respiratory disease (17 sources) Allergic disposition; Translations: [Other allergic rhinitis] [...] Problem Classification Problem Date Documented Date Episodic/Chronic Allergic reactions (20 sources) Allergic disposition; Translations: [Chronic idiopathic urticaria] Onset: 01-12-2023 03-21-2024 Episodic Biliary tract disease (17 sources) Cholelithiasis without obstruction; Translations: [Calculus of [...] Episodic Other diseases of bladder and urethra (17 sources) Urethral stricture; Translations: [Other urethral stricture, [...] Chronic Other nutritional; endocrine; and metabolic disorders (17 sources) Abnormal weight gain; Translations: [Abnormal weight gain] Onset: 03-08-2024 03-08-2024 Episodic Residual codes; unclassified (1 source) Localized edema; Translations: [LOCALIZED EDEMA] Onset: 04-15-2022 Episodic Sexually transmitted infections (not HIV or hepatitis) (20 sources) Human papillomavirus deoxyribonucleic acid test positive, high risk on cervical specimen; Translations: [Cervical high risk human papillomavirus (HPV) DNA test positive] Onset: 10-26-2023 03-21-2024 Episodic Urinary tract infections (20 sources) Urinary tract infectious disease; Translations: [Urinary tract infection, site not specified] Onset: 03-21-2024 Episodic Viral infection (20 sources) Human papilloma virus infection; Translations: [Papillomavirus as the cause of diseases classified elsewhere] Onset: 10-26-2023 07-08-2023 Episodic Results Test Name Value Interpretation Reference Range Facility UA (MICROSCOPIC)on 4 MUCOUS PRESENT Abnormal NONE [facility] Comment on above: Performed By: #### U BENTLEY #### [facility] ([id number]) [address] [place] [address], [address] [place] [address] R.B.CELLS 2 /hpf Normal 0-5 [facility] Comment on above: Performed By: #### U BENTLEY #### [facility] ([id number]) [address] [place] [address], [address] [place] [address] SQUAMOUS EPITHELIUM 4 /hpf Normal 0-5 [facility] Comment on above: Performed By: #### U BENTLEY #### [facility] ([id number]) [address], [address] [place] [address] W.B.CELLS 4 /hpf Normal 0-5 [facility] Comment on above: Performed By: #### U BENTLEY #### [facility] ([id number]) [address], [address] [place] [address] URINE CULTUREon 07-08-2024 Bacteria identified Cx Nom (U) CULTURE RESULTS <10,000 ORGANISMS/ML NORMAL URO GENITAL RITA Normal [facility] Comment on above: Performed By: #### 6 30-4 #### [facility] ([id number]) [address], [address] [place] [address] C Urineon 05-13-2024 Bacteria identified Cx Nom [...] Locations R1: This test was performed at: [facility], [address] [place] [address], [phone] , Normal [facility] Comment on above: Performed By: #### 2 [id number] #### [facility] [address] [place] [id number] Ambulatory Visit Summaryon 0 04-21-2024 Ambulatory Visit [...] Dilation of urethra (04/15/2016), Biopsy of vagina, Tiff tooth. Discharge Vitals Heart Rate (Peripheral) 100 [...] take antibi (more content not included)... Normal [facility] Urology Office/Clinic Noteon 04-21-2024 Urology Office/Clinic [...] in situ of cervix, unspecified) Followed by [facility] [2]. 5. 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 Follow-up With When Contact Information Nilton [...] Asthma Cer (more content not included)... Normal [facility] Comment on above: Result Comment: Elec tronically Signed By: Nilton NUNEZ, Jeni Singer\.br\Date and Time Signed: 04/21/24 12:04 EDT\.br\Electronically Co-Signed By: iA Harris\.br\Date and Time Co-Signed: 04/21/24 11:30 EDT [...] yes avoids baths/hot tubs yes avoids scented [facility] products yes urinates after sexual activity yes [...] in situ of cervix, unspecified) -Followed by [facility]EARCH [facility]RARIAN 4. 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 [address] Additional Instructions: post-op cysto Nilton [...] infection Anx (more content not included)... Normal [facility] Comment on above: Result Comment: Elec tronically Signed By: SHANITA HART PA-C\.br\Date and Time Signed: 03/22/24 10:30 EDT\.br\Electronically Co-Signed By: Vijay Masters\.br\Date and Time Co-Signed: 03/22/24 10:19 EDT No Panel InformationOrdered By: Ralph Osorio on 12-23-2023 Quick Strep (POC) [facility] CULTURE URINEon 11-21-2022 CULTURE URINE Isolate 1 [...] F Nitrofurantoin <=16 S F Normal [facility] Comment on above: Performed By: #### U RCX #### [facility] [address] [place] [address] Dr. Idalia Wilson UA RANDOM W/MICROSCOPICon BACTERIA NONE SEEN Normal NONE SEEN [facility] Comment on above: Performed By: #### U AMIC #### [facility] [address] [place] [address] Dr. Idalia Wilson Bilirubin Ql (U) Negative Normal NEGATIVE [facility] Comment on above: Performed By: #### U AMIC #### [facility] [address] [place] [address] Dr. Idalia Wilson CAST NONE SEEN Normal NONE SEEN [facility] Comment on above: Performed By: #### U AMIC #### [facility] [address] [place] [address] Dr. Idalia Wilson Clarity (U) CLEAR Normal CLEAR [facility] Comment on above: Performed By: #### U AMIC #### [facility] [address] [place] [address] Dr. Idalia Wilson Color (U) LT. YELLOW Normal YELLOW [facility] Comment on above: Performed By: #### U AMIC #### [facility] [address] [address] [address] Idalia Wilson Crystals LM Nom (Urine sed) NONE SEEN Normal NONE SEEN [facility] Comment on above: Performed By: #### U AMIC #### [facility] [address] [address] [address] Idalia Wilson Epithelial cells LM Ql (Urine sed) FEW Abnormal NONE SEEN /RARE [facility] Comment on above: Performed By: #### U AMIC #### [facility] [address] [address] [address] Idalia Wilson Glucose Ql (U) Negative Normal NEGATIVE [facility] Comment on above: Performed By: #### U AMIC #### [facility] [address] [place] [address] Dr. Idalia Wilson Hemoglobin Ql (U) Negative Normal NEGATIVE [facility] Comment on above: Performed By: #### U AMIC #### [facility] [address] [place] [address] Dr. Idalia Wilson Ketones Ql (U) Negative Normal NEGATIVE [facility] Comment on above: Performed By: #### U AMIC #### [facility] [address] [address] [address] Idalia Wilson LEUKOCYTES Negative Normal NEGATIVE [facility] Comment on above: Performed By: #### U AMIC #### [facility] [address] [address] [address] Idalia Wilson MUCOUS SMALL Abnormal NONE SEEN [facility] Comment on above: Performed By: #### U AMIC #### [facility] [address] [place] [address] Dr. Idalia Wilson Nitrite Ql (U) Negative Normal NEGATIVE [facility] Comment on above: Performed By: #### U AMIC #### [facility] [address] [place] [address] Dr. Idalia Wilson pH (U) 6.5 [pH] Normal 5-9 [facility] Comment on above: Performed By: #### U AMIC #### [facility] [address] [place] [address] Dr. Idalia Wilson RBC NONE SEEN Abnormal 0-2 [facility] Comment on above: Performed By: #### U AMIC #### [facility] [address] [address] [address] Idalia Wilson SPEC GRAVITY 1.025 Normal 1.005-<=1.[address] [facility] Comment on above: Performed By: #### U AMIC #### [facility] [address] [address] [address] Idalia Wilson UA PROTEIN Negative Normal NEGATIVE/ TRACE [facility] Comment on above: Performed By: #### U AMIC #### [facility] [address] [address] [address] Idalia Wilson Urobilinogen Qn (U) 0.2 {Mounika'U}/dL Normal 0.2 - 1. 0 [facility] Comment on above: Performed By: #### U AMIC #### [facility] [address] [place] [address] Dr. Idalia Wilson WBC NONE SEEN Normal NONE SEEN [facility] Comment on above: Performed By: #### U AMIC #### [facility] [address] [address] [address] Idalia Wilson Quick Strepon 07-05-2022 S. pyogenes Org specific cx Ql (Throat) Negative [employer] Other Quick Strep [facility] Other HEPATITIS B SURFACE ANTIBODY , QUANTon 04-12-2022 Hepatitis B Surf AB Quant <3.1 Critically low Immunity>9.9 [facility] Comment on above: Result Comment: Stat us of Immunity Anti-HBs Level Inconsistent with Immunity 0.0 - 9.9 Consistent with Immunity >9.9 Performed By: #### H EPBSRF #### [facility] [address] [place] [address] Dr. Idalia Wilson MMR IMMUNITYon 04-12-2022 Mumps Abs, IgG <9.0 Critically low Immune >10.9 [facility] Comment on above: Result Comment: Nega tive <9.0 Equivocal 9.0 - 10.9 Positive >10.9 A positive result generally indicates past exposure to Mumps virus or previous vaccination. Performed By: #### M MRIMMU #### [facility] [address] [place] [address] Dr. Idalia Wilson Rubella Antibodies, IgG 1.57 index Normal Immune >0.99 [facility] Comment on above: Result Comment: Non- immune <0.90 Equivocal 0.90 - 0.99 Immune >0.99 Performed By: #### M MRIMMU #### [facility] [address] [place] [address] Dr. Idalia Wilson Rubeola Ab, IgG >300.0 Normal Immune >16.4 [facility] Comment on above: Result Comment: Nega tive <13.5 Equivocal 13.5 - 16.4 Positive >16.4 Presence of antibodies to Rubeola is presumptive evidence of immunity except when acute infection is suspected. Performed By: #### M MRIMMU #### [facility] [address] [place] [address] Dr. Idalia Wilson VARICELLA IGG ABon 2 Varicella Zoster IgG 736 index Normal Immune >165 [facility] Comment on above: Result Comment: Nega tive <135 Equivocal 135 - 165 Positive >165 A positive result generally indicates exposure to the pathogen or administration of specific immunoglobulins, but it is not indication of active infection or stage of disease. Performed By: #### V SAMUEL #### [facility] [address] [place] [address] Dr. Idalia Wilson CBC AUTO DIFFon 04-11-2022 BASO # 0.1 103/ul Normal 0.0-0.1 [facility] Comment on above: Performed By: #### H EPBSRF #### [facility] [address] [place] [address] Dr. Idalia Wilson Basophils/100 WBC (Bld) 0.8 % Normal 0.2-2.0 [facility] Comment on above: Performed By: #### H EPBSRF #### [facility] [address] [place], [place] [id number] Dr. Idalia Wilson EO # 0.4 103/ul Normal 0.0-0.7 [facility] Comment on above: Performed By: #### H EPBSRF #### [facility] [address] [place] [address] Dr. Idalia Wilson Eosinophils/100 WBC (Bld) 4.1 % Normal 0.9-7.0 [facility] Comment on above: Performed By: #### H EPBSRF #### [facility] [address] [place] [address] Dr. Idalia Wilson Erythrocyte distribution width (RBC) [Ratio] 12.4 % Normal 11.0-15.0 [facility] Comment on above: Performed By: #### H EPBSRF #### [facility] [address] [place] [address] Dr. Idalia Wilson Hematocrit (Bld) [Volume fraction] 44.7 % Normal 36.0-48.0 [facility] Comment on above: Performed By: #### H EPBSRF #### [facility] [address] [place] [address] Dr. Idalia Wilson Hemoglobin (Bld) [Mass/Vol] 14.7 g/dL Normal 12.0-16.0 [facility] Comment on above: Performed By: #### H EPBSRF #### [facility] [address] [place] [address] Dr. Idalia Wilson IG # 0.03 10e3/ul Normal 0.00-0.03 [facility] Comment on above: Performed By: #### H EPBSRF #### [facility] [address] [place] [address] Dr. Idalia Wilson IG % 0.3 % Normal 0.0-0.5 [facility] Comment on above: Performed By: #### H EPBSRF #### [facility] [address] [place] [address] Dr. Idalia Wilson LYMPH # 2.5 103/ul Normal 1.2-3.8 [facility] Comment on above: Performed By: #### H EPBSRF #### [facility] [address] [address] [address] Idalia Wilson Lymphocytes/100 WBC (Bld) 26.6 % Normal 20.5-60.0 [facility] Comment on above: Performed By: #### H EPBSRF #### [facility] [address] [place] [address] Dr. Idalia Wilson MANUAL DIFF REQ NO Normal [facility] Comment on above: Performed By: #### H EPBSRF #### [facility] [address] [place] [address] Dr. Idaila Wilson MCH (RBC) [Entitic mass] 29.1 pg Normal 26.7-34.0 [facility] Comment on above: Performed By: #### H EPBSRF #### [facility] [address] [place] [address] Dr. Idalia Wilson MCHC (RBC) [Mass/Vol] 32.9 g/dL Normal 29.9-35.2 [facility] Comment on above: Performed By: #### H EPBSRF #### [facility] [address] [place] [address] Dr. Idalia Wilson MCV (RBC) [Entitic vol] 88.5 fL Normal 81.0-99.0 [facility] Comment on above: Performed By: #### H EPBSRF #### [facility] [address] [place] [address] Dr. Idalia Wilson MONO # 0.7 103/ul Normal 0.3-0.8 [facility] Comment on above: Performed By: #### H EPBSRF #### [facility] [address] [place] [address] Dr. Idalia Wilson Monocytes/100 WBC (Bld) 7.2 % Normal 1.7-12.0 [facility] Comment on above: Performed By: #### H EPBSRF #### [facility] [address] [place] [address] Dr. Idalia Wilson NEUT # 5.8 103/ul Normal 1.4-6.5 [facility] Comment on above: Performed By: #### H EPBSRF #### [facility] [address] [address] [address] Idalia Wilson Neutrophils/100 WBC (Bld) 61.0 % Normal 43.0-75.0 [facility] Comment on above: Performed By: #### H EPBSRF #### [facility] [address] [address] [address] Idalia Wilson Platelet mean volume (Bld) [Entitic vol] 10.2 fL Normal 9.5-13.5 [facility] Comment on above: Performed By: #### H EPBSRF #### [facility] [address] [address] [address] Idalia Wilson PLT 327 103/ul Normal 150-450 [facility] Comment on above: Performed By: #### H EPBSRF #### [facility] [address] [place] [address] Dr. Idalia Wilson RBC 5.05 106/ul Normal 4.20-5.40 [facility] Comment on above: Performed By: #### H EPBSRF #### [facility] [address] [address] [address] Idalia Wilson WBC 9.5 103/ul Normal 4.0-11.0 [facility] Comment on above: Performed By: #### H EPBSRF #### [facility] [address] [place] [address] Dr. Idalia Wilson FREE T4on 04-11-2022 Free T4 [Mass/Vol] 0.94 ng/dL Normal 0.76-1.46 [facility] Comment on above: Performed By: #### F T4 #### [facility] [address] [place] [address] Dr. Idalia Wilson GLYCOHEMOGLOBIN A1Con 2021 ADA RECOMMENDATION SEE BELOW Normal [facility] Comment on above: Result Comment: ADA RECOMMENDED LIMIT 4.0 - 6.0 ADA THERAPEUTIC TARGET < 7.0 ACTION SUGGESTED > 7.0 Performed By: #### A 1C #### [facility] [address] [place] [address] Dr. Idalia Wilson Glucose [Mass/Vol] 108 mg/dL Normal [facility] Comment on above: Performed By: #### A 1C #### [facility] [address] [address] [address] Idalia Wilson HbA1c (Bld) [Mass fraction] 5.4 % Normal 4.5-6.2 [facility] Comment on above: Performed By: #### A 1C #### [facility] [address] [address] [address] dIalia Wilson LIPID PROFILEon 04-11-2022 CHOL-HDL RATIO NORM SEE BELOW Normal [facility] Comment on above: Result Comment: 3.3 - 4.4 LOW RISK 4.4 - 7.1 AVERAGE RISK 7.1 - 11.0 MODERATE RISK >11.0 HIGH RISK Performed By: #### H EPBSRF #### [facility] [address] [address] [address] Idalia Wilson Cholesterol [Mass/Vol] 202 mg/dL Critically high <=200 [facility] Comment on above: Performed By: #### H EPBSRF #### [facility] [address] [address] [address] Idalia Wilson Cholesterol in HDL [Mass/Vol] 37 mg/dL Critically low 40-60 [facility] Comment on above: Performed By: #### H EPBSRF #### [facility] [address] [address] [address] Idalia Wilson Cholesterol in LDL [Mass/Vol] 120.2 mg/dL Normal [facility] Comment on above: Performed By: #### H EPBSRF #### [facility] [address] [address] [address] Idalia Wilson Cholesterol.total/Cho lesterol in HDL [Mass ratio] 5.5 {ratio} Normal [facility] Comment on above: Performed By: #### H EPBSRF #### [facility] [address] [address] [address] Idalia Wilson HDL NORMAL > or = 60 mg/dl - LO W CARDIOVASCULAR RISK <40 mg/dl - HIGH CARDIOVASCULAR RISK Normal [facility] Comment on above: Performed By: #### H EPBSRF #### [facility] [address] [address] [address] Idalia Wilson LDL CALC NORMAL SEE BELOW Normal [facility] Comment on above: Result Comment: <100 mg/dl OPTIMAL 100 - 129 mg/dl NEAR OR ABOVE OPTIMAL 130 - 159 mg/dl BORDERLINE HIGH 160 - 189 mg/dl HIGH >190 mg/dl VERY HIGH Performed By: #### H EPBSRF #### [facility] [address] [address] [address] Idalia Wilson Triglyceride [Mass/Vol] 224 mg/dL Critically high <=150 [facility] Comment on above: Performed By: #### H EPBSRF #### [facility] [address] [address] [address] Idalia Wilson VLDL CALC 44.8 mg/dL Normal [facility] Comment on above: Performed By: #### H EPBSRF #### [facility] [address] [place] [address] Dr. Idalia Wilson LIVER PROFILEon 04-11-2022 Albumin [Mass/Vol] 3.9 g/dL Normal 3.4-5.0 [facility] Comment on above: Performed By: #### H EPBSRF #### [facility] [address] [address] [address] Idalia Wilson Albumin/Globulin [Mass ratio] 0.9 {ratio} Normal [facility] Comment on above: Performed By: #### H EPBSRF #### [facility] [address] [address] [address] Idalia Wilson ALP [Catalytic activity/Vol] 152 U/L Critically high 46-116 [facility] Comment on above: Performed By: #### H EPBSRF #### [facility] [address] [place] [address] Dr. Idalia Wilson ALT [Catalytic activity/Vol] 49 U/L Normal 14-59 [facility] Comment on above: Performed By: #### H EPBSRF #### [facility] [address] [address] [address] Idalia Wilson AST [Catalytic activity/Vol] 22 U/L Normal 15-37 [facility] Comment on above: Performed By: #### H EPBSRF #### [facility] [address] [place] [address] Dr. Idalia Wilson BILI, CONJUGATED 0.1 mg/dL Normal 0.0-0.2 [facility] Comment on above: Performed By: #### H EPBSRF #### [facility] [address] [place] [address] Dr. Idalia Wilson Bilirubin [Mass/Vol] 0.5 mg/dL Normal 0.2-1.0 [facility] Comment on above: Performed By: #### H EPBSRF #### [facility] [address] [place] [address] Dr. Idalia Wilson Globulin (S) [Mass/Vol] 4.3 g/dL Normal [facility] Comment on above: Performed By: #### H EPBSRF #### [facility] [address] [place] [address] Dr. Idalia Wilson Protein [Mass/Vol] 8.2 g/dL Normal 6.4-8.2 [facility] Comment on above: Performed By: #### H EPBSRF #### [facility] [address] [place] [address] Dr. Idalia Wilson PROF CHEM 8 (BAS METB)on Anion gap [Moles/Vol] 11.6 mmol/L Normal [facility] Comment on above: Performed By: #### L IPID, TSH, LIVER, BMP #### [facility] [address] [place] [address] Dr. Idalia Wilson Calcium [Mass/Vol] 9.5 mg/dL Normal 8.5-10.1 [facility] Comment on above: Performed By: #### L IPID, TSH, LIVER, BMP #### [facility] [address] [place] [address] Dr. Idalia Wilson Chloride [Moles/Vol] 102 mmol/L Normal 98-107 [facility] Comment on above: Performed By: #### L IPID, TSH, LIVER, BMP #### [facility] [address] [address] [address] Idalia Wilson CO2 [Moles/Vol] 26.3 mmol/L Normal 21.0-32.0 [facility] Comment on above: Performed By: #### L IPID, TSH, LIVER, BMP #### [facility] [address] [address] [address] Idalia Wilson Creatinine [Mass/Vol] 0.60 mg/dL Normal 0.55-1.02 [facility] Comment on above: Performed By: #### L IPID, TSH, LIVER, BMP #### [facility] [address] [address] [address] Idalia Wilson EGFR-AF BELGIAN >60 Normal >=60 [facility] Comment on above: Performed By: #### L IPID, TSH, LIVER, BMP #### [facility] [address] [address] [address] Idalia Wilson EGFR-NON AF BELGIAN >60 Normal >=60 [facility] Comment on above: Performed By: #### L IPID, TSH, LIVER, BMP #### [facility] [address] [address] [address] Idalia Wilson Glucose [Mass/Vol] 98 mg/dL Normal 74-106 [facility] Comment on above: Performed By: #### L IPID, TSH, LIVER, BMP #### [facility] [address] [address] [address] Idalia Wilson Potassium [Moles/Vol] 3.9 mmol/L Normal 3.5-5.1 [facility] Comment on above: Performed By: #### L IPID, TSH, LIVER, BMP #### [facility] [address] [address] [address] Idalia Wilson Sodium [Moles/Vol] 136 mmol/L Normal 136-145 [facility] Comment on above: Performed By: #### L IPID, TSH, LIVER, BMP #### [facility] [address] [address] [address] Idalia Wilson Urea nitrogen [Mass/Vol] 12.0 mg/dL Normal 7.0-18.0 [facility] Comment on above: Performed By: #### L IPID, TSH, LIVER, BMP #### [facility] [address] [place] [address] Dr. Idalia Wilson Urea nitrogen/Creatinine [Mass ratio] 20.0 mg/mg Normal [facility] Comment on above: Performed By: #### L IPID, TSH, LIVER, BMP #### [facility] [address] [place] [address] Dr. Idalia Wilson TSHon 04-11-2022 TSH 1.128 uIU/mL Normal 0.358-3.740 [facility] Comment on above: Performed By: #### H EPBSRF #### [facility] [address] [place] [address] Dr. Idalia Wilsno UA (CLEAN/CATCH) COMPUGRAPH OPERATOR/MICRO I F IND.on 04-11-2022 Bilirubin Ql (U) Negative Normal NEGATIVE [facility] Comment on above: Performed By: #### U ACSIND, UMICRO #### [facility] [address] [place] [address] Dr. Idalia Wilson Clarity (U) CLEAR Normal CLEAR [facility] Comment on above: Performed By: #### U ACSIND, ICRO #### [facility] [address] [place] [address] Dr. Idalia Wilson Color (U) LT. YELLOW Normal YELLOW [facility] Comment on above: Performed By: #### U ACSIND, UMICRO #### [facility] [address] [place] [address] Dr. Idalia Wilson Glucose Ql (U) Negative Normal NEGATIVE [facility] Comment on above: Performed By: #### U ACSIND, UMICRO #### [facility] [address] [place] [address] Dr. Idalia Wilson Hemoglobin Ql (U) Negative Normal NEGATIVE [facility] Comment on above: Performed By: #### U ACSIND, UMICRO #### [facility] [address] [place] [address] Dr. Idalia Wilson Ketones Ql (U) Negative Normal NEGATIVE [facility] Comment on above: Performed By: #### U ACSIND, UMICRO #### [facility] [address] [address] [address] Idalia Wilson LEUKOCYTES Negative Normal NEGATIVE [facility] Comment on above: Performed By: #### U ACSIND, UMICRO #### [facility] [address] [address] [address] Idalia Wilson Nitrite Ql (U) Negative Normal NEGATIVE [facility] Comment on above: Performed By: #### U ACSIND, UMICRO #### [facility] [address] [address] [address] Idalia Wilson pH (U) 6.5 [pH] Normal 5-9 [facility] Comment on above: Performed By: #### U ACSIND, UMICRO #### [facility] [address] [place] [address] Dr. Idalia Wilson SPEC GRAVITY 1.015 Normal 1.005-<=1.[address] [place] [address] Comment on above: Performed By: #### U ACSIND, UMICRO #### [facility] [address] [address] [address] Idalia Wilson UA PROTEIN Negative Normal NEGATIVE/ TRACE [facility] Comment on above: Performed By: #### U ACSIND, UMICRO #### [facility] [address] [place] [address] Dr. Idalia Wilson UR MICRO IND NOT INDICATED Normal [facility] Comment on above: Performed By: #### U ACSIND, UMICRO #### [facility] [address] [address] [address] Idalia Wilson Urobilinogen Qn (U) 0.2 {Mounika'U}/dL Normal 0.2 - 1. 0 [facility] Comment on above: Performed By: #### U ACSIND, UMICRO #### [facility] [address] [address] [address] Idalia Wilson URINE MICROSCOPIC ONLYon BACTERIA NONE SEEN Normal NONE SEEN [facility] Comment on above: Performed By: #### U ACSIND, UMICRO #### [facility] [address] [place] [address] Dr. Idalia Wilson Bacteria identified Cx Nom (U) NOT INDICATED Normal [facility] Comment on above: Performed By: #### U ACSIND, UMICRO #### [facility] [address] [place] [address] Dr. Idalia Wilson CAST NONE SEEN Normal NONE SEEN [facility] Comment on above: Performed By: #### U ACSIND, UMICRO #### [facility] [address] [place] [address] Dr. Idalia Wilson Crystals LM Nom (Urine sed) NONE SEEN Normal NONE SEEN [facility] Comment on above: Performed By: #### U ACSIND, UMICRO #### [facility] [address] [place] [address] Dr. Idalia Wilson Epithelial cells LM Ql (Urine sed) MODERATE Abnormal NONE SEEN /RARE [facility] Comment on above: Performed By: #### U ACSIND, UMICRO #### [facility] [address] [place] [address] Dr. Idalia Wilson MUCOUS TRACE Abnormal NONE SEEN [facility] Comment on above: Performed By: #### U ACSIND, UMICRO #### [facility] [address] [place] [address] Dr. Idalia Wilson RBC NONE SEEN Abnormal 0-2 [facility] Comment on above: Performed By: #### U ACSALPHONSO, UMICRO #### [facility] [address] [place] [address] Dr. Idalia Wilson WBC NONE SEEN Normal NONE SEEN [facility] Comment on above: Performed By: #### U ACSIND, UMICRO #### [facility] [address] [place] [address] Dr. Idalia Feliciano 01-10-2021 OVS Visit (SP) Office ([facility]) CARINA SCHULTZ ([id number]) 1990 F UPA Date Time Provider Department 01/10/21 1:20 PM MILEY RAMIREZ During your visit today, we recorded the following information about you: Temperature Pulse Blood pressure Weight 97.8 degrees 107/minute 148/94 116.1 kg Miley Ramirez MD 01/11/2021 5:21 AM Signed Gynecologic Oncology [facility] Follow-up visit Re: Carina Schultz CC#: [id number] Date of service: 01/10/2021 Haley Owens MD ([facility]) [facility] [address] [address] Dear Haley Owens: Carina presents for follow [...] lesions present on labia bilaterally Rt> Lt. Online [employer] Specialist: Carolyn Hancock NP IMPRESSION/PLAN: Patient presents today for follow up. Patient has decreased her smoking. Pt had stopped her Aldara cream since her gynecology teacher wanted to repeat biopsy. I recommend patient restart Aldara cream since vulvar lesions are still present. Encouraged smoking cessation. RTC 3 months Thank you for referring her for gynecologic oncology consultation. I will be in touch with you regarding her findings. CC: Haley Owens MD ([facility]) [email or web address] [place] [id number] No primary care provider on file. (PCP) The previous note from Dr. Ramirez dated 10/11/2020 was copied forward and the necessary changes were made above. ATTESTATION: By signing my name below, I, Yanni Adelaide, attest that this documentation has been prepared under the direction and in the presence of Miley Ramirez MD. Electronically signed:Yanni Bryson (more content not included)... Normal [facility] CNOVSPon 10-11-2020 CNOVSP Visit (SP) Office (POP) CARINA SCHULTZ ([id number]) 1990 F UPA Date Time Provider Department 10/11/20 1:20 PM MILEY RAMIREZ During your visit today, we recorded the following information about you: Temperature Pulse Blood pressure Weight 98.7 degrees 93/minute 140/89 116.1 kg Last Period 09/20/20 Miley Ramirez MD 10/12/2020 10:46 AM Signed Gynecologic Oncology [facility] Consultation Re: Carina Schultz CCF#: [id number] Date of service: 10/11/2020 Haley Owens MD () [address] [place] [address] [address] 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 She resides in [place], [place]. REVIEW OF SYSTEMS: Constitutional: No recent [...] sweats. Hem (more content not included)... Normal [facility] HCG,Urineon 09-26-2020 Beta HCG ( test) Ql (U) Negative Normal [facility] Comment on above: Result Comment: PERF ORMED BY: [address] [place] [address] PATHOLOGIST REINFORCING STEEL WORKER [employer] JEYSON KOHLER M.D. Performed By: #### U HCG #### [address] [place] [address] [facility] Larry 09-26-2020 L -- ---- Specimen: [id number] Received: 09/26/20 Status: DELMI [facility] Num: [id number] Spec Type: Surgical Subm Dr: Haley Owens MD-BLAS Tissues: A Cone/Leep (CERVIX) B VULVA - biopsy (LT VULVAR BX) C VULVA - biopsy (RT VULVAR BX) Procedures: HE Stain/34, Gross/Micro L5, Gross/Micro L4/2 ---- Patient Age/Sex Location Account Attending Physician ---- Carina Schultz 30/F [place] [id number] IVETTE Henderson ---- SPEC NUM: [id number] RECD: 09/26/20 STATUS: MURRAYJohnathon COX NUM: [id number] FAM: 09/26/20- [facility] DR: Haley Owens MD-[facility] ENTERED: 09/26/20 [facility] DR: CHARITY TYPE: Surgical DEPT: S ORDERED: [...] Cervical intraepithelial neoplasia, VIN2, VIN3 ---- Specimen: [id number] Received: 09/26/20 Status: DELMI [facility] Num: [id number] Spec Type: Surgical Subm Dr: Haley Owens MD-[facility] Tissues: A Cone/Leep (CERVIX) B VULVA - biopsy (LT VULVAR BX) C VULVA - biopsy (RT VULVAR BX) Procedures: HE Stain/34, Gross/Micro L5, Gross/Micro L4/2 ---- Patient: Neo Schultzveto Allen [id number] (Continued) ---- Specimen: [id number] Received: 09/26/20 (Continued) Signed (signature on file) Karlie Cuello MD 10/01/20 1052 ---- Specimen: Received: 09/26/20 Status: DELMI [facility] Num: [id number] Spec Type: Surgical Subm Dr: Haley Owens MD-[facility] Tissues: A Cone/Leep (CERVIX) B VULVA - biopsy (LT VULVAR BX) C VULVA - biopsy (RT VULVAR BX) Procedures: HE Stain/34, Gross/Micro L5, Gross/Micro L4/2 ---- Patient: Carina Schultz [id number] (Continued) ---- Specimen: [id number] Received: 09/26/20 (Continued) Gross Description A. Received [...] and le (more content not included)... Normal [facility] SARS-CoV-2 (COVID-19) RNA MALIK+probe Ql (Unsp spec) Negative Normal Negative [facility] Comment on above: Order Comment: Healt hcare Worker?: N Result Comment: Test ing for SARS-CoV-2 by RT-PCR This test was developed and its performance characteristics determined by [employer] ([employer]) and validated at the [facility]. This test has not been FDA [...] is terminated or revoked sooner. PERFORMED BY: [place] [address] PATHOLOGIST REINFORCING STEEL WORKER [employer] JEYSON KOHLER M.D. Performed By: #### C OVID-19 [facility] #### [address] COVID-19 [facility] 09-19-2020 SARS-CoV-2 (COVID-19) RNA MALIK+probe Ql (Unsp spec) Negative Normal Negative [facility] Comment on above: Order Comment: Comme nt pst Healthcare Worker?: N Result Comment: Test ing for SARS-CoV-2 by RT-PCR This test was developed and its performance characteristics determined by [employer] ([employer]) and validated at the [facility]. This test has not been FDA [...] is terminated or revoked sooner. PERFORMED BY: [place] [address] PATHOLOGIST REINFORCING STEEL WORKER [employer] JEYSON KOHLER M.D. Performed By: #### C OVID-19 [facility] #### [address] Vital Signs Date Time Vital Sign Value Performing Clinician Facility 05-31-2024 11:070500 Body height 170.2 cm Alexandra Kay EVIDENCE SPECIALIST Work Phone: [facility] 05-31-2024 11:07-0500 Body mass index (BMI) [Ratio] 40.82 kg/m2 Alexandra Kay EVIDENCE SPECIALIST Work Phone: [facility] 05-31-2024 11:07-0500 Body temperature 98.71 [degF] Alexandra Kay EVIDENCE SPECIALIST Work Phone: [facility] 05-31-2024 11:07-0500 Body weight 118.21 kg Alexandra Kay EVIDENCE SPECIALIST Work Phone: [facility] 05-31-2024 11:07-0500 Diastolic blood pressure 84 mm[Hg] Alexandra Aichholz EVIDENCE SPECIALIST Work Phone: [facility] 05-31-2024 11:07-0500 Heart rate 94 /min Alexandra Trinoholz EVIDENCE SPECIALIST Work Phone: [facility] 05-31-2024 11:07-0500 Respiratory rate 18 /min Alexandra Penniehholz EVIDENCE SPECIALIST Work Phone: [facility] 05-31-2024 11:07-0500 SaO2% (BldA) [Mass fraction] 98 % Alexandra Trinoholz EVIDENCE SPECIALIST Work Phone: [facility] 05-31-2024 11:07-0500 Systolic blood pressure 128 mm[Hg] Alexandra Aichholz EVIDENCE SPECIALIST Work Phone: [facility] 05-03-2024 08:38-0400 Body height 170.2 cm Alexandra Penniehholz EVIDENCE SPECIALIST Work Phone: [facility] 05-03-2024 08:38-0400 Body mass index (BMI) [Ratio] 39.94 kg/m2 Alexandra Trinoholz EVIDENCE SPECIALIST Work Phone: [facility] 05-03-2024 08:38-0400 Body temperature 98.8 [degF] Alexandra Penniehholz EVIDENCE SPECIALIST Work Phone: [facility] 05-03-2024 08:38-0400 Body weight 115.67 kg Alexandra Penniehholz EVIDENCE SPECIALIST Work Phone: [facility] 05-03-2024 08:38-0400 Diastolic blood pressure 86 mm[Hg] Alexandra Penniehholz EVIDENCE SPECIALIST Work Phone: [facility] 05-03-2024 08:38-0400 Heart rate 89 /min Alexandra Aichholz EVIDENCE SPECIALIST Work Phone: [facility] 05-03-2024 08:38-0400 Respiratory rate 18 /min Alexandra Aichholz EVIDENCE SPECIALIST Work Phone: [facility] 05-03-2024 08:38-0400 SaO2% (BldA) [Mass fraction] 97 % Alexandra Aichholz EVIDENCE SPECIALIST Work Phone: [facility] 05-03-2024 08:38-0400 Systolic blood pressure 140 mm[Hg] Alexandra Kay EVIDENCE SPECIALIST Work Phone: [facility] 04-21-2024 10:18-0400 Blood Pressure Location Jeni Lue [facility] 04-21-2024 10:18-0400 Diastolic blood pressure 100 mm[Hg] Jeni Lue [facility] 04-21-2024 10:18-0400 Heart rate 100 /min Jeni Lue [facility] 04-21-2024 10:18-0400 Respiratory rate 16 /min Jeni Lue [facility] 04-21-2024 10:18-0400 Systolic blood pressure 148 mm[Hg] Jeni Lue [facility] 04-07-2024 09:27-0400 Body mass index (BMI) [Ratio] 39.47 kg/m2 Josiah Young MD Work Phone: [facility] 04-07-2024 09:27-0400 Body weight 114.31 kg Josiah Young MD Work Phone: [facility] 03-22-2024 09:42-0400 Blood Pressure Location SHANITA TANNER [facility] 03-22-2024 09:42-0400 Body temperature 98.6 [degF] SHANITA HART [facility] 03-22-2024 09:42-0400 Diastolic blood pressure 84 mm[Hg] SHANITA HART [facility] 03-22-2024 09:42-0400 Heart rate 79 /min SHANITA HART [facility] 03-22-2024 09:42-0400 Respiratory rate 16 /min SHANITA HART [facility] 03-22-2024 09:42-0400 Systolic blood pressure 132 mm[Hg] SHANITA HART [facility] 12-23-2023 13:45-0400 Body height 170.18 cm [facility] 12-23-2023 13:45-0400 Body mass index (BMI) [Ratio] 40.5 kg/m2 [facility] 12-23-2023 13:45-0400 Body temperature 98.2 [degF] [facility] 12-23-2023 13:45-0400 Body weight 117.48 kg [facility] 12-23-2023 13:45-0400 Heart rate 83 /min [facility] 12-23-2023 13:45-0400 Respiratory rate 18 /min [facility] 12-23-2023 13:45-0400 SaO2% (BldA) [Mass fraction] 99 % [facility] 07-05-2022 10:05-0500 Body height 170.18 cm Amira Sierra Other [facility] Other 07-05-2022 10:05-0500 Body mass index (BMI) [Ratio] 37.59 kg/m2 Amira Sierra Other [facility] Other 07-05-2022 10:05-0500 Body temperature 98.1 [degF] Amira Sierra Other [facility] Other 07-05-2022 10:05-0500 Body weight 108.86 kg Amira Sierra Other [employer] Other 07-05-2022 10:05-0500 Respiratory rate 18 /min Amira Sierra Other [employer] Other 07-05-2022 10:05-0500 SaO2% (BldA) [Mass fraction] 99 % Amira Sierra Other [employer] Other Encounters Encounter Date Encounter Type Care Provider Facility Start: 08-02-2024 End: 08-02-2024 Refill Alexandra Rahul EVIDENCE SPECIALIST Work Phone: [facility] Comment on above: Chronic idiopathic u rticaria (Primary Dx) Start: 08-01-2024 End: 08-04-2024 Telephone encounter Josiah Young MD Work Phone: [facility] Start: 07-28-2024 End: 07-28-2024 ambulatory JOSIAH YOUNG Not Available Start: 07-28-2024 End: 07-28-2024 Office outpatient visit 25 minutes Josiah Young MD Work Phone: [facility] Comment on above: Chronic idiopathic u rticaria (Primary Dx) Start: 07-28-2024 End: 07-28-2024 flow sheet [facility] Comment on above: GA: 13w0d Start: 07-28-2024 End: 07-28-2024 ambulatory ALEXANDRA AICHHOLZ Not Available Start: 07-13-2024 End: 07-13-2024 ambulatory ALEXANDRA AICHHOLZ Not Available Start: 07-08-2024 End: 07-08-2024 ambulatory BEATRIZ SIMONS [facility] Start: 07-08-2024 End: 07-08-2024 ambulatory BEATRIZKYLAH SIMONS [facility] Start: 06-16-2024 End: 06-16-2024 ambulatory ALEXANDRA AICHHOLZ Not Available Start: 05-31-2024 End: 05-31-2024 Bamboo flowsheet Alexandra Henrryz EVIDENCE SPECIALIST Work Phone: [facility] Start: 05-31-2024 End: 05-31-2024 Bamboo flowsheet Alexandra Penniehindiraz EVIDENCE SPECIALIST Work Phone: [facility] Start: 05-31-2024 End: 05-31-2024 Office outpatient visit 25 minutes Alexandra Rahul EVIDENCE SPECIALIST Work Phone: [facility] Comment on above: Primary hypertension (CMS/HCC) (Primary Dx); Class 2 obesity due to excess calories without serious comorbidity with body mass index (BMI) of 39.0 to 39.9 in adult; Anxiety; Cigarette nicotine dependence without complication; Moderate persistent asthma in adult without complication (CMS/HCC) Start: 05-31-2024 End: 05-31-2024 ambulatory ALEXANDRA TRINOHOLZ Not Available Start: 05-13-2024 End: 05-15-2024 Telephone encounter Haley Owens MD Work Phone: [facility] Start: 05-11-2024 End: 05-11-2024 Lab Drop off Jeni Callaway [facility] Start: 05-11-2024 End: 05-11-2024 ambulatory Jeni Call[place] [facility] Start: 05-11-2024 End: 05-11-2024 Patient encounter procedure Jeni Callaway [facility] Start: 05-04-2024 End: 05-04-2024 ambulatory ALEXANDRA HENRRYZ Not Available Start: 05-03-2024 End: 05-03-2024 Bamboo flowsheet Alexandra Henrryz EVIDENCE SPECIALIST Work Phone: [facility] Start: 05-03-2024 End: 05-03-2024 Bamboo flowsheet Alexandra Penniehindiraz EVIDENCE SPECIALIST Work Phone: [facility] Start: 05-03-2024 End: 05-03-2024 Office outpatient visit 15 minutes Alexandra Kay EVIDENCE SPECIALIST Work Phone: [facility] Comment on above: Primary hypertension (CMS/HCC) (Primary Dx); Cigarette nicotine dependence without complication; Class 2 obesity due to excess calories without serious comorbidity with body mass index (BMI) of 39.0 to 39.9 in adult Start: 05-03-2024 End: 05-03-2024 ambulatory ALEXANDRA HENRRYZ Not Available Start: 04-21-2024 End: 04-21-2024 ambulatory Jeni Callaway Facility:[facility] Start: 04-21-2024 End: 04-21-2024 Patient encounter procedure Jeni Callaway [facility] Start: 04-07-2024 End: 04-07-2024 Bamboo flowswilliam Young MD Work Phone: [facility] Start: 04-07-2024 End: 04-07-2024 Bamboo flowswilliam Young MD Work Phone: [facility] Start: 04-07-2024 End: 04-07-2024 ambulatory JOSIAH YOUNG Not Available Start: 04-07-2024 End: 04-07-2024 Office outpatient visit 15 minutes Josiah Young MD Work Phone: [facility] Comment on above: Chronic idiopathic u rticaria (Primary Dx) Start: 03-23-2024 End: 03-23-2024 ambulatory ALEXANDRA AICJoeHOLZ Not Available Start: 03-22-2024 End: 03-22-2024 ambulatory HALEY OWENS Facility:[facility] Start: 03-22-2024 End: 03-22-2024 Patient encounter procedure SHANITA HART [facility] Start: 03-20-2024 End: 03-21-2024 Refill Alexandra Aichholz EVIDENCE SPECIALIST [facility] Phone[facility] Comment on above: Anxiety Start: 03-12-2024 End: 03-21-2024 Telephone encounter Haley Owens MD Work Phone: [facility] Start: 03-08-2024 End: 03-08-2024 ambulatory [...] Start: 12-28-2023 Patient encounter status Alexandra Aichholz EVIDENCE SPECIALIST Work Phone: [facility] Start: 12-28-2023 End: 12-28-2023 ambulatory ALEXANDRA AICHHOLZ Not Available Start: 12-23-2023 End: 12-23-2023 ambulatory [facility] Work Phone: Start: 12-23-2023 End: 12-23-2023 Patient encounter procedure [facility] Work Phone: Start: 12-09-2023 End: 12-09-2023 ambulatory ALEXANDRA AICHHOLZ Not Available Start: 11-05-2023 End: 11-05-2023 ambulatory JOSIAH YOUNG Not Available Start: 11-04-2023 End: 11-04-2023 ambulatory ALEXANDRA AICHHOLZ Not Available Start: 10-26-2023 End: 10-26-2023 ambulatory ALEXANDRA AICHHOLZ Not Available Start: 10-05-2023 End: 10-05-2023 ambulatory ALEXANDRA KAY Not Available Start: 09-07-2023 End: 09-07-2023 ambulatory ALEXANDRA HUSSEINHOLZ Not Available Start: 08-10-2023 End: 08-10-2023 ambulatory ALEXANDRA HUSSEINHOLZ Not Available Start: 11-19-2022 End: 11-19-2022 ambulatory ZANA KAY Facility:[facility] Start: 07-05-2022 End: 07-05-2022 ambulatory Amira Sierra Other [employer] [facility] Other Start: 07-05-2022 Office outpatient vi sit 15 minutes Amira Sierra [facility] [facility] Start: 04-11-2022 End: 04-12-2022 ambulatory ZANA KAY Facility:H1 Procedures Date Procedure Procedure Detail Performing Clinician Start: 04-21-2024 Flexible cystoscopy Beverly Callaway Start: 02-16-2024 Microscopic observat ion [Identifier] in Cervix by Cyto stain Alexandra Rahul EVIDENCE SPECIALIST Work Phone: Start: 12-23-2023 Quick Strep (POC) Start: 04-15-2016 Dilation of urethra JUMANA HART Structure of wisdom tooth (body structure) SHANITA HART Vaginal biopsy SHANITA Jurado Plan of Treatment Date Care Activity Detail Author Start: 02-15-2029 Screening for malign ant neoplasm of cervix [facility] Start: 02-15-2027 Screening for malign ant neoplasm of cervix Pap Smear [facility] Start: 11-29-2024 End: 11-29-2024 Patient encounter procedure 11/29/2024 9:00 AM EDT Office Visit [facility] [address] [place] [address] Alexandra Kay NP [address] [place] [id number] [facility] Start: 10-05-2024 End: 10-05-2024 Patient encounter procedure 10/05/2024 9:20 AM EDT Office Visit [facility] [address] [place] [address] Josiah Young MD [address] [place] [address] [facility] Start: 09-08-2024 End: 09-08-2024 Patient encounter procedure 09/08/2024 9:00 AM EST Office Visit [facility] [address] [place] [phone] Josiah Young MD [address] [place] [address] [facility] Start: 09-06-2024 End: 09-06-2024 Patient encounter procedure 09/06/2024 2:45 PM EST Office Visit [facility] [address] [place] [address] Haley Owens MD [address] [place] [address] [facility] Start: 08-17-2024 End: 08-17-2024 Clinical Support 08/17/2024 3:45 PM EST Clinical Support [facility] [address] [place] [address] [facility] Start: 08-10-2024 End: 08-10-2024 Professional / ancillary services management 08/10/2024 3:30 PM EST Ancillary Procedure [facility] [address] [place] [address] [facility] Start: 07-28-2024 End: 07-28-2025 Bacteria identified in Urine by Culture Urine culture Microbiology Routine care, subsequent in first trimester Expected: 07/28/2024 (Approximate), Expires: 07/28/2025 [facility] Work Phone: Comment on above: Expected: 07/28/2024 (Approximate), Expires: 07/28/2025 Start: 07-28-2024 End: 07-28-2025 Blood type and Indirect antibody screen panel - Blood Type and screen Lab Routine care, subsequent in first trimester Expected: 07/28/2024 (Approximate), Expires: 07/28/2025 [facility] Comment on above: Expected: 07/28/2024 (Approximate), Expires: 07/28/2025 Start: 07-28-2024 End: 07-28-2025 CBC W Auto Differential panel - Blood CBC and differential Lab Routine care, subsequent in first trimester Expected: 07/28/2024 (Approximate), Expires: 07/28/2025 [facility] Comment on above: Expected: 07/28/2024 (Approximate), Expires: 07/28/2025 Start: 07-28-2024 End: 07-28-2025 DRUG SCREEN 17 W/CONF, UR DRUG SCREEN 17 W/CONF, UR Lab Routine care, subsequent in first trimester Encounter for drug screening Expected: 07/28/2024 (Approximate), Expires: 07/28/2025 [facility] Comment on above: Expected: 07/28/2024 (Approximate), Expires: 07/28/2025 Start: 07-28-2024 End: 07-28-2025 Hepatitis B virus surface Ag [Presence] in Serum or Plasma by Immunoassay Hepatitis B surface antigen Lab Routine care, subsequent in first trimester Expected: 07/28/2024 (Approximate), Expires: 07/28/2025 [facility] Comment on above: Expected: 07/28/2024 (Approximate), Expires: 07/28/2025 Start: 07-28-2024 End: 07-28-2025 Hepatitis C virus Ab [Presence] in Serum or Plasma by Immunoassay Hepatitis C antibody Lab Routine care, subsequent in first trimester Expected: 07/28/2024 (Approximate), Expires: 07/28/2025 [facility] Comment on above: Expected: 07/28/2024 (Approximate), Expires: 07/28/2025 Start: 07-28-2024 End: 07-28-2025 HIV-1/HIV-2 antigen/antibody combination immunoassay HIV-1 and HIV-2 antibodies Lab Routine care, subsequent in first trimester Expected: 07/28/2024 (Approximate), Expires: 07/28/2025 [facility] Comment on above: Expected: 07/28/2024 (Approximate), Expires: 07/28/2025 Start: 07-28-2024 End: 07-28-2025 Rpr (dx) w/refl titer and confirmatory testing Rpr (dx) w/refl titer and confirmatory testing Lab Routine care, subsequent in first trimester Expected: 07/28/2024 (Approximate), Expires: 07/28/2025 [facility] Comment on above: Expected: 07/28/2024 (Approximate), Expires: 07/28/2025 Start: 07-28-2024 End: 07-28-2025 Rubella antibody, IgG Rubella antibody, IgG Lab Routine care, subsequent in first trimester Expected: 07/28/2024 (Approximate), Expires: 07/28/2025 [facility] Comment on above: Expected: 07/28/2024 (Approximate), Expires: 07/28/2025 Start: 07-28-2024 End: 07-28-2025 Urinalysis complete panel - Urine Urinalysis with microscopic Lab Routine care, subsequent in first trimester Expected: 07/28/2024 (Approximate), Expires: 07/28/2025 [facility] Comment on above: Expected: 07/28/2024 (Approximate), Expires: 07/28/2025 Start: 06-15-2024 End: 06-15-2024 Clinical Support 06/15/2024 3:45 PM EST Clinical Support [facility] [address] [place] [address] [facility] Start: 05-31-2024 End: 05-31-2024 Patient encounter procedure [facility] Comment on above: Primary hypertension (CMS/HCC) (Primary Dx); Class 2 obesity due to excess calories without serious comorbidity with body mass index (BMI) of 39.0 to 39.9 in adult; Anxiety; Cigarette nicotine dependence without complication; Moderate persistent asthma in adult without complication ([facility]) Start: 05-04-2024 End: 05-04-2024 Clinical Support 05/04/2024 4:00 PM EDT Clinical Support [facility] [address] [place] [address] [facility] Start: 05-03-2024 End: 05-03-2024 Patient encounter procedure [facility] Comment on above: Cigarette nicotine d ependence without complication (Primary Dx) Start: 04-27-2024 End: 04-27-2024 Clinical Support 04/27/2024 4:00 PM EDT Clinical Support [facility] [address] [place] [address] [facility] Start: 04-07-2024 End: 04-07-2024 Patient encounter procedure 04/07/2024 9:20 AM EDT Office Visit [facility] [address] [place] [address] Josiah Young MD [address] [place] [address] [facility] Start: 04-05-2024 End: 04-05-2024 Patient encounter procedure 04/05/2024 1:00 PM EDT Office Visit [facility] [address] [place] [phone] Alexandra Kay NP [address] [place] [address] [facility] Start: 03-23-2024 End: 03-23-2024 Clinical Support 03/23/2024 4:00 PM EDT Clinical Support [facility] [address] [place] [address] [facility] Immunizations Immunization Date Immunization Notes Care Provider Fa cili 05-27-2023 influenza virus vacc ine, unspecified formulation Jeni Callaway [facility] 05-27-2023 influenza, injectabl e, quadrivalent, preservative free Alexandra Aichholz EVIDENCE SPECIALIST Work Phone: [facility] 02-20-2023 hepatitis B vaccine, adult dosage Alexandra Aichholz EVIDENCE SPECIALIST Work Phone: [facility] 06-03-2022 hepatitis B vaccine, adult dosage Alexandra Aichholz EVIDENCE SPECIALIST Work Phone: [facility] 06-03-2022 measles, mumps and rubella virus vaccine Alexandra Aichholz EVIDENCE SPECIALIST Work Phone: [facility] 04-29-2022 hepatitis B vaccine, adult dosage Alexandra Aichholz EVIDENCE SPECIALIST Work Phone: [facility] 04-29-2022 influenza virus vacc ine, unspecified formulation Jeni Lue [facility] 04-29-2022 influenza, injectabl e, quadrivalent, preservative free Alexandra Aichholz EVIDENCE SPECIALIST Work Phone: [facility] 11-18-2021 SARS-CoV-2 (COVID-19 ) Ad26 vaccine, recombinant Jeni Lue [facility] Comment on above: Result Comment: 2023: TPVALL 11-18-2017 HPV, unspecified formulation Jeni Lue [facility] 11-18-2017 Human Papillomavirus 9-valent vaccine Alexandra Aichholz EVIDENCE SPECIALIST Work Phone: [facility] 07-15-2017 HPV, unspecified formulation Jeni Lue [facility] 07-15-2017 Human Papillomavirus 9-valent vaccine Alexandra Aichholz EVIDENCE SPECIALIST Work Phone: [facility] 07-15-2017 tetanus toxoid, redu vladimir diphtheria toxoid, and acellular pertussis vaccine, adsorbed Alexandrasylvia Kay EVIDENCE SPECIALIST Work Phone: [facility] 04-20-2017 HPV, unspecified formulation Jeni Callaway [facility] 04-20-2017 Human Papillomavirus 9-valent vaccine Alexandra Kay EVIDENCE SPECIALIST Work Phone: [facility] 12-13-1997 diphtheria, tetanus toxoids and acellular pertussis vaccine Alexandra Kay EVIDENCE SPECIALIST Work Phone: [facility] 12-13-1997 measles, mumps and rubella virus vaccine Alexandra Kay EVIDENCE SPECIALIST Work Phone: [facility] Payers Date Payer Category Payer Medicaid [employer] [place] [id number] 2022-Present [address] [place] [address] [id number] 2022 Private Health Insurance [facility] MEDICAID [id number] 1992 Unknown [id number] 2.16.840.1.674965.3.579.2 .593 1992 Unknown [id number] 2.16.840.1.581416.3.579.2 .593 1992 Unknown [id number] 2.16.840.1.106595.3.579.2 .727 1992 Unknown [id number] 2.16.840.1.356287.3.579.2 .727 1992 Unknown [id number] 2.16.840.1.316709.3.579.2 .727 1992 Unknown [id number] 2.16.840.1.393677.3.579.2 .727 1992 Unknown [id number] 2.16.840.1.391084.3.579.2 .1286 1992 Unknown [id number] 2.16.840.1.862102.3.579.2 .1286 1992 Unknown [id number] 2.16.840.1.235993.3.579.2 .1259 1992 Unknown [id number] 2.16.840.1.701384.3.579.2 .1259 1992 Unknown [id number] 2.16.840.1.389062.3.579.2 .1259 1992 Unknown [id number] 2.16.840.1.578319.3.579.2 .1259 1992 Unknown [id number] 2.16.840.1.363381.3.579.2 .1259 1992 Unknown [id number] 2.16.840.1.821655.3.579.2 .1259 1992 Unknown [id number] 2.16.840.1.370246.3.579.2 .1259 1992 Unknown [id number] 2.16.840.1.539718.3.579.2 .1259 1992 Unknown [id number] 2.16.840.1.550001.3.579.2 .1259 1992 Unknown [id number] 2.16.840.1.177150.3.579.2 .9 1992 Unknown [id number] 2.16.840.1.248269.3.579.2 .9 1992 Unknown [id number] 2.16.840.1.400362.3.579.2 .1258 1992 Unknown [id number] 2.16.840.1.036130.3.579.2 .1258 1992 Unknown [id number] 2.16.840.1.182752.3.579.2 .1258 1992 Unknown [id number] 2.16.840.1.274175.3.579.2 .1258 1992 Unknown [id number] 2.16.840.1.759987.3.579.2 .1258 1992 Unknown [id number] 2.16.840.1.531779.3.579.2 .1258 1992 Unknown [id number] 2.16.840.1.174661.3.579.2 .1258 1992 Unknown [id number] 2.16.840.1.869120.3.579.2 .9 1992 Unknown [id number] 2.16.840.1.700785.3.579.2 .1258 1992 Unknown [id number] 2.16.840.1.836670.3.579.2 .1258 1992 Unknown [id number] 2.16.840.1.742424.3.579.2 .1258 1992 Unknown [id number] 2.16.840.1.209960.3.579.2 .9 1992 Unknown [id number] 2.16.840.1.076044.3.579.2 .9 1992 Unknown [id number] 2.16.840.1.894615.3.579.2 .1259 1959 Unknown [id number] 2.16.840.1.141243.19 1959 Unknown [id number] Medicaid [employer] [id number] Self-pay Self Pay [id number] Unknown MMO [id number] Unknown [employer] Benefits [id number] Worker's Compensation [id number] Social History Date Type Detail Facility Unknown if ever smoked [employer] Other Start: 02-16-2024 End: 05-03-2024 Sex Assigned At [facility] Start: 09-26-2020 End: 03-22-2024 Tobacco smoking status NHIS Smoker (finding) [facility] Start: 1992 Sex Assigned At Female [facility] Start: 04-21-2024 Tobacco smoking status Heavy tobacco smoker (finding) [facility] Tobacco smoking status Never [facility] Start: 02-16-2024 End: 07-28-2024 Tobacco smoking status ILIS Smokes tobacco daily [facility] History of [...] Caffeine intake: occassionally [facility] Start: 05-12-2024 [facility] Functional Status Date Assessment Result Facility 04-21-2024 Functional Status N/A [facility] 03-22-2024 Functional Status N/A [facility] Clinical Notes 10-11-2020 to 08-04-2024 Telephone Encounter - Eboni Lilly NP - 08/04/2024 1:16 PM ESTTelephone Encounter - Eboni Lilly NP - 08/04/2024 1:16 PM ESTTolisa Young MD - 07/28/2024 4:00 PM ESTPatient Instructions Note Date & Type Note Facility 08-04-2024 Telephone encounter Note PCP gave prednisone 40mg x 3 days, 20mg x 3 days and then 10mg x 4 days. She just started yesterday and still woke up with some hives this morning. She will complete her course of antibiotics and see if hives improve. Her next scheduled Xolair injection is 08/17/24. Will re-evaluate after completing prednisone if need to petition for every 2 week injections. She will call with an update after completing oral steroids. [facility] Work Phone: 08-04-2024 Miscellaneous Notes PCP gave prednisone 40mg x 3 days, 20mg x 3 days and then 10mg x 4 days. She just started yesterday and still woke up with some hives this morning. She will complete her course of antibiotics and see if hives improve. Her next scheduled Xolair injection is 08/17/24. Will re-evaluate after completing prednisone if need to petition for every 2 week injections. She will call with an update after completing oral steroids. documented in this encounter [facility] 07-28-2024 History of Presen t illness Narrative Carina Schultz returns to the office today. She has spaced out xolair to 6 weeks and then started to have some hives. She has hives head to toe today and for the past 2 weeks. Her last xolair was 07/14. She had facial swelling at as. She also has swelling of the fingers. [...] in the past. documented in this encounter [facility] 07-28-2024 History of Presen t illness [...] of orders to take with her to [facility] to have drawn today. 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 Options for quitting smoking include: cold turkey, hypnosis, acupuncture, nicotine replacement meds (gum, lozenges, and patches), Buproprion, and Varenicline. At this time pt is encouraged to evaluate their goals for wanting to quit smoking, and reach out to provider when ready to start this process Primary hypertension ([facility]) - Primary Please check blood pressure daily and record DASH diet Limit caffeine Take medication as directed Contact office if chest pain, pressure, dizziness, shortness of breath, swelling legs Recommend slow position changes Office reads: 122/86 manual, left arm, and wrist cuff 139/88 Associated Problem(s): Asthma in adult ([facility]) Continue with ICS LABA Rare use of rescue inhaler Fu in 6 months Recommend quitting smoking Associated Problem(s): Primary hypertension ([facility]/HCC) Please check blood pressure daily and record [...] of the risks of continued smoking: stroke, MN, all forms of cancer, lung disease, and . Options for quitting smoking include: cold turkey, hypnosis, acupuncture, nicotine replacement meds (gum, lozenges, and patches), Buproprion, and Varenicline. At this time pt is encouraged to evaluate their goals for wanting to quit smoking, and reach out to provider when ready to start this process documented in this encounter [facility] 05-15-2024 Telephone encounter Note Prescription sent for uti [facility] 05-15-2024 Miscellaneous Notes Prescription sent for uti documented in this encounter [facility] 05-11-2024 Evaluation + Plan note Diagnostic Tests PendingUrine Culture 05/11/24 [facility] 05-03-2024 History of Presen t illness [...] no dyspnea, no LE edema Episode at [place], watch alarmed HR 130, she was asymptomatic [...] Primary hypertension (CMS/HCC) documented in this encounter [facility] 05-03-2024 Instructions Alexandra Kay NP - 05/03/2024 8:40 AM EDT DASH diet Check blood pressure daily and record Fu in 4 weeks, bring log of blood pressure AND machine to verify accuracy documented in this encounter [facility] 04-21-2024 Hospital Discharg e instructions Patient [...] Treatment for this condition includes: Antibiotic medicine. Drus-ygz-pigvhnn medicines to treat discomfort. Drinking enough water [...] Follow these instructions at home: Medicines Take hxsi-wkv-tkxdvjd and prescription medicines only as told by [...] provider. Document Revised: 02/17/2021 Document Reviewed: 02/22/2021 [employer] Patient Education 2023 [employer]. 04/21/2024 11:22:32 Antibiotic Medicine, Adult Antibiotic Medicine, [...] provider. Document Revised: 02/10/2023 Document Reviewed: 02/10/2023 [employer] Patient Education 2023 [employer]. Follow Up Care 04/05/2024 11:26:44 With:Nilton NUNEZ, BRYCE Urbina, URO Address: When: Unknown [facility] 04-21-2024 Note Patient Education Caregiving Antibiotic Medicine, [...] have any o (more content not included)... [facility] 04-07-2024 History of Presen t illness [...] should problems arise. documented in this encounter [facility] 03-22-2024 Hospital Discharg e instructions Patient [...] Treatment for this condition includes: Antibiotic medicine. Dgss-vzd-kshqqod medicines to treat discomfort. Drinking enough water [...] Follow these instructions at home: Medicines Take rbse-jkl-avtdutf and prescription medicines only as told by [...] provider. Document Revised: 02/22/2021 Document Reviewed: 02/22/2021 [employer] Patient Education 2022 [employer]. Follow Up Care 02/18/2024 08:44:09 With:TANNER ALVAREZ, SHANITA Snowden, BRYCE Address: [facility] [address] [facility] [place] [address] When: Unknown Comments:post-op cysto With:Nilton NUNEZ, BRYCE Urbina, URO Address: When: Unknown Comments:sched cysto w/possible UD [facility] 03-22-2024 Note Patient Education Obstetrics and Gynecology [...] this condition includes: ? Antibiotic medicine. ? Opgn-pre-wljpyyw medicines to treat discomfort. ? Drinking enough [...] these instructions at home: Medicines ? Take vxsv-vjm-bklnxdz and prescription medicines only as told by [...] Document Revised: 02/22 (more content not included)... [facility] 07-05-2022 Evaluation note Encounter Date Diagnosis [...] no improvement in 2 to 3 days. [employer] Other 06-17-2021 NoteHNO ID: [id number] Author: Miley Ramirez MD Service: ? Author Type: Physician Type: Progress Notes Filed: 01/11/2021 5:21 AM Note Text: Gynecologic Oncology [facility] Follow-up visit Re: Carina Schultz CC#: [id number] Date of service: 01/10/2021 Haley Owens MD ([facility]) [facility] [address] [address] Dear Haley Owens: Carina presents for follow [...] lesions present on labia bilaterally Rt> Lt[employer] Specialist: Carolyn Hancock NP IMPRESSION/PLAN: Patient presents today for follow up. Patient has decreased her smoking. Pt had stopped her Aldara cream since her gynecology teacher wanted to repeat biopsy. I recommend patient restart Aldara cream since vulvar lesions are still present. Encouraged smoking cessation. RTC 3 months Thank you for referring her for gynecologic oncology consultation. I will be in touch with you regarding her findings. CC: Haley Owens MD ([facility]) [facility] [address] [address] No primary care provider on file. (PCP) The previous note from Dr. Ramirez dated 10/11/2020 was copied forward and the necessary changes were made above. ATTESTATION: By signing my name below, I, Yanni Bryson, attest that this documentation has been prepared under the direction and in the presence of Miley Ramirez MD. Electronically signed:Aixa Stein, January 10, 2021 1:56 PM Provider Attestation: I, Miley Ramirez MD, personally performed the services described in this documentation. All medical record entries made by the aixa were at my direction and in my presence. I have reviewed the chart and discharge (more content not included)...[facility]03-18-2021 NoteHNO ID: [id number] Author: Miley Ramirez Service: ? Author Type: Physician Type: Progress Notes Filed: 10/12/2020 10:46 AM Note Text: Gynecologic Oncology [facility] Consultation Re: Carina Schultz [facility]#: [id number] Date of service: 10/11/2020 Haley Owens MD ([facility]) [address] [address] [address] 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 She resides in [place], [place]. REVIEW OF SYSTEMS: Constitutional: No recent [...] Cardiac - Regular rat (more content not included)...[facility] Evaluation + Plan note No data available for this section [facility] evaluation noteNo assessment information available [facility] Work Phone: Evaluation note* Diagnosis Primary hypertension ([facility])- Primary Unspecified essential hypertension Cigarette nicotine dependence without complication Class 2 obesity due to excess calories without serious comorbidity with body mass index (BMI) of 39.0 to 39.9 in adult [facility] Diagnosis Anxiety- Primary Anxiety state, unspecified Anxiety- Primary Anxiety state, unspecified Class 3 severe obesity due to excess calories without serious comorbidity with body mass index (BMI) of 40.0 to 44.9 in adult ([facility]) Environmental and seasonal allergies Moderate persistent asthma in adult without complication ([facility]) UTI symptoms- Primary Class 3 severe obesity due to excess calories without serious comorbidity with body mass index (BMI) of 40.0 to 44.9 in adult ([facility]) Wellness examination Cigarette nicotine dependence without complication Elevated alkaline phosphatase level- Primary Cigarette nicotine dependence without complication Class 3 severe obesity due to excess calories without serious comorbidity with body mass index (BMI) of 40.0 to 44.9 in adult ([facility]) Abnormal weight gain- Primary Class 2 obesity due to excess calories without serious comorbidity with body mass index (BMI) of 39.0 to 39.9 in adult Primary hypertension ([facility])- Primary Unspecified essential hypertension Cigarette nicotine dependence [...] (BMI) of 40.0 to 44.9 in adult ([facility]) Environmental and seasonal allergies Moderate persistent asthma in adult without complication ([facility]) UTI symptoms- Primary Class 3 severe obesity due to excess calories without serious comorbidity with body mass index (BMI) of 40.0 to 44.9 in adult ([facility]) Wellness examination Cigarette nicotine dependence without complication Elevated alkaline phosphatase level- Primary Cigarette nicotine dependence without complication Class 3 severe obesity due to excess calories without serious comorbidity with body mass index (BMI) of 40.0 to 44.9 in adult ([facility]) Abnormal weight gain- Primary Class 2 obesity due to excess calories without serious comorbidity with body mass index (BMI) of 39.0 to 39.9 in adult Primary hypertension ([facility])- Primary Unspecified essential hypertension Cigarette nicotine dependence without complication Class 2 obesity due to excess calories without serious comorbidity with body mass index (BMI) of 39.0 to 39.9 in adult Primary hypertension ([facility])- Primary Unspecified essential hypertension Class 2 obesity due to excess calories without serious comorbidity with body mass index (BMI) of 39.0 to 39.9 in adult Anxiety Anxiety state, unspecified Cigarette nicotine dependence without complication Moderate persistent asthma in adult without complication ([facility]) documented in this encounter [facility]* [...] (BMI) of 40.0 to 44.9 in adult ([facility]) Environmental and seasonal allergies Moderate persistent asthma in adult without complication ([facility]) UTI symptoms- Primary Class 3 severe obesity due to excess calories without serious comorbidity with body mass index (BMI) of 40.0 to 44.9 in adult ([facility]) Wellness examination Cigarette nicotine dependence without complication Elevated alkaline phosphatase level- Primary Cigarette nicotine dependence without complication Class 3 severe obesity due to excess calories without serious comorbidity with body mass index (BMI) of 40.0 to 44.9 in adult ([facility]) Abnormal weight gain- Primary Class 2 obesity due to excess calories without serious comorbidity with body mass index (BMI) of 39.0 to 39.9 in adult Primary hypertension ([facility])- Primary Unspecified essential hypertension Cigarette nicotine dependence without complication Class 2 obesity due to excess calories without serious comorbidity with body mass index (BMI) of 39.0 to 39.9 in adult Primary hypertension ([facility])- Primary Unspecified essential hypertension Class 2 obesity due to excess calories without serious comorbidity with body mass index (BMI) of 39.0 to 39.9 in adult Anxiety Anxiety state, unspecified Cigarette nicotine dependence without complication Moderate persistent asthma in adult without complication ([facility]) care, subsequent in first trimester Encounter for drug screening documented in this encounter [facility]* Diagnosis Anxiety- Primary Anxiety state, unspecified Anxiety- Primary Anxiety state, unspecified Class 3 severe obesity due to excess calories without serious comorbidity with body mass index (BMI) of 40.0 to 44.9 in adult ([facility]) Environmental and seasonal allergies Moderate persistent asthma in adult without complication ([facility]) UTI symptoms- Primary Class 3 severe obesity due to excess calories without serious comorbidity with body mass index (BMI) of 40.0 to 44.9 in adult ([facility]) Wellness examination Cigarette nicotine dependence without complication Elevated alkaline phosphatase level- Primary Cigarette nicotine dependence without complication Class 3 severe obesity due to excess calories without serious comorbidity with body mass index (BMI) of 40.0 to 44.9 in adult ([facility]) Abnormal weight gain- Primary Class 2 obesity due to excess calories without serious comorbidity with body mass index (BMI) of 39.0 to 39.9 in adult Primary [facility] Primary Unspecified essential hypertension Cigarette nicotine dependence without complication Class 2 obesity due to excess calories without serious comorbidity with body mass index (BMI) of 39.0 to 39.9 in adult Primary hypertension ([facility])- Primary Unspecified essential hypertension Class 2 obesity due to excess calories without serious comorbidity with body mass index (BMI) of 39.0 to 39.9 in adult Anxiety Anxiety state, unspecified Cigarette nicotine dependence without complication Moderate persistent asthma in adult without complication ([facility]) Chronic idiopathic urticaria- Primary Idiopathic urticaria documented in this encounter [facility] Healthcare[facility] note* Diagnosis Anxiety- Primary Anxiety state, unspecified Anxiety- Primary Anxiety state, unspecified Class 3 severe obesity due to excess calories without serious comorbidity with body mass index (BMI) of 40.0 to 44.9 in adult ([facility] Environmental and seasonal allergies Moderate persistent asthma in adult without complication ([facility]) UTI symptoms- Primary Class 3 severe obesity due to excess calories without serious comorbidity with body mass index (BMI) of 40.0 to 44.9 in adult ([facility]) Wellness examination Cigarette nicotine dependence without complication Elevated alkaline phosphatase level- Primary Cigarette nicotine dependence without complication Class 3 severe obesity due to excess calories without serious comorbidity with body mass index (BMI) of 40.0 to 44.9 in adult ([facility]) Abnormal weight gain- Primary Class 2 obesity due to excess calories without serious comorbidity with body mass index (BMI) of 39.0 to 39.9 in adult Primary hypertension ([facility])- Primary Unspecified essential hypertension Cigarette nicotine dependence without complication Class 2 obesity due to excess calories without serious comorbidity with body mass index (BMI) of 39.0 to 39.9 in adult Primary hypertension ([facility])- Primary Unspecified essential hypertension Class 2 obesity due to excess calories without serious comorbidity with body mass index (BMI) of 39.0 to 39.9 in adult Anxiety Anxiety state, unspecified Cigarette nicotine dependence without complication Moderate persistent asthma in adult without complication ([facility]) Chronic idiopathic urticaria- Primary Idiopathic urticaria documented in this encounter [facility] HealthcareHistory general Narrative - Reported* Type Description Date Medical History asthma Medical History hives Medical History urethra dilation Medical History yeast infections Surgical History Ureathral dialation Surgical History Tiff teeth Surgical History [facility] [place]Dr owens vaginal biopsies 04/29/19 Hospitalization History asthma 2010 [facility] Other Hospital Discharge instructions No data available for this section [facility] progress note No data available for this section [facility] Summary Purpose Family History Relationship Condition Age at Onset Recorded Date/T dl father Hypertension Unknown Not Specified Hypertension Unknown Advance Directives Advance Directive Response Recorded Date/ Time Advance Directives No April 27, 2017 10:47am Chief Complaint and Reason for Visit Chief Complaint Sore throat Additional Source Comments INFORMATION SOURCE (unrecogn ized section and content) DATE CREATED AUTHOR 08/23/2021 [facility] DATE CREATED AUTHOR AUTHOR'S ORGANIZ ATION 09/05/2021 [facility] DATE CREATED AUTHOR AUTHOR'S ORGANIZ ATION 11/24/2022 [facility] DATE CREATED AUTHOR AUTHOR'S ORGANIZ ATION 05/13/2024 [facility] DATE CREATED AUTHOR AUTHOR'S ORGANIZ ATION 05/15/2024 [facility] Center DATE CREATED AUTHOR AUTHOR'S ORGANIZ ATION 05/19/2024 [facility] Center DATE CREATED AUTHOR AUTHOR'S ORGANIZ ATION 07/11/2024 [facility] DATE CREATED AUTHOR AUTHOR'S ORGANIZ ATION 07/11/2024 [facility] DATE CREATED AUTHOR AUTHOR'S ORGANIZ ATION 08/05/[address] [facility] dical Specialists EPIC REASON FOR [...] December 23, 2023 End: December 23, 2023 Licensed Audiologist Relationship Specialty Start Date End Date Marty Hinson MD [address] [place] [phone] PCP - General Family [facility] 10/26/23 Alexandra Kay NP [address] [place] [address] PCP - [facility] 01/25/24 Alexandra Kay NP [address] [place] [address] Nurse Practitioner Family Medicine 05/27/23 Alexandra Kay NP [address] [place] [address] Nurse Practitioner Family [facility] 10/26/23 Licensed Audiologist Relationship Specialty Start Date End Date Marty Hinson MD [address] [place] [phone] PCP - [facility] 10/26/23 Alexandra Kay NP [address] [place] [phone] PCP - [facility] 01/25/24 Alexandra Kay NP [address] [place] [address] Nurse Practitioner Family Medicine 05/27/23 Alexandra Kay NP [address] [place] [address] Nurse Practitioner Family Medicine 10/26/23 Licensed Audiologist Relationship Specialty Start Date End Date Marty Hinson MD [address] [place] [phone] PCP - General [facility] 10/26/23 Alexandra Kay NP [address] [place] [address] PCP - [facility] 01/25/24 Alexandra Kay NP [address] [place] [address] Nurse Practitioner Family [facility] 05/27/23 Alexandra Kay NP [address] [place] [address] Nurse Practitioner [facility] 10/26/23 Licensed Audiologist Relationship Specialty Start Date End Date Marty Hinson MD [address] [place] [phone] PCP - General [facility] 10/26/23 Alexandra Kay NP [address] [place] [address] PCP - [facility] 01/25/24 Alexandra Kay NP [address] [place] [address] Nurse Practitioner Family Medicine 05/27/23 Alexandra Kay NP [address] [place] [address] Nurse Practitioner Family [facility] 10/26/23 Licensed Audiologist Relationship Specialty Start Date End Date Marty Hinson MD [address] [place] [address] PCP - General [facility] 10/26/23 Alexandra Kay NP [address] [place] [address] PCP - [facility] 01/25/24 Alexandra Kay NP [address] [place] [address] Nurse Practitioner Family [facility] 05/27/23 Alexandra Kay NP [address] [place] [address] Nurse Practitioner Family [facility] 10/26/23 Licensed Audiologist Relationship Specialty Start Date End Date Marty Hinson MD [address] [place] [phone] PCP - General [facility] 10/26/23 Alexandra Kay NP [address] [place] [address] PCP - [facility] 01/25/24 Alexandra Kay NP [address] [place] [address] Nurse Practitioner Family Medicine 05/27/23 Alexandra Kay NP [address] [place] [address] Nurse Practitioner Family [facility] 10/26/23 Licensed Audiologist Relationship Specialty Start Date End Date Marty Hinson MD [address] [place] [address] PCP - [facility] 10/26/23 Alexandra Kay NP [address] [place] [address]8810-[address] PCP [facility] 01/25/24 Alexandra Kay NP [address] [place] [address]44010[address]1002 Nurse Practitioner Family [facility] 05/27/23 Alexandra Kay NP [address] [place] [address] Nurse Practitioner Family [facility] 10/26/23 Licensed Audiologist Relationship Specialty Start Date End Date Marty Hinson MD [address] [place] [phone] PCP - [facility] 10/26/23 Alexandra Kay NP [address] [place] [address]6310[address] PCP [facility] 01/25/24 Alexandra Kay NP [address] [place] [address]10[address] Nurse Practitioner Family Medicine 05/27/23 Alexandra Kay NP [address] [place] [address]90610-1002 Nurse Practitioner Family Medicine 10/26/23 Licensed Audiologist Relationship Specialty Start Date End Date Marty Hinson MD [address] [place] [address]13510[address] PCP - General [facility] 10/26/23 Alexandra Kay NP [address] [place] [address]10[address] PCP - [facility] 01/25/24 Alexandra Kay NP [address] [place] [address] Nurse Practitioner Family Medicine 05/27/23 Alexandra Kay NP [address] [place] [address]8910-[address] Nurse Practitioner Family Medicine 10/26/23 Licensed Audiologist Relationship Specialty Start Date End Date Marty Hinson MD [address] [place] [address] PCP - General Family [facility] 10/26/23 Alexandra Kay NP [address] [place] [address]10[address] PCP - [facility] 01/25/24 Alexandra Kay NP [address] [place] [address] Nurse Practitioner Family Medicine 05/27/23 Alexandra Kay NP [address] [place] [address] Nurse Practitioner Family Medicine 10/26/23 Licensed Audiologist Relationship Specialty Start Date End Date Marty Hinson MD [address] [place] [address] PCP - General [facility] 10/26/23 Alexandra Kay NP [address] [place] [address] PCP - [facility] 01/25/24 Alexandra Kay NP [address] [place] [address] Nurse Practitioner Family Medicine 05/27/23 Alexandra Kay NP [address] [place] [address] Nurse Practitioner Family Medicine 10/26/23 Licensed Audiologist Relationship Specialty Start Date End Date Marty Hinson MD [address] [place] [address] PCP - General [facility] 10/26/23 Alexandra Kay NP [address] [place] [address] PCP - [facility] 01/25/24 Alexandra Kay NP [address] [place] [address] Nurse Practitioner Family Medicine 05/27/23 Alexandra Kay NP [address] [place] [address]10[address] Nurse Practitioner Family Medicine 10/26/23 Licensed Audiologist Relationship Specialty Start Date End Date Marty Hinson MD [address] [place] [phone] PCP - General [facility] 10/26/23 Alexandra Kay NP [address] [place] [address] PCP - [facility] 01/25/24 Alexandra Kay NP [address] [place] [address] Nurse Practitioner Family [facility] 05/27/23 Alexandra Kay NP [address] [place] [address] Nurse Practitioner Family [facility] 10/26/23 Goals (unrecognized section and content) Goals [...] BE BASED ON THE PRIMARY CLINICAL RECORDS. [facility]. provides no warranty or guarantee of the accuracy or completeness of information in this document.
[2024-08-08 12:56] LABS: Hematocrit 38.7 % (36.0-48.0); Hemoglobin 12.7 g/dL (12.0-16.0); Mean Corpuscular HGB Conc 32.8 g/dL (29.9-35.2); Mean Corpuscular Hemoglobin 28.9 pg (26.7-34.0); Mean Platelet Volume 9.6 fL (9.5-13.5); Platelet Count 418 10^3/uL (150-450); Red Cell Distribution Width 12.3 % (11.0-15.0); White Blood Count 21.6 10^3/uL (4.0-11.0)
[2024-08-08 14:17] LABS: HCG Quantitative 286 mIU/mL
[2024-08-08 14:48] LABS: Eosinophils Absolute Manual 1.08 10^3/uL (0.00-0.70); Lymphocytes Absolute Manual 6.69 10^3/uL (1.20-3.80); Monocytes Absolute Manual 0.43 10^3/uL (0.30-0.80); Segmented Neut Absolute Manual 13.39 10^3/uL (1.4-6.5)
== END 2024-08-08 12:25 | disposition home or self-care (01) ==
LOC: LAB 12:26
PROVIDERS: PCP Nurse Practitioner; Visit Provider Specialist
DX: O02.1 Missed abortion (principal)
CPT/HCPCS: 36415; 84702; 85007; 85027

== ENCOUNTER 2024-09-06 11:23 | Outpatient (OUT) | payer OTHER, SELFPAY ==
--- NOTE | 2024-09-06 11:28 | ECG_ITS ---
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
--- OUTSIDE RECORDS SUMMARY | 2024-09-06 11:43 | XMS_ITS | CCD ---
Author Organization [facility] Care Team Providers Care Joy Operator Name Role Phone Amira Sierra Unavailable AICHHOLZ, INDUSTRIAL GAS SERVICER HELPER ALEXANDRA Primary Care Unavailable AICHHOLZ, INDUSTRIAL GAS SERVICER HELPER ALEXANDRA Admitting Unavailable AICHHOLZ, INDUSTRIAL GAS SERVICER HELPER ALEXANDRA Attending Unavailable AICHHOLZ, INDUSTRIAL GAS SERVICER HELPER ALEXANDRA Consulting Unavailable AICHHOLZ, INDUSTRIAL GAS SERVICER HELPER ALEXANDRA Primary Care Unavailable AICHHOLZ, INDUSTRIAL GAS SERVICER HELPER ALEXANDRA Admitting Unavailable AICHHOLZ, INDUSTRIAL GAS SERVICER HELPER ALEXANDRA Attending Unavailable AICHHOLZ, INDUSTRIAL GAS SERVICER HELPER ALEXANDRA Consulting Unavailable AICHINDIRAZ, ALEXANDRA J Primary Care Physician [phone] Aichholtia DRAIN TILER, Alexandra Unavailable Marty Hinson MD Primary Care Provider Aichholz DRAIN TILER, Alexandra Unavailable Aichholz DRAIN TILER, Alexandra Unavailable HALEY OWENS Referring Unavailable HENNY ENRIQUE Primary Care Unavailable SHANITA HART Attending Unavailable Jeni Callaway Attending Unavailable Jeni Callaway Admitting Unavailable Jeni Callaway Attending Unavailable Jeni Callaway Attending Unavailable BEATRIZ SIMONS JR Attending Unavailable BEATRIZ SIMONS JR Referring Unavailable Sebastian BASEBALL WINDER, Rosita Unavailable Unavailable An BASEBALL WINDER, Lakeisha Unavailable Alexandra Kay Primary Care Provider [phone] Haley Owens MD Attending Provider HALEY OWENS Attending Unavailable HALEY OWENS Attending Unavailable ALEXANDRA KAY Attending Unavailable JOSIAH YOUNG Attending Unavailable DYLON KAYA Attending Unavailable RAHUL, ALEXANDRA Attending Unavailable HALEY OWENS Attending Unavailable HALEY OWENS Referring Unavailable LANCESHAKIR Attending Unavailable ALEXANDRA KAY Referring Unavailable ALEXANDRA KAY Attending Unavailable HALEY OWENS Attending Unavailable HALEY OWENS Referring Unavailable JOSIAH YOUNG Attending Unavailable ALEXANDRA KAY Attending Unavailable ALEXANDRA KAY Attending Unavailable JOSIAH YOUNG Attending Unavailable HALEY OWENS Attending Unavailable HALEY OWENS Attending Unavailable Alexandra Kay J Primary Care Unavailable Haley Owens Attending Unavailable Haley Owens Admitting Unavailable Allergies Allergy Classification Reported Allergen(s) Allergy Type Date of Onset Reaction(s) Facility (20 sources) Sulfamethoxazole / Trimethoprim; Translations: [sulfamethoxazole-tr imethoprim] Drug Allergy 4 Karla mackenzie (disorder) [facility] (2 sources) diphenhydrAMINE; Translations: [Benadryl] Drug Allergy 6 [facility] Repository (20 sources) Nitrofurantoin; Translations: [nitrofurantoin] Drug Allergy 1 [facility] (3 sources) Sulfamethoxazole; Translations: [sulfamethoxazole] Drug Allergy 4 [facility] (3 sources) Trimethoprim; Translations: [trimethoprim] Drug Allergy 4 [facility] (4 sources) diphenhydrAMINE; Translations: [diphenhydramine] Drug Allergy [facility] Comment on above: RASH (20 sources) diphenhydrAMINE Drug Allergy 4 [facility] (1 source) Sulfamethoxazole / Trimethoprim; Translations: [Bactrim] Drug Allergy [facility] Repository Medications Current Medications Medication Drug Class(es) Dates Sig (Normalized) Sig (Original) [id number] 200 actuat albuterol 0.09 mg/actuat metered dose inhaler (20 sources) beta2-Adrenergic Agonist Start: 05-31-2024 End: 06-30-2024 take 2 puff(s) by inhalation every six hours for wheezing albuterol HFA 90 mcg/act inhaler Indications: Moderate persistent asthma in adult without complication (CMS/[facility]) Inhale 2 puffs every 6 (six) hours [...] Discontinued (Reorder) Start: 04-29-2019 Albuterol Sulf ate 90 mcg/actuation HFA aerosol inhaler Active 90 MCG INHALATION As Directed April 28, 2019 11:00pm Start: 11-20-2014 take 2.5 mg by inhal [...] Active ascorbic acid 100 mg oral tablet (2 sources) Vitamin C Start: 09-26-2020 take 1 tablet by mouth once daily Ascorbic Acid (Vitamin C) (Vitamin C) 100 mg Tablet Active 100 MG PO Daily September 26, 2020 12:00am AZO D-MANNOSE 500 MG CAPSULE (4 sources) Start: 03-22-2024 AZO D-MANNOSE 500 MG CAPSULE AZO D-MANNOSE 500 MG CAPSULE, As Directed Start Date: 03/22/24 Status: Ordered 60 actuat budesonide 0.08 mg/actuat / formoterol fumarate 0.0045 mg/actuat metered dose inhaler (20 sources) Corticosteroid , beta2-Adrenerg ic Agonist Start: [...] (Therapy completed) cephalexin 500 mg oral capsule (20 sources) Cephalosporin Antibacterial Start: 05-13-2024 End: 05-23-2024 [...] 07/28/2024 Discontinued Start: 09-26-2020 End: 12-23-2023 take 1 capsule by mouth every eight hours Cephalexin 500 mg capsule Discontinued 500 MG PO Q8H 13 02September 26, 2020 12:00am December 23, 2023 12:46pm Start: 05-03-2019 End: 09-26-2020 take 1 capsule by mouth three times daily Cephalexin (Keflex) 500 mg Capsule Discontinued 500 MG PO Three times daily May 02, 2019 11:00pm September 26, 2020 10:17am Start: 04-29-2019 End: 05-03-2019 take 1 capsule by mouth every eight hours Cephalexin 250 mg capsule Discontinued 250 MG PO Q8H 21 7 April 28, 2019 11:00pm May 03, 2019 4:23pm cetirizine hydrochloride 10 mg oral tablet (20 sources) Histamine-1 Receptor Antagonist Start: 04-29-2019 End: 08-08-2024 take 1 tablet by mouth once daily Cetirizine 10 mg tablet Active 10 MG PO Daily April 28, 2019 11:00pm cholecalciferol 0.025 mg oral tablet (14 sources) Vitamin D Start: 09-26-2020 take 1 tablet by mouth once daily Cholecalciferol (Vitamin D3) (Vitamin D3) 25 mcg (1,000 unit) Tablet Active 2000 UNIT PO Daily September 26, 2020 12:00am End: 05-31-2024 cholecalciferol (Vitamin D-3 ) 50 MCG (2000 UT) capsule 1 capsule 05/31/2024 Discontinued (Therapy completed) [id number] 0.3 ml EPINEPHrine 1 mg/ml auto-injector (2 sources) alpha-Adrenergic Agonist, beta-Adrenergic Agonist, Catecholamine Start: 08-17-2024 End: 08-17-2025 EPINEPHrine (Epipen) 0.3 MG/0.3ML injection syringe Indications: Anaphylaxis, initial encounter Inject 0.3 mL (0.3 mg) as directed if needed for anaphylaxis Call 911 after use. 4 each 3 08/17/2024 08/17/2025 Active fluticasone propionate 0.05 mg/actuat metered dose nasal spray (1 source) Corticosteroid take 1 spray(s) nasal route once daily as needed Flonase 50 MCG/DOSE 1 spray in each nostril Nasally Once a day for 30 day(s) prn Active folic acid 1 mg oral tablet (3 sources) Start: 04-29-2019 take 1 tablet by mouth once daily Folic Acid 1 mg tablet Active 1 MG PO Daily April 28, 2019 11:00pm take 1 capsule by mouth three ti mes daily Folic Acid 5 MG 1 capsule Orally Three times a day Active loratadine 10 mg oral tablet (16 sources) Start: 04-29-2019 take 1 tablet by mouth once daily Loratadine 10 mg tablet Active 10 MG PO Daily April 28, 2019 11:00pm methylPREDNISolone 4 mg oral tablet (3 sources) Corticosteroid Start: 07-05-2022 Medrol 4 MG as directed Orally as directed for 6 days Jun, Active Start: 07-15-2018 Depo-Medrol 40 mg Jun, 40 mg Start: 06-24-2018 Depo-Medrol 40 mg May, 40 mg miSOPROStol 0.2 mg oral tablet (20 sources) Prostaglandin E1 Analog Start: 08-11-2024 End: 08-11-2024 take 4 tablets by mouth at bedtime miSOPROStol (Cytotec) 200 MCG tablet Indications: Missed Take 4 tablets orally for 2 days at bedtime. 8 tablet 08/16/2024 Active Start: 08-08-2024 take 4 tablets by mo [facility] once, then take 1 tablet by mouth every other day miSOPROStol (Cytotec) 200 MCG tablet Indications: Missed Take 4 tablets (800 mcg) by mouth 1 time for 1 dose .Repeat dose 2 days later . 8 tablet 08/08/2024 Active omalizumab 150 mg injection (9 sources) Anti-IgE Start: 03-22-2024 Xolair 150 mg subcutaneous injection 300 mg, SubCutaneous, q4wk, # 1 EA, Refills(s) 0 Start Date: 03/22/24 Status: Ordered Start: 12-23-2023 Omalizumab (Xo lair) 150 mg/mL syringe Active 150 MG SUBCUT every 5 weeks December 23, 2023 12:47pm Start: 09-26-2020 End: 12-23-2023 inject 150 mg by subcutaneous injection every other week Omalizumab (Xolair) 150 mg/mL Syringe Discontinued 150 MG SUBCUT EVERY 2 WEEKS September 26, 2020 12:00am December 23, 2023 12:48pm Xolair Active phentermine hydrochloride 37.5 mg oral tablet (11 sources) Sympathomimetic Amine Anorectic Start: 03-08-2024 End: 05-03-2024 phentermine 37.5 mg Tab 37.5 mg = 1 tab(s), Refills(s) 0 Start Date: 03/22/24 Status: Ordered predniSONE 50 mg oral tablet (13 sources) Start: 08-24-2024 End: 09-03-2024 take 1 tablet by mouth once daily predniSONE (Deltasone) 50 MG tablet Indications: Asthma Take 1 tablet (50 mg) by mouth Daily for 10 days 10 tablet 08/24/2024 09/03/2024 Active Start: 08-02-2024 predniSONE (De ltasone) 20 MG tablet Indications: Chronic idiopathic urticaria [...] Ordered vitamin a 2.4 mg oral capsule (2 sources) Vitamin A Start: 09-26-2020 take 1 capsule by mouth once daily Vitamin A 8,000 unit Capsule Active 8000 UNIT PO Daily September 26, 2020 12:00am Vitamin B Complex (1 source) Start: 09-26-2020 take 1 tablet by mouth once daily Vitamin B Complex Active 1 TAB PO Daily September 26, 2020 1:00am Vitamin B Complex Tablet (1 source) Start: 09-26-2020 take 1 tablet by mouth once daily Vitamin B Complex Tablet Active 1 TAB PO Daily September 26, 2020 12:00am Completed/Discontinued Medications Medication Drug Class(es) Dates Sig (Normalized) Sig (Original) acetaminophen 325 mg / HYDROcodone bitartrate 10 mg oral tablet (4 sources) Opioid Agonist Start: 08-11-2024 End: 08-16-2024 take 1 tablet by mouth every six hours for pain HYDROcodone-acetam inophen (Kinmundy) 10-325 MG tablet Indications: Missed Take 1 tablet by mouth every 6 (six) hours if needed for moderate pain or severe pain for up to 5 days 20 tablet 08/11/2024 08/16/2024 ciprofloxacin 500 mg oral tablet (1 source) Quinolone Antimicrobial Start: 03-12-2024 End: 03-17-2024 take 1 tablet by mouth in the morning ciprofloxacin (Cipro) 500 MG tablet Indications: Recurrent UTI Take 1 tablet (500 mg) by mouth in the morning and 1 tablet (500 mg) before bedtime. Do all this for 5 days. 10 tablet 03/12/2024 03/17/2024 clobetasol propionate 0.5 mg/ml topical cream (19 sources) Corticosteroid Start: 12-30-2022 End: 08-08-2024 clobetasol (Temovate) 0.05 % cream apply to affected area ON HANDS once daily for up to 2 weeks then if needed for FLARES 12/30/2022 08/08/2024 Discontinued (Therapy completed) D-Mannose (Azo D-Mannose) 500 MG capsule (1 source) Start: 02-16-2024 End: 03-17-2024 take 1 tablet by mouth once daily D-Mannose (Azo D-Mannose) 500 MG capsule Indications: Recurrent UTI Take 1 tablet by mouth Daily 30 capsule 3 02/16/2024 03/17/2024 dapsone 25 mg oral tablet (2 sources) Sulfone Start: 04-29-2019 End: 05-03-2019 take 1 tablet by mouth once daily Dapsone 25 mg tablet Discontinued 25 MG PO Daily April 28, 2019 11:00pm May 03, 2019 4:24pm doxycycline hyclate 100 mg oral capsule (6 sources) Tetracycline-class Drug Start: 08-11-2024 End: 08-26-2024 doxycycline (Vibramycin) 100 MG capsule Indications: Missed Take 1 capsule (100 mg) by mouth in the morning and 1 capsule (100 mg) before bedtime. Do all this for 7 days. Take with at least 8 ounces (large glass) of water, do not lie down for 30 minutes after. 14 capsule 08/19/2024 08/26/2024 fluconazole 150 mg oral tablet (2 sources) Azole Antifungal Start: 04-29-2019 End: 09-26-2020 take 1 tablet by mouth once Fluconazole 150 mg tablet Discontinued 150 MG PO Once 1 April 28, 2019 11:00September 26, 2020 10:18am hydrOXYzine hydrochloride 50 mg oral tablet (2 sources) Antihistamine Start: 04-29-2019 End: 09-26-2020 Hydroxyzine Hcl 50 mg tablet Discontinued 50 MCI PO Daily as needed for Anxiety April 28, 2019 11:00pm September 26, 2020 10:17am ibuprofen 800 mg oral tablet (9 sources) Nonsteroidal Anti-inflammatory Drug Start: 08-08-2024 End: 08-18-2024 take 1 tablet by mouth every six hours for pain ibuprofen 800 MG tablet Indications: Missed Take 1 tablet (800 mg) by mouth every 6 (six) hours if needed for mild pain for up to 10 days 20 tablet 08/08/2024 08/18/2024 Start: 04-29-2019 End: 09-26-2020 Ibuprofen 800 mg tablet Disc ontinued 800 MG PO every 6 to 8 hours as needed for pain April 28, 2019 11:00pm September 26, 2020 10:19am montelukast 10 mg oral tablet (2 sources) Leukotriene Receptor Antagonist Start: 04-29-2019 End: 12-23-2023 take 1 tablet by mouth once daily Montelukast 10 mg tablet Discontinued 10 MG PO Daily April 28, 2019 11:00pm December 23, 2023 12:47pm podofilox 5 mg/ml topical solution (17 sources) [...] 02/16/2024 03/15/2024 raNITIdine 150 mg oral tablet (2 sources) Histamine-2 Receptor Antagonist Start: 04-29-2019 End: 09-26-2020 take 1 tablet by mouth once daily Ranitidine Hcl 150 mg tablet Discontinued 150 MG PO Daily April 28, 2019 11:00pm September 26, 2020 10:19am traMADol hydrochloride 50 mg oral tablet (6 sources) Opioid Agonist Start: 04-29-2019 End: 09-26-2020 take 1 tablet by mouth every four hours as needed for pain Tramadol (Ultram) 50 mg Tablet Discontinued 50 MG PO Q4H as needed for Pain 10 May 02, 2019 11:00pm May 02, 2019 11:00pm May 03, 2019 11:02pm Start: 04-29-2019 End: 12-23-2023 take 1 tablet by mouth every eight hours as needed for pain Tramadol (Ultram) 50 mg tablet Discontinued 50 MG PO Q8H as needed for pain 10 September 26, 2020 12:00am December 23, 2023 12:47pm Triamcinolone (1 source) Corticosteroid Start: 03-11-2019 KENALOG [...] Onset: 05-03-2024 Resolved: 05-03-2024 05-03-2024 Chronic Other complications of (8 sources) Missed miscarriage; Translations: [Missed ] 08-08-2024 Episodic Other complications of (1 source) Missed ; Translations: [Missed ] Onset: 08-13-2024 Episodic Other diseases of bladder and urethra [...] membrane 03-21-2024 Episodic Other upper respiratory disease (20 sources) Allergic disposition; Translations: [Other allergic rhinitis] Onset: 10-26-2023 10-26-2023 Chronic Other upper respiratory infections (3 sources) Sore throat symptom; Translations: [Acute pharyngitis, unspecified] Episodic Substance-related disorders (20 sources) Nicotine dependence; Translations: [Tobacco dependence caused by cigarettes] Onset: 10-26-2023 03-21-2024 Chronic Superficial injury; contusion (2 sources) Abrasion, knee; Translations: [Abrasion, unspecified knee, initial encounter] 07-08-2023 Episodic Comment on above: Problem List clean-u p per request of Phys. EHR Cmte Unclassified (3 sources) Lesion of urethra 04-21-2024 Unclassified (1 source) New Patient Onset: 07-08-2024 Past or Other Problems Problem Classification Problem Date Documented Date Episodic/Chronic Allergic reactions (20 sources) Allergic disposition; Translations: [Chronic idiopathic urticaria] Onset: 01-12-2023 03-21-2024 Episodic Biliary tract disease (20 sources) Cholelithiasis without obstruction; Translations: [Calculus of [...] for closed fracture] Onset: 12-28-2023 07-08-2023 Episodic Comment on above: Problem List clean-u p per request of Phys. EHR Cmte Genitourinary symptoms and ill-defined conditions (20 sources) Unspecified symptoms and signs involving the genitourinary system; Translations: [Urinary symptoms ] Onset: 11-19-2022 Episodic Mycoses (20 sources) Opportunistic mycosis; Translations: [Candidiasis, unspecified] Onset: 10-05-2023 03-21-2024 Episodic Other diseases of bladder and urethra (20 sources) Urethral stricture; Translations: [Other urethral stricture, [...] nutritional; endocrine; and metabolic disorders (20 sources) Abnormal weight gain; Translations: [Abnormal weight [...] diseases classified elsewhere] Onset: 10-26-2023 07-08-2023 Episodic Comment on above: Problem List clean-u p per request of Phys. EHR Cmte Results Test Name Value Interpretation Reference Range Facility [facility]-2024 [facility] [employer] Comment on above: See report. Scanned copy available in EMR. [facility] Test Name: LC#[id number] CHROMOSOME,BIOPSIES (POC,SKIN) [facility] [employer] e Pathology study report docum entOrdered By: Michelle Junior on 08-16-2024 Pathology study [facility] Other Larry 08-13-2024 L Specimen: [id number] Received: 08/15/24 Status: DELMI Eliot Num: [id number] Spec Type: Surgical Subm Dr: IVETTE Henderson Tissues: A Products of Conception - Spontaneous or Missed (9 WK MISSED AB POC) Procedures: HE/2, Gross/Micro L4 Age/ Patient Sex Location Account Attending Physician Carina Schultz 34/F GAYE [id number] IVETTE Henderson SPEC NUM: [id number] RECD: 08/15/24 STATUS: DELMI ELIOT NUM: [id number] FAM: 08/13/[address]: IVETTE Henderson ENTERED: 08/15/24 [facility] DR: SPEC TYPE: Surgical DEPT: S ENTERED BY: [id number] RECV BY: [id number] ORDERED: HE/2, Gross/Micro L4 ORDERED: HE/2, Gross/Micro L4 Supplemental Report Addendum 1 Entered: 08/29/24 Cytogenetic result: No growth Interpretation: No result See attached report. Addendum Signed (signature on file) Michelle Junior MD 08/29/241654 Pathological Diagnosis Products of conception: tissue, chorionic villi, and decidual tissue with partial hemorrhage and necrosis. Specimen: [id number] Received: 08/15/24 Status: DELMI Cox Num: [id number] Spec Type: Surgical Subm Dr: Haley Owens MD-[facility] Tissues: A Products of Conception - Spontaneous or Missed (9 WK MISSED AB POC) Procedures: HE/2, Gross/Micro L4 Patient: Carina Schultz [id number] (Continued) Specimen: [id number] Received: 08/15/24 (Continued) Signed (signatur e on file) Michelle Junior MD 08/16/24 1522 Specimen: [id number] Received: 08/15/24 Status: DELMI Eliot Num: [id number] Spec Type: Surgical Subm Dr: Haley Owens MD-[facility] Tissues: A Products of Conception - Spontaneous or Missed (9 WK MISSED AB POC) Procedures: Carey SU/Deshawn L4 Patient: Carina Schultz [id number] (Continued) Specimen: [id number] Received: 08/15/24 (Continued) Clinical Information 9-week missed . Products of conception. Chromosomal analysis. Gross Description Part A is received fresh for cytogenetics labeled with the patients name and date of is an ovoid portion of hammonds-pink and glistening tissue, consistent with decidua, 8.5 x 5 x 2.5 cm with adherent hemorrhagic material, 5 x 3 x 1.3 cm in aggregate. Within the decidualized tissue is a gestational sac, 7.5 x 5 x 2 cm that contains a fetus. The fetus is hammonds-mcknight and glistening with arm and leg buds, an indeterminate foot length, head to rump length of 1.5 cm, and no definitive skin slippage. Within the cut surfaces of the decidualized tissue are portions of pale mcknight, feathery tissue, 2.5 cm in greatest dimension, possibly consistent with chorionic villi. A senior patient account representative section of the possible chorionic villi is submitted in A1 with senior patient account representative sections of the decidualized tissue submitted in A2. Office Clin Asst sections of the tissue are sterilely submitted in RPMI media and sent to [facility] for cytogenetics. (2, ss, [id number] A) CPT Codes 90071 Specimen: [id number] Received: 08/15/24 Status: DELMI Cox Num: [id number] Spec Type: Surgical Subm Dr: Haley Owens MD-[facility] Tissues: A Products of Conception - Spontaneous or Missed (9 WK MISSED AB POC) Procedures: HE/2, Gross/Micro L4 Patient: Carina Schultz [id number] (Continued) Signed (signatur e on file) Michelle Junior MD 08/16/24 1522 Normal [facility] 08-[facility]-2024 [facility] Normal [facility] Comment on above: Order Comment: [facility] Test Name: LC#[id number] CHROMOSOME,BIOPSIES (POC,SKIN) Result Comment: See report. Scanned copy available in EMR. PERFORMED BY: [address] [place] [address] PATHOLOGIST WAX PATTERN REPAIRER MICHELLE JUNIOR M.D. Performed By: #### M [facility] #### [address] ALL CBC WITH AUTO DIFFon Erythrocyte distribution width (RBC) [Ratio] 12.3 % 11.0 - 15.0 % [facility] Healthcare Hematocrit (Bld) [Volume fraction] 38.7 % 36.0 - 48.0 % [facility] Healthcar e Hemoglobin (Bld) [Mass/Vol] 12.7 g/dL 12.0 - 16.0 g/dL [facility] Interpretation and review of laboratory results Abnormal [facility] MCH (RBC) [Entitic mass] 28.9 pg 26.7 - 34.0 pg [facility] MCHC (RBC) [Mass/Vol] 32.8 g/dL 29.9 - 35.2 g/dL [facility] MCV (RBC) [Entitic vol] 88 fL 81.0 - 99.0 fL [facility] Platelet mean volume (Bld) [Entitic vol] 9.6 fL 9.5 - 13.5 fL [facility] Healthc are TBH PLT [address] [facility] Healthcar e TBH RBC 4.4 [facility] Healthcar e TBH WBC 21.6 High [facility] Healthcar e [facility] Healthcar e UA (MICROSCOPIC)on 4 MUCOUS PRESENT Abnormal NONE [facility] Comment on above: Performed By: #### U BENTLEY #### [facility] ([id number]) [address] [place] [address], [address] [address] R.B.CELLS 2 /hpf Normal 0-5 [facility] Comment on above: Performed By: #### U BENTLEY #### [facility] ([id number]) [address] [place] [address] SQUAMOUS EPITHELIUM 4 /hpf Normal 0-5 [facility] Comment on above: Performed By: #### U BENTLEY #### [facility] ([id number]) [address] [place] [address] W.B.CELLS 4 /hpf Normal 0-5 [facility] Comment on above: Performed By: #### U BENTLEY #### [facility] ([id number]) [address] [place] [address] URINE CULTUREon 07-08-2024 Bacteria identified Cx [facility] (U) CULTURE RESULTS <10,000 ORGANISMS/ML NORMAL URO GENITAL RITA Normal [facility] Comment on above: Performed By: #### 6 30-4 #### [facility] ([id number]) [address] [place] [address] [address] [place] [address] C Urineon 05-13-2024 Bacteria identified Cx Nom [...] Locations R1: This test was performed at: [facility], [address] [place] [address], [facility]- , , [facility] Comment on above: Performed By: #### [id number] #### [facility] [address] [place] [address] Ambulatory Visit Summaryon 0 04-21-2024 Ambulatory Visit [...] MG CAPSULE) albuterol (albuterol 0.5% Inh Fabby) budesonide-formoter ol (Symbicort 80/4.5 inhalation aerosol with adapter) busPIRone (busPIRone 5 mg Tab) cetirizine (cetirizine 10 mg Tab) omalizumab (Xolair 150 mg subcutaneous injection) phentermine (phentermine 37.5 mg Tab) podofilox topical (podofilox topical 0.5% solution) Procedures Performed Flexible cystoscopy (04/21/2024), Dilation of urethra (04/15/2016), Biopsy of vagina, [place] tooth. Discharge Vitals Heart Rate (Peripheral) 100 Respiratory Rate 16 Blood Pressure 148/100 Height 170 cm Height 67 in Weight 113.5 kg Weight 249.7 lb BMI 39.27 What to do next You Need to Schedule the Following Appointments Follow Up with Nilton NUNEZ, Jeni Singer URL, URO When: Where: Medications What How Much When Instructions Unchanged cephalexin (cephalexin 250 mg Cap) 1 Capsules By Mouth As Directed Take 1 po following intercourse for UTI prevention Unchanged albuterol (albuterol 0.5% Inh Fabby) 0.5 Milliliter Inhalation Every 4 hours Contact prescribing physician if questions or concerns Unchanged budesonide-formoter ol (Symbicort 80/ 4.5 inhalation aerosol with adapter) [...] take antibi (more content not included)... Normal [facility] Urology Office/Clinic Noteon 04-21-2024 Urology Office/Clinic [...] in situ of cervix, unspecified) Followed by RETURNED GOODS REPAIRER [2]. 5. 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 Follow-up With When Contact Information Jeni Callaway MD, URL, URO Additional Instructions: Pt to call if she would like to schedule urethral bx Patient Education Urinary Tract Infection, Adult Antibiotic Medicine, Adult I, Ai Harris, personally scribed for Dr. Callaway on 04/21/2024 11:29:33. . Documentation recorded by the scribeAi, accurately reflects the services(s) I performed and decisions made by me. Authenticated by Dr. Callaway on 04/21/2024 12:04:26. Problem List/Past Medical History Ongoing Antibiotic-induced yeast infection Anxiety Asthma Cer (more content not included)... Normal [facility] Comment on above: Result Comment: Elec tronically Signed By: Jeni Callaway MD\.br\Date and Time Signed: 04/21/24 12:04 EDT\.br\Electronically Co-Signed [...] frequency, odor hx stones no immunosuppressed no post-menopausal/hys terectomy no does have hx ALLY/severe cervical dysplasia proper hygiene habits: wipes front to back every time yes avoids baths/hot tubs yes avoids scented [employer] products yes urinates after sexual activity yes [...] in situ of cervix, unspecified) -Followed by [employer]ED [employer] REPAIRER 4. 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 Authenticated by Shanita Hart PA-C on 03/22/2024 10:30:14. IVijay, personally scribed for Shanita Hart PA-C on 03/22/2024 10:18:49. . Problem List/Past Medical History Ongoing Antibiotic-induced yeast infection Anx (more content not included)... Normal [facility] Comment on above: Result Comment: Elec tronically Signed By: SHANITA HART PA-C\.br\Date and Time Signed: 03/22/24 10:30 EDT\.br\Electronically Co-Signed By: Vijay Masters\.br\Date and Time Co-Signed: 03/22/24 10:19 EDT No Panel InformationOrdered By: Ralph Osorio on 12-23-2023 Quick Strep (POC) [facility] CULTURE URINEon 11-21-2022 CULTURE URINE Isolate 1 Enterococcus faecalis 40,000 cfu/mL of ORGANISM 1 Enterococcus faecalis ANTIBIOTIC M.I.C RX STATUS Beta-Lactamase Neg NEG F Benzylpenicillin 1 S F Ampicillin <=2 S F Gentamicin High Level (synergy) SYN-S S F Streptomycin High Level (synergy) SYN-S S F Ciprofloxacin <=0.5 S F Levofloxacin 0.5 S F Quinupristin/Dalfop ristin 4 R F Linezolid 2 S F Vancomycin 1 S F Tetracycline <=1 S F Nitrofurantoin <=16 S F Normal [facility] Comment on above: Performed By: #### U RCX #### [facility] [address] [address] [address] Idalia Wilson UA RANDOM W/MICROSCOPICon BACTERIA NONE SEEN Normal NONE SEEN [facility] Comment on above: Performed By: #### U AMIC #### [facility] [address] [place] [address] Dr. Idalia Wilson Bilirubin Ql (U) Negative Normal NEGATIVE The [facility] Comment on above: Performed By: #### U AMIC #### [facility] [address] [place] [address] Dr. Idalia Wilson CAST NONE SEEN Normal NONE SEEN [facility] Comment on above: Performed By: #### U AMIC #### [facility] [address] [place] [address] Dr. Idalia Wilson Clarity (U) CLEAR Normal CLEAR [facility] Comment on above: Performed By: #### U AMIC #### [facility] [address] [place] [address] Dr. Idalia Wilson Color (U) LT. YELLOW Normal YELLOW [facility] Comment on above: Performed By: #### U AMIC #### [facility] [address] [place] [address] Dr. Idalia Wilson Crystals LM Nom (Urine sed) NONE SEEN Normal NONE SEEN [facility] Comment on above: Performed By: #### U AMIC #### [facility] [address] [place] [address] Dr. Idalia Wilson Epithelial cells LM Ql (Urine sed) FEW Abnormal NONE SEEN /RARE [facility] Comment on above: Performed By: #### U AMIC #### [facility] [address] [place] [address] Dr. Idalia Wilson Glucose Ql (U) Negative Normal NEGATIVE The [facility] Comment on above: Performed By: #### U AMIC #### [facility] [address] [place] [address] Dr. Idalia Wilson Hemoglobin Ql (U) Negative Normal NEGATIVE The [facility] Comment on above: Performed By: #### U AMIC #### [facility] [address] [address] [address] Idalia Wilson Ketones Ql (U) Negative Normal NEGATIVE [facility] Comment on above: Performed By: #### U AMIC #### [facility] [address] [address] [address] Idalia Wilson LEUKOCYTES Negative Normal NEGATIVE [facility] Comment on above: Performed By: #### U AMIC #### [facility] [address] [address] [address] Idalia Wilson MUCOUS SMALL Abnormal NONE SEEN [facility] Comment on above: Performed By: #### U AMIC #### [facility] [address] [address] [address] Idalia Wilson Nitrite Ql (U) Negative Normal NEGATIVE The [facility] Comment on above: Performed By: #### U AMIC #### [facility] [address] [address] [address] Idalia Wilson pH (U) 6.5 [pH] Normal 5-[address] [facility] Comment on above: Performed By: #### U AMIC #### [facility] [address] [address] [address] Idalia Wilson RBC NONE SEEN Abnormal 0-[address] [facility] Comment on above: Performed By: #### U AMIC #### [facility] [address] [address] [address] Idalia Wilson SPEC GRAVITY 1.025 Normal 1.005-<=1.025 The [facility] Comment on above: Performed By: #### U AMIC #### [facility] [address] [place] [address] Dr. Idalia Wilson UA PROTEIN Negative Normal NEGATIVE/ TRACE [facility] Comment on above: Performed By: #### U AMIC #### [facility] [address] [place] [address] Dr. Idalia Wilson Urobilinogen Qn (U) 0.2 {Mounika'U}/dL Normal 0.2 - 1. 0 [facility] Comment on above: Performed By: #### U AMIC #### [facility] [address] [address] [address] Idalia Wilson WBC NONE SEEN Normal NONE SEEN [facility] Comment on above: Performed By: #### U AMIC #### [facility] [address] [address] [address] Idalia Wilson Quick Strepon 07-05-2022 S. pyogenes Org specific cx Ql (Throat) Negative [employer] [facility] [employer] Other Quick Strep [employer] [facility] [employer] Other HEPATITIS B SURFACE ANTIBODY , QUANTon 04-12-2022 Hepatitis B Surf AB Quant <3.1 Critically low Immunity>9.[address] [facility] Comment on above: Result Comment: Stat us of Immunity Anti-HBs Level Inconsistent with Immunity 0.0 - 9.9 Consistent with Immunity >9.9 Performed By: #### H EPBSRF #### [facility] [address] [place] [address] Dr. Idalia Wilson MMR IMMUNITYon 04-12-2022 Mumps Abs, IgG <9.0 Critically low Immune >10.[address] [facility] Comment on above: Result Comment: Nega tive <9.0 Equivocal 9.0 - 10.9 Positive >10.9 A positive result generally indicates past exposure to Mumps virus or previous vaccination. Performed By: #### M MRIMMU #### [facility] [address] [address] [address] Idalia Wilson Rubella Antibodies, IgG 1.57 index Normal Immune >0.[address] [facility] Comment on above: Result Comment: Non- immune <0.90 Equivocal 0.90 - 0.99 Immune >0.99 Performed By: #### M MRIMMU #### [facility] [address] [place] [address] Dr. Idalia Wilson Rubeola Ab, IgG >300.0 Normal Immune >16.4 The [facility] Comment on above: Result Comment: Nega tive <13.5 Equivocal 13.5 - 16.4 Positive >16.4 Presence of antibodies to Rubeola is presumptive evidence of immunity except when acute infection is suspected. Performed By: #### M MRIMMU #### [facility] [address] [place] [address] Dr. Idalia Wilson VARICELLA IGG ABon 2 Varicella Zoster IgG 736 index Normal Immune >[address] [facility] Comment on above: Result Comment: Nega tive <135 Equivocal 135 - 165 Positive >165 A positive result generally indicates exposure to the pathogen or administration of specific immunoglobulins, but it is not indication of active infection or stage of disease. Performed By: #### V ARCEL #### [facility] [address] [place] [address] Dr. Idalia Wilson CBC AUTO DIFFon 04-11-2022 BASO # 0.1 103/ul Normal 0.0-0.1 [facility] Comment on above: Performed By: #### H EPBSRF #### [facility] [address] [place] [address] Dr. Idalia Wilson Basophils/100 WBC (Bld) 0.8 % Normal 0.2-2.0 [facility] Comment on above: Performed By: #### H EPBSRF #### [facility] [address] [place] [address] Dr. Idalia Wilson EO # 0.4 103/ul Normal 0.0-0.7 [facility] Comment on above: Performed By: #### H EPBSRF #### [facility] [address] [place] [address] Dr. Idalia Wilson Eosinophils/100 WBC (Bld) 4.1 % Normal 0.9-7.0 [facility] Comment on above: Performed By: #### H EPBSRF #### [facility] [address] [place] [address] Dr. Idalia Wilson Erythrocyte distribution width (RBC) [Ratio] 12.4 % Normal 11.0-15.0 [facility] Comment on above: Performed By: #### H EPBSRF #### [facility] [address] [place] [address] Dr. Idalia Wilson Hematocrit (Bld) [Volume fraction] 44.7 % Normal 36.0-48.0 [facility] Comment on above: Performed By: #### H EPBSRF #### [facility] [address] [place] [address] Dr. Idalia Wilson Hemoglobin (Bld) [Mass/Vol] 14.7 g/dL Normal 12.0-16.0 [facility] Comment on above: Performed By: #### H EPBSRF #### [facility] [address] [place] [address] Dr. Idalia Wilson IG # 0.03 10e3/ul Normal 0.00-0.03 [facility] Comment on above: Performed By: #### H EPBSRF #### [facility] [address] [place] [address] Dr. Idalia Wilson IG % 0.3 % Normal 0.0-0.5 [facility] Comment on above: Performed By: #### H EPBSRF #### [facility] [address] [place] [address] Dr. Idalia Wilson LYMPH # 2.5 103/ul Normal 1.2-3.8 [facility] Comment on above: Performed By: #### H EPBSRF #### [facility] [address] [place] [address] Dr. Idalia Wilson Lymphocytes/100 WBC (Bld) 26.6 % Normal 20.5-60.0 [facility] Comment on above: Performed By: #### H EPBSRF #### [facility] [address] [place] [address] Dr. Idalia Wilson MANUAL DIFF REQ NO Normal [facility] Comment on above: Performed By: #### H EPBSRF #### [facility] [address] [place] [address] Dr. Idalia Wilson MCH (RBC) [Entitic mass] 29.1 pg Normal 26.7-34.0 [facility] Comment on above: Performed By: #### H EPBSRF #### [facility] [address] [place] [address] Dr. Idalia Wilson MCHC (RBC) [Mass/Vol] 32.9 g/dL Normal 29.9-35.[address] [facility] Comment on above: Performed By: #### H EPBSRF #### [facility] [address] [address] [address] Idalia Wilson MCV (RBC) [Entitic vol] 88.5 fL Normal 81.0-99.[address] [facility] Comment on above: Performed By: #### H EPBSRF #### [facility] [address] [place] [address] Dr. Idalia Wilson MONO # 0.7 103/ul Normal 0.3-0.[address] [facility] Comment on above: Performed By: #### H EPBSRF #### [facility] [address] [place] [address] Dr. Idalia Wilson Monocytes/100 WBC (Bld) 7.2 % Normal 1.7-12.0 [facility] Comment on above: Performed By: #### H EPBSRF #### [facility] [address] [place] [address] Dr. Idalia Wilson NEUT # 5.8 103/ul Normal 1.4-6.5 [facility] Comment on above: Performed By: #### H EPBSRF #### [facility] [address] [place] [address] Dr. Idalia Wilson Neutrophils/100 WBC (Bld) 61.0 % Normal 43.0-75.[address] [facility] Comment on above: Performed By: #### H EPBSRF #### [facility] [address] [place] [address] Dr. Idalia Wilson Platelet mean volume (Bld) [Entitic vol] 10.2 fL Normal 9.5-13.[address] [facility] Comment on above: Performed By: #### H EPBSRF #### [facility] [address] [place] [address] Dr. Idalia Wilson PLT 327 103/ul Normal 150-[address] [facility] Comment on above: Performed By: #### H EPBSRF #### [facility] [address] [address] [address] Idalia Wilson RBC 5.05 106/ul Normal 4.20-5.40 [facility] Comment on above: Performed By: #### H EPBSRF #### [facility] [address] [place] [address] Dr. Idalia Wilson WBC 9.5 103/ul Normal 4.0-11.0 [facility] Comment on above: Performed By: #### H EPBSRF #### [facility] [address] [place] [address] Dr. Idalia Wilson FREE T4on 04-11-2022 Free T4 [Mass/Vol] 0.94 ng/dL Normal 0.76-1.46 [facility] Comment on above: Performed By: #### F T4 #### [facility] [address] [place] [address] Dr. Idalia Wilson GLYCOHEMOGLOBIN A1Con 2021 ADA RECOMMENDATION SEE BELOW Normal [facility] Comment on above: Result Comment: ADA RECOMMENDED LIMIT 4.0 - 6.0 ADA THERAPEUTIC TARGET < 7.0 ACTION SUGGESTED > 7.0 Performed By: #### A 1C #### [facility] [address] [place] [address] Dr. Idalia Wilson Glucose [Mass/Vol] 108 mg/dL Normal [facility] Comment on above: Performed By: #### A 1C #### [facility] [address] [place] [address] Dr. Idalia Wilson HbA1c (Bld) [Mass fraction] 5.4 % Normal 4.5-6.2 [facility] Comment on above: Performed By: #### A 1C #### [facility] [address] [place] [address] Dr. Idalia Wilson LIPID PROFILEon 04-11-2022 CHOL-HDL RATIO NORM SEE BELOW Normal [facility] Comment on above: Result Comment: 3.3 - 4.4 LOW RISK 4.4 - 7.1 AVERAGE RISK 7.1 - 11.0 MODERATE RISK >11.0 HIGH RISK Performed By: #### H EPBSRF #### [facility] [address] [address] [address] Idalia Wilson Cholesterol [Mass/Vol] 202 mg/dL Critically high <=200 [facility] Comment on above: Performed By: #### H EPBSRF #### [facility] [address] [address] [address] Idalia Wilson Cholesterol in HDL [Mass/Vol] 37 mg/dL Critically low 40-60 [facility] Comment on above: Performed By: #### H EPBSRF #### [facility] [address] [address] [address] Idalia Wilson Cholesterol in LDL [Mass/Vol] 120.2 mg/dL Normal [facility] Comment on above: Performed By: #### H EPBSRF #### [facility] [address] [address] [address] Idalia Wilson Cholesterol.total/Chol esterol in HDL [Mass ratio] 5.5 {ratio} Normal [facility] Comment on above: Performed By: #### H EPBSRF #### [facility] [address] [address] [address] Idalia Wilson HDL NORMAL > or = 60 mg/dl - LOW CARDIOVASCULAR RISK <40 mg/dl - HIGH CARDIOVASCULAR RISK Normal [facility] Comment on above: Performed By: #### H EPBSRF #### [facility] [address] [address] [address] Idalia Wilson LDL CALC NORMAL SEE BELOW Normal [facility] Comment on above: Result Comment: <100 mg/dl OPTIMAL 100 - 129 mg/dl NEAR OR ABOVE OPTIMAL 130 - 159 mg/dl BORDERLINE HIGH 160 - 189 mg/dl HIGH >190 mg/dl VERY HIGH Performed By: #### H EPBSRF #### [facility] [address] [address] [address] Idalia Wilson Triglyceride [Mass/Vol] 224 mg/dL Critically high <=150 [facility] Comment on above: Performed By: #### H EPBSRF #### [facility] [address] [address] [address] Idalia Wilson VLDL CALC 44.8 mg/dL Normal [facility] Comment on above: Performed By: #### H EPBSRF #### [facility] [address] [address] [address] Idalia Wilson LIVER PROFILEon 04-11-2022 Albumin [Mass/Vol] 3.9 g/dL Normal 3.4-5.0 [facility] Comment on above: Performed By: #### H EPBSRF #### [facility] [address] [address] [address] Idalia Wilson Albumin/Globulin [Mass ratio] 0.9 {ratio} Normal [facility] Comment on above: Performed By: #### H EPBSRF #### [facility] [address] [address] [address] Idalia Wilson ALP [Catalytic activity/Vol] 152 U/L Critically high 46-116 [facility] Comment on above: Performed By: #### H EPBSRF #### [facility] [address] [address] [address] Idalia Wilson ALT [Catalytic activity/Vol] 49 U/L Normal 14-59 [facility] Comment on above: Performed By: #### H EPBSRF #### [facility] [address] [address] [address] Idalia Wilson AST [Catalytic activity/Vol] 22 U/L Normal 15-37 [facility] Comment on above: Performed By: #### H EPBSRF #### [facility] [address] [address] [address] Idalia Wilson BILI, CONJUGATED 0.1 mg/dL Normal 0.0-0.2 [facility] Comment on above: Performed By: #### H EPBSRF #### [facility] [address] [address] [address] Idalia Wilson Bilirubin [Mass/Vol] 0.5 mg/dL Normal 0.2-1.0 [facility] Comment on above: Performed By: #### H EPBSRF #### [facility] [address] [address] [address] Idalia Wilson Globulin (S) [Mass/Vol] 4.3 g/dL Normal [facility] Comment on above: Performed By: #### H EPBSRF #### [facility] [address] [address] [address] Idalia Wilson Protein [Mass/Vol] 8.2 g/dL Normal 6.4-8.2 [facility] Comment on above: Performed By: #### H EPBSRF #### [facility] [address] [address] [address] Idalia Wilson PROF CHEM 8 (BAS METB)on Anion gap [Moles/Vol] 11.6 mmol/L Normal [facility] Comment on above: Performed By: #### L IPID, TSH, LIVER, BMP #### [facility] [address] [address] [address] Idalia Wilson Calcium [Mass/Vol] 9.5 mg/dL Normal 8.5-10.1 [facility] Comment on above: Performed By: #### L IPID, TSH, LIVER, BMP #### [facility] [address] [address] [address] Idalia Wilson Chloride [Moles/Vol] 102 mmol/L Normal 98-[address] [facility] Comment on above: Performed By: #### L IPID, TSH, LIVER, BMP #### [facility] [address] [address] [address] Idalia Wilson CO2 [Moles/Vol] 26.3 mmol/L Normal 21.0-32.0 [facility] Comment on above: Performed By: #### L IPID, TSH, LIVER, BMP #### [facility] [address] [place] [address] Dr. Idalia Wilson Creatinine [Mass/Vol] 0.60 mg/dL Normal 0.55-1.[address] [facility] Comment on above: Performed By: #### L IPID, TSH, LIVER, BMP #### [facility] [address] [place] [address] Dr. Idalia Wilson EGFR-AF SRI LANKAN >60 Normal >=60 [facility] Comment on above: Performed By: #### L IPID, TSH, LIVER, BMP #### [facility] [address] [address] [address] Idalia iWlson EGFR-NON AF SRI LANKAN >60 Normal >=60 [facility] Comment on above: Performed By: #### L IPID, TSH, LIVER, BMP #### [facility] [address] [address] [address] Idalia Wilson Glucose [Mass/Vol] 98 mg/dL Normal 74-106 [facility] Comment on above: Performed By: #### L IPID, TSH, LIVER, BMP #### [facility] [address] [address] [address] Idalia Wilson Potassium [Moles/Vol] 3.9 mmol/L Normal 3.5-5.1 [facility] Comment on above: Performed By: #### L IPID, TSH, LIVER, BMP #### [facility] [address] [place] [address] Dr. Idalia Wilson Sodium [Moles/Vol] 136 mmol/L Normal 136-145 [facility] Comment on above: Performed By: #### L IPID, TSH, LIVER, BMP #### [facility] [address] [address] [address] Idalia Wilson Urea nitrogen [Mass/Vol] 12.0 mg/dL Normal 7.0-18.0 [facility] Comment on above: Performed By: #### L IPID, TSH, LIVER, BMP #### [facility] [address] [address] [address] Idalia Wilson Urea nitrogen/Creatinine [Mass ratio] 20.0 mg/mg Normal [facility] Comment on above: Performed By: #### L IPID, TSH, LIVER, BMP #### [facility] [address] [address] [address] Idalia Wilson TSHon 04-11-2022 TSH 1.128 uIU/mL Normal 0.358-3.740 [facility] Comment on above: Performed By: #### H EPBSRF #### [facility] [address] [address] [address] Idalia Wilson UA (CLEAN/CATCH) ADVERTISING INTERN/MICRO I F IND.on 04-11-2022 Bilirubin Ql (U) Negative Normal NEGATIVE [facility] Comment on above: Performed By: #### U ACSIND, UMICRO #### [facility] [address] [address] [address] Idalia Wilson Clarity (U) CLEAR Normal CLEAR [facility] Comment on above: Performed By: #### U ACSIND, UMICRO #### [facility] [address] [address] [address] Idalia Wilson Color (U) LT. YELLOW Normal YELLOW [facility] Comment on above: Performed By: #### U ACSIND, UMICRO #### [facility] [address] [address] [address] Idalia Wilson Glucose Ql (U) Negative Normal NEGATIVE [facility] Comment on above: Performed By: #### U ACSIND, UMICRO #### [facility] [address] [address] [address] Idalia Wilson Hemoglobin Ql (U) Negative Normal NEGATIVE [facility] Comment on above: Performed By: #### U ACSIND, UMICRO #### [facility] [address] [address] [address] Idalia Wilson Ketones Ql (U) Negative Normal NEGATIVE [facility] Comment on above: Performed By: #### U ACSIND, UMICRO #### [facility] [address] [address] [address] Idalia Wilson LEUKOCYTES Negative Normal NEGATIVE [facility] Comment on above: Performed By: #### U ACSIND, UMICRO #### [facility] [address] [address] [address] Idalia Wilson Nitrite Ql (U) Negative Normal NEGATIVE [facility] Comment on above: Performed By: #### U ACSIND, UMICRO #### [facility] [address] [address] [address] Idalia Wilson pH (U) 6.5 [pH] Normal 5-9 [facility] Comment on above: Performed By: #### U ACSIND, UMICRO #### [facility] [address] [place] [address] Dr. Idalia Wilson SPEC GRAVITY 1.015 Normal 1.005-<=1.025 [facility] Comment on above: Performed By: #### U ACSALPHONSO UMICRO #### [facility] [address] [place] [address] Dr. Idalia Wilson UA PROTEIN Negative Normal NEGATIVE/ TRACE [facility] Comment on above: Performed By: #### U ACSALPHONSO UMICRO #### [facility] [address] [place] [address] Dr. Idalia Wilson UR MICRO IND NOT INDICATED Normal [facility] Comment on above: Performed By: #### U ARSEN UMICRO #### [facility] [address] [place] [address] Dr. Idalia Wilson Urobilinogen Qn (U) 0.2 {Mounika'U}/dL Normal 0.2 - 1. 0 [facility] Comment on above: Performed By: #### U ACSALPHONSO UMICRO #### [facility] [address] [place] [address] Dr. Idalia Wilson URINE MICROSCOPIC ONLYon BACTERIA NONE SEEN Normal NONE SEEN [facility] Comment on above: Performed By: #### U ACSALPHONSO UMICRO #### [facility] [address] [place] [address] Dr. Idalia Wilson Bacteria identified Cx Nom (U) NOT INDICATED Normal [facility] Comment on above: Performed By: #### U ACSALPHONSO UMICRO #### [facility] [address] [place] [address] Dr. Idalia Wilson CAST NONE SEEN Normal NONE SEEN [facility] Comment on above: Performed By: #### U ACSALPHONSO UMICRO #### [facility] [address] [place] [address] Dr. Idalia Wilson Crystals LM Nom (Urine sed) NONE SEEN Normal NONE SEEN [facility] Comment on above: Performed By: #### U ACSALPHONSO UMICRO #### [facility] [address] [place] [address] Dr. Idalia Wilson Epithelial cells LM Ql (Urine sed) MODERATE Abnormal NONE SEEN /RARE [facility] Comment on above: Performed By: #### U ACSIND, UMICRO #### [facility] [address] [address] [address] Idlaia Wilson MUCOUS TRACE Abnormal NONE SEEN [facility] Comment on above: Performed By: #### U ACSIND, UMICRO #### [facility] [address] [address] [address] Idalia Wilson RBC NONE SEEN Abnormal 0-[address] [facility] Comment on above: Performed By: #### U ACSIND, UMICRO #### [facility] [address] [address] [address] Idalia Wilson WBC NONE SEEN Normal NONE SEEN [facility] Comment on above: Performed By: #### U ACSIND, UMICRO #### [facility] [address] [address] [address] Idalia Wilson CNOVSPon 01-10-2021 CNOVSP Visit (SP) Office (GYONCA) ---- MALENACARINA JuradoIE ([id number]) 1990 F [facility] Date Time Provider Department 01/10/21 1:20 PM MILEY RAMIREZ During your visit today, we recorded the following information about you: Temperature Pulse Blood pressure Weight 97.8 degrees 107/minute 148/94 116.1 kg Miley Ramirez MD 01/11/2021 5:21 AM Signed Gynecologic Oncology [facility] Follow-up visit Re: Carina Schultz [facility]#: [id number] Date of service: 01/10/2021 Haley Owens MD ([facility]) [facility] [address] [address] Dear Haley Owens: Carina presents for follow [...] lesions present on labia bilaterally Rt> Lt. Him Clerk: Carolyn Hancock NP IMPRESSION/PLAN: Patient presents today for follow up. Patient has decreased her smoking. 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 I recommend patient restart Aldara cream since vulvar lesions are still present. Encouraged smoking cessation. RTC 3 months Thank you for referring her for gynecologic oncology consultation. I will be in touch with you regarding her findings. CC: Haley Owens MD (DrC) [facility] [address] [address] No primary care provider on file. (PCP) The previous note from Dr. Ramirez dated 10/11/2020 was copied forward and the necessary changes were made above. ATTESTATION: By signing my name below, I, Yanni Bryson, attest that this documentation has been prepared under the direction and in the presence of Miley Ramirez MD. Electronically signed:Yanni Bryson (more content not included)... Normal [facility] CNOVSPon 10-11-2020 CNOVSP Visit (SP) Office (MOLINAALOJACKSON) ---- CARINA SCHULTZ ([id number]) 1990 F [facility] Date Time Provider Department 10/11/20 1:20 PM MILEY RAMIREZ During your visit today, we recorded the following information about you: Temperature Pulse Blood pressure Weight 98.7 degrees 93/minute 140/89 116.1 kg Last Period 09/20/20 Miley Ramirez MD 10/12/2020 10:46 AM Signed Gynecologic Oncology [facility] Consultation Re: Carina Schultz [facility]#: [id number] Date of service: 10/11/2020 Haley Owens MD ([facility]) [facility] [address] [address] Owens for an [...] 12-4 o'clock and 6-6:30 o'clock peripheral margins. ALLERGIES/MEDICATIO NS: ALLERGIES No Known Allergies Current Outpatient Medications [...] mg by mouth as needed. 11 - HYDROcodone-acetami nophen (NORCO) 5-325 mg per tablet Take 1 tablet by mouth every 8 hours as needed. No current facility-administer ed medications for this visit. PAST MEDICAL HISTORY [...] history of VTE: Yes, paternal aunt DVT OBSTETRICAL/GYNECOL OGIC HISTORY: OB History T0 L1 SAB0 TAB0 Ectopic0 Multiple0 Live Births0 LMP: Patient's last menstrual period was 09/20/2020. 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 She resides in [place], [place]. REVIEW OF SYSTEMS: Constitutional: No recent [...] sweats. Hem (more content not included)... Normal [facility] Vital Signs Date Time Vital Sign Value Performing Clinician Facility 08-16-2024 15:32-0500 Body mass index (BMI) [Ratio] 41.82 kg/m2 Haley Owens MD Work Phone: [facility] 08-16-2024 15:32-0500 Body weight 121.11 kg Haley Owens MD Work Phone: [facility] 08-11-2024 15:01-0500 Body mass index (BMI) [Ratio] 41.82 kg/m2 Haley Owens MD Work Phone: [facility] 08-11-2024 15:01-0500 Body weight 121.11 kg Haley Owens MD Work Phone: [facility] 08-08-2024 10:08-0500 Body mass index (BMI) [Ratio] 41.82 kg/m2 Haley Owens MD Work Phone: [facility] 08-08-2024 10:08-0500 Body weight 121.11 kg Haley Owens MD Work Phone: [facility] 08-08-2024 10:08-0500 Diastolic blood pressure 90 mm[Hg] Haley Owens MD Work Phone: [facility] 08-08-2024 10:08-0500 Systolic blood pressure 132 mm[Hg] Haley Owens MD Work Phone: [facility] 05-31-2024 11:07-0500 Body height 170.2 cm Alexandra Aichholz D[employer]IN TILER Work Phone: [facility] 05-31-2024 11:07-0500 Body mass index (BMI) [Ratio] 40.82 kg/m2 Alexandra Aichholz DRAIN TILER Work Phone: [facility] 05-31-2024 11:07-0500 Body temperature 98.71 [degF] Alexandra Aichholz DRAIN TILER Work Phone: [facility] 05-31-2024 11:07-0500 Body weight 118.21 kg Alexandra Aichholz DRAIN TILER Work Phone: [facility] 05-31-2024 11:07-0500 Diastolic blood pressure 84 mm[Hg] Alexandra Aichholz DRAIN TILER Work Phone: [facility] 05-31-2024 11:07-0500 Heart rate 94 /min Alexandra Aichholz DRAIN TILER Work Phone: [facility] 05-31-2024 11:07-0500 Respiratory rate 18 /min Alexandra Aichholz DRAIN TILER Work Phone: [facility] 05-31-2024 11:07-0500 SaO2% (BldA) [Mass fraction] 98 % Alexandra Aichholz DRAIN TILER Work Phone: [facility] 05-31-2024 11:07-0500 Systolic blood pressure 128 mm[Hg] Alexandra Aichholz DRAIN TILER Work Phone: [facility] 05-03-2024 08:38-0400 Body height 170.2 cm Alexandra Aichholz DRAIN TILER Work Phone: [facility] 05-03-2024 08:38-0400 Body mass index (BMI) [Ratio] 39.94 kg/m2 Alexandra Jamesonindiraz D[employer] TILER Work Phone: [facility] 05-03-2024 08:38-0400 Body temperature 98.8 [degF] Alexandra Jamesonindiraz DRAIN TILER Work Phone: [facility] 05-03-2024 08:38-0400 Body weight 115.67 kg Alexandra Jamesonindiraz DRAIN TILER Work Phone: [facility] 05-03-2024 08:38-0400 Diastolic blood pressure 86 mm[Hg] Alexandra Jamesonindiraz DRA[employer] TILER Work Phone: [facility] 05-03-2024 08:38-0400 Heart rate 89 /min Alexandra Trinoindiraz DRAIN TILER Work Phone: [facility] 05-03-2024 08:38-0400 Respiratory rate 18 /min Alexandrayslvia Salesz DRAIN TILER Work Phone: [facility] 05-03-2024 08:38-0400 SaO2% (BldA) [Mass fraction] 97 % Alexandra Jamesonindiraz DRAIN TILER Work Phone: [facility] 05-03-2024 08:38-0400 Systolic blood pressure 140 mm[Hg] Alexandra Trinoindiraz DRAIN TILER Work Phone: [facility] 04-21-2024 10:18-0400 Blood Pressure Location Jeni Lue [facility] 04-21-2024 10:18-0400 Diastolic blood pressure 100 mm[Hg] Jeni Lue [facility] 04-21-2024 10:18-0400 Heart rate 100 /min Jeni Lue [facility] 04-21-2024 10:18-0400 Respiratory rate 16 /min Jeni Lue [facility] 04-21-2024 10:18-0400 Systolic blood pressure 148 mm[Hg] Jeni Lue [facility] 04-07-2024 09:27-0400 Body mass index (BMI) [Ratio] 39.47 kg/m2 Josiah Young MD Work Phone: [facility] 04-07-2024 09:27-0400 Body weight 114.31 kg Josiah Young MD Work Phone: [facility] 03-22-2024 09:42-0400 Blood Pressure Location SHANITA TANNER [facility] 03-22-2024 09:42-0400 Body temperature 98.6 [degF] SHANITA TANNER [facility] 03-22-2024 09:42-0400 Diastolic blood pressure 84 mm[Hg] SHANITA TANNER [facility] 03-22-2024 09:42-0400 Heart rate 79 /min SHANITA TANNER [facility] 03-22-2024 09:42-0400 Respiratory rate 16 /min SHANITA TANNER [facility] 03-22-2024 09:42-0400 Systolic blood pressure 132 mm[Hg] SHANITA TANNER [facility] 12-23-2023 13:45-0400 Body height 170.18 cm [facility] 12-23-2023 13:45-0400 Body mass index (BMI) [Ratio] 40.5 kg/m2 [facility] 12-23-2023 13:45-0400 Body temperature 98.2 [degF] [facility] 12-23-2023 13:45-0400 Body weight 117.48 kg [facility] 12-23-2023 13:45-0400 Heart rate 83 /min [facility] 12-23-2023 13:45-0400 Respiratory rate 18 /min [facility] 12-23-2023 13:45-0400 SaO2% (BldA) [Mass fraction] 99 % [facility] 07-05-2022 10:05-0500 Body height 170.18 cm Amira Sierra Other [facility] [employer] [facility] [employer] Other 07-05-2022 10:05-0500 Body mass index (BMI) [Ratio] 37.59 kg/m2 Amira Morleymond Other [employer] Other 07-05-2022 10:05-0500 Body temperature 98.1 [degF] Amira Sierra Other [employer] Other 07-05-2022 10:05-0500 Body weight 108.86 kg Amira Sierra Other [employer] Other 07-05-2022 10:05-0500 Respiratory rate 18 /min Amira Sierra Other [employer] Other 07-05-2022 10:05-0500 SaO2% (BldA) [Mass fraction] 99 % Amira Sierra Other [employer] Other Encounters Encounter Date Encounter Type Care Provider Facility Start: 08-25-2024 End: 08-25-2024 Office outpatient visit 15 minutes Haley Owens MD Work Phone: [facility] Comment on above: Missed Start: 08-25-2024 End: 08-25-2024 ambulatory HALEY OWENS Not Available Start: 08-17-2024 End: 08-17-2024 ambulatory HALEY OWENS Not Available Start: 08-16-2024 End: 08-16-2024 Office outpatient visit 15 minutes Haley Owens MD Work Phone: [facility] Comment on above: Missed Start: 08-16-2024 End: 08-16-2024 ambulatory HALEY OWENS Not Available Start: 08-13-2024 End: 08-13-2024 ambulatory Alexandra Tellez Penniearamlivia Work Phone: [facility] Work Phone: Start: 08-13-2024 End: 08-13-2024 Patient encounter procedure Alexandra Penniearamlivia Work Phone: [facility] [place] Work Phone: Start: 08-13-2024 End: 08-28-2024 External Result Encounter Haley Owens MD Work Phone: [facility] External Department Unsolicited Start: 08-13-2024 End: 08-28-2024 External Result Encounter Haley Owens MD Work Phone: [facility] External Department Unsolicited Start: 08-11-2024 End: 08-11-2024 Office outpatient visit 15 minutes Haley Owens MD Work Phone: [facility] Comment on above: Missed Start: 08-11-2024 End: 08-11-2024 ambulatory HALEY OWENS Not Available Start: 08-08-2024 End: 08-08-2024 Clinisync Result Encounter Haley Owens MD Work Phone: [facility] External Department Unsolicited Start: 08-08-2024 End: 08-08-2024 Clinisync Result Encounter Haley Owens MD Work Phone: [facility] External Department Unsolicited Start: 08-08-2024 End: 08-08-2024 Office outpatient visit 15 minutes Haley Owens MD Work Phone: [facility] Comment on above: Missed (Nely derick Dx) Start: 08-08-2024 End: 08-08-2024 ambulatory PENOLA P OWENS Not Available Start: 08-02-2024 End: 08-02-2024 Refill Alexandra Kay DRAIN TILER Work Phone: [facility] Comment on [...] GA: 13w0d Start: 07-28-2024 End: 07-28-2024 ambulatory PENOLA OWENS Not Available Start: 07-13-2024 End: 07-13-2024 ambulatory PENOLA OWENS Not Available Start: 07-08-2024 End: 07-08-2024 ambulatory BEATRIZ SIMONS [facility] Start: 07-08-2024 End: 07-08-2024 ambulatory BEATRIZ Riley [facility] Start: 06-16-2024 End: 06-16-2024 ambulatory PENOLA OWENS Not Available Start: 05-31-2024 End: 05-31-2024 Bamboo flowsheet Alexandra Kay DRAIN TILER Work Phone: [facility] Start: 05-31-2024 End: 05-31-2024 Bamboo flowsheet Alexandra Kay DRAIN TILER Work Phone: [facility] Start: 05-31-2024 End: 05-31-2024 Office outpatient visit 25 minutes Alexandra Kay NP Work Phone: [facility] Comment on above: Primary hypertension (CMS/HCC) (Primary Dx); Class 2 obesity due to excess calories without serious comorbidity with body mass index (BMI) of 39.0 to 39.9 in adult; Anxiety; Cigarette nicotine dependence without complication; Moderate persistent asthma in adult without complication (CMS/HCC) Start: 05-31-2024 End: 05-31-2024 ambulatory ALEXANDRA KAY Not Available Start: 05-13-2024 End: 05-15-2024 Telephone encounter Haley Owens MD Work Phone: [facility] Start: 05-11-2024 End: 05-11-2024 Lab Drop off Jeni Callaway [facility] Start: 05-11-2024 End: 05-11-2024 ambulatory Jeni Callaway [facility] Start: 05-11-2024 End: 05-11-2024 Patient encounter procedure Jeni Callaway [facility] Start: 05-04-2024 End: 05-04-2024 ambulatory HALEY OWENS Not Available Start: 05-03-2024 End: 05-03-2024 Bamboo flowsheet Alexandra Kay DRAIN TILER Work Phone: [facility] Start: 05-03-2024 End: 05-03-2024 Bamboo flowsheet Alexandra Kay DRAIN TILER Work Phone: [facility] Start: 05-03-2024 End: 05-03-2024 Office outpatient visit 15 minutes Alexandra Kay NP Work Phone: [facility] Comment on above: Primary hypertension (CMS/HCC) (Primary Dx); Cigarette nicotine dependence without complication; Class 2 obesity due to excess calories without serious comorbidity with body mass index (BMI) of 39.0 to 39.9 in adult Start: 05-03-2024 End: 05-03-2024 ambulatory ALEXANDRA RAHUL Not Available Start: 04-21-2024 End: 04-21-2024 ambulatory Jeni XiongCleopatra Nilton [facility] Start: 04-21-2024 End: 04-21-2024 Patient encounter procedure Jeni Callaway [facility] Start: 04-07-2024 End: 04-07-2024 Bamboo flowswilliam Young MD Work Phone: [facility] Start: 04-07-2024 End: 04-07-2024 Bamboo Symphony Dynamowilliam Young MD Work Phone: [facility] Start: 04-07-2024 End: 04-07-2024 ambulatory JOSIAH YOUNG Not Available Start: 04-07-2024 End: 04-07-2024 Office outpatient visit 15 minutes Josiah Young MD Work Phone: [facility] Comment on above: Chronic idiopathic u rticaria (Primary Dx) Start: 03-23-2024 End: 03-23-2024 ambulatory HALEY OWENS Not Available Start: 03-22-2024 End: 03-22-2024 ambulatory HALEY OWENS Facility:[facility] Start: 03-22-2024 End: 03-22-2024 Patient encounter procedure SHANITA HART [facility] Start: 03-20-2024 End: 03-21-2024 Refill Alexandra Rahul DRAIN TILER Work Phone: [facility] Comment on above: Anxiety Start: 03-12-2024 End: 03-21-2024 Telephone encounter Haley Owens MD Work Phone: [facility] Start: 03-08-2024 End: 03-08-2024 ambulatory HALEY OWENS Not Available Start: 03-08-2024 End: 03-08-2024 ambulatory ALEXANDRA KAY Not Available Start: 02-29-2024 End: 02-29-2024 ambulatory SHAKIR LUCAS Not Available Start: 02-16-2024 End: 02-16-2024 ambulatory PENOLA P OWENS Not Available Start: 02-10-2024 End: 02-10-2024 ambulatory PENOLA OWENS Not Available Start: 01-26-2024 End: 01-26-2024 ambulatory ALEXANDRA KAY Not Available Start: 01-13-2024 End: 01-13-2024 ambulatory PENOLA OWENS Not Available Start: 12-28-2023 Patient encounter status Alexandra Jamesonindiratia Work Phone: [facility] Start: 12-28-2023 End: 12-28-2023 ambulatory ALEXANDRA KAY Not Available Start: 12-23-2023 End: 12-23-2023 ambulatory [facility] Work Phone: Start: 12-23-2023 End: 12-23-2023 Patient encounter procedure [facility] Physician [facility] Work Phone: Start: 12-09-2023 End: 12-09-2023 ambulatory PENOLA OWENS Not Available Start: 11-05-2023 End: 11-05-2023 ambulatory JOSIAH E KALEBBASEK Not Available Start: 11-04-2023 End: 11-04-2023 ambulatory PENOLA OWENS Not Available Start: 10-26-2023 End: 10-26-2023 ambulatory ALEXANDRA KAY Not Available Start: 10-05-2023 End: 10-05-2023 ambulatory PENOLA OWENS Not Available Start: 09-07-2023 End: 09-07-2023 ambulatory PENOLA OWENS Not Available Start: 11-19-2022 End: 11-19-2022 ambulatory [employer] ALEXANDRA JAMESONINDIRATia Facility: Start: 07-05-2022 End: 07-05-2022 ambulatory Amira Sierra Other [facility] Other Start: 07-05-2022 Office outpatient vi sit 15 minutes Amira Sierra [facility] Start: 04-11-2022 End: 04-12-2022 ambulatory [employer] ALEXANDRA KAY Facility:[facility] Procedures Date Procedure Procedure Detail Performing Clinician Start: 08-13-2024 [facility] Haley romo MD Work Phone: Start: 08-08-2024 ALL CBC WITH AUTO DIFF Generic External Data Provider Start: 04-21-2024 Flexible cystoscopy Beverly Callaway Start: 02-16-2024 Microscopic observat ion [Identifier] in Cervix by Cyto stain Alexandra Kay DRA[employer] TILER Work Phone: Start: 12-23-2023 Quick Strep (POC) Start: 04-15-2016 Dilation of urethra JUMANA HART Structure of wisdom tooth (body structure) SHANITA TANNER Vaginal biopsy SHANITA Jurado Plan of Treatment Date Care Activity Detail Author Start: 02-15-2029 Screening for malign ant neoplasm of cervix [facility] Start: 02-15-2027 Screening for malign ant neoplasm of cervix Pap Smear [facility] Start: 11-29-2024 End: 11-29-2024 Patient encounter procedure 11/29/2024 9:00 AM EDT Office Visit [facility] [address] [place] [address] Alexandra Kay NP [address] [place] [address] [facility] Start: 10-05-2024 End: 10-05-2024 Patient encounter procedure 10/05/2024 9:20 AM EDT Office Visit [facility] [address] [place] [address] Josiah Young MD [address] [place] [address] [facility] Start: 09-14-2024 End: 09-14-2024 Clinical Support 09/14/2024 3:45 PM EST Clinical Support [facility] [address] [place] [address] [facility] Start: 09-08-2024 End: 09-08-2024 Patient encounter procedure 09/08/2024 9:00 AM EST Office Visit [facility] [address] [place] [address] Josiah Young MD [address] [place] [address] [facility] Start: 09-06-2024 End: 09-06-2024 Patient encounter procedure 09/06/2024 2:45 PM EST Office Visit [facility] [address] [place] [address] Haley Owens MD [address] [place] [address] [facility] Start: 09-06-2024 End: 09-06-2024 Patient encounter procedure 09/06/2024 10:15 AM EST Office Visit [facility] [address] [place] [address] Haley Owens MD [address] [place] [address] [facility] OB Start: 09-06-2024 End: 09-06-2024 Professional / ancillary services management 09/06/2024 9:30 AM EST Ancillary Procedure [facility] [address] [place] [id number] [facility] Start: 08-25-2024 End: 08-25-2024 Patient encounter procedure 08/25/2024 8:45 AM EST Office Visit [facility] [address] [place] [id number] Haley Owens MD [address] [place] [address] [facility] Start: 08-25-2024 End: 08-25-2024 Professional / ancillary services management 08/25/2024 8:00 AM EST Ancillary Procedure [facility] [address] [place] [address] [facility] Start: 08-17-2024 End: 08-17-2024 Clinical Support 08/17/2024 3:45 PM EST Clinical Support [facility] [address] [place] [address] [facility] Start: 08-16-2024 End: 08-16-2024 Patient encounter procedure 08/16/2024 3:00 PM EST Office Visit [facility] [address] [place] [address] Haley Owens MD [address] [place] [address] [facility] Start: 08-16-2024 End: 08-16-2024 Professional / ancillary services management 08/16/2024 2:30 PM EST Ancillary Procedure [facility] [address] [place] [address] [facility] Start: 08-13-2024 [facility] Start: 08-11-2024 End: 08-11-2024 Patient encounter procedure 08/11/2024 3:15 PM EST Office Visit [facility] [address] [place] [address] Haley Owens MD [address] [place] [address] [facility] Start: 08-11-2024 End: 08-11-2024 Professional / ancillary services management 08/11/2024 2:30 PM EST Ancillary Procedure [facility] [address] [place] [phone] [facility] Start: 08-10-2024 End: 08-10-2024 Professional / ancillary services management 08/10/2024 3:30 PM EST Ancillary Procedure [facility] [address] [place] [address] [facility] Start: 08-08-2024 End: 08-08-2025 CBC W Auto Differential panel - Blood CBC and differential Lab Routine Missed Expected: 08/08/2024 (Approximate), Expires: 08/08/2025 [facility] Comment on above: Expected: 08/08/2024 (Approximate), Expires: 08/08/2025 Start: 07-28-2024 End: 07-28-2025 Bacteria identified in [...] first trimester Expected: 07/28/2024 (Approximate), Expires: 07/28/2025 [facility] Comment on above: Expected: 07/28/2024 (Approximate), Expires: 07/28/2025 Start: 07-28-2024 End: 07-28-2025 HIV-1/HIV-2 antigen/antibody combination immunoassay HIV-1 and HIV-2 antibodies Lab Routine care, subsequent in first trimester Expected: 07/28/2024 (Approximate), Expires: 07/28/2025 [facility] Comment on above: Expected: 07/28/2024 [...] first trimester Expected: 07/28/2024 (Approximate), Expires: 07/28/2025 [facility] Comment on above: Expected: 07/28/2024 (Approximate), Expires: 07/28/2025 Start: 07-28-2024 End: 07-28-2025 Urinalysis complete panel - Urine Urinalysis with microscopic Lab Routine care, subsequent in first trimester Expected: 07/28/2024 (Approximate), Expires: 07/28/2025 [facility] Comment on above: Expected: 07/28/2024 (Approximate), Expires: 07/28/2025 Start: 06-15-2024 End: 06-15-2024 Clinical Support 06/15/2024 3:45 PM EST Clinical Support [facility] [address] [place] [address] [facility] Start: 05-31-2024 End: 05-31-2024 [...] [address] [place] [address] [facility] Start: 05-03-2024 End: 05-03-2024 Patient encounter procedure [facility] Comment on above: Cigarette nicotine d ependence without complication (Primary Dx) Start: 04-27-2024 End: 04-27-2024 Clinical Support 04/27/2024 4:00 PM EDT Clinical Support [facility] [address] [place] [address] [facility] Start: 04-07-2024 End: 04-07-2024 Patient encounter procedure 04/07/2024 9:20 AM EDT Office Visit [facility] [address] [place] [address] Josiah Young MD [address] [place] [address] [facility] Start: 04-05-2024 End: 04-05-2024 Patient encounter procedure 04/05/2024 1:00 PM EDT Office Visit [facility] [address] [place] [address] Alexandra Kay NP [address] [place] [address] [facility] Start: 03-23-2024 End: 03-23-2024 Clinical Support 03/23/2024 4:00 PM EDT Clinical Support [facility] [address] [place] [address] [facility] hCG, quantitative hCG, quantitat kimo Lab Routine Missed Ordered: 08/08/2024 [facility] Work Phone: Comment on above: Ordered: 08/08/2024 Immunizations Immunization Date Immunization Notes Care Provider Fa cili 05-27-2023 influenza virus vacc ine, unspecified formulation Jeni Callaway [facility] 05-27-2023 influenza, injectabl e, quadrivalent, preservative free Alexandra Aichholz [employer] Work Phone: [facility] 02-20-2023 hepatitis B vaccine, adult dosage Alexandra Aichholz [employer] Work Phone: [facility] 06-03-2022 hepatitis B vaccine, adult dosage Alexandra Aichholz [employer] Work Phone: [facility] 06-03-2022 measles, mumps and rubella virus vaccine Alexandra Aichholz [employer] Work Phone: [facility] 04-29-2022 hepatitis B vaccine, adult dosage Alexandra Aichholz [employer] Work Phone: [facility] 04-29-2022 influenza virus vacc ine, unspecified formulation Jeni Lue [facility] 04-29-2022 influenza, injectabl e, quadrivalent, preservative free Alexandra Aichholz [employer] Work Phone: [facility] 11-18-2021 SARS-CoV-2 (COVID-19 ) Ad26 vaccine, recombinant Jeni Lue [facility] Comment on above: Result Comment: 2023: TPVALL 11-18-2017 HPV, unspecified formulation Jeni Lue [facility] 11-18-2017 Human Papillomavirus 9-valent vaccine Alexandra Aichholz [employer] Work Phone: [facility] 07-15-2017 HPV, unspecified formulation Jeni Lue [facility] 07-15-2017 Human Papillomavirus 9-valent vaccine Alexandra Aichholz [employer] Work Phone: [facility] 07-15-2017 tetanus toxoid, redu vladimir diphtheria toxoid, and acellular pertussis vaccine, adsorbed Alexandra Aichholz [employer] Work Phone: [facility] 04-20-2017 HPV, unspecified formulation Jeni Lue [facility] 04-20-2017 Human Papillomavirus 9-valent vaccine Alexandra Aichholz [employer] Work Phone: [facility] 12-13-1997 diphtheria, tetanus toxoids and acellular pertussis vaccine Alexandra Aichholz [employer] Work Phone: [facility] 12-13-1997 measles, mumps and rubella virus vaccine Alexandra Aichholz [employer] Work Phone: [facility] [place] Payers Date Payer Category Payer Medicaid [id number] 2024 Self-pay [id number] 2022 Medicaid [facility] MEDIC AID [employer] [place] [id number] 2022-Present [address] [place] [address] [id number] 2022 Private Health Insurance [facility] MEDICAID [id number] 1992 Unknown [id number] 09.11.830.1.589131.3.579.2 .593 1992 Unknown [id number] 09.11.830.1.598687.3.579.2 .593 1992 Unknown [id number] 2.840.1.166667.3.579.2 .727 1992 Unknown [id number] 2.840.1.870456.3.579.2 .727 1992 Unknown [id number] .840.1.604409.3.579.2 .727 1992 Unknown [id number] .840.1.624824.3.579.2 .727 1992 Unknown [id number] 2.16.840.1.160658.3.579.2 .1286 1992 Unknown [id number] 2.16.840.1.283890.3.579.2 .1286 1992 Unknown [id number] 2.16.840.1.184788.3.579.2 .1259 1992 Unknown [id number] 2.16.840.1.500454.3.579.2 .1259 1992 Unknown [id number] 2.16.840.1.648416.3.579.2 .1259 1992 Unknown [id number] 2.16.840.1.060851.3.579.2 .1258 1992 Unknown [id number] 2.16.840.1.609981.3.579.2 .9 1992 Unknown [id number] 2.16.840.1.356128.3.579.2 .1258 1992 Unknown [id number] 2.16.840.1.878121.3.579.2 .1258 1992 Unknown [id number] 2.16.840.1.114479.3.579.2 .1258 1992 Unknown [id number] 2.16.840.1.684251.3.579.2 .9 1992 Unknown [id number] 2.16.840.1.709739.3.579.2 .1258 1992 Unknown [id number] 2.16.840.1.353050.3.579.2 .9 1992 Unknown [id number] 2.16.840.1.905500.3.579.2 .1258 1992 Unknown [id number] 2.16.840.1.122179.3.579.2 .9 1992 Unknown [id number] 2.16.840.1.676190.3.579.2 .1258 1992 Unknown [id number] 2.16.840.1.212421.3.579.2 .9 1992 Unknown [id number] 2.16.840.1.248135.3.579.2 .1258 1992 Unknown [id number] 2.16.840.1.032618.3.579.2 .1258 1992 Unknown [id number] 2.16.840.1.643707.3.579.2 .1258 1992 Unknown [id number] 2.16.840.1.912913.3.579.2 .1258 1992 Unknown [id number] 2.16.840.1.643661.3.579.2 .1258 1992 Unknown [id number] 2.16.840.1.150146.3.579.2 .1258 1992 Unknown [id number] 2.16840.1.589110.3.579.2 .1258 1992 Unknown [id number] 2.16.840.1.049127.3.579.2 .1258 1992 Unknown [id number] 2.16.840.1.115444.3.579.2 .1258 1992 Unknown [id number] 2.16.840.1.463282.3.579.2 .1258 1992 Unknown [id number] 2.16.840.1.749629.3.579.2 .1258 1992 Unknown [id number] 2.16.840.1.528134.3.579.2 .1258 1992 Unknown [id number] 2.16.840.1.807516.3.579.2 .1258 1992 Unknown [id number] 2.16.840.1.915651.3.579.2 .1258 1992 Unknown [id number] 2.16.840.1.639336.3.579.2 .1258 1992 Unknown [id number] 2.16.840.1.806383.3.579.2 .1259 1992 Unknown [id number] 2.16.840.1.381360.3.579.2 .1259 1992 Unknown [id number] 2.16.840.1.766173.3.579.2 .1259 1959 Unknown [id number] 2.16.840.1.770981.19 1959 Unknown [id number] Unknown O [id number] Unknown [employer] Benefits [id number] Unknown [id number] 2.16.840.1.081753.3.579.2 .531 Worker's Compensation [id number] Social History Date Type Detail Facility Unknown if ever smoked [facility] Start: 05-03-2024 End: 08-25-2024 Sex Assigned At [facility] Start: 09-26-2020 End: 09-26-2020 Tobacco smoking status NHIS Smoker (finding) [facility] Start: 1990 Sex Assigned At Female [facility] Start: 04-21-2024 Tobacco smoking status Heavy tobacco smoker (finding) [facility] Tobacco smoking status Never [facility] Start: 02-16-2024 End: 07-28-2024 Tobacco smoking status SDIS Smokes tobacco daily [facility] History of tobacco use Cigarette Smoker [facility] Start: 02-16-2024 End: 07-28-2024 Tobacco use and exposure Smokeless tobacco non-user [facility] Start: 03-08-2024 End: 05-03-2024 Alcoholic beverage intake Current drinker of alcohol (finding) [facility] Start: 05-03-2024 End: 08-25-2024 History of Social function [facility] Start: 04-26-2023 Alcohol Comment 1-2 drinks less than monthly in the past year, Caffeine intake: occasional coffee, 2 Red bulls/day [facility] Start: 1990 Sex assigned at Not on file [facility] Start: 10-08-2022 Gender identity Identifies as female gender (finding) [facility] Start: 07-28-2024 End: 08-11-2024 Alcoholic beverage intake Ex-drinker (finding) [facility] Start: 07-28-2024 Tobacco Comment Cessation discussed [facility] Start: 07-28-2024 Alcohol Comment Caffeine intake: occassionally [facility] Start: 05-12-2024 [facility] Start: 08-18-2024 Sex Female (finding) [facility] Functional Status Date Assessment Result Facility 04-21-2024 Functional Status N/A [facility] 03-22-2024 Functional Status N/A [facility] Clinical Notes 10-11-2020 to 08-25-2024 Haley Owens MD - 08/25/2024 8:45 AM Abhi Owens MD - 08/16/2024 3:00 PM Abhi Owens MD - 08/11/2024 3:15 PM Abhi Owens MD - 08/08/2024 10:00 AM ESTPatient Instructions Note Date & Type Note Facility 08-25-2024 History of Presen t illness Narrative Images from the original note were not included. Haley Owens MD Obstetrics and Gynecology Patient: Carina Schultz : 1990 (34 y.o.) Exam Date: 08/25/2024 Reason for Visit - Chief Complaint Patient presents with Follow-up Follow up after in house ultrasound for MAB. Pt stating that has had some light spotting Cytotec x 3 rounds The patient presents for follow-up of a recent miscarriage. She reports experiencing light vaginal bleeding, described as light on the toilet paper yesterday. The patient has undergone three doses of Cytotec (misoprostol) orally, with the first dose causing significant discomfort, the second dose managed with pain medication, and the third dose described as bizarre but manageable. She occasionally experiences mild, intermittent pelvic discomfort but denies feeling in distress. The patient has completed a course of antibiotics. She denies fever or increased vaginal pain but reports some ongoing bleeding. Visit Vitals LMP 04/28/2024 OB Status Recent Smoking Status Every Day History of Present Illness, Associated Treatments and Results - OB History Para Term AB Living 3 1 1 0 1 1 SAB IAB Ectopic Multiple Live Births 1 0 0 0 1 # Outcome Date GA Lbr Franco/2nd Weight Sex Type Anes PTL Lv 3 Term 2010 6 lb 12 oz F Vag-Spont KRYSTLE 2 SAB 1 Constitutional: Negative. HENT: Negative. Eyes: Negative. Respiratory: Negative. Cardiovascular: Negative. Gastrointestinal: Negative. Endocrine: Negative. Genitourinary: Negative. Musculoskeletal: Negative. Skin: Negative. Allergic/Immunologic: Negative. Neurological: Negative. Hematological: Negative. Psychiatric/Behavioral: Negative. Allergies Allergen Reactions Sulfamethoxazole-Trimethoprim Hives Diphenhydramine RASH Nitrofurantoin Hives Current Outpatient Medications: albuterol HFA 90 mcg/act inhaler, Inhale 2 puffs every 6 (six) hours if needed for wheezing or shortness of breath, Disp: 18 g, Rfl: 0 budesonide-formoterol (Symbicort) 80-4.5 MCG/ACT inhaler, Inhale 2 puffs in the morning and 2 puffs before bedtime. Rinse mouth after use., Disp: 1 each, Rfl: 5 doxycycline (Vibramycin) 100 MG capsule, Take 1 capsule (100 mg) by mouth in the morning and 1 capsule (100 mg) before bedtime. Do all this for 7 days. Take with at least 8 ounces (large glass) of water, do not lie down for 30 minutes after., Disp: 14 capsule, Rfl: 0 EPINEPHrine (Epipen) 0.3 MG/0.3ML injection syringe, Inject 0.3 mL (0.3 mg) as directed if needed for anaphylaxis Call 911 after use., Disp: 4 each, Rfl: 3 loratadine (Claritin) 10 MG tablet, Take by mouth, Disp: , Rfl: miSOPROStol (Cytotec) 200 MCG tablet, Take 4 tablets (800 mcg) by mouth 1 time for 1 dose .Repeat dose 2 days later ., Disp: 8 tablet, Rfl: 0 miSOPROStol (Cytotec) 200 MCG tablet, Take 4 tablets at bedtime for 2 nights, Disp: 8 tablet, Rfl: 0 miSOPROStol (Cytotec) 200 MCG tablet, Take 4 tablets orally for 2 days at bedtime., Disp: 8 tablet, Rfl: 0 predniSONE (Deltasone) 20 MG tablet, 1 pill twice a day for 3 days, then 1 pill daily for 3 days, then 1/2 pill daily for 4 days. 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 Family History Problem Relation Name Age of Onset Hypertension Mother Other (prediabetes) Father Hypertension Father Cancer Maternal Grandmother Breast cancer Paternal Grandmother Diabetes Paternal Grandmother Social History Tobacco Use Smoking Status Every Day Current packs/day: 0.50 Types: Cigarettes Smokeless Tobacco Never Tobacco Comments Cessation discussed Physical Exam - General appearance, mentation, extraocular movements, facial strength and movement, hearing, upper and lower extremity strength and tone, sensation to gross testing, coordination, and gait are normal or at baseline unless noted below. Physical Exam Constitutional: Appearance: Normal appearance. HENT: Head: Normocephalic and atraumatic. Neurological: Mental Status: She is alert and oriented to person, place, and time. Psychiatric: Mood and Affect: Mood normal. Behavior: Behavior normal. Assessment/Plan ICD-10-CM 1. Missed O02.1 2 week follow up with ultrasound for MAB 1. Incomplete spontaneous : - Ultrasound findings: a) Decrease in endometrium size from 17.7 mm to 15 mm - Current status: a) Light vaginal bleeding b) Occasional mild discomfort c) No significant pain or distress - Treatment: a) Three doses of misoprostol (Cytotec) taken orally - Plan: a) Continue expectant management b) Complete current course of antibiotics c) Monitor for increased vaginal pain, fever, or bleeding d) Follow-up appointment in two weeks for reassessment and HPV-related checkup e) Ultrasound to be performed at next visit f) Patient instructed to seek immediate medical attention if symptoms worsen Repeat UDS for ED next week documented in this encounter [facility] 08-16-2024 History of Presen t illness Narrative Images from the original note were not included. Haley Owens MD Obstetrics and Gynecology Patient: Carina Schultz : 1990 (34 y.o.) Exam Date: 08/16/2024 Reason for Visit - Chief Complaint Patient presents with Follow-up Follow up after in house ultrasound for MAB. The patient reports experiencing intermittent vaginal bleeding, describing it as every once in a while, but nothing too crazy. She is currently taking Zithromax as prescribed for 10 days. The patient denies any emotional distress related to her condition, stating she didn't hear the heartbeat and didn't see that, so she didn't feel anything at all. She declined the offer of antidepressants, asserting she should be okay. Regarding her gynecological system, the patient reports occasional bleeding, but notes it is not excessive. In terms of her psychiatric state, she appears emotionally stable and denies the need for antidepressants. The patient's current medication regimen includes Zithromax, which she is taking for a 10-day course. Visit Vitals LMP 04/28/2024 OB Status Recent Smoking Status Every Day History of Present Illness, Associated Treatments and Results - OB History Para Term AB Living 3 1 1 0 1 1 SAB IAB Ectopic Multiple Live Births 1 0 0 0 1 # Outcome Date GA Lbr Franco/2nd Weight Sex Type Anes PTL Lv 3 Term 2011 6 lb 12 oz F Vag-Spont KRYSTLE 2 SAB 1 Constitutional: Negative. HENT: Negative. Eyes: Negative. Respiratory: Negative. Cardiovascular: Negative. Gastrointestinal: Negative. Endocrine: Negative. Genitourinary: Negative. Musculoskeletal: Negative. Skin: Negative. Allergic/Immunologic: Negative. Neurological: Negative. Hematological: Negative. Psychiatric/Behavioral: Negative. Allergies Allergen Reactions Sulfamethoxazole-Trimethoprim Hives Diphenhydramine RASH Nitrofurantoin Hives Current Outpatient Medications: albuterol HFA 90 mcg/act inhaler, Inhale 2 puffs every 6 (six) hours if needed for wheezing or shortness of breath, Disp: 18 g, Rfl: 0 budesonide-formoterol (Symbicort) 80-4.5 MCG/ACT inhaler, Inhale 2 puffs in the morning and 2 puffs before bedtime. Rinse mouth after use., Disp: 1 each, Rfl: 5 doxycycline (Vibramycin) 100 MG capsule, Take 1 capsule (100 mg) by mouth in the morning and 1 capsule (100 mg) before bedtime. Do all this for 7 days. Take with at least 8 ounces (large glass) of water, do not lie down for 30 minutes after., Disp: 14 capsule, Rfl: 0 HYDROcodone-acetaminophen (Kinmundy) 10-325 MG tablet, Take 1 tablet by mouth every 6 (six) hours if needed for moderate pain or severe pain for up to 5 days, Disp: 20 tablet, Rfl: 0 ibuprofen 800 MG tablet, Take 1 tablet (800 mg) by mouth every 6 (six) hours if needed for mild pain for up to 10 days, Disp: 20 tablet, Rfl: 0 loratadine (Claritin) 10 MG tablet, Take by mouth, Disp: , Rfl: miSOPROStol (Cytotec) 200 MCG tablet, Take 4 tablets (800 mcg) by mouth 1 time for 1 dose .Repeat dose 2 days later ., Disp: 8 tablet, Rfl: 0 miSOPROStol (Cytotec) 200 MCG tablet, Take 4 tablets at bedtime for 2 nights, Disp: 8 tablet, Rfl: 0 predniSONE (Deltasone) 20 MG tablet, 1 pill twice a day for 3 days, then 1 pill daily for 3 days, then 1/2 pill daily for 4 days. 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 Family History Problem Relation Name Age of Onset Hypertension Mother Other (prediabetes) Father Hypertension Father Cancer Maternal Grandmother Breast cancer Paternal Grandmother Diabetes Paternal Grandmother Social History Tobacco Use Smoking Status Every Day Current packs/day: 0.50 Types: Cigarettes Smokeless Tobacco Never Tobacco Comments Cessation discussed Physical Exam - General appearance, mentation, extraocular movements, facial strength and movement, hearing, upper and lower extremity strength and tone, sensation to gross testing, coordination, and gait are normal or at baseline unless noted below. Physical Exam Constitutional: Appearance: Normal appearance. HENT: Head: Normocephalic and atraumatic. Musculoskeletal: Left lower leg: Edema present. Neurological: Mental Status: She is alert and oriented to person, place, and time. Psychiatric: Mood and Affect: Mood normal. Behavior: Behavior normal. Transvaginal scans of the pelvis were obtained. The uterus is normal in size and contour. The myometrium is inhomogenous in echotexture. The endometrium appears heterogeneous, and has increased vascularity. The endometrium measures 17.7 mm in thickness. Assessment/Plan ICD-10-CM 1. Missed O02.1 1. Incomplete miscarriage: - Plan: a) Continue Zithromax for 10 days. b) Repeat endometrial thickness measurement in 10 days. c) Monitor for increased bleeding. d) Await genetic testing results (2-3 weeks). Fpr POC passed e) Follow up in 10 days. f) Patient to contact clinician if bleeding becomes overwhelming. g) Consider additional medication (unspecified) if needed for further management. 2. Mental health status post miscarriage: - Plan: a) No antidepressants prescribed at this time. b) Continue to monitor emotional status. documented in this encounter [facility] 08-11-2024 History of Presen t illness Narrative Images from the original note were not included. Haley Owens MD Obstetrics and Gynecology Patient: Carina Schultz : 1990 (34 y.o.) Exam Date: 08/11/2024 Reason for Visit - Chief Complaint Patient presents with Follow-up Follow up after in house ultrasound for missed AB. The patient reports passing something and experiencing pain. The pain is described as internal. The patient mentions taking a picture of what was passed. They were given Kinmundy for severe pain. The patient is not currently on antibiotics. Current medications include Kinmundy, which was given to the patient for pain. The patient states they are not currently taking antibiotics. Visit Vitals LMP 04/28/2024 OB Status Recent Smoking Status Every Day History of Present Illness, Associated Treatments and Results - OB History Para Term AB Living 3 1 1 0 1 1 SAB IAB Ectopic Multiple Live Births 1 0 0 0 1 # Outcome Date GA Lbr Franco/2nd Weight Sex Type Anes PTL Lv 3 Term 2010 6 lb 12 oz F Vag-Spont KRYSTLE 2 SAB 1 Constitutional: Negative. HENT: Negative. Eyes: Negative. Respiratory: Negative. Cardiovascular: Negative. Gastrointestinal: Negative. Endocrine: Negative. Genitourinary: Negative. Musculoskeletal: Negative. Skin: Negative. Allergic/Immunologic: Negative. Neurological: Negative. Hematological: Negative. Psychiatric/Behavioral: Negative. Allergies Allergen Reactions Sulfamethoxazole-Trimethoprim Hives Diphenhydramine RASH Nitrofurantoin Hives Current Outpatient Medications: albuterol HFA 90 mcg/act inhaler, Inhale 2 puffs every 6 (six) hours if needed for wheezing or shortness of breath, Disp: 18 g, Rfl: 0 budesonide-formoterol (Symbicort) 80-4.5 MCG/ACT inhaler, Inhale 2 puffs in the morning and 2 puffs before bedtime. Rinse mouth after use., Disp: 1 each, Rfl: 5 ibuprofen 800 MG tablet, Take 1 tablet (800 mg) by mouth every 6 (six) hours if needed for mild pain for up to 10 days, Disp: 20 tablet, Rfl: 0 loratadine (Claritin) 10 MG tablet, Take by mouth, Disp: , Rfl: miSOPROStol (Cytotec) 200 MCG tablet, Take 4 tablets (800 mcg) by mouth 1 time for 1 dose .Repeat dose 2 days later ., Disp: 8 tablet, Rfl: 0 predniSONE (Deltasone) 20 MG tablet, 1 pill twice a day for 3 days, then 1 pill daily for 3 days, then 1/2 pill daily for 4 days. 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 Family History Problem Relation Name Age of Onset Hypertension Mother Other (prediabetes) Father Hypertension Father Cancer Maternal Grandmother Breast cancer Paternal Grandmother Diabetes Paternal Grandmother Social History Tobacco Use Smoking Status Every Day Current packs/day: 0.50 Types: Cigarettes Smokeless Tobacco Never Tobacco Comments Cessation discussed Physical Exam - General appearance, mentation, extraocular movements, facial strength and movement, hearing, upper and lower extremity strength and tone, sensation to gross testing, coordination, and gait are normal or at baseline unless noted below. Physical Exam Constitutional: Appearance: Normal appearance. HENT: Head: Normocephalic and atraumatic. Neurological: Mental Status: She is alert and oriented to person, place, and time. Psychiatric: Mood and Affect: Mood normal. Behavior: Behavior normal. Assessment/Plan ICD-10-CM 1. Missed O02.1 1. Vaginal bleeding/ miscarriage: - Patient reports: a) Passing tissue b) Experiencing pain - Previous ultrasound showed a sac extending to the surface - Patient is not currently on antibiotics - Plan: a) Follow-up ultrasound scheduled for Thursday b) Kinmundy prescribed for pain management Vibramycin ordered c) Patient instructed to collect passed tissue in a provided container d) Patient advised to consider taking a bath for symptom relief e) Tentative return to work on Thursday, contingent on clinical progress f) Additional follow-up at [facility] on Thursday documented in this encounter [facility] 08-08-2024 History of Presen t illness Narrative Images from the original note were not included. Haley Owens MD Obstetrics and Gynecology Patient: Carina Schultz : 1990 (34 y.o.) Exam Date: 08/08/2024 Reason for Visit - Chief Complaint Patient presents with Miscarriage States she was at [facility] Thursday morning for heavy bleeding. States she was in a pool of blood and passed out after 2 hours of heavy bleeding WBCs 20k and hematocrit 40 after steroids for idiopathic urticara 08/06 States ER told her she was miscarrying. States US showed 9 week fetus with cardiac activity and she is supposed to be 14 weeks. States cervix was dilated per ER as well. Patient has had some light bleeding and mild cramping since ER visit, but not enough to fill a pad. Nothing noted in toilet either, pt does not believed she has passed any tissue. HCG 359 08/06 Pt stating that she is having very little bleeding with light cramping like she is on her period Pap 02/16 The patient presents with a chief complaint of intermittent vaginal bleeding, which began on Thursday and has been ongoing. The bleeding was heaviest on Thursday, described as significantly heavier than a normal period, with large clots passed and blood dripping down her legs. The patient experienced an episode of syncope during this time due to the heavy bleeding. The bleeding has since become audio operator, but is still present. The patient has a history of chronic idiopathic urticaria and has been receiving Xolair injections for treatment. She recently started taking steroids for hives four days prior to the onset of bleeding. The patient denies any known cause for the hives. The patient had an ultrasound performed, but the results were not immediately available. She was informed that it may take a couple of hours for the results to be ready. The patient is currently awaiting an additional ultrasound to further assess the situation. AFTER IN HOUSE ULTRASOUND The patient presents with a concern regarding her current . She reports having an ultrasound that showed nine sides but no cardiac activity. The patient is seeking confirmation and guidance on the next steps. The patient inquires about the possibility of trying for another after the current situation is resolved. She also asks about the condition of her cervix and whether it would be able to hold a . Visit Vitals LMP 04/28/2024 Unknown OB Status Recent Smoking Status Every Day History of Present Illness, Associated Treatments and Results - OB History Para Term AB Living 2 1 1 0 0 1 SAB IAB Ectopic Multiple Live Births 0 0 0 0 1 # Outcome Date GA Lbr Franco/2nd Weight Sex Type Anes PTL Lv 2 1 Term 2010 6 lb 12 oz F Vag-Spont KRYSTLE Constitutional: Negative. HENT: Negative. Eyes: Negative. Respiratory: Negative. Cardiovascular: Negative. Gastrointestinal: Negative. Endocrine: Negative. Genitourinary: Negative. Musculoskeletal: Negative. Skin: Negative. Allergic/Immunologic: Negative. Neurological: Negative. Hematological: Negative. Psychiatric/Behavioral: Negative. Allergies Allergen Reactions Sulfamethoxazole-Trimethoprim Hives Diphenhydramine RASH Nitrofurantoin Hives Current Outpatient Medications: albuterol HFA 90 mcg/act inhaler, Inhale 2 puffs every 6 (six) hours if needed for wheezing or shortness of breath, Disp: 18 g, Rfl: 0 budesonide-formoterol (Symbicort) 80-4.5 MCG/ACT inhaler, Inhale 2 puffs in the morning and 2 puffs before bedtime. Rinse mouth after use., Disp: 1 each, Rfl: 5 cetirizine (ZyrTEC) 10 MG tablet, Take 10 mg by mouth Daily (Patient not taking: Reported on 07/28/2024), Disp: , Rfl: clobetasol (Temovate) 0.05 % cream, apply to affected area ON HANDS once daily for up to 2 weeks then if needed for FLARES (Patient not taking: Reported on 07/28/2024), Disp: , Rfl: loratadine (Claritin) 10 MG tablet, Take by mouth, Disp: , Rfl: predniSONE (Deltasone) 20 MG tablet, 1 pill twice a day for 3 days, then 1 pill daily for 3 days, then 1/2 pill daily for 4 days. 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 Family History Problem Relation Name Age of Onset Hypertension Mother Other (prediabetes) Father Hypertension Father Cancer Maternal Grandmother Breast cancer Paternal Grandmother Diabetes Paternal Grandmother Social History Tobacco Use Smoking Status Every Day Current packs/day: 0.50 Types: Cigarettes Smokeless Tobacco Never Tobacco Comments Cessation discussed Physical Exam - General appearance, mentation, extraocular movements, facial strength and movement, hearing, upper and lower extremity strength and tone, sensation to gross testing, coordination, and gait are normal or at baseline unless noted below. Physical Exam Constitutional: Appearance: Normal appearance. Genitourinary: Right Labia: No rash. Left Labia: No rash. No vaginal discharge. No vaginal prolapse present. No vaginal atrophy present. No cervical lesion. HENT: Head: Normocephalic and atraumatic. Neurological: Mental Status: She is alert and oriented to person, place, and time. Psychiatric: Mood and Affect: Mood normal. Behavior: Behavior normal. Menses less than 5 ccs Cx closed Assessment/Plan ICD-10-CM 1. Missed O02.1 1. Suspected miscarriage: - Patient reported heavy bleeding on Thursday, passing a large clot, and light bleeding currently - Plan: a) Perform an ultrasound today to assess the situation. b) Advise the patient to monitor bleeding and symptoms. c) Schedule a follow-up appointment on to reevaluate the situation. 2. Chronic idiopathic urticaria: - Patient has a history of chronic idiopathic urticaria and is on Xolair shots - Plan: a) Continue current treatment with Xolair shots as prescribed by Dr. Das. b) Monitor for any adverse effects or changes in symptoms. 3. Recent hives and steroid use: - Patient reported having hives and started taking steroids four days before the ER visit for bleeding - Plan: a) Continue steroids as prescribed for hives. b) Monitor for any side effects or changes in symptoms. c) Inquire about any potential interactions between steroids and Xolair shots. 4. Anemia risk due to heavy bleeding: - Patient reported heavy bleeding and passing out during the episode - Plan: a) Check blood count to assess for anemia. b) Consider iron supplementation if necessary. c) Monitor for signs of anemia, such as fatigue, dizziness, or shortness of breath. 5. Follow-up: - Plan: a) Schedule a follow-up appointment on to reevaluate the patient's condition. b) Discuss the results of the ultrasound. c) Adjust the treatment plan as needed based on the findings. AFTER IN HOUSE ULTRASOUND 1. Early loss: - Plan: a) Confirm the non-viable with a repeat test. b) Administer Cytotec (misoprostol): four tablets orally today and another four tablets orally in 24 hours. c) Advise the patient to take time off work due to potential cramping and bleeding. d) Schedule a follow-up appointment on to assess progress. e) Consider scheduling a dilation and curettage (D&C) procedure on Thursday if process doesn't progress as expected. f) Cancel the previously scheduled ultrasound appointment for Thursday. 2. Future plans: - Plan: Pt wishes future 3. Cervical integrity: - Plan: a) Reassure patient that the current situation is not related to cervical insufficiency. b) Explain that this should not impact future pregnancies. 4. Medication safety in /Xolair - Plan: a) Review the specific medications in question. b) Provide the patient with information on their safety during . documented in this encounter [facility] 08-08-2024 Instructions Haley Owens MD - 08/08/2024 10:00 AM EST Then there is the disclaimer that there is insufficient data to inform on drug associated risk. I researched this issue on the Ask The Expert site and saw an inquiry back in 2014. At that time, the opinion was that is not a contraindication to Xolair therapy. I would like to know if there is additional information available since 2015 that can help guide us in determining the best course of action for several scenarios: 1. starting Xolair on someone who was trying to get 2. continuing Xolair in someone who is trying to get 3. continuing Xolair in someone who is Thank you for any information you can offer. Answer: I did find some case reports in 2016 and 2017 of omalizumab being used in women with chronic spontaneous urticaria. No untoward sequelae were reported in the mothers or infants. Omalizumab is not approved for use in women but it was assigned to category B by the FDA after Gordon et al published The Xolair Registry (EXPECT): The safety of omalizumab use during (J Allergy Clin Immunol 2015;135:407-12). This was a prospective, observational study of women exposed to at least 1 dose of omalizumab within 8 weeks prior to conception or at any time during . They looked at the following outcomes: rates of live births, elective terminations, stillbirths and congenital anomalies up to 18 months after delivery. They enrolled 191 woman, nearly 2/3 were enrolled during the first trimester. Of the 169 pregnancies with known outcomes, there were 156 live births of 160 infants, 1 /stillbirth, 11 spontaneous abortions and 1 elective termination. 22 (14.5%) of the 152 zepeda births were premature and 16 (10.9%) of 147 with weight data were small for gestational age. 20 infants had congenital anomalies, 7 (4.4%) of whom had 1 major defect. There are tables which provide lists of the specific anomalies in the paper. Ankyloglossia was the most common defect, occurring in 6 infants. There was no observed pattern of anomalies. The authors concluded that the observations in the registry were not inconsistent with findings from other studies and that there was no apparent increase prevalence of major anomalies. There were no maternal deaths. The published consensus is that it is not recommended to start omalizumab in women. However, if a woman becomes while receiving omalizumab and the benefits outweigh the risks, then therapy does not need to be discontinued. documented in this encounter [facility] 08-04-2024 Telephone encounter Note PCP gave prednisone [...] with an update after completing oral steroids. [facility] [employer] Work Phone: 08-04-2024 Miscellaneous Notes PCP gave [...] completing oral steroids. documented in this encounter [facility] 07-28-2024 History of Presen t [...] in the past. documented in this encounter [facility] 07-28-2024 History of Presen t [...] of orders to take with her to [facility] to have drawn today. Appointments scheduled for OBUS 08/10 and will schedule with PPJ after OBUS 07/28/2024 3:55 PM documented in this encounter [facility] 05-31-2024 History of Presen t [...] Medical History: Diagnosis Date Anxiety 06/30/2023 Asthma ([facility]) Chronic idiopathic urticaria History of medical problems [...] buspar Feels good without Asthma in adult ([facility]) Continue with ICS LABA Rare use of [...] of the risks of continued smoking: stroke, CO, all forms of cancer, lung disease, and . Options for quitting smoking include: cold turkey, hypnosis, acupuncture, nicotine replacement meds (gum, lozenges, and patches), Buproprion, and Varenicline. At this time pt is encouraged to evaluate their goals for wanting to quit smoking, and reach out to provider when ready to start this process Primary hypertension ([facility]) - Primary Please check blood pressure daily and record DASH diet Limit caffeine Take medication as directed Contact office if chest pain, pressure, dizziness, shortness of breath, swelling legs Recommend slow position changes Office reads: 122/86 manual, left arm, and wrist cuff 139/88 Associated Problem(s): Asthma in adult ([facility]) Continue with ICS LABA Rare use of rescue inhaler Fu in 6 months Recommend quitting smoking Associated Problem(s): Primary hypertension ([facility]) Please check blood pressure daily and record [...] of the risks of continued smoking: stroke, CO, all forms of cancer, lung disease, and . Options for quitting smoking include: cold turkey, hypnosis, acupuncture, nicotine replacement meds (gum, lozenges, and patches), Buproprion, and Varenicline. At this time pt is encouraged to evaluate their goals for wanting to quit smoking, and reach out to provider when ready to start this process documented in this encounter [facility] 05-15-2024 Telephone encounter Note Prescription sent for uti [facility] 05-15-2024 Miscellaneous Notes Prescription sent for uti documented in this encounter [facility] 05-11-2024 Evaluation + Plan note Diagnostic Tests PendingUrine Culture 05/11/24 [facility] 05-03-2024 History of Presen t illness [...] no dyspnea, no LE edema Episode at [place], watch alarmed HR 130, she was asymptomatic [...] treatment Gardasil vaccine series received per pt LALY II (vulvar intraepithelial neoplasia II) Past Surgical [...] Primary hypertension (CMS/HCC) documented in this encounter [facility] 05-03-2024 Instructions Alexandra Kay NP - 05/03/2024 8:40 AM EDT DASH diet Check blood pressure daily and record Fu in 4 weeks, bring log of blood pressure AND machine to verify accuracy documented in this encounter [facility] 04-21-2024 Hospital Discharg e instructions [...] Treatment for this condition includes: Antibiotic medicine. Kcwb-ltn-ytxlkod medicines to treat discomfort. Drinking enough water [...] Follow these instructions at home: Medicines Take foxy-bwk-wtlajlj and prescription medicines only as told by [...] provider. Document Revised: 02/17/2021 Document Reviewed: 02/22/2021 [employer] Patient Education 2023 [employer]. 04/21/2024 11:22:32 Antibiotic Medicine, Adult Antibiotic Medicine, [...] provider. Document Revised: 02/10/2023 Document Reviewed: 02/10/2023 [employer] Patient Education 2023 [employer]. Follow Up Care 04/05/2024 11:26:44 With:Nilton NUNEZ, BRYCE Urbina, URO Address: When: Unknown [facility] 04-21-2024 Note Patient Education Caregiving Antibiotic [...] have any o (more content not included)... [facility] 04-07-2024 History of Presen t illness [...] should problems arise. documented in this encounter [facility] 03-22-2024 Hospital Discharg e instructions [...] Treatment for this condition includes: Antibiotic medicine. Eilt-afa-urfdzwy medicines to treat discomfort. Drinking enough water [...] Follow these instructions at home: Medicines Take kvia-and-gnbnkga and prescription medicines only as told by [...] provider. Document Revised: 02/22/2021 Document Reviewed: 02/22/2021 [employer] Patient Education 2022 [employer]. Follow Up Care 02/18/2024 08:44:09 With:TANNER ALVAREZ, BRYCE LARSEN Address: [facility] [address] [place] [address] When: Unknown Comments:post-op cysto With:Nilton NUNEZ, BRYCE Urbina, URO Address: When: Unknown Comments:sched cysto w/possible UD [facility] 03-22-2024 Note Patient Education Obstetrics and [...] this condition includes: ? Antibiotic medicine. ? Jnlm-whm-mxfnyjw medicines to treat discomfort. ? Drinking enough [...] these instructions at home: Medicines ? Take vrtg-hgf-iptasog and prescription medicines only as told by [...] Document Revised: 02/22 (more content not included)... [facility] 07-05-2022 Evaluation note Encounter Date Diagnosis [...] no improvement in 2 to 3 days. [employer] Other 06-17-2021 NoteHNO ID: [id number] Author: Miley Ramirez MD Service: ? Author Type: Physician Type: Progress Notes Filed: 01/11/2021 5:21 AM Note Text: Gynecologic Oncology [facility] Follow-up visit Re: Carina Schultz [facility]#: [id number] Date of service: 01/10/2021 Haley Owens MD ([facility]) [facility] [address] [address] Dear Haley Owens: Carina presents for follow [...] lesions present on labia bilaterally Rt> Lt. Him Clerk: Carolyn Hancock NP IMPRESSION/PLAN: Patient presents today for follow up. Patient has decreased her smoking. 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 I recommend patient restart Aldara cream since vulvar lesions are still present. Encouraged smoking cessation. RTC 3 months Thank you for referring her for gynecologic oncology consultation. I will be in touch with you regarding her findings. CC: Haley Owens MD (DrC) [facility] [address] [address] No primary care provider on file. (PCP) [...] the chart and discharge (more content not included)...[facility]03-18-2021 NoteHNO ID: [id number] Author: Miley Ramirez Service: ? Author Type: Physician Type: Progress Notes Filed: 10/12/2020 10:46 AM Note Text: Gynecologic Oncology [facility] Consultation Re: Carina Schultz [facility]#: [id number] Date of service: 10/11/2020 Haley Owens MD ([facility]) [address] [address] [address] 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 She resides in [place], [place]. REVIEW OF SYSTEMS: Constitutional: No recent [...] Cardiac - Regular rat (more content not included)...[facility] Evaluation + Plan note No data available for this section [facility] evaluation noteNo assessment information available [facility] Work Phone: Evaluation note* Diagnosis Primary hypertension ([facility])- Primary Unspecified essential hypertension Cigarette nicotine dependence [...] (BMI) of 40.0 to 44.9 in adult ([facility]) Environmental and seasonal allergies Moderate persistent asthma in adult without complication ([facility]) UTI symptoms- Primary Class 3 severe obesity due to excess calories without serious comorbidity with body mass index (BMI) of 40.0 to 44.9 in adult ([facility]) Wellness examination Cigarette nicotine dependence without complication Elevated alkaline phosphatase level- Primary Cigarette nicotine dependence without complication Class 3 severe obesity due to excess calories without serious comorbidity with body mass index (BMI) of 40.0 to 44.9 in adult ([facility]) Abnormal weight gain- Primary Class 2 obesity due to excess calories without serious comorbidity with body mass index (BMI) of 39.0 to 39.9 in adult Primary hypertension ([facility])- Primary Unspecified essential hypertension Cigarette nicotine dependence [...] (BMI) of 40.0 to 44.9 in adult ([facility]) Environmental and seasonal allergies Moderate persistent asthma in adult without complication ([facility]) UTI symptoms- Primary Class 3 severe obesity due to excess calories without serious comorbidity with body mass index (BMI) of 40.0 to 44.9 in adult ([facility]) Wellness examination Cigarette nicotine dependence without complication Elevated alkaline phosphatase level- Primary Cigarette nicotine dependence without complication Class 3 severe obesity due to excess calories without serious comorbidity with body mass index (BMI) of 40.0 to 44.9 in adult ([facility]) Abnormal weight gain- Primary Class 2 obesity due to excess calories without serious comorbidity with body mass index (BMI) of 39.0 to 39.9 in adult Primary hypertension ([facility])- Primary Unspecified essential hypertension Cigarette nicotine dependence without complication Class 2 obesity due to excess calories without serious comorbidity with body mass index (BMI) of 39.0 to 39.9 in adult Primary hypertension ([facility])- Primary Unspecified essential hypertension Class 2 obesity due to excess calories without serious comorbidity with body mass index (BMI) of 39.0 to 39.9 in adult Anxiety Anxiety state, unspecified Cigarette nicotine dependence without complication Moderate persistent asthma in adult without complication ([facility]) [facility] [...] (BMI) of 40.0 to 44.9 in adult ([facility]) Environmental and seasonal allergies Moderate persistent asthma in adult without complication ([facility]) UTI symptoms- Primary Class 3 severe obesity due to excess calories without serious comorbidity with body mass index (BMI) of 40.0 to 44.9 in adult ([facility]) Wellness examination Cigarette nicotine dependence without complication Elevated alkaline phosphatase level- Primary Cigarette nicotine dependence without complication Class 3 severe obesity due to excess calories without serious comorbidity with body mass index (BMI) of 40.0 to 44.9 in adult ([facility] [facility] Abnormal weight gain- Primary Class 2 obesity due to excess calories without serious comorbidity with body mass index (BMI) of 39.0 to 39.9 in adult Primary hypertension ([facility])- Primary Unspecified essential hypertension Cigarette nicotine dependence without complication Class 2 obesity due to excess calories without serious comorbidity with body mass index (BMI) of 39.0 to 39.9 in adult Primary hypertension ([facility])- Primary Unspecified essential hypertension Class 2 obesity due to excess calories without serious comorbidity with body mass index (BMI) of 39.0 to 39.9 in adult Anxiety Anxiety state, unspecified Cigarette nicotine dependence without complication Moderate persistent asthma in adult without complication ([facility]) care, subsequent in first trimester Encounter for drug screening documented in this encounter [facility] HealthcareEvaluation note* Diagnosis Anxiety- Primary Anxiety state, unspecified Anxiety- Primary Anxiety state, unspecified Class 3 severe obesity due to excess calories without serious comorbidity with body mass index (BMI) of 40.0 to 44.9 in adult ([facility]) Environmental and seasonal allergies Moderate persistent asthma in adult without complication ([facility]) UTI symptoms- Primary Class 3 severe obesity due to excess calories without serious comorbidity with body mass index (BMI) of 40.0 to 44.9 in adult ([facility]) Wellness examination Cigarette nicotine dependence without complication Elevated alkaline phosphatase level- Primary Cigarette nicotine dependence without complication Class 3 severe obesity due to excess calories without serious comorbidity with body mass index (BMI) of 40.0 to 44.9 in adult ([facility]) Abnormal weight gain- Primary Class 2 obesity due to excess calories without serious comorbidity with body mass index (BMI) of 39.0 to 39.9 in adult Primary hypertension ([facility])- Primary Unspecified essential hypertension Cigarette nicotine dependence without complication Class 2 obesity due to excess calories without serious comorbidity with body mass index (BMI) of 39.0 to 39.9 in adult Primary hypertension ([facility])- Primary Unspecified essential hypertension Class 2 obesity due to excess calories without serious comorbidity with body mass index (BMI) of 39.0 to 39.9 in adult Anxiety Anxiety state, unspecified Cigarette nicotine dependence without complication Moderate persistent asthma in adult without complication ([facility]) Chronic idiopathic urticaria- Primary Idiopathic urticaria documented in this encounter [facility] HealthcareEvaluation note* Diagnosis Anxiety- Primary Anxiety state, unspecified Anxiety- Primary Anxiety state, unspecified Class 3 severe obesity due to excess calories without serious comorbidity with body mass index (BMI) of 40.0 to 44.9 in adult ([facility]) Environmental and seasonal allergies Moderate persistent asthma in adult without complication ([facility]) UTI symptoms- Primary Class 3 severe obesity due to excess calories without serious comorbidity with body mass index (BMI) of 40.0 to 44.9 in adult ([facility]) Wellness examination Cigarette nicotine dependence without complication Elevated alkaline phosphatase level- Primary Cigarette nicotine dependence without complication Class 3 severe obesity due to excess calories without serious comorbidity with body mass index (BMI) of 40.0 to 44.9 in adult ([facility]) Abnormal weight gain- Primary Class 2 obesity due to excess calories without serious comorbidity with body mass index (BMI) of 39.0 to 39.9 in adult Primary hypertension ([facility])- Primary Unspecified essential hypertension Cigarette nicotine dependence without complication Class 2 obesity due to excess calories without serious comorbidity with body mass index (BMI) of 39.0 to 39.9 in adult Primary hypertension ([facility])- Primary Unspecified essential hypertension Class 2 obesity due to excess calories without serious comorbidity with body mass index (BMI) of 39.0 to 39.9 in adult Anxiety Anxiety state, unspecified Cigarette nicotine dependence without complication Moderate persistent asthma in adult without complication ([facility]) Chronic idiopathic urticaria- Primary Idiopathic urticaria documented in this encounter [facility] HealthcareEvaluation note* Diagnosis Anxiety- Primary Anxiety state, unspecified Anxiety- Primary Anxiety state, unspecified Class 3 severe obesity due to excess calories without serious comorbidity with body mass index (BMI) of 40.0 to 44.9 in adult ([facility]) Environmental and seasonal allergies Moderate persistent asthma in adult without complication ([facility]) UTI symptoms- Primary Class 3 severe obesity due to excess calories without serious comorbidity with body mass index (BMI) of 40.0 to 44.9 in adult ([facility]) Wellness examination Cigarette nicotine dependence without complication Elevated alkaline phosphatase level- Primary Cigarette nicotine dependence without complication Class 3 severe obesity due to excess calories without serious comorbidity with body mass index (BMI) of 40.0 to 44.9 in adult ([facility]) Abnormal weight gain- Primary Class 2 obesity due to excess calories without serious comorbidity with body mass index (BMI) of 39.0 to 39.9 in adult Primary hypertension ([facility])- Primary Unspecified essential hypertension Cigarette nicotine dependence without complication Class 2 obesity due to excess calories without serious comorbidity with body mass index (BMI) of 39.0 to 39.9 in adult Primary hypertension ([facility])- Primary Unspecified essential hypertension Class 2 obesity due to excess calories without serious comorbidity with body mass index (BMI) of 39.0 to 39.9 in adult Anxiety Anxiety state, unspecified Cigarette nicotine dependence without complication Moderate persistent asthma in adult without complication ([facility]) Missed - Primary documented in this encounter [facility]* Diagnosis Anxiety- Primary Anxiety state, unspecified Anxiety- Primary Anxiety state, unspecified Class 3 severe obesity due to excess calories without serious comorbidity with body mass index (BMI) of 40.0 to 44.9 in adult ([facility]) Environmental and seasonal allergies Moderate persistent asthma in adult without complication ([facility]) UTI symptoms- Primary Class 3 severe obesity due to excess calories without serious comorbidity with body mass index (BMI) of 40.0 to 44.9 in adult ([facility]) Wellness examination Cigarette nicotine dependence without complication Elevated alkaline phosphatase level- Primary Cigarette nicotine dependence without complication Class 3 severe obesity due to excess calories without serious comorbidity with body mass index (BMI) of 40.0 to 44.9 in adult ([facility]) Abnormal weight gain- Primary Class 2 obesity due to excess calories without serious comorbidity with body mass index (BMI) of 39.0 to 39.9 in adult Primary hypertension ([facility])- Primary Unspecified essential hypertension Cigarette nicotine dependence without complication Class 2 obesity due to excess calories without serious comorbidity with body mass index (BMI) of 39.0 to 39.9 in adult Primary hypertension ([facility])- Primary Unspecified essential hypertension Class 2 obesity due to excess calories without serious comorbidity with body mass index (BMI) of 39.0 to 39.9 in adult Anxiety Anxiety state, unspecified Cigarette nicotine dependence without complication Moderate persistent asthma in adult without complication ([facility]) Missed documented in this encounter [facility] Narrative - Reported* Type Description Date Medical History asthma Medical History hives Medical History urethra dilation Medical History yeast infections Surgical History Ureathral dialation Surgical History [place] teeth Surgical History [facility]--Dr owens vaginal biopsies 04/29/19 Hospitalization History asthma 2010 [place] [facility] Hospital Discharge instructions No data available for this section [facility] progress note No data available for this section [facility] Summary Purpose Family History No Family History Records Found Relationship Condition Age at Onset Recorded Date/T dl father Hypertension Unknown Not Specified Hypertension Unknown Relationship Condition Age at Onset Recorded Date/T dl father Hypertension Unknown mother Hypertension Unknown Advance Directives No Advanced Directives Records Found Advance Directive Response Recorded Date/ Time Advance Directives No April 27, 2017 10:47am Advance Directive Response Recorded Date/ Time Advance Directives No April 27, 2017 9:47am Chief Complaint and Reason for Visit Chief Complaint Sore throat Chief Complaint Admit Date See order August 13, 2024 4 :15pm Additional Source Comments INFORMATION SOURCE (unrecogn ized section and content) DATE CREATED AUTHOR 09/05/2021 [facility] DATE CREATED AUTHOR AUTHOR'S ORGANIZ ATION 11/24/2022 [facility] DATE CREATED AUTHOR AUTHOR'S ORGANIZ ATION 05/13/2024 [facility] DATE CREATED AUTHOR AUTHOR'S ORGANIZ ATION 05/15/2024 [facility] DATE CREATED AUTHOR AUTHOR'S ORGANIZ ATION 05/19/2024 [facility] DATE CREATED AUTHOR AUTHOR'S ORGANIZ ATION 07/11/2024 [facility] DATE CREATED AUTHOR AUTHOR'S ORGANIZ ATION 07/11/2024 [facility] DATE CREATED AUTHOR AUTHOR'S ORGANIZ ATION 08/27/2024 [facility] DATE CREATED AUTHOR AUTHOR'S ORGANIZ ATION 08/31/2024 [facility] REASON FOR VISIT (unrecogniz ed section and content) Reason Comments Follow-up No surgeries; no hos pital stays. Currently taking an antibiotic. Reason Comments Med Refill Reason Comments Initial Visit Reason Comments Hives Reason Comments Miscarriage Reason Comments Follow-up Care Teams (unrecognized sec tion and content) Team Status: Active Member Role Status Dates Alexandra Kay Primary Care Provider Active Team Status: Inactive Member Role Status Dates Ralph Osorio PA-C Attending Provider Active St art: December 23, 2023 End: December 23, 2023 Alexandra Kay Primary Care Provider Active Sta rt: December 23, 2023 End: December 23, 2023 Joy Operator Relationship Specialty Start Date End Date Marty Hinson MD [address] [place] [phone] PCP - General Family Medicine 10/26/23 Alexandra Kay NP [address] [place] [address] PCP - [facility] 01/25/24 Alexandra Kay NP [address] [place] [address] Nurse Practitioner Family Medicine 05/27/23 Alexandra Kay NP [address] [place] [address] Nurse Practitioner Family Medicine 10/26/23 Joy Operator Relationship Specialty Start Date End Date Marty Hinson MD [address] [place] [phone] PCP - General Family Medicine 10/26/23 Alexandra Kay NP [address] [place] [address] PCP - [facility] 01/25/24 Alexandra Kay NP [address] [place] [address] Nurse Practitioner Family [facility] 05/27/23 Alexandra Kay NP [address] [place] [address]010[address] Nurse Practitioner [facility] 10/26/23 Joy Operator Relationship Specialty Start Date End Date Marty Hinson MD [address] [place] [phone] PCP - General [facility] 10/26/23 Alexandra Kay NP [address] [place] [address] PCP - [facility] 01/25/24 Alexandra Kay NP [address] [place] [address] Nurse Practitioner Family Medicine 05/27/23 Alexandra Kay NP [address] [place] [address]10[address] Nurse Practitioner Family [facility] 10/26/23 Joy Operator Relationship Specialty Start Date End Date Marty Hinson MD [address] [place] [address] PCP - General Family [facility] 10/26/23 Alexandra Kay NP [address] [place] [address] PCP - [facility] 01/25/24 Alexandra Kay NP [address] [place] [address] Nurse Practitioner Family Medicine 05/27/23 Alexandra Kay NP [address] [place] [address] Nurse Practitioner Family [facility] 10/26/23 Joy Operator Relationship Specialty Start Date End Date Marty Hinson MD [address] [place] [address] PCP - General [facility] 10/26/23 Alexandra Kay NP [address] [place] [address] PCP - [facility] 01/25/24 Alexandra Kay NP [address] [place] [address]10[address] Nurse Practitioner Family Medicine 05/27/23 Alexandra Kay NP [address] [place] [address] Nurse Practitioner Family Medicine 10/26/23 Joy Operator Relationship Specialty Start Date End Date Marty Hinson MD [address] [place] [address] PCP - General [facility] 10/26/23 Alexandra Kay NP [address] [place] [address] PCP - [facility] 01/25/24 Alexandra Kay NP [address] [place] [address]10[address] Nurse Practitioner Family Medicine 05/27/23 Alexandra Kay NP [address] [place] [address]10[address] Nurse Practitioner [facility] 10/26/23 Joy Operator Relationship Specialty Start Date End Date Marty Hinson MD [address] [place] [address]20610[address] PCP - [facility] 10/26/23 Alexandra Kay NP [address] [place] [address]25910[address] PCP - [facility] 01/25/24 Alexandra Kay NP [address] [place] [address]10[address] Nurse Practitioner Family Medicine 05/27/23 Alexandra Kay NP [address] [place] [address]10[address] Nurse Practitioner Family Medicine 10/26/23 Joy Operator Relationship Specialty Start Date End Date Marty Hinson MD [address] [place] [address] PCP - General [facility] 10/26/23 Alexandra Kay NP [address] [place] [address] PCP - [facility] 01/25/24 Alexandra Kay NP [address] [place] [address] Nurse Practitioner Family [facility] 05/27/23 Alexandra Kay NP [address] [place] [address] Nurse Practitioner Family [facility] 10/26/23 Joy Operator Relationship Specialty Start Date End Date Marty Hinson MD [address] [place] [address]10[address] PCP - General [facility] 10/26/23 Alexandra Kay NP [address] [place] [address] PCP - [facility] 01/25/24 Alexandra Kay NP [address] [place] [address] Nurse Practitioner Family Medicine 05/27/23 Alexandra Kay NP [address] [place] [address]10[address] Nurse Practitioner Family Medicine 10/26/23 Joy Operator Relationship Specialty Start Date End Date Marty Hinson MD [address] [place] [address] PCP - General Family [facility] 10/26/23 Alexandra Kay NP [address] [place] [address] PCP - [facility] 01/25/24 Alexandra Kay NP [address] [place] [address] Nurse Practitioner Family [facility] 05/27/23 Alexandra Kay NP [address] [place] [address] Nurse Practitioner Family [facility] 10/26/23 Joy Operator Relationship Specialty Start Date End Date Marty Hinson MD [address] [place] [address] PCP - General [facility] 10/26/23 Alexandra Kay NP [address] [place] [address] PCP - [facility] 01/25/24 Alexandra Kay NP [address] [place] [address] Nurse Practitioner Family Medicine 05/27/23 Alexandra Kay NP [address] [place] [address] Nurse Practitioner Family [facility] 10/26/23 Joy Operator Relationship Specialty Start Date End Date Marty Hinson MD [address] [place] [address] PCP - General [facility] 10/26/23 Alexandra Kay NP [address] [place] [address]10[address] PCP - [facility] 01/25/24 Alexandra Kay NP [address] [place] [address] Nurse Practitioner Family [facility] 05/27/23 Alexandra Kay NP [address] [place] [address] Nurse Practitioner Family [facility] 10/26/23 Joy Operator Relationship Specialty Start Date End Date Marty Hinson MD [address] [place] [address] PCP - [facility] 10/26/23 Alexandra Kay NP [address] [place] [address]10[address] PCP - [facility] 01/25/24 Alexandra Kay NP [address] [place] [address]10[address] Nurse Practitioner Family Medicine 05/27/23 Alexandra Kay NP [address] [place] [address] Nurse Practitioner Family Medicine 10/26/23 Joy Operator Relationship Specialty Start Date End Date Marty Hinson MD [address] [place] [address] PCP - General Family [facility] 10/26/23 Alexandra Kay NP [address] [place] [address]10[address] PCP - [facility] 01/25/24 Alexandra Kay NP [address] [place] [address] Nurse Practitioner Family Medicine 05/27/23 Alexandra Kay NP [address] [place] [address] Nurse Practitioner Family Medicine 10/26/23 Joy Operator Relationship Specialty Start Date End Date Marty Hinson MD [address] [place] [address] PCP - General Family [facility] 10/26/23 Alexandra Kay NP [address] [place] [address]10[address] PCP - [facility] 01/25/24 Alexandra Kay NP [address] [place] [address] Nurse Practitioner Family Medicine 05/27/23 Alexandra Kay NP [address] [place] [address] Nurse Practitioner Family Medicine 10/26/23 Rosita Cortes LSW Clinical Auditor [employer] 08/10/24 08/11/24 Lakeisha Nolan LSW Clinical Auditor Family Medicine 08/11/24 Team Status: Inactive Member Role Status Dates Alexandra Kay Primary Care Provider Active Sta rt: August 13, 2024 End: August 13, 2024 Haley Owens MD Attending Provider Active St art: August 13, 2024 End: August 13, 2024 Joy Operator Relationship Specialty Start Date End Date Marty Hinson MD [address] [place] [phone] PCP - General Family [facility] 10/26/23 Alexandra Kay NP [address] [place] [address] PCP - [facility] 01/25/24 Alexandra Kay NP [address] [place] [address] Nurse Practitioner Family Medicine 05/27/23 Alexandra Kay NP [address] [place] [address] Nurse Practitioner Family Medicine 10/26/23 Lakeisha Nolan LSW Clinical Auditor Family Medicine 08/11/24 Joy Operator Relationship Specialty Start Date End Date Marty Hinson MD [address] [place] [address] PCP - General Family [facility] 10/26/23 Alexandra Kay NP [address] [place] [address] PCP - [facility] 01/25/24 Alexandra Kay NP [address] [place] [address] Nurse Practitioner Family Medicine 05/27/23 Alexandra Kay NP [address] [place] [address] Nurse Practitioner Family Medicine 10/26/23 Lakeisha Nolan LSW Clinical Auditor Family Medicine 08/11/24 Goals (unrecognized section and content) Goals may [...] BE BASED ON THE PRIMARY CLINICAL RECORDS. [facility] [employer] provides no warranty or guarantee of the accuracy or completeness of information in this document.
== END 2024-09-06 11:24 | disposition home or self-care (01) ==
LOC: CARD 11:25
PROVIDERS: PCP Nurse Practitioner; Visit Provider Specialist
DX: R00.2 Palpitations (principal)
CPT/HCPCS: 93005

== ENCOUNTER 2025-02-17 11:14 | Outpatient (OUT) | payer OTHER, SELFPAY ==
--- OUTSIDE RECORDS SUMMARY | 2025-02-17 11:18 | XMS_ITS | Clinical Summary ---
Author Organization [facility] Address [address] [place] [address] Care Team Providers Care Director Drug Safety Name Role Phone Carina Rosado INDUSTRIAL RADIOGRAPHER Unavailable [phone] Haley Young MD Unavailable [phone] Allergies No known active allergies Medications HYDROcodone-acetam inophen (NORCO) 5-325 mg per tablet Take 1 tablet by mouth every 8 hours as needed. Active Ranitidine HCl 150 mg capsule Take 150 mg by mouth twice daily. Active albuterol HFA (VENTOLIN HFA) 90 mcg/actuation inhaler Inhale 2 Puffs as instructed. Active omalizumab (XOLAIR) 150 mg injection Inject 150 mg subcutaneously once every month. Active cetirizine (ZYRTEC) 10 mg tablet Take 10 mg by mouth once daily. 2 05/12/20 19 Active folic acid 1 mg tablet Take 1 mg by mouth three times daily. 11 05/10/20 19 Active hydrOXYzine HCl (ATARAX) 50 mg tablet Take 50-100 mg by mouth as needed. 11 05/12/20 19 Active imiquimod (ALDARA) 5 % creamIndications:V ulvar intraepithelial neoplasia (ALLY) grade 3 Apply 1 Packet to affected area as directed. Apply to area 3 times per week at bedtime. Wash off in morning. 24 Each 4 10/12/19 21 Active Active Problems Problem Noted Date Diagnosed Date Vulvar intraepithelial neoplasia (ALLY) grade 3 0 10/11/2020 High grade squamous intraepi thelial lesion (HGSIL), grade 3 BLAINE, on biopsy of cervix 10/11/2020 Family History Medical History Relation Comments Breast Cancer Paternal Grandmother Relation Status Comments Paternal Grandmother Social History Tobacco Use Types Packs/Day Years Used Date Smoking Tobacco: Every Day Cigarettes Smokeless Tobacco: Never Alcohol Use Standard Drinks/Week Comments Yes 0 (1 standard drink = 0.6 oz pur e alcohol) Area Deprivation Index Answer Date Clinton rded National Score (1-100), lower number is lower ri sk Not on file 01/10/2021 State Score (1-10), lower number is lower risk N ot on file 01/10/2021 Data from: https://www.neighborhoodatlas.medicine.[facility]/. Last address used for calculation Not on file 01/10/2021 Comments No Sex and Gender Information Value Date Recorded Sex Assigned at Not on file Legal Sex Female 12:53 PM EDT Gender Identity Not on file Sexual Orientation Not on file Last Filed Vital Signs Vital Sign Reading Time Taken Comments Blood Pressure 148/94 01/10/2021 1:33 PM EDT Pulse 107 01/10/2021 1:33 PM EDT Temperature 36.6 C (97.8 F) 01/10/2021 1:33 PM EDT Respiratory Rate 18 05/27/2019 9:58 AM EDT Oxygen Saturation 96% 01/10/2021 1:33 PM EDT Inhaled Oxygen Concentration - - Weight 116.1 kg (256 lb) 01/10/2021 1:33 PM EDT Height 170.2 cm (5' 7 ) 05/27/2019 9:58 AM EDT Body Mass Index 40.1 05/27/2019 9:58 AM EDT Plan of Treatment Health Maintenance Due Date Last Done Comments Anxiety Screening 2010 Depression Screening 2010 HIV Screening 2010 Hepatitis C Screening 2010 DTaP,Tdap,Td Vaccine (1 - Tdap) 2011 Hepatitis B Vaccine (1 of 3 - 19+ 3-dose series) 05/17 Cervical Cancer Screening 2013 Covid-19 Vaccine ( - season) 2024 Influenza Vaccine (#1) 2025 Insurance [facility] MEDICAID Member Subscriber Plan / Payer (Ef fective 2022-Present) Name:Carina Schultz Relation to Subscriber:Self Name:Carina Schultz Payer ID:[id number] (NAIC) Group ID:[id number] Type:Medicaid Address: [place] [id number] Care Teams Director Drug Safety Relationship Specialty Start Date End Date Carina Rosado CNP [address] [place] [address] Referring Family Medicine 04/04/19 Haley Young MD [address] [place] [address] Referring Obstetrics 10/09/20
--- OUTSIDE RECORDS SUMMARY | 2025-02-17 11:18 | XMS_ITS | Encounter Summary ---
Author Organization [facility] Address [address] [facility] [place] [address] Care Team Providers Care Retoucher Name Role Phone Alexandra Kay CORN HUSKER Unavailable [phone] Marty Hinson MD Primary Care Provider [phone] Alexandra Kay CORN HUSKER Unavailable [phone] Alexandra Kay CORN HUSKER Unavailable [phone] Rosita Cortes INSPECTOR PLUMBING Unavailable Lakeisha Nolan INSPECTOR PLUMBING Unavailable [phone] Encounter Details Date Type Department Care Team (Late st Contact Info) Description 04/21/2024 Clinisync Result Encounter [facility] External Department Unsolicited Provider, Generic External Data Social History Tobacco Use Types Packs/Day Years Used Date Smoking Tobacco: Every Day Cigarettes Smokeless Tobacco: Never Alcohol Use Standard Drinks/Week Comments Yes 0 (1 standard drink = 0.6 oz pure alcohol) 1-2 drinks less than monthly in the past year, Caffeine intake: occasional coffee, 2 Red bulls/day PHQ-2 Answer Date Recorded Patient Health Questionnaire-2 Score 0 02/16/2024 Comments No Sex and Gender Information Value Date Recorded Sex Assigned at Not on file Legal Sex Female 7:08 PM EDT Gender Identity Female 10/08/2022 7:08 PM EDT Sexual Orientation Not on file documented as of this encounter Plan of Treatment Upcoming Encounters Date Type Department Care Team (Late st Contact Info) Description 02/20/2025 11:15 AM EDT Clinical Support [facility] [address] [facility] [address] [place] [address] 02/27/2025 9:20 AM EDT Office Visit [facility] [address] [place] [address] Doni Young MD [address] [place] [address] 03/08/2025 1:20 PM EDT Office Visit [facility] [address] [place] [address] Alexandra Kay NP [address] [place] [address] 04/10/2025 9:15 AM EDT Office Visit [facility] [address] [place] [address] Haley Young MD [address] [place] [address] documented as of this encounter Procedures Procedure Name Priority Date/Time Associated Diagnosis Comments XR ABDOMEN 1V 04/21/2024 5:28 AM EDT documented in this encounter Results * XR ABDOMEN 1V (04/21/2024 5:28 AM EDT) Anatomical Region Laterality Modality Other 04/21/2024 5:28 AM EDT Narrative 04/21/2024 5:31 AM EDT The [address] [address] XRay Report Signed Patient: CARINA GUY MR#: [id number] : 1990 Acct:[id number] Age/Sex: 33 / F ADM Date: 04/19/24 Loc: LAB Attending Dr: Jeni Maciel M.D. Ordering Physician: Jeni Maciel M.D. Date of Service: 04/19/24 Procedure(s): XR abdomen 1V Accession Number(s): [id number] cc: Alexandra Kay CORN HUSKER; Jeni Maciel M.D. The [address] [address] Patient Name: CARINA GUY MRN: [facility]:[id number] date: 1990 Sex: F Assigned Patient Location: LAB Current Patient Location: Accession/Order Number: [id number] Exam Date: 04/19/2024 11:09 Report Date: 04/21/2024 05:28 At the request of: JENI MACIEL Procedure: XR abdomen 1V EXAMINATION: XR abdomen 1V HISTORY: Kidney Stone COMPARISON: No relevant comparison available. FINDINGS: KIDNEY/URETER - RIGHT: No visible renal or ureteral calcifications. KIDNEY/URETER - LEFT: No visible renal or ureteral calcifications. PELVIS: No visible ureteral stones. BOWEL: No abnormal dilation or deviation. BONES: No acute abnormality. OTHER: Negative. No abnormal gaseous collections. XR/XR abdomen 1V IMPRESSION: 1. No appreciable urinary tract calculi. Electronically authenticated by: SANDRO DUNNE Date: 04/21/2024 05:28 Dictated By: Sandro Dunne M.D. Signed By: 04/21/24530 DD/ 7 TD/TT: Painter Supervisor: Procedure Note Radiology, Radiologist, MD - 04/21/2024 [place] [address] XRay Report Signed Patient: CARINA GUY R#: [id number] : 1990Acct:[id number] Age/Sex: 33 / FADM Date: 04/19/24 Loc: LAB Attending Dr: Jeni Maciel M.D. Ordering Physician: Jeni Maciel M.D. Date of Service: 04/19/24 Procedure(s): XR abdomen 1V Accession Number(s): [id number] cc: Alexandra Kay NP; Jeni Maciel M.D. The [address] [address] Patient Name: CARINA GUY MRN: [facility]:[id number] date: 1990 Sex: F Assigned Patient Location: LAB Current Patient Location: Accession/Order Number: [id number] Exam Date: 04/19/2024 11:09 Report Date: 04/21/2024 05:28 At the request of: JENI MACIEL Procedure: XR abdomen 1V EXAMINATION: XR abdomen 1V HISTORY: Kidney Stone COMPARISON: No relevant comparison available. FINDINGS: KIDNEY/URETER - RIGHT: No visible renal or ureteral calcifications. KIDNEY/URETER - LEFT: No visible renal or ureteral calcifications. PELVIS: No visible ureteral stones. BOWEL: No abnormal dilation or deviation. BONES: No acute abnormality. OTHER: Negative. No abnormal gaseous collections. XR/XR abdomen 1V IMPRESSION: 1. No appreciable urinary tract calculi. Electronically authenticated by: SANDRO DUNNE Date: 04/21/2024 05:28 Dictated By: Sandro Dunne M.D. Signed By:04/21/2431 DD/ 7 TD/TT: Painter Supervisor: Generic External Data Provider [facility] Final Result documented in this encounter Visit Diagnoses Not on filedocumented in this encounter Care Teams Retoucher Relationship Specialty Start Date End Date Marty Hinson MD [address] [place] [address] PCP - General Family Medicine 10/26/23 Alexandra Kay NP [address] [place] [address] PCP - [facility] 01/25/24 Alexandra Kay NP [address] [place] [address] Nurse Practitioner Family Medicine 05/27/23 Alexandra Kay NP [address] [place] [address] Nurse Practitioner Family Medicine 10/26/23 Rosita Cortes, CHLOÉ [address] [place] [address] Regulator Assembler Financial Accountant 08/10/24 08/11/24 Lakeisha Nolan, CHLOÉ [address] [place] [address] Regulator Assembler Family Medicine 08/11/24 08/29/24 documented as of this encounter
--- OUTSIDE RECORDS SUMMARY | 2025-02-17 11:18 | XMS_ITS | Encounter Summary ---
Author Organization [facility] Address [address] [place] [address] Care Team Providers Care Life Coach Name Role Phone Alexandra Kay PRINCIPAL SECRETARY Unavailable [phone] Marty Hinson MD Primary Care Provider [phone] Alexandra Kay PRINCIPAL SECRETARY Unavailable [phone] Alexandra Kay PRINCIPAL SECRETARY Unavailable [phone] Rosita Cortes SURG RN Unavailable Lakeisha Nolan SURG RN Unavailable [phone] Encounter Details Date Type Department Care Team (Late st Contact Info) Description 02/22/2024 Orders Only [facility] [address] [place] [address] Alexandra Kay, PRINCIPAL SECRETARY [address] [place] [address] Social History Tobacco Use Types Packs/Day Years [...] [address] [place] [address] 02/27/2025 9:20 AM EDT Office Visit [facility] [address] [place] [address] Doni Young MD [address] [place] [address] 03/08/2025 1:20 PM EDT Office Visit [facility] [address] [place] [address] Alexandra Kay, YAZAN [address] [place] [address] 04/10/2025 9:15 AM EDT Office Visit [facility] [address] [place] [address] Haley Young MD [address] [place] [address] documented as of this encounter Procedures Procedure Name Priority Date/Time Associated Diagnosis Comments SCANNED LABS Routine 02/22/2024 3:19 PM EDT documented in this encounter Results * SCANNED LABS (02/22/2024 3:19 PM EDT) us Alexandra Kay PRINCIPAL SECRETARY LAB CHG PERFORMABLES Final Resu lt documented in this encounter Visit Diagnoses Not on filedocumented in this encounter Care Teams Life Coach Relationship Specialty Start Date End Date Marty Hinson MD [address] [place] [address] PCP - General Family Medicine 10/26/23 Alexandra Kay NP [address] [place] [address] PCP - [facility] 01/25/24 Alexandra Kay NP [address] [place] [address] Nurse Practitioner Family Medicine 05/27/23 Alexandra Kay NP [address] [place] [address] Nurse Practitioner Family Medicine 10/26/23 Rosita Cortes, CHLOÉ [address] [place] [address] Utilization Review Coordinator Button Facing Machine Operator 08/10/24 08/11/24 Lakeisha Nolan, SURG RN [address] [facility] [place] [address] Utilization Review Coordinator Family Medicine 08/11/24 08/29/24 documented as of this encounter
--- OUTSIDE RECORDS SUMMARY | 2025-02-17 11:18 | XMS_ITS | Clinical Summary ---
Author Organization [employer] Address [id number] [address] [place] [address] Care Team Providers Care Medical Secretary Teacher Name Role Phone Alexandra Kay APRN-BOOM PUMP OPERATOR Primary Care Provider Allergies Active Allergy Reactions Criticality Noted Date Comments Diphenhydramine 04/05/2024 RASH, Patient was already having hives so is unsure of allergy RASH Nitrofurantoin Hives 09/26/2020 Patient was already having hives so is unsure of allergy Sulfamethoxazole-Trimethoprim Hives Medium 2023 Patient was already having hives so is unsure of allergy Medications albuterol (PROVENTIL HFA;VENTOLIN HFA) 90 mcg/actuation inhaler Inhale 2 puffs every 4 (four) hours as needed for shortness of breath. Active SYMBICORT 80-4.5 mcg/actuation inhaler Inhale 2 puffs in the morning and 2 puffs before bedtime. 4 Active cetirizine (ZyrTEC) 10 mg tablet Take 1 tablet (10 mg total) by mouth in the morning. 5 09/08/19 Active EPINEPHrine (EPIPEN) 0.3 mg/0.3 mL auto-injector Inject 0.3 mL (0.3 mg total) as directed as needed. 5 08/17/19 Active famotidine (PEPCID) 20 mg tablet Take 1 tablet (20 mg total) by mouth in the morning and 1 tablet (20 mg total) before bedtime. 5 09/08/19 26 Active fexofenadine (VERO) 60 mg tablet Take 1 tablet (60 mg total) by mouth as needed. Active omalizumab (XOLAIR) 125 mg/mL injection Inject 1.2 mL (150 mg total) under the skin every 14 (fourteen) days. Active predniSONE (DELTASONE) 50 mg tablet Take 0.5 tablets (25 mg total) by mouth as needed. 5 Active oxyCODONE-acetamin ophen (PERCOCET) 5-325 mg per tabletIndications: Calculus of gallbladder with chronic cholecystitis without obstruction Take 1 tablet by mouth every 6 (six) hours as needed for pain for up to 12 doses. Max Daily Amount: 4 tablets 12 tablet 5 Active Active Problems Problem Noted Date Diagnosed Date Urologic disorders 07/08/2024 Overview (07/08/2024): 1. Likely active with By history culture proven UTIs 4 5 times each year, commonly after sex, treated executive urology [facility] Dr. Kinney and partners; by history status post poorly tolerated urethral dilatation estimated 2016 Dr. Kinney and status post poorly tolerated cystoscopy with nonspecific white lesions urinary tract estimated December 2023 his female partner 2. Followed locally by gynecology previously Treatment [facility] Dr. 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 Smoker 4. Infrequent voiding only 4 times daily 5. Occasional sensation incomplete Emptying 6. Constipation 7. Gross hematuria likely secondary to UTI with [facility] estimated April or May 2024 treated by gynecology group with antibiotic Frequent UTI 07/08/2024 Family History Medical History Relation Name Comments Cancer Maternal Grandmother Stomach cancer Paternal Aunt Breast cancer Paternal Grandmother Relation Name Status Comments Father Alive Maternal Grandmother Mother Alive Paternal Aunt Paternal Grandmother Sister Alive Social History Tobacco Use Types Packs/Day Years Used Date Smoking Tobacco: Every Day Cigarettes 0.5 10 Smokeless Tobacco: Never Tobacco Cessation:Ready to Q uit: Not Asked; Counseling Given: Not Answered Alcohol Use Standard Drinks/Week Comments Not Currently 0 (1 standard drink = 0.6 oz pur e alcohol) Childcare Answer Date Recorded Childcare Unknown 01/05/2019 Employment Answer Date Recorded Employment Unknown 01/05/2019 Hunger Screening Answer Date Recorded Within the past 12 months we worried whether our food would run out before we got money to buy more. Never True 07/08/2024 Within the past 12 months th e food we bought just didn't last and we didn't have money to get more. Never True 07/08/2024 Comments No Sex and Gender Information Value Date Recorded Sex Assigned at Not on file Legal Sex Female 11:46 AM EDT Gender Identity Not on file Sexual Orientation Not on file Last Filed Vital Signs Vital Sign Reading Time Taken Comments Blood Pressure 153/93 10/18/2024 1:43 PM EDT Pulse 78 10/18/2024 1:43 PM EDT Temperature 36.3 C (97.3 F) 10/18/2024 12:32 PM EDT Respiratory Rate 13 10/18/2024 1:43 PM EDT Oxygen Saturation 96% 10/18/2024 1:43 PM EDT Inhaled Oxygen Concentration - - Weight 127 kg (280 lb) 11/01/2024 10:03 AM EDT Height 170.2 cm (5' 7 ) 11/01/2024 10:03 AM EDT Body Mass Index 43.85 11/01/2024 10:03 AM EDT Plan of Treatment Health Maintenance Due Date Last Done Comments Depression Screening 2004 Adult BMI Follow Up Plan 2010 Pap Smear 2013 COVID-19 Vaccine ( season) 2024 Influenza Vaccine 03/27/2025 05/27/2023, 04/29/2022 Adult BMI Screening 11/01/2025 11/01/2024 Tobacco Screening 11/01/2025 11/01/2024 Tobacco Counseling 01/06/2026 07/08/2024 DTaP,Tdap and Td Vaccines (3 - Td or Tdap) 07/15/2027 07/15/2017, 12/13/1997 Medical Devices Not on file Insurance [employer] Care Teams Medical Secretary Teacher Relationship Specialty Start Date End Date Alexandra Kay, TIANA-BOOM PUMP OPERATOR [address] [place] [address] PCP - General Nurse Practitioner 10/05/24
--- OUTSIDE RECORDS SUMMARY | 2025-02-17 11:18 | XMS_ITS | Encounter Summary ---
Author Organization [facility] Address [address] [place] [address] Care Team Providers Care Credit Verification Clerk Name Role Phone Alexandra Kay NATIONAL COVERAGE SPECIALIST Unavailable [phone] Marty Hinson MD Primary Care Provider [phone] Alexandra Kay NATIONAL COVERAGE SPECIALIST Unavailable [phone] Alexandra Kay NATIONAL COVERAGE SPECIALIST Unavailable [phone] Reason for Visit * Reason Comments Med Refill Encounter Details Date Type Department Care Team (Late st Contact Info) Description 01/24/2025 Refill [facility] [address] [place] [address] Alexandra Kay NP [address] [place] [address] Primary hypertension ; Palpitations; STUART (generalized anxiety disorder) ; Current moderate episode of major depressive disorder without prior episode (HCC) Social History Tobacco Use Types Packs/Day Years Used Date Smoking Tobacco: Every Day Cigarettes Smokeless Tobacco: Never Comments:Cessation discussed Alcohol Use Standard Drinks/Week Comments Not Currently 0 (1 standard drink = 0.6 oz pure alcohol) Caffeine intake: occassionally PHQ-2 Answer Date Recorded Patient Health Questionnaire-2 Score 0 09/06/2024 Comments Unknown Sex and Gender Information Value Date Recorded Sex Assigned at Not on file Legal Sex Female 7:08 PM EDT Gender Identity Female 10/08/2022 7:08 PM EDT Sexual Orientation Not on file Occupation Industry Job Start Date Job End Date Not on file Not on file Not on file Not on file documented as of this encounter Plan of Treatment Upcoming Encounters Date Type Department Care Team (Late st Contact Info) Description 02/20/2025 11:15 AM EDT Clinical Support [facility] [address] [place] [address] 02/27/2025 9:20 AM EDT Office Visit [facility] [address] [place] [address] Doni Young MD [address] [place] [address] 03/08/2025 1:20 PM EDT Office Visit [facility] [address] [place] [address] Alexandra Kay NP [address] [place] [address] 04/10/2025 9:15 AM EDT Office Visit [facility] [address] [place] [address] Haley Young MD [address] [place] [address] documented as of this encounter Visit Diagnoses Diagnosis Primary hypertension Unspecified essential hypertension Palpitations STUART (generalized anxiety disorder) Generalized anxiety disorder Current moderate episode of major depressive disorder without prior episode (HCC) documented in this encounter Care Teams Credit Verification Clerk Relationship Specialty Start Date End Date Marty Hinson MD [address] [place] [address] PCP - General Family Medicine 10/26/23 Alexandra Kay NP [address] [place] [address] PCP - [facility] 01/25/24 Alexandra Kay NP [address] [place] [address] Nurse Practitioner Family Medicine 05/27/23 Alexandra Kay NP [address] [place] [address] Nurse Practitioner Family Medicine 10/26/23 documented as of this encounter
--- OUTSIDE RECORDS SUMMARY | 2025-02-17 11:18 | XMS_ITS | Encounter Summary ---
Author Organization [facility] Address [address] [place] [address] Care Team Providers Care Studio Operations Engineer In Charge Name Role Phone Marty Hinson MD Primary Care Provider [phone] Alexandra Kay PRESS SHOP SUPERVISOR Unavailable [phone] Marty Hinson MD Primary Care Provider [phone] AicAlexandra robbins PRESS SHOP SUPERVISOR Unavailable [phone] Alexandra Kay PRESS SHOP SUPERVISOR Unavailable [phone] Rosita Cortes STACKER DRIVER Unavailable Lakeisha Nolan STACKER DRIVER Unavailable Encounter Details Date Type Department Care Team (Late st Contact Info) Description 04/26/2023 Abstract [facility] [address] [facility] [address] [place] [address] Doni Young MD [address] [facility] [address] [place] [address] Social History Tobacco Use Types Packs/Day Years Used Date Smoking Tobacco: Every Day Cigarettes Tobacco Cessation:Ready to Q uit: Not Asked; Counseling Given: Not Answered Alcohol Use Standard Drinks/Week Comments Yes 0 (1 standard drink = 0.6 oz pure alcohol) 1-2 drinks less than monthly in the past year, Caffeine intake: occasional coffee, 2 Red bulls/day Comments Unknown Sex and Gender Information Value [...] [address] [place] [address] 02/27/2025 9:20 AM EDT Office Visit [facility] [address] [place] [address] Doni Young MD [address] [place] [address] 03/08/2025 1:20 PM EDT Office Visit [facility] [address] [place] [address] Alexandra Kay, YAZAN [address] [place] [address] 04/10/2025 9:15 AM EDT Office Visit [facility] [address] [place] [address] Haley Young MD [address] [place] [address] documented as of this encounter Visit Diagnoses Not on filedocumented in this encounter Care Teams Studio Operations Engineer In Charge Relationship Specialty Start Date End Date Marty Hinson MD PCP - General Family Medicine 01/16/23 10/25/23 Marty Hinson MD [address] [place] [address] PCP - General Family Medicine 10/26/23 Alexandra Kay, YAZAN [address] [place] [address] PCP - [facility] 01/25/24 Alexandra Kay NP [address] [place] [address] Nurse Practitioner Family Medicine 05/27/23 Alexandra Kay NP [address] [place] [address] Nurse Practitioner Family Medicine 10/26/23 Rosita Cortes, STACKER DRIVER [address] [facility] [address] [place], [place] [id number] Health Data Administrator Edger Saw Operator 08/10/24 08/11/24 Lakeisha Nolan, STACKER DRIVER [address] [place] [address] Health Data Administrator Family Medicine 08/11/24 08/29/24 documented as of this encounter
--- OUTSIDE RECORDS SUMMARY | 2025-02-17 11:18 | XMS_ITS | Encounter Summary ---
Author Organization [facility] Address [address] [place] [address] Care Team Providers Care Substation Operator Helper Generation Name Role Phone Carina Rosado ENVIRONMENTAL SERVICES TECHNICIAN Unavailable [phone] Haley Young MD Unavailable [phone] Source Comments In the event this information is protected by the Federal Confidentiality of Alcohol and Drug AbusePatient Records regulations: The Federal rules restrict any use of the information to criminally investigate or prosecute any alcohol or drug abuse patient.[facility] Encounter Details Date Type Department Care Team (Late st Contact Info) Description 02/20/2021 Patient Msg Gynecology Oncology [address] [id number] [place] [address] [place] [address] RE: Appointment Cancellation Request Social History Tobacco Use Types Packs/Day Years [...] N ot on file 01/10/2021 Data from: https://www.neighborhoodatlas.medicine.[facility].edu/. Last address used for calculation Not on file 01/10/2021 Comments No Sex and Gender Information Value Date Recorded Sex Assigned at Not on file Legal Sex Female 12:53 PM EDT Gender Identity Not on file Sexual Orientation Not on file documented as of this encounter Plan of Treatment Not on file documented as of this encounter Visit Diagnoses Not on filedocumented in this encounter Care Teams Substation Operator Helper Generation Relationship Specialty Start Date End Date Carina Rosado CNP [address] [place] [address] Referring Family Medicine 04/04/19 Haley Young MD [address] [place] [address] Referring Obstetrics 10/09/20 documented as of this encounter
--- OUTSIDE RECORDS SUMMARY | 2025-02-17 11:18 | XMS_ITS | Encounter Summary ---
Author Organization [facility] Address [address] [place] [address] Care Team Providers Care Loom Checker Name Role Phone Alexandra Kay LAND SURVEYING PARTY CHIEF Unavailable [phone] Marty Hinson MD Primary Care Provider [phone] Alexandra Kay LAND SURVEYING PARTY CHIEF Unavailable [phone] Alexandra Kay LAND SURVEYING PARTY CHIEF Unavailable [phone] Rosita Cortes PRINTED FORMS PROOFREADER Unavailable Lakeisha Nolan PRINTED FORMS PROOFREADER Unavailable [phone] Encounter Details Date Type Department Care Team (Late st Contact Info) Description 02/19/2024 Clinisync Result Encounter [facility] Department Unsolicited Alexandra Kay, LAND SURVEYING PARTY CHIEF [address] [place] [address] Social History Tobacco Use Types Packs/Day Years [...] [address] [place] [phone] 02/27/2025 9:20 AM EDT Office Visit [facility] [address] [place] [address] Doni Young MD [address] [place] [address] 03/08/2025 1:20 PM EDT Office Visit [facility] [address] [place] [phone] Alexandra Kay NP [address] [place] [address] 04/10/2025 9:15 AM EDT Office Visit [facility] [address] [place] [address] Haley Young MD [address] [place] [address] documented as of this encounter Procedures Procedure Name Priority Date/Time Associated Diagnosis Comments US RIGHT UPPER QUADRANT 02/19/2024 4:24 PM EDT documented in this encounter Results * US RIGHT UPPER QUADRANT (02/19/2024 4:24 PM EDT) Anatomical Region Laterality Modality Other 02/19/2024 4:24 PM EDT Narrative 02/19/2024 4:26 PM EDT The [address] [address] Ultrasound Report Signed Patient: CRAINA GUY MR#: [id number] : 1990 Acct:[id number] Age/Sex: 33 / F ADM Date: 02/19/24 Loc: US Attending Dr: Alexandra Kay LAND SURVEYING PARTY CHIEF Ordering Physician: Alexandra Kay NP Date of Service: 02/19/24 Procedure(s): US right upper quadrant Accession Number(s): [id number] cc: Alexandra Kay NP The [place] [id number] Patient Name: CARINA GUY MRN: [id number] date: 1990 Sex: F Assigned Patient Location: US Current Patient Location: US Accession/Order Number: [id number] Exam Date: 02/19/2024 06:58 Report Date: 02/19/2024 16:24 At the request of: ALEXANDRA KAY Procedure: US right upper quadrant EXAMINATION: US right upper quadrant HISTORY: Elevated Alkaline Phosphate Level R74.5 COMPARISON: No relevant comparison available. TECHNIQUE: Transabdominal evaluation of the right upper quadrant. FINDINGS: LIVER: Normal size and echotexture. Color Doppler demonstrates patent hepatic veins. PORTAL VEIN: Duplex Doppler demonstrates normal hepatopetal flow pattern with flow velocity averaging 32 cm/s. GALLBLADDER: Contains multiple 1 cm size stones. No gallbladder wall thickening or free fluid. Negative sonographic Bonner's sign. BILIARY: No abnormal dilation or stones. Common bile duct diameter is within normal limits. PANCREAS: No visible mass, abnormal atrophy, or duct dilation. KIDNEY: No hydronephrosis. No visible mass or stones. Size: 12.5 x 5.9 x 5.0 cm US/US right upper quadrant IMPRESSION: 1. Cholelithiasis without ultrasound evidence of acute cholecystitis. Electronically authenticated by: SANDRO DUNNE Date: 02/19/2024 16:24 Dictated By: Sandro Dunne M.D. Signed By: 02/19/246 DD/ 23 TD/TT: Metalizing Machine Operator Automatic: Procedure Note Radiology, Radiologist, - 02/19/[address] [address] Ultrasound Report Signed Patient: CARINA GUY LMR#: [id number] : 1990Acct:[id number] Age/Sex: 33 / FADM Date: 02/19/24 Loc: US Attending Dr: Alexandra Kay NP Ordering Physician: Alexandra Kay NP Date of Service: 02/19/24 Procedure(s): US right upper quadrant Accession Number(s): [id number] cc: Alexandra Kay NP [address] [address] Patient Name: CARINA GUY MRN: [facility]:[id number] date: 1990 Sex: F Assigned Patient Location: US Current Patient Location: US Accession/Order Number: [id number] Exam Date: 02/19/2024 06:58 Report Date: 02/19/2024 16:24 At the request of: ALEXANDRA KAY Procedure: US right upper quadrant EXAMINATION: US right upper quadrant HISTORY: Elevated Alkaline Phosphate Level R74.5 COMPARISON: No relevant comparison available. TECHNIQUE: Transabdominal evaluation of the right upper quadrant. FINDINGS: LIVER: Normal size and echotexture. Color Doppler demonstrates patenthepatic veins. PORTAL VEIN: Duplex Doppler demonstrates normal hepatopetal flow patternwith flow velocity averaging 32 cm/s. GALLBLADDER: Contains multiple 1 cm size stones. No gallbladder wall thickening or free fluid. Negative sonographic Bonner's sign. BILIARY: No abnormal dilation or stones. Common bile duct diameter iswithin normal limits. PANCREAS: No visible mass, abnormal atrophy, or duct dilation. KIDNEY: No hydronephrosis. No visible mass or stones. Size: 12.5 x 5.9 x5.0 cm US/US right upper quadrant IMPRESSION: 1. Cholelithiasis without ultrasound evidence of acute cholecystitis. Electronically authenticated by: SANDRO DUNNE Date: 02/19/2024 16:24 Dictated By: Sandro Dunne M.D. Signed By:02/19/241625 DD/ 23 TD/TT: Metalizing Machine Operator Automatic: Alexandra Kay NP [facility] Final Result documented in this encounter Visit Diagnoses Not on filedocumented in this encounter Care Teams Loom Checker Relationship Specialty Start Date End Date Marty Hinson MD [address] [place] [phone] PCP - General Family Medicine 10/26/23 Alexandra Kay NP [address] [place] [phone] PCP - [facility] 01/25/24 Alexandra Kay NP [address] [place] [phone] Nurse Practitioner Family Medicine 05/27/23 Alexandra Kay NP [address] [place] [address] Nurse Practitioner Family Medicine 10/26/23 Rosita Cortes, CHLO[address] [place] [address] Scientific Artist Pressure Supervisor 08/10/24 08/11/24 Lakeisha Nolan, PRINTED FORMS PROOFREADER [address] [place] [address] Scientific Artist Family Medicine 08/11/24 08/29/24 documented as of this encounter
--- OUTSIDE RECORDS SUMMARY | 2025-02-17 11:18 | XMS_ITS | Clinical Summary ---
Author Organization [facility] Address [address] [facility] [place] [address] Care Team Providers Care Studio Assistant Name Role Phone Alexandra Kay NP Unavailable [phone] Marty Hinson MD Primary Care Provider [phone] Alexandra Kay COMMODITY LOAN CLERK Unavailable [phone] Alexandra Kay NP Unavailable [phone] Allergies Active Allergy Reactions Criticality Noted Date Comments Diphenhydramine 04/05/2024 RASH Nitrofurantoin Hives 09/26/2020 Sulfamethoxazole-Trimethoprim Hives Medium 2023 Medications EPINEPHrine (Epipen) 0.3 MG/0.3ML injection syringeIndicati ons:Anaphylaxis , initial encounter Inject 0.3 mL (0.3 mg) as directed if needed for anaphylaxis Call 911 after use. 4 each 3 08/17/19 25 2025 Active fexofenadine (Rylee) 60 MG tabletIndicatio ns:Chronic Idiopathic Urticaria Take 60 mg by mouth Daily as needed Active cetirizine (ZyrTEC) 10 MG tabletIndicatio ns:Chronic Urticaria,L50 Chronic Urticaria Take 2 tablets (20 mg) by mouth in the morning and 2 tablets (20 mg) before bedtime. 360 tablet 3 09/08/19 25 2025 Active famotidine (Pepcid) 20 MG tabletIndicatio ns:Chronic idiopathic urticaria Take 1 tablet (20 mg) by mouth in the morning and 1 tablet (20 mg) before bedtime. 180 tablet 3 09/08/19 25 2025 Active podofilox (Condylox) 0.5 % gel APPLY TOPICALLY 2 TIMES A DAY FOR 28 DAYS. 09/27/19 25 Active escitalopram (Lexapro) 10 MG tabletIndicatio ns:STUART (generalized anxiety disorder),Curre nt moderate episode of major depressive disorder without prior episode (HCC) Take 1 tablet (10 mg) by mouth Daily 30 tablet 12/21/19 25 Active albuterol HFA 90 mcg/act inhalerIndicati ons:Moderate persistent asthma in adult without complication (HCC) Inhale 2 puffs every 6 (six) hours if needed for shortness of breath or wheezing 18 g 01/21/20 25 2024 Active hydroCHLOROthia zide (HYDRODiuril) 25 MG tabletIndicatio ns:Primary hypertension Take 1 tablet (25 mg) by mouth Daily 30 tablet 1 01/26/20 25 2024 Active labetalol (Normodyne) 100 MG tabletIndicatio ns:Primary hypertension,Pa lpitations Take 1 tablet (100 mg) by mouth in the morning and 1 tablet (100 mg) before bedtime. 60 tablet 1 01/26/20 25 2024 Active budesonide-form oterol (Symbicort) 80-4.5 MCG/ACT inhalerIndicati ons:Moderate persistent asthma in adult without complication (HCC) Inhale 2 puffs in the morning and 2 puffs before bedtime. Rinse mouth after use. 1 each 5 01/26/20 25 2024 Active hydrOXYzine pamoate (Vistaril) 25 MG capsuleIndicati ons:Chronic idiopathic urticaria,Anxie ty, generalized Take 2 capsules (50 mg) by mouth at bedtime 60 capsule 3 09/08/19 25 2024 Discontinued(T herapy completed) budesonide-form oterol (Symbicort) 80-4.5 MCG/ACT inhalerIndicati ons:Moderate persistent asthma in adult without complication (HCC) Inhale 2 puffs in the morning and 2 puffs before bedtime. Rinse mouth after use. 1 each 5 09/21/19 25 2024 Discontinued(R eorder) oxyCODONE-aceta minophen (Percocet) 5-325 MG tablet Take 1 tablet by mouth every 6 (six) hours if needed 10/19/19 25 2024 Discontinued(T herapy completed) labetalol (Normodyne) 100 MG tabletIndicatio ns:Primary hypertension,Pa lpitations Take 1 tablet (100 mg) by mouth in the morning and 1 tablet (100 mg) before bedtime. 60 tablet 1 11/15/19 25 2024 Discontinued(R eorder) albuterol HFA 90 mcg/act inhalerIndicati ons:Moderate persistent asthma in adult without complication (HCC) Inhale 2 puffs every 6 (six) hours if needed for shortness of breath or wheezing 18 g 12/16/19 25 2024 Discontinued Hospital, Clinic, or Other Facility Administered Medication Ordered Dose Route Frequency Start Date End Date Status Omalizumab solution prefilled syringe 300 mgIndications:Chronic idiopathic urticaria 300 mg SC Once 01/30/2025 01/30/2025 Ende d Active Problems Problem Noted Date Diagnosed Date Body mass index (BMI) 40.0-44.9, adult Palpitations 09/21/2024 Assessment & Plan (01/25/2025 6:33 AM EDT): Current med: b ashley Assessment & Plan (09/21/2024 11:38 AM EST): Pt's OB placed her on propranolol for this Very intermittent, but lasts like 3 mins, no dyspnea, diaphoresis Abnormal EKG 09/21/2024 Assessment & Plan (09/21/2024 11:38 AM EST): Non specific T wave abnormality on 09/20 EKG No chest pain, Risk factors: HTN hyperlipidemia, smoking No family hx CAD Recheck EKG Fatigue 09/21/2024 Assessment & Plan (09/21/2024 11:41 AM EST): Check labs to r/o other causes Mixed hyperlipidemia 09/21/2024 Assessment & Plan (09/21/2024 11:42 AM EST): Recheck labs STUART (generalized anxiety disorder) 09/21/2024 Overview (09/21/2024): STUART 7=12 09/21/24 Assessment & Plan (01/25/2025 2:40 PM EDT): Continue lexapro 10mg daily Assessment & Plan (09/21/2024 11:42 AM EST): STUART 7=12 Start lexapro Take medication only as directed. This medication will take approximately 4-6 weeks to become effective. If any suicidal thoughts, thoughts of hurting others, or hallucinations contact the office or proceed to the Emergency Room for mental health evaluation. Medication may cause dry mouth, dizziness, and in some cases worsening in depression symptoms. Please contact the office if these occur. Current moderate episode of major depressive disorder without prior episode 09/21/2024 Overview (09/21/2024): PHQ 9=18 09/21/24 Assessment & Plan (09/21/2024 11:40 AM EST): PHQ 9=18 Start lexapro at 10mg daily Take medication only as directed. This medication will take approximately 4-6 weeks to become effective. If any suicidal thoughts, thoughts of hurting others, or hallucinations contact the office or proceed to the Emergency Room for mental health evaluation. Medication may cause dry mouth, dizziness, and in some cases worsening in depression symptoms. Please contact the office if these occur. Other urethral stricture, female 05/03/2024 Recurrent UTI 05/03/2024 Severe dysplasia of cervix 05/03/2024 Urethral lesion 05/03/2024 Primary hypertension 05/03/2024 Assessment & Plan (01/25/2025 2:39 PM EDT): Please check blood pressure daily and record DASH diet Limit caffeine Take medication as directed Contact office if chest pain, pressure, dizziness, shortness of breath, swelling legs Recommend slow position changes Meds: labetelol 100mg BID,add hydrochlorothiazide 25mg daily Check labs in 10-14 days Recheck office 6 weeks Assessment & Plan (09/21/2024 11:06 AM EST): Please check blood pressure daily and record DASH diet Limit caffeine Take medication as directed Contact office if chest pain, pressure, dizziness, shortness of breath, swelling legs Recommend slow position changes Will stop inderall, and change to labetelol 100mg BID Fu in 4 weeks Assessment & Plan (05/31/2024 11:45 AM EST): Please check blood pressure daily and record DASH diet Limit caffeine Take medication as directed Contact office if chest pain, pressure, dizziness, shortness of breath, swelling legs Recommend slow position changes Office reads: 122/86 manual, left arm, and wrist cuff 139/88 Assessment & Plan (05/03/2024 9:09 AM EDT): Home reads, bring back log Blood pressure monitor device DASH diet Fu in 4 weeks Morbid (severe) obesity due to excess calories 0 03/08/2024 Assessment & Plan (01/25/2025 6:33 AM EDT): Discussed with patient their BMI (actual, verses recommended). We have also discussed lifestyle modifications: attempts to perform physical activity as chronic conditions allow, also to monitor dietary intake: increasing protein/fruits/veggies and lowering carb intake (unless contraindicated). Limit sodas, juices, and sugary drinks. Assessment & Plan (09/21/2024 6:48 AM EST): Discussed with patient their BMI (actual, verses recommended). We have also discussed lifestyle modifications: attempts to perform physical activity as chronic conditions allow, also to monitor dietary intake: increasing protein/fruits/veggies and lowering carb intake (unless contraindicated). Limit sodas, juices, and sugary drinks. Also discussed oral medications that can be utilized for weight loss, as well as surgical options for weight loss. Assessment & Plan (05/31/2024 11:47 AM EST): Discussed with patient their BMI (actual, verses recommended). We have also discussed lifestyle modifications: attempts to perform physical activity as chronic conditions allow, also to monitor dietary intake: increasing protein/fruits/veggies and lowering carb intake (unless contraindicated). Limit sodas, juices, and sugary drinks. And physical activity Assessment & Plan (03/08/2024 9:39 AM EDT): Continue with weight loss Dietary modification as well as exercise Abnormal weight gain 03/08/2024 Assessment & Plan (03/08/2024 9:39 AM EDT): Can continue adipex month #3 Calculus of gallbladder with out cholecystitis without obstruction 02/23/2024 Assessment & Plan (09/21/2024 10:45 AM EST): Worsening in symptom freq/intensity happening almost daily occ nausea, no vomiting Freq smaller meals, no fatty/greasy foods Will send to [facility] Elevated alkaline phosphatase level 01/05/2024 Assessment & Plan (09/21/2024 11:40 AM EST): Recheck levels Also refer to general surgeon for gallbladder Assessment & Plan (01/26/2024 1:39 PM EDT): No current symptoms, will recheck hepatic panel and ggt Closed fibular fracture 12/28/2023 Wellness examination 12/28/2023 Asthma in adult 10/26/2023 Assessment & Plan (01/25/2025 2:40 PM EDT): Asthma: dx age 21 Uses symbicort daily as directed Albuterol use:1-2 times per week Mostly for cough no wheeze Does smoke, no other known triggers Assessment & Plan (09/21/2024 10:38 AM EST): Asthma: dx age 21 Uses symbicort daily as directed Albuterol use:1-2 times per week Mostly for cough no wheeze Does smoke, no other known triggers Assessment & Plan (05/31/2024 11:46 AM EST): Continue with ICS LABA Rare use of rescue inhaler Fu in 6 months Recommend quitting smoking Assessment & Plan (10/26/2023 6:28 PM EDT): Continue with ICS LABA Rare use of rescue inhaler Fu in 6 months Cervical high risk human pap illomavirus (HPV) DNA test positive 10/26/2023 Cigarette nicotine dependence without complicati on 10/26/2023 Assessment & Plan (01/25/2025 6:33 AM EDT): The patient has been advised of the risks of continued smoking: stroke, [place], all forms of cancer, lung disease, and . Options for quitting smoking include: cold turkey, hypnosis, acupuncture, nicotine replacement meds (gum, lozenges, and patches), Buproprion, and Varenicline. At this time pt is encouraged to evaluate their goals for wanting to quit smoking, and reach out to provider when ready to start this process Assessment & Plan (12/28/2023 10:15 AM EDT): The patient has been advised of the risks of continued smoking: stroke, TX, all forms of cancer, lung disease, and . Options for quitting smoking include: cold turkey, hypnosis, acupuncture, nicotine replacement meds (gum, lozenges, and patches), Buproprion, and Varenicline. At this time pt is encouraged to evaluate their goals for wanting to quit smoking, and reach out to provider when ready to start this process BLAINE II (cervical intraepithelial neoplasia II) 0 10/26/2023 Condyloma 10/26/2023 DUB (dysfunctional uterine bleeding) 10/26/2023 Human papilloma virus (HPV) infection 10/26/2023 Environmental and seasonal allergies 10/26/2023 UTI symptoms 10/05/2023 Assessment & Plan (12/28/2023 10:42 AM EDT): Urine no nitrites Will send for culture and treat if needed Fluids Clarified with pt regarding allergies, she states only allergy to macrodantin, NOT bactrim Chronic idiopathic urticaria 01/12/2023 High grade squamous intraepi thelial lesion (HGSIL), grade 3 BLAINE, on biopsy of cervix 10/11/2020 Vulvar intraepithelial neoplasia (ALLY) grade 3 0 10/11/2020 Resolved Problems Problem Noted Date Diagnosed Date Resolved Date Nicotine dependence 05/03/2024 01/26/20 Assessment & Plan (09/21/2024 6:48 AM EST): The patient has been advised of the risks of continued smoking: stroke, TX, all forms of cancer, lung disease, and . Options for quitting smoking include: cold turkey, hypnosis, acupuncture, nicotine replacement meds (gum, lozenges, and patches), Buproprion, and Varenicline. At this time pt is encouraged to evaluate their goals for wanting to quit smoking, and reach out to provider when ready to start this process Assessment & Plan (05/31/2024 6:29 AM EST): The patient has been advised of the risks of continued smoking: stroke, TX, all forms of cancer, lung disease, and . Options for quitting smoking include: cold turkey, hypnosis, acupuncture, nicotine replacement meds (gum, lozenges, and patches), Buproprion, and Varenicline. At this time pt is encouraged to evaluate their goals for wanting to quit smoking, and reach out to provider when ready to start this process Primary hypertension 05/03/2024 024 Class 3 severe obesity witho ut serious comorbidity with body mass index (BMI) of 40.0 to 44.9 in adult 10/26/2023 03/08/2024 Assessment & Plan (01/26/2024 1:38 PM EDT): Pt meets qualifications of OAC 4731-05-30 for weight loss. BMI>30 or >27 with comorbid conditions. Notify office with any symptoms of chest pain, dyspnea, heart palpitations, or any anxiety symptoms. F/U in 4 weeks to document weight loss. Increase physical activity as tolerated, and lower caloric intake to 1600 calories daily if no contraindications OARRS reviewed Fu in 4 weeks Month #2, total loss 4 pounds Assessment & Plan (12/28/2023 10:15 AM EDT): Pt meets qualifications of OAC 4731-05-30 for weight loss. BMI>30 or >27 with comorbid conditions. Notify office with any symptoms of chest pain, dyspnea, heart palpitations, or any anxiety symptoms. F/U in 4 weeks to document weight loss. Increase physical activity as tolerated, and lower caloric intake to 1600 calories daily if no contraindications OARRS reviewed Fu in 4 weeks Month #1 Assessment & Plan (10/26/2023 6:29 PM EDT): Would like to restart adipex, we will do this with next appt in 3 months Did well with it before Antibiotic-induced yeast infection 10/05/2023 01/04/2025 Anxiety 06/30/2023 09/21/2024 Overview (09/21/2024): STUART 7=12 09/21/24 Assessment & Plan (09/21/2024 11:39 AM EST): STUART 7=12 Start lexapro at 10mg daily Take medication only as directed. This medication will take approximately 4-6 weeks to become effective. If any suicidal thoughts, thoughts of hurting others, or hallucinations contact the office or proceed to the Emergency Room for mental health evaluation. Medication may cause dry mouth, dizziness, and in some cases worsening in depression symptoms. Please contact the office if these occur. Assessment & Plan (05/31/2024 11:48 AM EST): Is no longer taking buspar Feels good without Assessment & Plan (10/26/2023 6:27 PM EDT): Refill her buspar, is doing well on medications School will be done in late spring Assessment & Plan (06/30/2023 1:10 PM EST): Needs refill of buspiron Mild intermittent asthma without complication 04/27/20 23 10/26/2023 Encounters Date Type Department Care Team Description 01/30/2025 11:30 AM EDT Clinical Support [facility] [address] [place] [address] Chronic idiopathic urticaria 01/30/2025 Travel 01/25/2025 2:00 PM EDT Office Visit [facility] [address] [place] [address] Alexandra Kay NP Primary hypertension (Primary Dx); Morbid (severe) obesity due to excess calories ([facility]); Cigarette nicotine dependence without complication; Moderate persistent asthma in adult without complication (HCC); STUART (generalized anxiety disorder) ; Palpitations 01/25/2025 Bamboo flowsheet [facility] [address] [place] [address] Alexandra Kay NP 01/24/2025 Refill [facility] [address] [place] [address] Alexandra Kay NP Primary hypertension ; Palpitations; STUART (generalized anxiety disorder) ; Current moderate episode of major depressive disorder without prior episode (HCC) 01/19/2025 Refill [facility] [address] [place] [address] Alexandra Kay NP Moderate persistent asthma in adult without complication (HCC) 01/16/2025 2:30 PM EDT Clinical Support [facility] [address] [place] [address] Chronic idiopathic urticaria 01/16/2025 Travel 12/28/2024 4:30 PM EDT Clinical Support [facility] [address] [place] [address] Chronic idiopathic urticaria 12/28/2024 Travel 12/20/2024 Refill [facility] [address] [place] [address] Alexandra Kay NP STUART (generalized anxiety disorder) ; Current moderate episode of major depressive disorder without prior episode (HCC) 12/15/2024 Refill [facility] [address] [place] [address] Alexandra Kay NP Moderate persistent asthma in adult without complication (HCC) 12/14/2024 10:20 AM EDT Office Visit [facility] [address] [place] [address] Doni Young MD Chronic idiopathic urticaria (Primary Dx); Acute maxillary sinusitis, recurrence not specified 12/14/2024 Bamboo flowsheet [facility] [address] [place] [address] Doni Young MD 12/14/2024 Travel 12/07/2024 9:45 AM EDT Office Visit [facility] [address] [place] [address] Haley Young MD Vulvar intraepithelial neoplasia (ALLY) grade 3; ALLY III (vulvar intraepithelial neoplasia III); Severe dysplasia of cervix; Secondary hypertension ; Palpitations; Anxiety, generalized ; Chronic idiopathic urticaria; Patient desires ; Recurrent UTI; Condyloma 12/07/2024 8:30 AM EDT Ancillary Procedure [facility] [address] [place] [address] Cyst of right ovary 12/07/2024 Travel 11/30/2024 2:30 PM EDT Clinical Support [facility] [address] [place] [address] Chronic idiopathic urticaria 11/30/2024 Travel 11/21/2024 Refill [facility] [address] [place] [address] Alexandra Kay NP STUART (generalized anxiety disorder) ; Current moderate episode of major depressive disorder without prior episode (HCC) from Last 3 Months Immunizations Immunization Administration Dates Next Due DTaP 12/13/1997 HPV 9-Valent 11/18/2017,07/15/2017,04/20/2017 HPV, Unspecified 11/18/2017,07/15/2017, 7 Hep B, adult 02/20/2023,06/03/2022,04/29/2022 Influenza, Unspecified 05/27/2023,04/29/2022 Influenza, injectable, quadr ivalent, preservative free 05/27/2023,04/29/2022 MMR 06/03/2022,12/13/1997 Tdap 07/15/2017 Family History Medical History Relation Name Comments Hypertension Father prediabetes Father Cancer Maternal Grandmother Hypertension Mother Breast cancer Paternal Grandmother Diabetes Paternal Grandmother Relation Name Status Comments Daughter 1 Father Alive Maternal Grandmother Mother Alive Paternal Grandmother Sister 3 Social History Tobacco Use Types Packs/Day Years [...] file Not on file Not on file Last Filed Vital Signs Vital Sign Reading Time Taken Comments Blood Pressure 140/100 01/25/2025 2:11 PM EDT Pulse 92 01/25/2025 2:11 PM EDT Temperature 36.9 C (98.5 F) 01/25/2025 2:11 PM EDT Respiratory Rate 18 01/25/2025 2:11 PM EDT Oxygen Saturation 97% 01/25/2025 2:11 PM EDT Inhaled Oxygen Concentration - - Weight 132 kg (290 lb 6.4 oz) 01/25/2025 2:11 PM EDT Height 170.2 cm (5' 7 ) 05/31/2024 11:07 AM EST Body Mass Index 45.48 05/31/2024 11:07 AM EST Plan of Treatment Upcoming Encounters Date Type Department Care Team (Late st Contact Info) Description 02/20/2025 11:15 AM EDT Clinical Support [facility] [address] [place] [address] 02/27/2025 9:20 AM EDT Office Visit [facility] [address] [place] [address] Doni Young MD [address] [place] [address] 03/08/2025 1:20 PM EDT Office Visit [facility] [address] [place] [address] Alexandra Kay, COMMODITY LOAN CLERK [address] [place] [address] 04/10/2025 9:15 AM EDT Office Visit [facility] [address] [place] [address] Haley Young MD [address] [place] [address] Health Maintenance Due Date Last Done Comments Pap Smear 02/15/2027 02/16/2024 Cervical Cancer Screening 09/06/2029 HPV/Cotest 09/06/2029 09/06/2024, 08/27, 02/16/2024, Additional history exists Influenza Vaccine Discontinued 05/27/2023, , 04/29/2022, Additional history exists Procedures Procedure Name Priority Date/Time Associated Diagnosis Comments US PELVIS TRANSVAGINAL Routine 12/07/2024 9:29 AM EDT Cyst of right ovary IGP, APT HPV,RFX 16/18,45 Routine 09/06/2024 12:00 AM EST Vulvar intraepithelial neoplasia (ALLY) grade 3 Severe dysplasia of cervix ALLY III (vulvar intraepithelial neoplasia III) Encounter for screening for cervical cancer THINPREP TIS PAP AND HPV MRNA E6/E7 Routine 02/16/2024 12:00 AM EDT Screening for malignant neoplasm of cervix Encounter for gynecological examination without abnormal finding from Last 3 Months or Most Recently Relevant to Health Maintenance Results * US pelvis transvaginal (12/07/2024 9:29 AM EDT) Anatomical Region Laterality Modality Pelvis Ultrasound Study GA Study Date Study ROSELIA Working ROSELIA (Source) 12/07/2024 Haley Young MD [facility] US PROCEDURES Final Result * (ABNORMAL) IGP, APT HPV,RFX 16/18,45 (09/06/2024 12:00 AM EST) Diagnosis: Comment [facility] Comment:NEGATIVE FOR INTRAEP ITHELIAL LESION OR MALIGNANCY. Specimen Adequacy: Comment [facility] Comment: Satisfactory for evaluation. Endocervical and/or squamous metaplastic cells (endocervical component) are present. Clinician Provided ICD10: Comment [facility] Comment: D07.1 D06.9 Z12.4 Performed By: Comment [facility] Comment:Josefina Wilcox, Hyperbaric Tech (ASC) Cyto Comments . [facility] Note: Comment [facility] Comment: The Pap smear is a screening test designed to aid in the detection of premalignant and malignant conditions of the uterine cervix. It is not a diagnostic procedure and should not be used as the sole means of detecting cervical cancer. Both false-positive and false-negative reports do occur. Test Methodology: Comment [facility] Comment: This liquid based ThinPrep(R) pap test was screened with the use of an image guided system. HPV Aptima Positive(A ) Negative [facility] Comment: This nucleic acid amplification test detects fourteen high-risk HPV types (16,18,31,33,35,39,45,51,52,56,58,59,66,68) without differentiation. Vaginal Fluid 09/06/2024 09/07/2024 Narrative [facility] - 09/09/2024 10:07 AM EST Performed at: - [facility] [address] [place] [id number] Industrial Locomotive Operator: Manan Sandoval PhD, Phone: [phone] Performed at: - Lab[address] [id number] Industrial Locomotive Operator: Joi Alvares MD, Phone: [phone] Performed at: - [address] [id number] Industrial Locomotive Operator: oJi Alvares MD, Phone: [phone] Specimen Comment: No. of containers..01 ThinPrep Vial us Haley Young MD LAB BLOOD ORDERABLES Final Res ult [facility] * THINPREP TIS PAP AND HPV MRNA E6/E7 (02/16/2024 12:00 AM EDT) CLINICAL INFORMATION [facility] Comment:None given LMP [facility] Comment:None given PREV. PAP [facility] Comment:None given PREV. BX [facility] Comment:None given SOURCE [facility] Comment:None given STATEMENT OF ADEQUACY [facility] Comment: Satisfactory for evaluation. Endocervical/transformation zone component present. INTERPRETATION/RESU LT [facility] Comment: Cytology Results: Negative for intraepithelial lesion or malignancy. COMMENT [facility] Comment: This Pap test has been evaluated with computer assisted technology. MANAGER SURGERY [facility] Comment: DMK, CT(ASCP) CT screening location: [facility], [address] [place] [address]. (ALWAYS MESSAGE) [facility] Comment: EXPLANATORY NOTE: The Pap is a screening test for cervical cancer. It is not a diagnostic test and is subject to false negative and false positive results. It is most reliable when a satisfactory sample, regularly obtained, is submitted with relevant clinical findings and history, and when the Pap result is evaluated along with historic and current clinical information. HPV MRNA E6/E7 Not Detected Not Detected [facility] Comment: Methodology: [employer]-Mediated Amplification This assay detects E6/E7 viral messenger RNA (mRNA) from 14 high-risk HPV types (16,18,31,33,35,39,45,51,52,56,58,59,66,68). Cervical sources are required for HPV testing. If a vaginal source from a patient who has had a total hysterectomy with removal of cervix was submitted, please contact the testing laboratory for alternative testing options. 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
[2025-02-17 12:15] LABS: Anion Gap 11.0; Blood Urea Nitrogen 10.0 mg/dL (7.0-18.0); Calcium 9.2 mg/dL (8.5-10.1); Carbon Dioxide 30.4 mmol/L (21.0-32.0); Chloride 104 mmol/L (98-107); Estimated GFR (African America >60 (>=60 mL/min/1.73m^2); Estimated GFR (Non-African Ame >60 (>=60 mL/min/1.73m^2); Glucose 112 mg/dL (74-106); Potassium 3.4 mmol/L (3.5-5.1); Sodium 142 mmol/L (136-145)
== END 2025-02-17 11:15 | disposition home or self-care (01) ==
PROVIDERS: PCP Nurse Practitioner; Visit Provider Nurse Practitioner
DX: I10 Essential (primary) hypertension (principal)
CPT/HCPCS: 36415; 80048; 80053